=== PATIENT | female | born 1935 | race Caucasian/White ===

== ENCOUNTER 2019-03-12 10:04 | Inpatient (IN) | payer MEDICARE, SELFPAY ==
--- NOTE | 2019-03-08 11:42 | ECG_ITS ---
Measurements Intervals [place] Rate: 51 P: 65 AR: 192 QRS: 66 QRSD: 97 T: 50 QT: 470 QTc: 437 SINUS BRADYCARDIA Compared to ECG 12/21/2018 12:17:17 First degree AV block no longer present Electronically Signed On 03-08-2019 17:11:43 COREMAKING SUPERVISOR by Tawnya Thomas M.D. [email or web address]
[2019-03-08 12:16] VITALS: BMI 19.6
[2019-03-08 12:40] LABS: Hemoglobin 11.2 g/dL (11.5-15.3); Mean Corpuscular Hemoglobin 27.7 pg (28.0-34.0); Mean Corpuscular Volume 86.6 fL (81-99); Mean Platelet Volume 8.9 fL (7.4-10.4); Platelet Count 276 10^3/cmm (130-400); Red Blood Count 4.04 10^6/uL (4.1-5.3); Red Cell Distribution Width 14.9 % (12.1-15.1); White Blood Count 10.7 10^3/uL (4.0-10.0)
[2019-03-08 13:00] LABS: Alanine Aminotransferase 23 U/L (0-33); Albumin Level 4.9 g/dL (3.5-5.2); Alkaline Phosphatase 123 IU/L (35-105); Aspartate Amino Transferase 23 U/L (0-32); Blood Urea Nitrogen 19 mg/dL (8-23); Calcium 9.9 mg/Dl (8.8-10.2); Carbon Dioxide 26 mmol/L (22-29); Chloride 89 mmol/L (98-107); Creatinine Clr Calc Pharmacy 48.7329; Globulin 1.6 g/dL (1.3-4.6); Glucose 123 mg/dL (74-106); Sodium 127 mmol/L (136-145); Total Bilirubin 0.8 mg/dL (0.15-1.2); Total Protein 6.5 g/dL (6.6-8.7)
--- NOTE | 2019-03-08 13:10 | ANES.PREANES ---
Pre-Anesthetic Assessment Pre-Anesthetic Assessment: Height/Weight: Height 1.66 m Weight 54.431 kg Proposed Procedure: Operation Date: 03/12/19 07:00 Proposed Procedures p Hemiarthroplasty Hip/Versus Right Total Hip Arthroplasty(Right) - Franck Ramirez MD Social: Social History: Tobacco (quit september 2018) and No alcohol Exam: Pre-Anes Outpt Exam: alert, oriented x 3, clear to auscultation bilaterally and regular rate & rhythm Airway: Submandibular: WNL Cervical ROM: WNL MP: 2 Dentition: Partials (upper) and Other (poor) Pulmonary: Pulmonary: COPD CV/HEM: CV/HEM: HTN : : None reported Hepatic: Hepatic: None reported GI: GI: GERD (occ) Metabolic: Metabolic: Hyperlipidemia and Thyroid Musc/skel: Musc/skel: OA/DJD and Weakness Neuropsych: Neuropsych: Anxiety and Depression Anesthetic Plan: ASA status: III Anesthesia: Anesthesia Evaluation and General Risk of > 500 ml blood loss (7ml/kg in children): Yes, adequate IV access and fluids planned PFSH Anesthesia PFSH: Medical History (Updated 03/08/19 @ 13:11 by Chris Triana MD) Anxiety (Acute) Arthritis (Acute) Atrial fibrillation (Acute) Depression (Acute) High blood pressure (Acute) History of fracture (Acute) Hypothyroidism (Acute) MRSA (methicillin resistant Staphylococcus aureus) (Acute) Pneumonia (Acute) Sleep apnea (Acute) Surgical History (Updated 03/08/19 @ 13:11 by Chris Triana MD) History of section (Acute) Social History (Updated 03/08/19 @ 13:12 by Chris Triana MD) Smoking and tobacco status: former smoker Alcohol intake: never Data Anesthesia Labs: Other Labs: Laboratory Results - last 48 hr 03/08/19 03/08/19 12:06 12:06 WBC 10.7 H RBC 4.04 L Hgb 11.2 L Hct 35.0 L MCV 86.6 MCH 27.7 L MCHC 32.0 RDW 14.9 Plt Count 276 MPV 8.9 PT 15.60 H INR 1.20 Cardiac Studies: No Data to Display
[2019-03-08 14:45] LABS: Absolute Segmented Neutrophil 8.8 10/cmm (1.6-7.1); Lymphocytes 14 %; Monocytes Absolute 0.3 10^3/cmm (0.1-0.6); Platelet Estimate Normal (Normal); Segmented Neutrophils 83 %; Total Cells Counted 100 (0-100)
--- NOTE | 2019-03-09 | XR_ITS ---
WS: [id number] CHEST 2 VIEWS HISTORY: RIGHT HIP ARTHROPLASTY COMPARISON: 09/14/2018 Lungs: Mild hyperinflation of the lungs. Benign granuloma central LEFT lung. Minimal blunting of the LEFT costophrenic angle similar to prior studies. Cardiac size: Normal. Mediastinum/Aorta: Moderate atherosclerosis aorta. Bones: Bilateral AC joint arthritis. Mild thoracolumbar scoliosis. XR/XR chest 2V* [id number] IMPRESSION: 1. Stable chest with no acute cardiopulmonary disease. 2. Moderate atherosclerosis aorta.
[2019-03-12] VITALS (19 sets, daily range): BP systolic 99–156; BP diastolic 56–77; PULSE 53–81; RESP 16–20; TEMP 36.4–37.3; O2SAT 91–100
--- NOTE | 2019-03-12 06:15 | P.PN_ITS ---
Pre-Anesthetic Assessment Pre-Anesthetic Assessment: Height/Weight: Height 1.66 m Weight 54.431 kg Proposed Procedure: Operation Date: 03/12/19 07:00 Proposed Procedures p Hemiarthroplasty Hip/Versus Right Total Hip Arthroplasty(Right) - Franck Ramirez MD [facility] Anesthesia [facility]: Medical History Anxiety (Acute) Arthritis (Acute) Atrial fibrillation (Acute) Depression (Acute) High blood pressure (Acute) History of fracture (Acute) Hypothyroidism (Acute) MRSA (methicillin resistant Staphylococcus aureus) (Acute) Pneumonia (Acute) Sleep apnea (Acute) Surgical History History of section (Acute) Social History Smoking and tobacco status: former smoker Alcohol intake: never Data Anesthesia Cardiac Studies: No Data to Display
--- NOTE | 2019-03-12 06:43 | ANES.PREANES ---
Pre-Anesthetic Assessment Pre-Anesthetic Assessment: Height/Weight: Height 1.66 m Weight 54.431 kg Proposed Procedure: Operation Date: 03/12/19 07:00 Proposed Procedures p Hemiarthroplasty Hip/Versus Right Total Hip Arthroplasty(Right) - Franck Ramirez MD Last intake: Intake Last Liquid Date 03/11/19 Last Liquid Time 18:00 Last Solid Date 03/11/19 Last Solid Time 22:00 Social: Social History: Alcohol (occassional) and Tobacco (former) Exam: Pre-Anes Outpt Exam: alert, oriented x 3, clear to auscultation bilaterally and regular rate & rhythm Airway: Submandibular: WNL Cervical ROM: WNL MP: 2 Dentition: Chipped Additional comments: missing Pulmonary: Pulmonary: COPD Comments: mild CV/HEM: CV/HEM: Afib Comments: a fib - cleared up a few months ago : : None reported Hepatic: Hepatic: None reported GI: GI: None reported Metabolic: Metabolic: Thyroid Neuropsych: Neuropsych: Depression Anesthetic Plan: ASA status: III Anesthesia: General Risk of > 500 ml blood loss (7ml/kg in children): Yes, adequate IV access and fluids planned PFSH Anesthesia PFSH: Medical History Anxiety (Acute) Arthritis (Acute) Atrial fibrillation (Acute) Depression (Acute) High blood pressure (Acute) History of fracture (Acute) Hypothyroidism (Acute) MRSA (methicillin resistant Staphylococcus aureus) (Acute) Pneumonia (Acute) Sleep apnea (Acute) Surgical History History of section (Acute) Social History Smoking and tobacco status: former smoker Alcohol intake: never Data Anesthesia Cardiac Studies: No Data to Display
--- NOTE | 2019-03-12 07:07 | PM.HPUD ---
H&P update H&P Update: DATE OF SURGERY/PROCEDURE: 03/12/19 DATE H&P PERFORMED: 03/12/19 PLANNED PROCEDURE: Operation Date: 03/12/19 07:00 Proposed Procedures p Hemiarthroplasty Hip/Versus Right Total Hip Arthroplasty(Right) - Franck Ramirez MD Full H&P HPI: HPI: The patient is an 83-year-old female who is 5 months after open reduction internal fixation of her right hip with intramedullary device. She tolerated the original procedure on 09/12/2018 well. She has had complaints of continued pain and difficulty with regaining ambulatory status. She continued she used her walker. She describes no additional injuries. He is here today for removal of her intramedullary device and revision to a bipolar arthroplasty versus possible total hip arthroplasty ROS: ROS: She denies any fevers or chills. She has no numbness or tingling in her right lower extremity. She has no chest pain shortness of breath or palpitations. She has no cough or congestions. Perinent History: Medical/Surgical History: Medical History (Updated 03/08/19 @ 13:11 by Crhis Triana MD) Anxiety (Acute) Arthritis (Acute) Atrial fibrillation (Acute) Depression (Acute) High blood pressure (Acute) History of fracture (Acute) Hypothyroidism (Acute) MRSA (methicillin resistant Staphylococcus aureus) (Acute) Pneumonia (Acute) Sleep apnea (Acute) Social History: Social History Smoking and tobacco status: former smoker Alcohol intake: never Pertinent Exam Findings: OTHER PERTINENT EXAM FINDINGS: HEAD: Normocephalic/atraumatic. NECK: Soft supple nontender. HEART: Normal heart sounds, regular rhythm. CHEST: Clear to auscultation. ABDOMEN: Soft nontender nondistended. Right lower extremity: The patient has exquisite pain with motion of her right hip. She has a palpable right dorsalis pedis pulse. She will flex and sent her toes and her ankle without any motor deficits. Pertinent Data: PERTINENT DATA: Radiographs are reviewed of the right proximal femur from clinic dated 02/08/2019. The patient has progressive resorption across her femoral neck cut out of the lag screw from the femoral head. I do not see any acetabular erosions on those radiographs. A&P Assessment and plan (1) Closed intertrochanteric fracture of right hip: Patient has previously been counseled as to removal of hardware and arthroplasty of the right hip. If there are no significant acetabular erosions we will proceed with a cemented bipolar. If there is acetabular involvement will need to progress with a total hip. The patient has been previously counseled. We will proceed as scheduled. Status: Acute Qualifiers: Fracture healing: with nonunion Encounter type: subsequent encounter Fracture alignment: displaced Qualified Code(s): S72.141K - Displaced intertrochanteric fracture of right femur, subsequent encounter for closed fracture with nonunion Code(s): S72.141A - Displaced intertrochanteric fracture of right femur, initial encounter for closed fracture
[2019-03-12] MEDS: sodium chloride 0.9% 1,000 ML 30 ML IV (07:16)
[2019-03-12] MEDS: clindamycin 600 MG/50 ML PREMIX 100 MG IV (07:27)
[2019-03-12] MEDS: tranexamic acid 1,000 mg/10mL SDV 2000 MG IRRIGATION (08:28)
--- NOTE | 2019-03-12 08:34 | SUR.OPER ---
Trochnail and 2 screws removed intact. Placed in biohazard for disposal.
--- NOTE | 2019-03-12 09:59 | PM.OP ---
Operative Report Post-Operative Note: Date of procedure: 03/12/19 Preop Diagnosis: Nonunion right basicervical femoral neck fracture Post-op diagnosis: same Post-op Findings: The patient had nonunion of a basicervical right femoral neck fracture with cut out of the leg screw through the femoral head and superior acetabular erosions. Procedure Done: Right total hip arthroplasty with removal intramedullary hardware Implants: Stryiker total hip arthroplasty: Amish ADM anatomic dual mobility acetabular cup, 28 mm / 50 mm outer diameter ADM X3 insert, Biolox ceramic V 4038 mm femoral head, Omnifit leydi 127 degrees cemented hip stem,Biolox ceramic C taper femoral head 28 mm I outer diameter/-2.5 mm neck length Surgeon: Franck Ramirez Anesthesia: general Estimated blood loss (mL): 1,200 Complications: None Findings: The patient had a nonunion of a right basicervical femoral neck fracture. She had the previously placed intramedullary nail. No purulence or necrosis was identified. Condition: stable Disposition: PACU Operative Report: Brief History: See admission history and physical Procedure: The patient was taken to the operating room and anesthesia provided by the anesthesia service. The patient was placed in the lateral position on a beanbag. A timeout was performed. The patient was draped in the usual fashion. A 15 cm long incision was made beginning just proximal to the greater trochanter incorporating the proximal excision and extending posteriorly to a point just distal to the trochanter to the lateral lag screw scar. On the posterior border of the trochanter. Dissection was carried down with electrocautery through the subcutaneous fat to the fascia elmo which was divided proximally and distally with curved scissors. The anterior two thirds of the gluteus medius and minimus were elevated off the hip with electrocautery. Dissection was accomplished anteriorly beneath the remaining gluteus medius and minimus and the proximal gamma nail identified. Soft tissue was removed and the proximal lag screw locking screw removed. The extractor was placed. Dissection was then carried distally to the greater trochanter identifying the lag screw. It was removed without difficulty. The femoral juli was then removed. The capsule was divided in a H-like fashion. The hip was dislocated and a neck cut made just above the level of the lesser trochanter. The femoral head was removed. The acetabulum was palpated with erosions identified superiorly. A decision was made to proceed with a total hip arthroplasty. Exposure of the acetabulum was facilitated with the acetabular retractors. Remnants of labrum and peripheral osteophytes were removed with electrocautery and a rongeur. A reamer 2 mm under the size the femoral head was utilized to ream medially to the base of the palm and are. Reaming was then increased in 1 mm intervals until a healthy rim a trabecular bone was encountered. A trial ADM cup was placed and its position marked with electrocautery In the acetabulum. A final [place] 50 mm ADM shell was press-fit into place. Attention was then focused on the femur. Sequential reaming was done under power until cortical chatter was encountered. Broaching was then accomplished until a stable broach size was obtained. Due to the abnormalities of the proximal bone we proceeded with a cemented stem. The leg screw hole was filled with bone graft from the femoral head. A trial reduction with the -2.5 head and neck provided excellent stability. The wound was irrigated with saline and antibiotic solution. The final size 7 [place] was cemented into place. A ceramic 28 mm femoral head and -2.5 neck was placed with a 50 mm AVM insert and the hip was reduced. The hip was brought through range of motion and found to be free of impingement and stable. The anterior capsule was reapproximated with 1 Ethibond. The gluteus medius and minimus were repaired through bone with 5 Ethibond and reinforced with 1 Ethibond. The fascial elmo was closed with 1 Ethibond. The subcutaneous tissue closed with 2-0 Vicryl. The skin was closed with skin theo. A sterile dressing was applied. The patient was taken to the recovery room in an abduction pillow in stable condition. Coding Level of Care Code Acute Aluminum Boat Assembly Supervisor for Flores Saldana
--- NOTE | 2019-03-12 10:22 | XRR_ITS ---
PROCEDURE INFORMATION: Exam: XR Right Hip with Pelvis when Performed Exam date and time: 03/12/2019 10:25 AM Age: 83 years old Clinical indication: Device placement; Other: Postop right hip; Prior surgery; Surgery date: Post-operative (0-2 days) TECHNIQUE: Imaging protocol: XR Right hip with pelvis when performed. Views: 1 view. COMPARISON: CR Hip 2-3v RIGHT wwo Pelv* [id number] 09/16/2018 11:00 AM FINDINGS: Bones/joints: Hip arthroplasty without evidence of acute fracture or dislocation. No paralleling lucencies. Soft tissues: Postoperative changes in the soft tissues. Surgical clips. XR/XR hip RT 1V wo/w pel [id number] IMPRESSION: No acute fracture or dislocation status post hip arthroplasty.
--- NOTE | 2019-03-12 10:49 | SUR.PHASEI ---
1026 PT TO PACU SLEEPY WITH GOOD RESP EFFORT, RT HIP DRESSING D/I DISTAL FOOT WITH STRONG PULSE MARKED FIRST ICE TO RT HIPD ABD PILLOW IN PLACE BILAT FOOT PUMPS ON UMANA WITH STATLOCK TO RT THIGH. 1045 PT CONTINUES TO SLEEP VSS X RAY DONE.
--- NOTE | 2019-03-12 10:58 | SUR.PHASEI ---
PT AWAKES EASILY WITH GOOD RESP SATS ON RA 93\5 PT PLACEDON E3LNC SATS UP TO 94%
--- NOTE | 2019-03-12 11:58 | SUR.PHASEI ---
1125 PT TO FLOOR , AWAKE ALERT TALKATIVE WITH FAMILY IN ROOM AND NURSE SAMARA RN DRESSING D/I BP 149/76, HR 54M RESP 16, SATS ON 3LNC 94
[2019-03-12] MEDS: HYDROcodone-acetaminophen 5-325 mg Tablet 1 TAB PO (13:04)
[2019-03-12] MEDS: sodium chloride 0.9% 1,000 ML 100 ML IV (13:13)
[2019-03-12] MEDS: lanolin oint 7 gm 1 APPLIC TOPICAL (13:22)
[2019-03-12] MEDS: clindamycin 900 MG/50 ML PREMIX 100 MG IV (17:05)
[2019-03-12] MEDS: calcium carbonate 500 mg Chew Tablet 1000 MG PO (18:20)
[2019-03-12] MEDS: iron polysaccharide complex 150 mg Capsule PO (18:20)
[2019-03-12] MEDS: sennosides-docusate Tablet 2 TAB PO (18:20)
[2019-03-12] MEDS: buPROPion SR (12 HR) 150 mg Tablet PO (18:20)
[2019-03-12] MEDS: chlorhexidine gluconate 0.12% Btl 473 mL 30 ML MUCOUS MEM ×2 (18:20→21:49)
[2019-03-13] VITALS (8 sets, daily range): BP systolic 117–150; BP diastolic 57–69; PULSE 67–90; RESP 16–20; TEMP 36.5–37.1; O2SAT 91–97
[2019-03-13] MEDS: sodium chloride 0.9% 1,000 ML 100 ML IV ×3 (02:05→19:41)
[2019-03-13 05:10] LABS: Basophils % 0.1 %; Lymphocytes % 7.2 %; Mean Corpuscular HGB Conc 32.1 g/dL (30.0-36.0); Mean Corpuscular Hemoglobin 27.8 pg (28.0-34.0); Mean Corpuscular Volume 86.4 fL (81-99); Mean Platelet Volume 8.6 fL (7.4-10.4); Monocytes # 1.3 10^3/uL (0.2-0.9); Monocytes % 9.8 %; Neutrophils # 10.8 10^3/uL (1.8-7.7); Neutrophils % 82.1 %; Nucleated Red Blood Cells % 0 %; Platelet Count 222 10^3/cmm (130-400); Red Blood Count 3.24 10^6/uL (4.1-5.3); Red Cell Distribution Width 15.6 % (12.1-15.1); White Blood Count 13.2 10^3/uL (4.0-10.0)
[2019-03-13 05:44] LABS: Anion Gap 13.7 (5-19); Blood Urea Nitrogen 15 mg/dL (8-23); Calcium 8.8 mg/Dl (8.8-10.2); Carbon Dioxide 24 mmol/L (22-29); Chloride 95 mmol/L (98-107); Glucose 122 mg/dL (74-106); Potassium 3.7 mmol/L (3.5-5.1); Sodium 129 mmol/L (136-145)
--- NOTE | 2019-03-13 08:03 | PM.PN ---
Subjective Subjective: Interval history: Patient seems a bit confused. Tolerating po liquid. Pain control ok Medications: Reviewed: Yes Vitals/I&O/Wt Last Vital Signs Temp 98.8 F 03/13/19 03:42 Pulse 76 03/13/19 03:42 Resp 19 H 03/13/19 03:42 BP 145/66 03/13/19 03:42 Pulse Ox 95 03/13/19 03:42 03/12/19 03/13/19 03/13/19 22:59 06:59 14:59 Intake Total 410 / 3120 1050 / 4170 Output Total 200 / 1900 380 / 2280 Balance 210 / 1220 670 / 1890 Physical Exam Narrative: EXAM NARRATIVE: Right hip dressing clean and dry. Minimal swelling thigh Urinary Catheter Management^: Perry: Cath Placed During This Visit: removed today A&P Assessment and plan (1) Status post total hip replacement, right: Continue to mobilize with therapy. May need SNF although patient refuses to consider Snf presently Status: Acute Code(s): Z96.641 - Presence of right artificial hip joint (2) Chronic anticoagulation: I discussed patient's history of afib with family. She has not been in atrial fibrillation for some time to there kylee. Will hold Eliquis until wound stabilizes Status: Acute Code(s): Z79.01 - long term care administrator (current) use of anticoagulants Attestations Medical Necessity Statement*: Anticipate SNF placement. Patient will require 3 nights hospitalizaion Coding Level of Care Code Acute Senior Payroll Administrator for Flores Saldana Diagnoses Status post total hip replacement, right Z96.641 Chronic anticoagulation Z79.01
[2019-03-13] MEDS: lisinopril 20 mg Tablet 40 MG PO (10:05)
[2019-03-13] MEDS: digoxin 125 mcg Tablet PO (10:06)
[2019-03-13] MEDS: sennosides-docusate Tablet 2 TAB PO ×2 (10:06→18:20)
[2019-03-13] MEDS: montelukast sodium 10 mg Tablet PO (10:06)
[2019-03-13] MEDS: multivitamin therapeutic Tablet 1 TAB PO (10:10)
[2019-03-13] MEDS: amiodarone 200 mg Tablet PO (10:10)
[2019-03-13] MEDS: levothyroxine 100 mcg Tablet PO (10:10)
[2019-03-13] MEDS: calcium carbonate 500 mg Chew Tablet 1000 MG PO ×2 (10:10→18:19)
[2019-03-13] MEDS: buPROPion SR (12 HR) 150 mg Tablet PO ×2 (10:11→18:19)
[2019-03-13] MEDS: cholecalciferol (vitamin D3) 1,000 unit Tablet 1000 UNIT PO (10:11)
[2019-03-13] MEDS: pantoprazole DR 40 mg Tablet PO (10:11)
[2019-03-13] MEDS: iron polysaccharide complex 150 mg Capsule PO ×2 (10:11→18:19)
[2019-03-13] MEDS: HYDROcodone-acetaminophen 5-325 mg Tablet 1 TAB PO ×3 (10:12→19:40)
[2019-03-13] MEDS: citalopram 20 mg Tablet PO (10:12)
[2019-03-13] MEDS: atenolol 50 mg Tablet PO (10:12)
[2019-03-13] MEDS: atorvastatin 40 mg Tablet 20 MG PO (10:12)
[2019-03-13] MEDS: clindamycin 900 MG/50 ML PREMIX 100 MG IV ×2 (10:13)
[2019-03-13] MEDS: chlorhexidine gluconate 0.12% Btl 473 mL 30 ML MUCOUS MEM ×4 (10:14→21:24)
[2019-03-13] MEDS: TRAMadol 50 mg Tablet PO (21:27)
[2019-03-13 23:35] LABS: Glucose Urine UA Norm (Normal); Protein Urine Neg (Negative); Specific Gravity, Urine 1.025 (1.005-1.030); Urine Appearance Hazy (CLEAR); Urine Color Yellow (Yellow); pH Urine 5 (5-7)
[2019-03-13 23:36] LABS: Bilirubin Urine Neg (NEGATIVE); Blood Urine 2+ (Negative); Ketones Urine Negative (Negative); Leukocyte Esterase Urine 1+ (Negative); Nitrate Urine Negative (Negative); Urobilinogen Urine Norm (Negative)
[2019-03-13 23:47] LABS: Bacteria Urine TRACE; RBC Urine 40-50 /hpf (0-2); Squamous Epithelial Cell Urine 0-4 (0-5); WBC Urine 0-4 /hpf (0-5)
[2019-03-13 23:48] LABS: Add Urine Culture? Yes; Hyaline Casts Urine 0-4
[2019-03-14] VITALS (14 sets, daily range): BP systolic 95–149; BP diastolic 52–74; PULSE 63–83; RESP 16–20; TEMP 37.1–37.7; O2SAT 87–96
[2019-03-14] MEDS: sodium chloride 0.9% 1,000 ML 100 ML IV ×2 (03:40→11:52)
[2019-03-14 05:23] LABS: Basophils # 0.1 10^3/uL (0.0-0.1); Basophils % 0.5 %; Eosinophils # 0.1 10^3/uL (0.0-0.8); Eosinophils % 0.9 %; Hematocrit 23.6 % (37.0-47.0); Hemoglobin 7.6 g/dL (11.5-15.3); Lymphocytes % 9.4 %; Mean Corpuscular HGB Conc 32.2 g/dL (30.0-36.0); Mean Corpuscular Hemoglobin 27.1 pg (28.0-34.0); Mean Corpuscular Volume 84.3 fL (81-99); Mean Platelet Volume 8.9 fL (7.4-10.4); Monocytes # 1.1 10^3/uL (0.2-0.9); Monocytes % 10.2 %; Neutrophils # 8.3 10^3/uL (1.8-7.7); Neutrophils % 78.2 %; Nucleated Red Blood Cells % 0 %; Platelet Count 201 10^3/cmm (130-400); Red Cell Distribution Width 15.3 % (12.1-15.1); White Blood Count 10.7 10^3/uL (4.0-10.0)
[2019-03-14] MEDS: HYDROcodone-acetaminophen 5-325 mg Tablet 1 TAB PO ×4 (05:35→23:25)
[2019-03-14] MEDS: iron polysaccharide complex 150 mg Capsule PO ×2 (10:08→18:07)
[2019-03-14] MEDS: lisinopril 20 mg Tablet 40 MG PO (10:09)
[2019-03-14] MEDS: amiodarone 200 mg Tablet PO (10:09)
[2019-03-14] MEDS: buPROPion SR (12 HR) 150 mg Tablet PO ×2 (10:10→18:07)
[2019-03-14] MEDS: multivitamin therapeutic Tablet 1 TAB PO (10:10)
[2019-03-14] MEDS: atorvastatin 40 mg Tablet 20 MG PO (10:10)
[2019-03-14] MEDS: levothyroxine 100 mcg Tablet PO (10:10)
[2019-03-14] MEDS: pantoprazole DR 40 mg Tablet PO (10:10)
[2019-03-14] MEDS: citalopram 20 mg Tablet PO (10:10)
[2019-03-14] MEDS: montelukast sodium 10 mg Tablet PO (10:10)
[2019-03-14] MEDS: cholecalciferol (vitamin D3) 1,000 unit Tablet 1000 UNIT PO (10:10)
[2019-03-14] MEDS: atenolol 50 mg Tablet PO (10:10)
[2019-03-14] MEDS: calcium carbonate 500 mg Chew Tablet 1000 MG PO ×2 (10:11→18:07)
[2019-03-14] MEDS: sennosides-docusate Tablet 2 TAB PO ×2 (10:11→18:07)
[2019-03-14] MEDS: chlorhexidine gluconate 0.12% Btl 473 mL 30 ML MUCOUS MEM ×2 (10:11→18:05)
[2019-03-14] MEDS: digoxin 125 mcg Tablet PO (10:15)
--- NOTE | 2019-03-14 14:29 | PC.CHAP ---
Pastoral Care Encounter/Spiritual Assessment Type of Contact [] Declined epidemiology internship visit [] Patient/Family/Request visit [] Outpatient visit [x] Follow-up visit [] Physician referral [] Code/Alert [] Routine visit [] Staff referral [] Actively dying [x] Patient sleeping [] Family support [] [] Out of room [] Palliative care [] [] Receiving care in room [] Pre-surgical visit [] Trauma [] Long length of stay [] ICU visit [] Other: Relational/Emotional Strength [] Patient feels connected with others/family/visitors/staff [] Distress [] Loneliness/isolation [] Abandonment Spirituality of Patient [] Person of Meri [] Attends Yarsanism of their Meri [] Believes in Prayer [] Reads Bible or Baptist materials [] There are Spiritual issues to be addressed Biomedical Technician Interventions [] Prayer [] Active listening [] Non-anxious presence [] Spiritual/emotional support [] Crisis/trauma care [] Spiritual counseling [] Bereavement support [] Provided bereavement packet [] Provided Bible/devotional materials [] Provided toy/stuffed animal, coloring book to patient or family member [] Completed spiritual assessment [] Provided Communion [] Anointing/[place] [] Salvation [] Other: Impact on Illness or Injury [] Angry [] Fearful [] Anxious [] Often cries [] Exhaustion [] Unable to work [] Unable to attend restorationist [] Unable to walk/stand [] Unable to read [] Unable to drive [] Unable to eat/drink [] Unable to sleep [] Unable to be with family [] Other: Summary Time spent with patient
--- NOTE | 2019-03-14 17:06 | P.DS_ITS ---
Discharge Providers Date of Admission: 03/12/19 10:04 Date of Discharge: 03/15/19 Attending Provider at Admission: Franck Ramirez Attending Provider at Discharge: Franck Ramirez Primary Care Provider: Eduar Smith APN Diagnoses at Discharge Discharge Diagnosis (1) Status post total hip replacement, right: Status: Acute (2) Chronic anticoagulation: Status: Acute (3) Anemia due to blood loss: Status: Acute Problem details: The patient's hemoglobin decreased to 7.6 on the second postoperative day and she was given 1 additional unit PRBC. (4) Closed intertrochanteric fracture of right hip: Status: Acute Qualifiers: Encounter type: subsequent encounter Fracture alignment: displaced Fracture healing: with nonunion Qualified Code(s): S72.141K - Displaced intertrochanteric fracture of right femur, subsequent encounter for closed fracture with nonunion (5) Atrial fibrillation: Status: Acute (6) Sleep apnea: Status: Acute Reason for Visit Reason for Visit: Reason For Visit: Intertrochanteric Hip Fracture of Right Femur Hospital Course Hospital Course: The patient did well postoperatively. Her pain was controlled with oral medications. She made very slow progress with therapy and was thought to be best managed with a penitentiary transfer. On the second postoperative day her incision was free of drainage and her dressing continued to be clean on the third day. She had minimal thigh swelling. She has no neurovascular deficits in her right lower extremity. She was thought stable for discharge. Physical Exam Narrative: EXAM NARRATIVE: On the third postoperative day she had minimal swelling in her thigh. Her incision was clean. She had no neuro deficits in her right lower extremity. Urinary Catheter Management^: Perry: Cath Placed During This Visit: no Discharge Data Data Completed and Pending: Completed Studies During Hospitalization Category Date Time Status XR chest 2V* 7104 6 Routine Exams 03/09/19 Completed XR hip RT 1V wo/w pel [id number] Routine Exams 03/12/19 10:22 Completed Pending at discharge Category Date Time Status Autologous Red Ce lls Routine Lab 03/14/19 17:05 Ordered Complete Blood Co unt w/Auto AM LABS Lab 03/15/19 04:00 Ordered Urine Culture Rou christen Lab 03/13/19 22:40 Received Labs from last 24 hours 03/14/19 03/13/19 04:47 22:40 WBC 10.7 H RBC 2.80 L Hgb 7.6 L Hct 23.6 L MCV 84.3 MCH 27.1 L MCHC 32.2 RDW 15.3 H Plt Count 201 MPV 8.9 Neut % (Auto) 78.2 Lymph % (Auto) 9.4 Esmeralda % (Auto) 10.2 Eos % (Auto) 0.9 Baso % (Auto) 0.5 Neut # (Auto) 8.3 H Lymph # (Auto) 1.0 Esmeralda # (Auto) 1.1 H Eos # (Auto) 0.1 Baso # (Auto) 0.1 Nucleated RBC % (a uto) 0 Nucleated RBCs # 0.0 Urine Color Yellow Urine Appearance Hazy A Urine pH 5 Ur Specific Gravit y 1.025 Urine Protein Neg Urine Glucose (UA) Norm Urine Ketones Negative Urine Occult Blood 2+ H Urine Nitrate Negative Urine Bilirubin Neg Urine Urobilinogen Norm Ur Leukocyte Lucille ase 1+ H Urine RBC 40-50 H Urine WBC 0-4 H Ur Squamous Epith Cells 0-4 H Urine Bacteria Trace Hyaline Casts 0-4 H Vitals: Last Vital Signs Temp 99.0 F 03/14/19 15:41 Pulse 63 03/14/19 15:41 Resp 18 03/14/19 15:41 BP 113/57 03/14/19 15:41 Pulse Ox 90 03/14/19 15:41 Discharge Plan Discharge Patient Disposition: Xfer SNF Condition: Stable Prescriptions: New hydrocodone-acetaminophen 5-325 mg Tablet 1 tab PO Q4H PRN (Reason: Moderate Pain) Qty: 30 RF: 0 Continued bupropion HCl 150 mg tablet sustained-release 12 hr 150 mg PO BID RF: 0 alprazolam [Xanax] 1 mg tablet 1 mg PO PRN RF: 0 amiodarone 200 mg tablet 200 mg PO DAILY RF: 0 Multi-Vitamins with Iron Tablet,Chewable 1 tab PO DAILY RF: 0 tramadol 50 mg Tablet 50 mg PO BID PRN (Reason: Pain) RF: 0 simvastatin 40 mg tablet 40 mg PO DAILY RF: 0 levothyroxine 100 mcg tablet 100 mcg PO DAILY RF: 0 citalopram 20 mg tablet 20 mg PO DAILY RF: 0 pantoprazole 40 mg tablet,delayed release (DR/EC) 40 mg PO DAILY RF: 0 Nitrostat 0.4 mg Tablet, Sublingual 0.4 mg SUBLINGUAL Q5M PRN (Reason: Pain) RF: 0 montelukast [Singulair] 10 mg Tablet 10 mg PO DAILY RF: 0 digoxin [Digox] 125 mcg (0.125 mg) tablet 125 mcg PO PRN RF: 0 lisinopril 40 mg tablet 40 mg PO DAILY RF: 0 atenolol 50 mg tablet 50 mg PO DAILY RF: 0 vitamin C77-stbfj acid 500-400 mcg Tablet 1 tab PO DAILY RF: 0 Eliquis 5 mg tablet 5 mg PO BID RF: 0 Discharge Orders: Discharge Order (Routine); Ordered 03/15/19 Ordered By: Franck Ramirez Referrals: [facility] [Other] (You have been accepted by [facility] for services. They will be notifying you by phone to arrange a time to come and admit you to their services. If you have not heard from them by tomorrow afternoon please call their office. ) Franck Ramirez MD [Physician] - 03/26/19 1:00 pm Discharge Activity: Use walker/crutches as instructed Patient Instructions: Anemia, Hydrocodone/Acetaminophen (By mouth), Atrial Fibrillation (DC), Sleep Apnea Syndrome (DC), Total Hip Replacement (DC) Activity Restrictions/Additional Instructions: May weight-bear as tolerated with walker. Physical activity per physical therapy Okay to shower once incision free of drainage. The retirement may discontinue her Perry per protocol. Discharge Attestations Time Spent in Discharge Care*: less than 30 min Quality Metrics Clinical Quality Measures During this hospital stay, did patient experience: None Coding Level of Care Code Acute Special Agent Group Insurance for Flores Fwangelia Diagnoses Status post total hip replacement, right Z96.641 Chronic anticoagulation Z79.01 Anemia due to blood loss D50.0 Closed intertrochanteric fracture of right hip S72.141K Encounter type: subsequent encounter Fracture alignment: displaced Fracture healing: with nonunion Atrial fibrillation I48.91 Sleep apnea G47.30
--- NOTE | 2019-03-14 17:11 | P.PN_ITS ---
Subjective Subjective: Interval history: Patient's pain is much better. Perry catheter placed last night. Vitals/I&O/Wt Last Vital Signs Temp 99.0 F 03/14/19 15:41 Pulse 63 03/14/19 15:41 Resp 18 03/14/19 15:41 BP 113/57 03/14/19 15:41 Pulse Ox 90 03/14/19 15:41 03/14/19 03/14/19 03/14/19 06:59 14:59 22:59 Intake Total 798.333 / 2948.333 1060 / 1060 Output Total 500 / 925 Balance 298.333 / 2023.333 1060 / 1060 Weight last 48 hrs Weight 163 lb Weight 159 lb 4.8 oz Physical Exam Narrative: EXAM NARRATIVE: Right hip incision clean and dry. Minimal swelling right thigh Urinary Catheter Management^: Perry: Cath Placed During This Visit: no A&P Assessment and plan (1) Closed intertrochanteric fracture of right hip: Status: Acute Qualifiers: Encounter type: subsequent encounter Fracture alignment: displaced Fracture healing: with nonunion Qualified Code(s): S72.141K - Displaced intertrochanteric fracture of right femur, subsequent encounter for closed fracture with nonunion Code(s): S72.141A - Displaced intertrochanteric fracture of right femur, initial encounter for closed fracture (2) Anemia due to blood loss: Status: Acute Code(s): D50.0 - Iron deficiency anemia secondary to blood loss (chronic) (3) Status post total hip replacement, right: The patient is slow to mobilize with therapy. I discussed intermediate with the placement and they agreed toward placement tomorrow Status: Acute Code(s): Z96.641 - Presence of right artificial hip joint Attestations Medical Necessity Statement*: The patient will be qualified for intermediate tomorrow after 3 nights hospitalization Coding Level of Care Code Acute Medical Cash Poster for Flores Saldana Diagnoses Closed intertrochanteric fracture of right hip S72.141K Encounter type: subsequent encounter Fracture alignment: displaced Fracture healing: with nonunion Anemia due to blood loss D50.0 Status post total hip replacement, right Z96.641
[2019-03-14] MEDS: TRAMadol 50 mg Tablet PO (20:35)
[2019-03-15] MEDS: sodium chloride 0.9% 1,000 ML 100 ML IV (00:25)
[2019-03-15 01:45] VITALS: PULSE 90; PULSE 91; RESP 18; O2SAT 81; O2SAT 95
[2019-03-15 03:05] VITALS: BP 109/62; PULSE 62; RESP 16; TEMP 36.7; O2SAT 92
--- NOTE | 2019-03-15 04:05 | PC.RESP ---
When RT entered the room and checked vitals o2 sat was 81%, the patients nasal cannula was out of the patients nose. RT placed the cannula back in the patients nose correctly and increased to liter flow to 3lpm, the patients saturations increased to 95%
[2019-03-15 05:37] LABS: Basophils # 0.1 10^3/uL (0.0-0.1); Basophils % 0.6 %; Eosinophils # 0.3 10^3/uL (0.0-0.8); Eosinophils % 2.8 %; Hematocrit 24.3 % (37.0-47.0); Hemoglobin 7.8 g/dL (11.5-15.3); Lymphocytes # 1.1 10^3/uL (0.8-4.8); Lymphocytes % 12.8 %; Mean Corpuscular HGB Conc 32.1 g/dL (30.0-36.0); Mean Corpuscular Hemoglobin 28.1 pg (28.0-34.0); Mean Corpuscular Volume 87.4 fL (81-99); Mean Platelet Volume 8.9 fL (7.4-10.4); Monocytes # 0.9 10^3/uL (0.2-0.9); Monocytes % 10.1 %; Neutrophils # 6.4 10^3/uL (1.8-7.7); Neutrophils % 72.9 %; Nucleated Red Blood Cells % 0 %; Platelet Count 193 10^3/cmm (130-400); Red Blood Count 2.78 10^6/uL (4.1-5.3); Red Cell Distribution Width 14.9 % (12.1-15.1); White Blood Count 8.8 10^3/uL (4.0-10.0)
[2019-03-15 07:00] VITALS: BP 145/72; PULSE 91; RESP 16; TEMP 36.7; O2SAT 92
[2019-03-15 07:21] VITALS: BP 153/62; PULSE 61; RESP 18; TEMP 36.8; O2SAT 96
--- NOTE | 2019-03-15 07:53 | ANE.PACU ---
 Inpatient post-anesthesia follow up: Airway intact: Yes Vital signs: Temperature 98.2 F Pulse Rate [Bilate ral Dorsalis 61 Pedis] Pulse Rate [Left B rachial] 73 Pulse Rate 91 Respiratory Rate 18 Blood Pressure [Ri ght Arm] 153/62 Blood Pressure 145/72 Pulse Oximetry 96 Oxygen Delivery Me thod [Rate & Nasal Cannula Delivery Changed T o] Oxygen Delivery Me thod [ Nasal Cannula Current Rate & Del francisco] Oxygen Delivery Me thod Nasal Cannula Oxygen Flow Rate [ Rate & 3 Delivery Changed T o] Oxygen Flow Rate [ Current Rate 1 & Delivery] Oxygen Flow Rate 3 Fraction of Inspir ed Oxygen Hydration adequate: Yes Nausea and vomiting: No Mental status: Baseline
[2019-03-15] MEDS: montelukast sodium 10 mg Tablet PO (08:17)
[2019-03-15] MEDS: cholecalciferol (vitamin D3) 1,000 unit Tablet 1000 UNIT PO (08:17)
[2019-03-15] MEDS: iron polysaccharide complex 150 mg Capsule PO (08:17)
[2019-03-15] MEDS: calcium carbonate 500 mg Chew Tablet 1000 MG PO (08:17)
[2019-03-15] MEDS: buPROPion SR (12 HR) 150 mg Tablet PO (08:18)
[2019-03-15] MEDS: citalopram 20 mg Tablet PO (08:18)
[2019-03-15] MEDS: amiodarone 200 mg Tablet PO (08:18)
[2019-03-15] MEDS: multivitamin therapeutic Tablet 1 TAB PO (08:18)
[2019-03-15] MEDS: pantoprazole DR 40 mg Tablet PO (08:18)
[2019-03-15] MEDS: sennosides-docusate Tablet 2 TAB PO (08:18)
[2019-03-15] MEDS: atenolol 50 mg Tablet PO (08:18)
[2019-03-15] MEDS: levothyroxine 100 mcg Tablet PO (08:18)
[2019-03-15] MEDS: lisinopril 20 mg Tablet 40 MG PO (08:18)
[2019-03-15] MEDS: atorvastatin 40 mg Tablet 20 MG PO (08:19)
[2019-03-15 08:20] VITALS: PULSE 74
[2019-03-15] MEDS: chlorhexidine gluconate 0.12% Btl 473 mL 30 ML MUCOUS MEM (08:20)
[2019-03-15] MEDS: digoxin 125 mcg Tablet PO (08:20)
[2019-03-15] MEDS: HYDROcodone-acetaminophen 5-325 mg Tablet 1 TAB PO (08:25)
[2019-03-15] MEDS: apixaban 5 mg Tablet PO (09:42)
[2019-03-15] MEDS: cetylpyridinium Lozenge 1 EACH MUCOUS MEM (09:51)
--- NOTE | 2019-03-15 10:55 | PC.SOCIAL ---
IMM Page 2 of IMM explained to and signed by patient's family at bedside. Initialed, dated, and timed and placed in chart. Copy provided to patient.
[2019-03-15 11:01] VITALS: BP 111/52; PULSE 53; RESP 18; TEMP 36.8; O2SAT 96
== END 2019-03-15 13:16 | disposition skilled nursing facility (03) | DRG 468 ==
LOC: MEDSURG 10:17
PROVIDERS: Admitting Provider Orthopaedic Surgery; Family Provider Nurse Practitioner Family; PCP Nurse Practitioner Family; Visit Provider Orthopaedic Surgery
PROC: 0SR90J9 Replacement of Right Hip Joint with Synthetic Substitute, Cemented, Open Approach (ICD-10-PCS; CPT 27125; principal; 2019-03-12 07:00)
DX: S72.141K Displaced intertrochanteric fracture of right femur, subsequent encounter for closed fracture with nonunion (principal); Z79.01 Long term (current) use of anticoagulants; G47.30 Sleep apnea, unspecified; I48.91 Unspecified atrial fibrillation; E03.9 Hypothyroidism, unspecified; Z86.14 Personal history of Methicillin resistant Staphylococcus aureus infection; M19.90 Unspecified osteoarthritis, unspecified site; I10 Essential (primary) hypertension; F41.8 Other specified anxiety disorders; Z87.891 Personal history of nicotine dependence; X58.XXXA Exposure to other specified factors, initial encounter
CPT/HCPCS: 36415; 36430; 51702; 51798; 71046; 73501; 73502; 80048; 80053; 81001; 85007; 85025; 85027; 85610; 86850; 86900; 87086; 93005; 97110; 97116; 97162; 97167; 97530; 97535; C1713; C1776; J0131; J1100; J1580; J2001; J2405; J2704; J2710; J3010; J3490; J7030; P9016

== ENCOUNTER 2019-03-28 06:00 | Outpatient (RCR) | payer MEDICARE, SELFPAY | END 2019-04-06 23:59 | disposition home or self-care (01) | LOC: TPT 06:00 | PROVIDERS: Family Provider Nurse Practitioner Family; PCP Nurse Practitioner Family; Visit Provider Orthopaedic Surgery | DX: Z47.1 Aftercare following joint replacement surgery (principal); Z96.641 Presence of right artificial hip joint | CPT/HCPCS: 97110; 97161 ==

== ENCOUNTER 2019-04-07 06:00 | Outpatient (RCR) | payer MEDICARE, SELFPAY | END 2019-05-05 23:59 | disposition home or self-care (01) | LOC: TPT 06:00 | PROVIDERS: Family Provider Nurse Practitioner Family; PCP Nurse Practitioner Family; Visit Provider Orthopaedic Surgery | DX: Z47.1 Aftercare following joint replacement surgery (principal); Z96.641 Presence of right artificial hip joint; M25.551 Pain in right hip | CPT/HCPCS: 97110; 97116 ==

== ENCOUNTER 2019-04-13 16:39 | Inpatient (IN) | payer MEDICARE, SELFPAY ==
[2019-04-13] VITALS (7 sets, daily range): BP systolic 81–173; BP diastolic 47–71; PULSE 52–61; RESP 13–18; TEMP 36.4–36.7; O2SAT 93–99; BMI 20.7
--- NOTE | 2019-04-13 17:26 | ED_ITS ---
Entered by Robbi Carmona, acting as scribe for Anil Charles DO Apr 13, 2019 16:39 Documented by User: Anil Charles DO 04/14/19 06:14 HPI - Abdominal Pain General: Chief Complaint: Abdominal Pain Stated Complaint: throwing up Time Seen by Provider: 04/13/19 17:27 History of Present Illness: HPI narrative: 83 yo female presents with abd pain and vomiting. Pt states that her pain started about 2 days ago. Pt states that she has been taking zofran but that doesn't seem to help. relates severe abd pain. Denies hematochezia or hematemesis. She denies fever. SHe cannot localize pain in the abd. MD elicited complaint: abdominal pain Associated Symptoms: Reports bloating, GI cramping, nausea and vomiting; Denies chills, coffee ground emesis, dysuria, fever(s), hematochezia, hematuria, hematemesis, melena and syncope Review of Systems Const: Denies: fever, chills, body aches, fatigue, malaise or night sweats Eyes: Denies: change in vision or blurry vision ENMT: Denies: throat pain, oral sores/lesions, dental pain, nasal discharge or nasal congestion Card: Denies: chest pain, palpitations, irregular heart rhythm, edema, syncope, shortness of breath on exertion, shortness of breath when lying down or leg pain with exertion Resp: Denies: shortness of breath, productive cough, non-productive cough or wheezing GI: Reports: abdominal pain, nausea, vomiting, bloating and cramping; Denies: vomiting blood, coffee grounds in vomit, blood in stool or black tarry stool : Denies: flank pain, painful urination, urinary frequency, urinary urgency, urinary incontinence or blood in urine Musc: Denies: neck pain, back pain, extremity pain, extremity swelling, joint pain or joint swelling Skin/Breast: Denies: rash, itching or redness Neuro: Denies: headache, numbness in extremities, weakness in extremities, changes in sensation, lack of coordination, difficulty walking, frequent falls, dizziness, vertigo or confusion Psych: Denies: anxiety, depression, loss of interest, visual hallucinations, auditory hallucinations, suicidal ideation or homicidal ideation Endo: Denies: excessive urination, excessive thirst, tired all the time or cold intolerance Johny/Lymph: Denies: easy bruising, easy bleeding, petechiae, enlarged lymph nodes or tender lymph nodes PFSH ED PFSH: Statuses (acute, chronic, etc) shown below reflect problem list status as previously entered and may not be historically accurate Medical History (Updated 04/13/19 @ 21:54 by Jerson Collazo MD) Anxiety (Acute) Arthritis (Acute) Atrial fibrillation (Acute) COPD (chronic obstructive pulmonary disease) (Acute) Depression (Acute) High blood pressure (Acute) History of fracture (Acute) Hypothyroidism (Acute) MRSA (methicillin resistant Staphylococcus aureus) (Acute) Peripheral vascular disease (Acute) Pneumonia (Acute) Sleep apnea (Acute) Surgical History (Updated 04/13/19 @ 17:30 by Robbi Carmona) History of section (Acute) Status post total hip replacement, right (Acute) Family History (Updated 04/13/19 @ 21:44 by Jerson Collazo MD) Other Diabetes Hypertension Social History Smoking and tobacco status: former smoker Alcohol intake: never Physical Exam Const: COMMON NORMALS: average body habitus, oriented x3 and alert GENERAL APPEARANCE: cooperative, comfortable, well kempt and well developed NUTRITIONAL APPEARANCE: not obese ORIENTATION/CONSCIOUSNESS: Yes awake, Yes oriented to person and Yes oriented to place HENMT: COMMON NORMALS: normocephalic, head/scalp atraumatic, EAC's normal, TM's normal bilaterally, external nose normal, moist oral mucous membranes and oropharynx normal HEAD & SCALP: normocephalic and atraumatic NOSE: external nose normal EXTERNAL AUDITORY CANAL: EAC's normal TYMPANIC MEMBRANE: TM's normal bilaterally MOUTH: oral and palatal mucosa normal, lip normal and tongue normal THROAT: posterior oropharynx normal and tonsils normal Eye: COMMON NORMALS: PERRL, EOMs intact bilaterally, conjunctivae normal and no scleral icterus CONJUNCTIVA: Yes conjunctivae normal PUPIL: Yes PERRL Neck/C-Spine: COMMON NORMALS: full ROM, no lymphadenopathy, supple, no meningeal signs and thyroid normal THYROID: thyroid normal and asymmetrical Lymph: LYMPHATIC: no lymphadenopathy noted Resp: COMMON NORMALS: normal respiratory effort, no retractions, no use of accessory muscles and clear to auscultation bilaterally AUSCULTATION: clear to auscultation bilaterally Cardio: COMMON NORMALS: regular rate and regular rhythm RATE: regular rate RHYTHM: regular rhythm HEART SOUNDS: no murmurs GI: COMMON NORMALS: no hepatosplenomegaly AUSCULTATION: Yes hypoactive bowel sounds PALPATION: Yes tender (diffusely, no rebound) and Yes no hepatosplenomegaly : COMMON NORMALS: Yes no CVA tenderness BLADDER/KIDNEY EXAM: Yes no CVA tenderness Back/Pelvis: COMMON NORMALS: no CVA tenderness LUMBAR SPINE/LOWER BACK: Yes normal to inspection Extremity: COMMON NORMALS: no clubbing, cyanosis or edema, no calf tenderness and no pedal edema Neuro: COMMON NORMALS: oriented x3 SENSORIUM/ORIENTATION: Yes alert, Yes oriented to person and Yes oriented to place MENINGEAL SIGNS: Yes no meningeal signs Psych: APPEARANCE: Yes well kempt Skin: COMMON NORMALS: no rashes or lesions noted and skin turgor normal GENERAL SKIN EXAM: no rashes or lesions noted and turgor normal Course ED course: Care turned over to Dr. Her at change of shift. Vital Signs: Vital signs: Vital Signs Temperature 98.0 F 04/14/19 00:00 Pulse Rate 54 L 04/14/19 00:00 Respiratory Rate 17 04/14/19 00:00 Blood Pressure 147/66 04/14/19 00:00 Pulse Oximetry 94 04/14/19 00:00 MDM - Abdominal Pain Lab Data: Labs: Lab Results 04/13/19 04/13/19 04/13/19 Range/Units 17:37 18:05 18:05 WBC 14.2 H (4.0-10.0) 10^3/ uL RBC 4.88 (4.1-5.3) 10^6/u L Hgb 13.2 (11.5-15.3) g/dL Hct 40.8 (37.0-47.0) % MCV 83.6 (81-99) fL MCH 27.0 L (28.0-34.0) pg MCHC 32.4 (30.0-36.0) g/dL RDW 15.2 H (12.1-15.1) % Plt Count 333 (130-400) 10^3/c mm MPV 9.0 (7.4-10.4) fL Neut % (Auto) 83.4 % Lymph % (Auto) 9.4 % Concho % (Auto) 5.8 % Eos % (Auto) 0.1 % Baso % (Auto) 0.4 % Neut # (Auto) 11.9 H (1.8-7.7) 10^3/u L Lymph # (Auto) 1.3 (0.8-4.8) 10^3/u L Concho # (Auto) 0.8 (0.2-0.9) 10^3/u L Eos # (Auto) 0.0 (0.0-0.8) 10^3/u L Baso # (Auto) 0.1 (0.0-0.1) 10^3/u L Nucleated RBC % (a uto) 0 % Nucleated RBCs # 0.0 /100WBC Sodium 127 L (136-145) mmol/L Potassium 4.1 (3.5-5.1) mmol/L Chloride 89 L (98-107) mmol/L Carbon Dioxide 21 L (22-29) mmol/L Anion Gap 21.1 H (5-19) BUN 17 (8-23) mg/dL Creatinine 0.7 (0.5-0.9) mg/dL Glucose 137 H (65-115) mg/dL Calcium 10.5 (8.5-10.5) mg/dL Total Bilirubin 1.0 (0.15-1.2) mg/dL AST 18 (0-32) U/L ALT 15 (0-33) U/L Alkaline Phosphata se 165 H (35-105) IU/L C-Reactive Protein 4.5 (0.0-4.9) mg/L Total Protein 7.5 (6.6-8.7) g/dL Albumin 4.3 (3.5-5.2) g/dL Globulin 3.2 (1.3-4.6) g/dL Lipase 32 (13-60) U/L Procalcitonin 0.05 (0-0.5) ng/mL Influenza Type A A g (Negative) POC Influenza B Ag (Negative) 04/13/19 Range/Units 18:10 WBC (4.0-10.0) 10^3/ uL RBC (4.1-5.3) 10^6/u L Hgb (11.5-15.3) g/dL Hct (37.0-47.0) % MCV (81-99) fL MCH (28.0-34.0) pg MCHC (30.0-36.0) g/dL RDW (12.1-15.1) % Plt Count (130-400) 10^3/c mm MPV (7.4-10.4) fL Neut % (Auto) % Lymph % (Auto) % Concho % (Auto) % Eos % (Auto) % Baso % (Auto) % Neut # (Auto) (1.8-7.7) 10^3/u L Lymph # (Auto) (0.8-4.8) 10^3/u L Concho # (Auto) (0.2-0.9) 10^3/u L Eos # (Auto) (0.0-0.8) 10^3/u L Baso # (Auto) (0.0-0.1) 10^3/u L Nucleated RBC % (a uto) % Nucleated RBCs # /100WBC Sodium (136-145) mmol/L Potassium (3.5-5.1) mmol/L Chloride (98-107) mmol/L Carbon Dioxide (22-29) mmol/L Anion Gap (5-19) BUN (8-23) mg/dL Creatinine (0.5-0.9) mg/dL Glucose (65-115) mg/dL Calcium (8.5-10.5) mg/dL Total Bilirubin (0.15-1.2) mg/dL AST (0-32) U/L ALT (0-33) U/L Alkaline Phosphata se (35-105) IU/L C-Reactive Protein (0.0-4.9) mg/L Total Protein (6.6-8.7) g/dL Albumin (3.5-5.2) g/dL Globulin (1.3-4.6) g/dL Lipase (13-60) U/L Procalcitonin (0-0.5) ng/mL Influenza Type A A g Negative (Negative) POC Influenza B Ag Negative (Negative) Discharge Plan Discharge Patient Disposition: Admitted As Inpatient Admit Provider: Jerson Collazo Clinical Impression: Enteritis, Small bowel obstruction, partial Condition: Stable Referrals: Eduar Smith [employer] [Primary Care Provider] - Discharge Date/Time: 04/13/19 21:35 Sign Out Sign Out Data: Sign Out Comment: 83-year-old female severe abdominal pain with guarding. CT and labs pending Last updated by Anil Charles DO at 04/13/19 17:55 Coding Level of Care Code ED Outreach Clinician for Chg Fwd Exam Problem Focused Documented by User: Willis Her DO 04/14/19 02:49 HPI - Abdominal Pain General: Chief Complaint: Abdominal Pain Stated Complaint: throwing up Time Seen by Provider: 04/13/19 17:27 PFSH ED PFSH: Statuses (acute, chronic, etc) shown below reflect problem list status as previously entered and may not be historically accurate Medical History (Updated 04/13/19 @ 21:54 by Jerson Collazo MD) Anxiety (Acute) Arthritis (Acute) Atrial fibrillation (Acute) COPD (chronic obstructive pulmonary disease) (Acute) Depression (Acute) High blood pressure (Acute) History of fracture (Acute) Hypothyroidism (Acute) MRSA (methicillin resistant Staphylococcus aureus) (Acute) Peripheral vascular disease (Acute) Pneumonia (Acute) Sleep apnea (Acute) Surgical History (Updated 04/13/19 @ 17:30 by Robbi Carmona) History of section (Acute) Status post total hip replacement, right (Acute) Family History (Updated 04/13/19 @ 21:44 by Jerson Collazo MD) Other Diabetes Hypertension Social History Smoking and tobacco status: former smoker Alcohol intake: never Course ED course: 83-year-old female seen earlier by Dr. Charles and checked out to me. This lady's complaining of belly pain and vomiting. She has a white count of 14. Her sodium level is 127. Her bicarbonate level is 21. On CT she has a focal small bowel enteritis, and possible early obstruction she will be admitted Consultations: Consultation #1: karlo Time: 19:59 Vital Signs: Vital signs: Vital Signs Temperature 98.0 F 04/14/19 00:00 Pulse Rate 54 L 04/14/19 00:00 Respiratory Rate 17 04/14/19 00:00 Blood Pressure 147/66 04/14/19 00:00 Pulse Oximetry 94 04/14/19 00:00 MDM - Abdominal Pain Lab Data: Labs: Lab Results 04/13/19 04/13/19 04/13/19 Range/Units 17:37 18:05 18:05 WBC 14.2 H (4.0-10.0) 10^3/ uL RBC 4.88 (4.1-5.3) 10^6/u L Hgb 13.2 (11.5-15.3) g/dL Hct 40.8 (37.0-47.0) % MCV 83.6 (81-99) fL MCH 27.0 L (28.0-34.0) pg MCHC 32.4 (30.0-36.0) g/dL RDW 15.2 H (12.1-15.1) % Plt Count 333 (130-400) 10^3/c mm MPV 9.0 (7.4-10.4) fL Neut % (Auto) 83.4 % Lymph % (Auto) 9.4 % Concho % (Auto) 5.8 % Eos % (Auto) 0.1 % Baso % (Auto) 0.4 % Neut # (Auto) 11.9 H (1.8-7.7) 10^3/u L Lymph # (Auto) 1.3 (0.8-4.8) 10^3/u L Concho # (Auto) 0.8 (0.2-0.9) 10^3/u L Eos # (Auto) 0.0 (0.0-0.8) 10^3/u L Baso # (Auto) 0.1 (0.0-0.1) 10^3/u L Nucleated RBC % (a uto) 0 % Nucleated RBCs # 0.0 /100WBC Sodium 127 L (136-145) mmol/L Potassium 4.1 (3.5-5.1) mmol/L Chloride 89 L (98-107) mmol/L Carbon Dioxide 21 L (22-29) mmol/L Anion Gap 21.1 H (5-19) BUN 17 (8-23) mg/dL Creatinine 0.7 (0.5-0.9) mg/dL Glucose 137 H (65-115) mg/dL Calcium 10.5 (8.5-10.5) mg/dL Total Bilirubin 1.0 (0.15-1.2) mg/dL AST 18 (0-32) U/L ALT 15 (0-33) U/L Alkaline Phosphata se 165 H (35-105) IU/L C-Reactive Protein 4.5 (0.0-4.9) mg/L Total Protein 7.5 (6.6-8.7) g/dL Albumin 4.3 (3.5-5.2) g/dL Globulin 3.2 (1.3-4.6) g/dL Lipase 32 (13-60) U/L Procalcitonin 0.05 (0-0.5) ng/mL Influenza Type A A g (Negative) POC Influenza B Ag (Negative) 04/13/19 Range/Units 18:10 WBC (4.0-10.0) 10^3/ uL RBC (4.1-5.3) 10^6/u L Hgb (11.5-15.3) g/dL Hct (37.0-47.0) % MCV (81-99) fL MCH (28.0-34.0) pg MCHC (30.0-36.0) g/dL RDW (12.1-15.1) % Plt Count (130-400) 10^3/c mm MPV (7.4-10.4) fL Neut % (Auto) % Lymph % (Auto) % Concho % (Auto) % Eos % (Auto) % Baso % (Auto) % Neut # (Auto) (1.8-7.7) 10^3/u L Lymph # (Auto) (0.8-4.8) 10^3/u L Concho # (Auto) (0.2-0.9) 10^3/u L Eos # (Auto) (0.0-0.8) 10^3/u L Baso # (Auto) (0.0-0.1) 10^3/u L Nucleated RBC % (a uto) % Nucleated RBCs # /100WBC Sodium (136-145) mmol/L Potassium (3.5-5.1) mmol/L Chloride (98-107) mmol/L Carbon Dioxide (22-29) mmol/L Anion Gap (5-19) BUN (8-23) mg/dL Creatinine (0.5-0.9) mg/dL Glucose (65-115) mg/dL Calcium (8.5-10.5) mg/dL Total Bilirubin (0.15-1.2) mg/dL AST (0-32) U/L ALT (0-33) U/L Alkaline Phosphata se (35-105) IU/L C-Reactive Protein (0.0-4.9) mg/L Total Protein (6.6-8.7) g/dL Albumin (3.5-5.2) g/dL Globulin (1.3-4.6) g/dL Lipase (13-60) U/L Procalcitonin (0-0.5) ng/mL Influenza Type A A g Negative (Negative) POC Influenza B Ag Negative (Negative) Discharge Plan Discharge Patient Disposition: Admitted As Inpatient Admit Provider: Jerson Collazo Clinical Impression: Enteritis, Small bowel obstruction, partial Condition: Stable Referrals: Eduar Smith [employer] [Primary Care Provider] - Discharge Date/Time: 04/13/19 21:35 Sign Out Sign Out Data: Sign Out Comment: 83-year-old female severe abdominal pain with guarding. CT and labs pending Last updated by Anil Charles DO at 04/13/19 17:55 Coding Level of Care Code ED Outreach Clinician for Chg Fwd Exam Problem Focused The documentation recorded by the Mathew zhu Kialy, accurately reflects the service I personally performed and the decisions made by , Anil Charles DO Apr 13, 2019 16:39
--- NOTE | 2019-04-13 17:31 | CTR_ITS ---
PROCEDURE INFORMATION: Exam: CT Abdomen And Pelvis With Contrast Exam date and time: 04/13/2019 5:32 PM Age: 83 years old Clinical indication: Abdominal pain; Generalized; Prior surgery; Surgery date: 1-6 months; Surgery type: Hip; Additional info: Abd pain TECHNIQUE: Imaging protocol: Computed tomography of the abdomen and pelvis with intravenous contrast. Total DLP: 714.64 mGy-cm Radiation optimization: All CT scans at this facility use at least one of these dose optimization techniques: automated exposure control; mA and/or kV adjustment per patient size (includes targeted exams where dose is matched to clinical indication); or iterative reconstruction. Contrast material: OMNI 300; Contrast volume: 95 ml; Contrast route: RT AC; COMPARISON: CR XR hip RT 2-3V wo/w pel* [id number] 03/12/2019 10:36 AM FINDINGS: Liver: There is no focal abnormality within the liver. Gallbladder and bile ducts: There is mild distention of the gallbladder which is otherwise unremarkable. Pancreas: The pancreas is normal. Spleen: The spleen demonstrates punctate calcifications, consistent with remote granulomatous organism exposure. Adrenals: The adrenal glands are normal. Kidneys and ureters: The kidneys are normal. There is no evidence of hydronephrosis. Stomach and bowel: There is a small benign lipoma in the 3rd portion of the duodenum. Moderate diverticulosis is present in the distal colon. There is no diverticulitis. There are dilated fluid-filled loops of small bowel in the mid abdomen, some of which show mural thickening. These findings likely represent some focal enteritis and partial bowel obstruction. Correlation with clinical findings is suggested. Appendix: A normal appendix is identified. Intraperitoneal space: There is a small amount of ascites in the pelvis and in the subhepatic space as well as adjacent to the spleen. Vasculature: The aorta demonstrates moderate atherosclerotic calcification. There is minimal infrarenal aortic aneurysm with maximum transverse diameter of 2.6 cm. Lymph nodes: Unremarkable. No enlarged lymph nodes. Bladder: Unremarkable as visualized. Reproductive: Unremarkable as visualized. Bones/joints: The lumbar spine demonstrates moderate degenerative changes at multiple levels. There is a right hip replacement Soft tissues: Unremarkable. Other findings: No abscess is identified. CT/CT abdomen pelvis w con* [id number] IMPRESSION: 1. Findings consistent with focal enteritis in the mid small bowel 2. Possible partial bowel obstruction. 3. Small ascites Radiation Dose CTDIVOL = (mGy): DLP = 714.64 (mGy-cm)
[2019-04-13] MEDS: sodium chloride 0.9% 1,000 ML 999 ML IV (17:47)
[2019-04-13] MEDS: morphine 4 mg/mL SDV 1 mL IVP ×2 (17:48→20:46)
[2019-04-13] MEDS: ondansetron 2 mg/ML SDV 2 mL 4 MG IVP (17:48)
[2019-04-13 17:56] LABS: Basophils # 0.1 10^3/uL (0.0-0.1); Basophils % 0.4 %; Eosinophils % 0.1 %; Hematocrit 40.8 % (37.0-47.0); Hemoglobin 13.2 g/dL (11.5-15.3); Lymphocytes # 1.3 10^3/uL (0.8-4.8); Lymphocytes % 9.4 %; Mean Corpuscular HGB Conc 32.4 g/dL (30.0-36.0); Mean Corpuscular Volume 83.6 fL (81-99); Monocytes # 0.8 10^3/uL (0.2-0.9); Monocytes % 5.8 %; Neutrophils # 11.9 10^3/uL (1.8-7.7); Neutrophils % 83.4 %; Nucleated Red Blood Cells % 0 %; Platelet Count 333 10^3/cmm (130-400); Red Blood Count 4.88 10^6/uL (4.1-5.3); Red Cell Distribution Width 15.2 % (12.1-15.1); White Blood Count 14.2 10^3/uL (4.0-10.0)
[2019-04-13 18:39] LABS: Alanine Aminotransferase 15 U/L (0-33); Albumin Level 4.3 g/dL (3.5-5.2); Alkaline Phosphatase 165 IU/L (35-105); Anion Gap 21.1 (5-19); Aspartate Amino Transferase 18 U/L (0-32); Blood Urea Nitrogen 17 mg/dL (8-23); Calcium 10.5 mg/dL (8.5-10.5); Carbon Dioxide 21 mmol/L (22-29); Chloride 89 mmol/L (98-107); Globulin 3.2 g/dL (1.3-4.6); Glucose 137 mg/dL (65-115); Lipase 32 U/L (13-60); Potassium 4.1 mmol/L (3.5-5.1); Sodium 127 mmol/L (136-145); Total Protein 7.5 g/dL (6.6-8.7)
[2019-04-13 18:40] LABS: Influenza A by IFA Negative (Negative); Influenza B by IFA Negative (Negative)
[2019-04-13] MEDS: iohexol 300 mg/mL 100 mL Btl 95 ML IV (18:59)
[2019-04-13] MEDS: hyDRALAzine 20 mg/mL INJ 1 mL 10 MG IVP (19:20)
[2019-04-13] MEDS: sodium chloride 0.9% 1,000 ML 125 ML IV (20:16)
--- NOTE | 2019-04-13 21:37 | P.HP_ITS ---
Providers/Chief Complaint Admitting Physician: Jerson Collazo MD Primary Care Provider: Eduar Smith APN Chief Complaint: throwing up History of Present Illness Linsey Pitts is a 83 year old female with a past medical history of atrial fibrillation on is, CAD status post PCI, peripheral vascular disease status post stenting, COPD, ischemic cardiomyopathy ejection fraction on September 2018 with 35%, hypothyroidism, hypertension, carotid artery disease, depression anxiety, history of microcytic anemia, GERD, hyperlipidemia, quit smoking 6 months ago, recent history of closed intertrochanteric fracture of the right hip status post total hip replacement who presents to the emergency room due to nausea, vomiting, abdominal pain since Tuesday. Patient states that on Tuesday, she had an up eye appointment in in [facility], she ate out at [employer], had tilapia and shrimp, there is nothing out of the ordinary, she went to bed, she woke up Tuesday morning with nausea, and abdominal pain. Patient states that abdominal pain is in the right and left flank, and aching pain, intermittent, progressing to constant, associated with nausea and vomiting. Patient initially thought she had food poisoning, however symptoms continued for the next few days. Patient's last bowel movement was 2 days ago. Patient's last meal was 2 days ago. She has been having a difficult time keeping down liquids due to nausea. Abdominal pain is persisting. No fevers. But has chills. Has a history of diverticulosis never had diverticulitis. Her last colonoscopy was in 2016 which was normal. She did have an EGD many years ago for an upper GI bleed. No bloody or black stools. No sick contacts. No recent fevers, URI symptoms. No shortness of breath. No calf pain or calf swelling. Patient states that she is primarily in the emergency room today because the nausea, she has not been able to keep down solids or liquids for the last 48 hours. And her abdominal pain persists. Review of Systems Const: Reports: chills; Denies: fever, fatigue or malaise Eyes: Denies: change in vision or blurry vision ENMT: Denies: nasal congestion Resp: Denies: shortness of breath, productive cough, non-productive cough or wheezing GI: Reports: abdominal pain, nausea and vomiting; Denies: vomiting blood, diarrhea, constipation, bloating, blood in stool or black tarry stool : Denies: flank pain, painful urination or urinary frequency Musc: Denies: neck pain or back pain Skin/Breast: Denies: rash Neuro: Denies: headache, dizziness or vertigo Psych: Denies: anxiety or depression Endo: Denies: excessive urination or excessive thirst Medications/Allergies Allergies Allergy/AdvReac Type Severity Reaction Status Date / Time amoxicillin Allergy ADR-Halluci Verified 03/26/19 13:01 nating cilostazol Allergy ADR-Halluci Verified 03/26/19 13:01 nating codeine Allergy ADR-Halluci Verified 03/26/19 13:01 nating influenza virus vaccine qs Allergy Unknown Verified 03/26/19 13:01 [id number] (36 mos, up) [From Fluarix Quad] oxycodone Allergy ADR-Halluci Verified 03/26/19 13:01 nating Penicillins Allergy ADR-Halluci Verified 03/26/19 13:01 nating Sulfa (Sulfonamide Allergy Unknown Verified 03/26/19 13:01 Antibiotics) Additional Medication Information Additional Medication Information: Amiodarone 200 mg once daily Atenolol 50 mg once daily Citalopram 20 mg once daily Eliquis 5 mg twice daily Levothyroxine 100 mcg once daily Lisinopril 40 mg once daily Singular 10 mg once daily Pantoprazole 40 mg once daily Acidophilus 1 tablet daily Simvastatin 40 mg once daily Vitamin B12 Digoxin 250 mcg only if heart rates less than 60 Xanax 1 mg p.o. q. nightly as needed PFSH Acute PFSH: Statuses (acute, chronic, etc) shown below reflect problem list status as previously entered and may not be historically accurate Medical History (Updated 04/13/19 @ 21:54 by Jerson Collazo MD) Anxiety (Acute) Arthritis (Acute) Atrial fibrillation (Acute) COPD (chronic obstructive pulmonary disease) (Acute) Depression (Acute) High blood pressure (Acute) History of fracture (Acute) Hypothyroidism (Acute) MRSA (methicillin resistant Staphylococcus aureus) (Acute) Peripheral vascular disease (Acute) Pneumonia (Acute) Sleep apnea (Acute) Surgical History (Updated 04/13/19 @ 17:30 by Robbi Carmona) History of section (Acute) Status post total hip replacement, right (Acute) Family History (Updated 04/13/19 @ 21:44 by Jerson Collazo MD) Other Diabetes Hypertension Social History Smoking and tobacco status: former smoker Alcohol intake: never Vitals/I&O/Wt Last Vital Signs Temp 98.1 F 04/13/19 20:54 Pulse 56 L 04/13/19 20:54 Resp 16 04/13/19 20:54 BP 84/48 04/13/19 20:54 Pulse Ox 96 04/13/19 20:54 04/13/19 04/13/19 04/13/19 06:59 14:59 22:59 Intake Total 1000 / 1000 Balance 1000 / 1000 Weight last 48 hrs Weight 56.699 kg Physical Exam Const: COMMON NORMALS: no apparent distress and oriented x3 GENERAL APPEARANCE: cooperative and comfortable HENMT: COMMON NORMALS: normocephalic HEAD & SCALP: normocephalic Eye: COMMON NORMALS: PERRL, EOMs intact bilaterally and no papilledema GENERAL EYE: normal appearance of both eyes PUPIL: Yes PERRL DIRECT OPHTHALMOSCOPY: Yes no papilledema Neck/C-Spine: COMMON NORMALS: full ROM, no lymphadenopathy, no JVD and thyroid normal THYROID: thyroid normal Lymph: LYMPHATIC: no lymphadenopathy noted Resp: COMMON NORMALS: normal respiratory effort, no retractions, no use of accessory muscles and clear to auscultation bilaterally AUSCULTATION: clear to auscultation bilaterally Cardio: COMMON NORMALS: no JVD, regular rate, regular rhythm, S1 normal heart sound, S2 normal heart sound, no gallops, no clicks and no murmurs RATE: regular rate RHYTHM: regular rhythm HEART SOUNDS: S1 normal and S2 normal GI: COMMON NORMALS: normal to inspection, nondistended, normoactive bowel sounds and soft to palpation PALPATION: Yes soft, Yes tender Details: LLQ and RLQ and Yes no hepatosplenomegaly : COMMON NORMALS: Yes no CVA tenderness Back/Pelvis: COMMON NORMALS: no CVA tenderness Extremity: COMMON NORMALS: normal to inspection, full ROM, normal capillary refill, no clubbing, cyanosis or edema and no pedal edema Neuro: COMMON NORMALS: oriented x3, CN's II-XII intact bilaterally, moves all extremities and no focal motor deficits Psych: COMMON NORMALS: mental status grossly normal, thought process normal and cooperative THOUGHT PROCESS: normal thought process Data : 04/13/19 17:37 04/13/19 18:05 CT Abd/Pel: Radiologist's impression: Liver: There is no focal abnormality within the liver. Gallbladder and bile ducts: There is mild distention of the gallbladder which is otherwise unremarkable. Pancreas: The pancreas is normal. Spleen: The spleen demonstrates punctate calcifications, consistent with remote granulomatous organism exposure. Adrenals: The adrenal glands are normal. Kidneys and ureters: The kidneys are normal. There is no evidence of hydronephrosis. Stomach and bowel: There is a small benign lipoma in the 3rd portion of the duodenum. Moderate diverticulosis is present in the distal colon. There is no diverticulitis. There are dilated fluid-filled loops of small bowel in the mid abdomen, some of which show mural thickening. These findings likely represent some focal enteritis and partial bowel obstruction. Correlation with clinical findings is suggested. Appendix: A normal appendix is identified. Intraperitoneal space: There is a small amount of ascites in the pelvis and in the subhepatic space as well as adjacent to the spleen. Vasculature: The aorta demonstrates moderate atherosclerotic calcification. There is minimal infrarenal aortic aneurysm with maximum transverse diameter of 2.6 cm. Lymph nodes: Unremarkable. No enlarged lymph nodes. Bladder: Unremarkable as visualized. Reproductive: Unremarkable as visualized. Bones/joints: The lumbar spine demonstrates moderate degenerative changes at multiple levels. There is a right hip replacement Soft tissues: Unremarkable. Other findings: No abscess is identified. A&P Assessment and plan (1) Enteritis: -Patient letter has right lower quadrant and left lower quadrant pain -CT abdomen shows focal enteritis within mid small bowel, possible small bowel obstruction, patient does have diminished bowel sounds, last bowel movement was 2 days ago -Clinically patient has significant left lower quadrant pain, does have diverticulosis on exam, white blood cell count 14.3, inflammatory markers pending, although there is no CT scan findings of diverticulitis, patient does have significant pain in the left lower quadrant -Interestingly patient's CT abdomen does show a small lipoma in the third portion of the duodenum -Patient has hyponatremia likely hypovolemic hyponatremia -Less likely patient has a component of partial small bowel obstruction, enteritis, and diverticulitis Plan: -We will try clear liquid diet -Gentle hydration, normal saline 75 cc an hour -We will start patient on ciprofloxacin and Flagyl IV, as I am worried about diverticulitis Status: Acute Code(s): K52.9 - Noninfective gastroenteritis and colitis, unspecified (2) Small bowel obstruction, partial: Status: Acute Code(s): K56.600 - Partial intestinal obstruction, unspecified as to cause (3) Peripheral vascular disease: Status post stenting Status: Acute Code(s): I73.9 - Peripheral vascular disease, unspecified (4) COPD (chronic obstructive pulmonary disease): Does not use oxygen at home, not in exacerbation Status: Acute Code(s): J44.9 - Chronic obstructive pulmonary disease, unspecified (5) CAD (coronary artery disease): Status post PCI Status: Acute Code(s): I25.10 - Atherosclerotic heart disease of [place] coronary artery without angina pectoris (6) Ischemic cardiomyopathy: Last ejection fraction in September 2018 was 35% Status: Acute Code(s): I25.5 - Ischemic cardiomyopathy (7) Chronic anticoagulation: Continue Eliquis 5 mg twice daily Status: Acute Code(s): 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 (8) Status post total hip replacement, right: Status: Acute Code(s): Z96.641 - Presence of right artificial hip joint (9) Closed intertrochanteric fracture of right hip: Status: Acute Qualifiers: Encounter type: subsequent encounter Fracture alignment: displaced Fracture healing: with nonunion Qualified Code(s): S72.141K - Displaced intertrochanteric fracture of right femur, subsequent encounter for closed fracture with nonunion Code(s): S72.141A - Displaced intertrochanteric fracture of right femur, initial encounter for closed fracture (10) Atrial fibrillation: Continue Eliquis, atenolol, amiodarone Status: Acute Code(s): I48.91 - Unspecified atrial fibrillation (11) Sleep apnea: Status: Acute Code(s): G47.30 - Sleep apnea, unspecified Attestations Medical Necessity Statement*: Patient requires hospitalization, outpatient with observation, for enteritis, diverticulitis, partial small bowel obstruction Coding Level of Care Code 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
[2019-04-13] MEDS: ciprofloxacin 400 MG/200 ML PREMIX 200 MG IV (23:06)
[2019-04-13 23:44] LABS: Procalcitonin 0.05 ng/mL (0-0.5)
[2019-04-14] VITALS (10 sets, daily range): BP systolic 100–147; BP diastolic 40–68; PULSE 48–61; RESP 16–20; TEMP 36.6–37.3; O2SAT 92–96
[2019-04-14] MEDS: metroNIDAZOLE IV 500 MG/100 ML PREMIX 100 MG IV ×4 (00:25→22:25)
[2019-04-14 01:03] LABS: C Reactive Protein 4.5 mg/L (0.0-4.9)
[2019-04-14] MEDS: morphine 4 mg/mL SDV 1 mL IVP (04:00)
[2019-04-14 05:33] LABS: Basophils % 0.3 %; Eosinophils # 0.1 10^3/uL (0.0-0.8); Eosinophils % 0.5 %; Hematocrit 33.3 % (37.0-47.0); Hemoglobin 10.7 g/dL (11.5-15.3); Lymphocytes # 1.1 10^3/uL (0.8-4.8); Lymphocytes % 11.4 %; Mean Corpuscular HGB Conc 32.1 g/dL (30.0-36.0); Mean Corpuscular Hemoglobin 26.2 pg (28.0-34.0); Mean Corpuscular Volume 81.6 fL (81-99); Mean Platelet Volume 8.3 fL (7.4-10.4); Monocytes # 0.9 10^3/uL (0.2-0.9); Monocytes % 8.7 %; Neutrophils # 7.9 10^3/uL (1.8-7.7); Neutrophils % 78.5 %; Nucleated Red Blood Cells % 0 %; Platelet Count 234 10^3/cmm (130-400); Red Blood Count 4.08 10^6/uL (4.1-5.3); Red Cell Distribution Width 15.4 % (12.1-15.1)
[2019-04-14 05:53] LABS: Alanine Aminotransferase 11 U/L (0-33); Albumin Level 3.6 g/dL (3.5-5.2); Alkaline Phosphatase 126 IU/L (35-105); Anion Gap 13.6 (5-19); Aspartate Amino Transferase 13 U/L (0-32); Blood Urea Nitrogen 16 mg/dL (8-23); Calcium 9.4 mg/dL (8.5-10.5); Carbon Dioxide 25 mmol/L (22-29); Chloride 93 mmol/L (98-107); Globulin 2.5 g/dL (1.3-4.6); Glucose 120 mg/dL (65-115); Magnesium 1.8 mg/dL (1.7-2.3); Phosphorus 3.5 mg/dL (2.5-4.5); Potassium 3.6 mmol/L (3.5-5.1); Sodium 128 mmol/L (136-145); Total Bilirubin 0.8 mg/dL (0.15-1.2); Total Protein 6.1 g/dL (6.6-8.7)
[2019-04-14 08:14] LABS: Add Urine Microscopic? YES; Bilirubin Urine Neg (NEGATIVE); Blood Urine Neg (Negative); Glucose Urine UA Norm (Normal); Ketones Urine Negative (Negative); Leukocyte Esterase Urine Negative (Negative); Nitrate Urine Negative (Negative); Protein Urine Trace (Negative); Specific Gravity, Urine 1.015 (1.005-1.030); Urine Appearance Clear (CLEAR); Urine Color Yellow (Yellow); Urobilinogen Urine Norm (Negative); pH Urine 5 (5-7)
[2019-04-14 08:16] LABS: Hyaline Casts Urine 0-4; Mucus Urine 1+
[2019-04-14 08:17] LABS: Add Urine Culture? No; Bacteria Urine 1+; RBC Urine 0-4 /hpf (0-2); Squamous Epithelial Cell Urine 0-4 (0-5)
[2019-04-14] MEDS: apixaban 5 mg Tablet PO ×2 (08:44→21:02)
[2019-04-14] MEDS: pantoprazole DR 40 mg Tablet PO (08:44)
[2019-04-14] MEDS: citalopram 20 mg Tablet PO (08:44)
[2019-04-14] MEDS: lisinopril 20 mg Tablet 40 MG PO (08:44)
[2019-04-14] MEDS: atenolol 50 mg Tablet PO (08:44)
[2019-04-14] MEDS: atorvastatin 40 mg Tablet 20 MG PO (08:44)
[2019-04-14] MEDS: buPROPion SR (12 HR) 150 mg Tablet PO ×2 (08:44→21:02)
[2019-04-14] MEDS: sodium chloride 0.9% 1,000 ML 75 ML IV (08:44)
[2019-04-14] MEDS: levothyroxine 100 mcg Tablet PO (08:44)
[2019-04-14] MEDS: montelukast sodium 10 mg Tablet PO (08:44)
[2019-04-14] MEDS: ciprofloxacin 400 MG/200 ML PREMIX 200 MG IV ×2 (10:10→22:25)
--- NOTE | 2019-04-14 14:58 | PC.CHAP ---
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 [] Patient/Family/Request visit [] Outpatient visit [] Follow-up visit [] Physician referral [] Code/Alert [] Routine visit [] Staff referral [] Actively dying [] Patient sleeping [] Family support [] [] Out of room [] Palliative care [] [] Receiving care in room [] Pre-surgical visit [] Trauma [] Long length of stay [] ICU visit [] Other: Relational/Emotional Strength [] Patient feels connected with others/family/visitors/staff [] Distress [] Loneliness/isolation [] Abandonment Spirituality of Patient [] Person of Meri [] Attends Restorationist of their Meri [] Believes in Prayer [] Reads Bible or Mandaeism materials [] There are Spiritual issues to be addressed Electro Tech Interventions [] Prayer [] Active listening [] Non-anxious presence [] Spiritual/emotional support [] Crisis/trauma care [] Spiritual counseling [] Bereavement support [] Provided bereavement packet [] Provided Bible/devotional materials [] Provided toy/stuffed animal, coloring book to patient or family member [] Provided Communion [] Anointing/[place] [] Salvation [] Completed spiritual assessment [] Other: Impact on Illness or Injury [] Angry [] Fearful [] Anxious [] Often cries [] Exhaustion [] Unable to work [] Unable to attend methodist [] Unable to walk/stand [] Unable to read [] Unable to drive [] Unable to eat/drink [] Unable to sleep [] Unable to be with family [] Patient intubated [] Other: Summary discharged Time spent with patient
--- NOTE | 2019-04-14 17:51 | PC.NURSE ---
SHIFT SUMMARY PATIENT HAS DONE WELL TODAY. SHE HAS ACTIVE BOWEL SOUNDS AND IS PASSING GAS. NO ABDOMINAL PAIN OR NAUSEA TODAY. PATIENT HAS TOLERATED CLEAR LIQUID DIET WELL. SHE HAS AMBULATED THE HALLS. NO COMPLAINTS AT THIS TIME.
--- NOTE | 2019-04-14 18:41 | PM.PN ---
Subjective Subjective: Interval history: She has had no further vomiting. Abdominal pain is better. Tolerating small amounts of clear liquid diet. Vitals/I&O/Wt Last Vital Signs Temp 97.9 F 04/14/19 15:08 Pulse 48 L 04/14/19 15:08 Resp 18 04/14/19 15:08 BP 100/53 04/14/19 15:08 Pulse Ox 93 04/14/19 15:08 04/14/19 04/14/19 04/14/19 06:59 14:59 22:59 Intake Total 400 / 1400 465 / 465 Output Total 300 / 300 800 / 1100 Balance 400 / 1400 165 / 165 -800 / -635 Weight last 48 hrs Weight 56.699 kg Physical Exam Const: COMMON NORMALS: no apparent distress and oriented x3 OTHER: Awake and alert, comfortable at rest. Pleasant, conversant. Family at bedside. HENMT: COMMON NORMALS: oropharynx normal Neck/C-Spine: COMMON NORMALS: no JVD Resp: COMMON NORMALS: normal respiratory effort and clear to auscultation bilaterally AUSCULTATION: clear to auscultation bilaterally Cardio: COMMON NORMALS: no JVD, regular rhythm, S1 normal heart sound, S2 normal heart sound and no murmurs RHYTHM: regular rhythm HEART SOUNDS: S1 normal and S2 normal GI: COMMON NORMALS: normal to inspection, nondistended, normoactive bowel sounds and soft to palpation PALPATION: Yes soft OTHER: Very mildly tender Extremity: COMMON NORMALS: no joint enlargement and no pedal edema Neuro: COMMON NORMALS: oriented x3 and moves all extremities Skin: COMMON NORMALS: no rashes or lesions noted GENERAL SKIN EXAM: no rashes or lesions noted Data : 04/14/19 05:26 04/14/19 05:26 A&P Assessment and plan (1) Enteritis: No diarrhea. Discussed with patient and her family etiology at this time is not clear. She appears to have improved with antibiotic treatment, rehydration, without further vomiting. Tolerating small amounts of liquid diet. Abdominal pain is better. Discussed with her and family regarding small benign lipoma in third portion of duodenum. Discussed regarding possible component of partial SBO, although she denies prior abdominal surgeries apart from . Given gradual improvement for now continue liquid diet, discussed with her if continues to improve tomorrow may switch to GI soft trial, and if does well, potentially return home. Continue antibiotics at this time. Status: Acute Code(s): K52.9 - Noninfective gastroenteritis and colitis, unspecified (2) Small bowel obstruction, partial: This appears to be improving. She is tolerated small amounts of clear liquid diet. Status: Acute Code(s): K56.600 - Partial intestinal obstruction, unspecified as to cause (3) Peripheral vascular disease: Status post stenting Status: Acute Code(s): I73.9 - Peripheral vascular disease, unspecified (4) COPD (chronic obstructive pulmonary disease): Does not use oxygen at home, not in exacerbation Status: Acute Code(s): J44.9 - Chronic obstructive pulmonary disease, unspecified (5) CAD (coronary artery disease): Status post PCI Status: Acute Code(s): I25.10 - Atherosclerotic heart disease of [place] coronary artery without angina pectoris (6) Ischemic cardiomyopathy: Last ejection fraction in September 2018 was 35% Status: Acute Code(s): I25.5 - Ischemic cardiomyopathy (7) Chronic anticoagulation: Continue Eliquis 5 mg twice daily Status: Acute Code(s): 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.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 (8) Status post total hip replacement, right: Status: Acute Code(s): Z96.641 - Presence of right artificial hip joint (9) Closed intertrochanteric fracture of right hip: Status: Acute Qualifiers: Encounter type: subsequent encounter Fracture alignment: displaced Fracture healing: with nonunion Qualified Code(s): S72.141K - Displaced intertrochanteric fracture of right femur, subsequent encounter for closed fracture with nonunion Code(s): S72.141A - Displaced intertrochanteric fracture of right femur, initial encounter for closed fracture (10) Atrial fibrillation: Continue Eliquis, atenolol, amiodarone Status: Acute Code(s): I48.91 - Unspecified atrial fibrillation (11) Sleep apnea: Status: Acute Code(s): G47.30 - Sleep apnea, unspecified Attestations Medical Necessity Statement*: Continue admission for assessment management of enteritis, partial bowel obstruction. 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
[2019-04-15 04:00] VITALS: BP 120/50; PULSE 59; RESP 20; TEMP 37.2; O2SAT 93
[2019-04-15 06:01] LABS: Basophils # 0.1 10^3/uL (0.0-0.1); Eosinophils # 0.2 10^3/uL (0.0-0.8); Eosinophils % 2.7 %; Hematocrit 27.1 % (37.0-47.0); Hemoglobin 8.5 g/dL (11.5-15.3); Lymphocytes % 17.3 %; Mean Corpuscular HGB Conc 31.4 g/dL (30.0-36.0); Mean Corpuscular Hemoglobin 26.2 pg (28.0-34.0); Mean Corpuscular Volume 83.6 fL (81-99); Monocytes # 0.5 10^3/uL (0.2-0.9); Monocytes % 8.9 %; Neutrophils % 69.2 %; Nucleated Red Blood Cells % 0 %; Platelet Count 188 10^3/cmm (130-400); Red Blood Count 3.24 10^6/uL (4.1-5.3); Red Cell Distribution Width 15.5 % (12.1-15.1); White Blood Count 5.8 10^3/uL (4.0-10.0)
[2019-04-15] MEDS: sodium chloride 0.9% 1,000 ML 75 ML IV (06:13)
[2019-04-15] MEDS: metroNIDAZOLE IV 500 MG/100 ML PREMIX 100 MG IV (06:14)
[2019-04-15 06:17] LABS: Anion Gap 13.3 (5-19); Blood Urea Nitrogen 18 mg/dL (8-23); Calcium 8.3 mg/dL (8.5-10.5); Carbon Dioxide 22 mmol/L (22-29); Chloride 96 mmol/L (98-107); Glucose 88 mg/dL (65-115); Osmolality Calculated 262 mOsm/kg (285-295); Potassium 3.3 mmol/L (3.5-5.1); Sodium 128 mmol/L (136-145)
[2019-04-15 06:18] LABS: Magnesium 1.6 mg/dL (1.7-2.3); Phosphorus 2.5 mg/dL (2.5-4.5)
[2019-04-15 07:47] VITALS: BP 128/55; PULSE 56; RESP 16; TEMP 36.7; O2SAT 91
[2019-04-15] MEDS: buPROPion SR (12 HR) 150 mg Tablet PO (08:42)
[2019-04-15] MEDS: lisinopril 20 mg Tablet 40 MG PO (08:42)
[2019-04-15] MEDS: magnesium sulfate premix 2 GM/50 ML PIGGYBACK IV (08:42)
[2019-04-15] MEDS: levothyroxine 100 mcg Tablet PO (08:42)
[2019-04-15] MEDS: montelukast sodium 10 mg Tablet PO (08:42)
[2019-04-15] MEDS: citalopram 20 mg Tablet PO (08:42)
[2019-04-15] MEDS: pantoprazole DR 40 mg Tablet PO (08:42)
[2019-04-15] MEDS: polyethylene glycol 3350 Pkt 17 gm PO (08:42)
[2019-04-15] MEDS: atorvastatin 40 mg Tablet 20 MG PO (08:43)
[2019-04-15] MEDS: apixaban 5 mg Tablet PO (08:43)
[2019-04-15 09:17] VITALS: PULSE 63; RESP 16; O2SAT 93
[2019-04-15] MEDS: ciprofloxacin 400 MG/200 ML PREMIX 200 MG IV (09:48)
[2019-04-15 11:29] VITALS: BP 135/65; PULSE 57; RESP 18; TEMP 36.9; O2SAT 93
[2019-04-15 12:17] LABS: Digoxin 0.3 ng/mL (0.6-1.2)
[2019-04-15 13:01] VITALS: BP 135/65; PULSE 57; RESP 18; TEMP 36.9; O2SAT 93
--- NOTE | 2019-04-15 19:19 | PM.DCS ---
Discharge Providers Date of Admission: 04/13/19 20:03 Date of Discharge: April 15, 2019 Attending Provider at Admission: Jerson Collazo MD Attending Provider at Discharge: Buck Javier Primary Care Provider: Eduar Smith APN Diagnoses at Discharge Discharge Diagnosis (1) Enteritis: Status: Acute (2) Small bowel obstruction, partial: Status: Acute (3) Peripheral vascular disease: Status: Acute (4) COPD (chronic obstructive pulmonary disease): Status: Acute (5) CAD (coronary artery disease): Status: Acute (6) Ischemic cardiomyopathy: Status: Acute (7) Chronic anticoagulation: Status: Acute (8) Status post total hip replacement, right: Status: Acute (9) Closed intertrochanteric fracture of right hip: Status: Acute Qualifiers: Encounter type: subsequent encounter Fracture alignment: displaced Fracture healing: with nonunion Qualified Code(s): S72.141K - Displaced intertrochanteric fracture of right femur, subsequent encounter for closed fracture with nonunion (10) Atrial fibrillation: Status: Acute (11) Sleep apnea: Status: Acute Reason for Visit Reason for Visit: Reason For Visit: throwing up Hospital Course Hospital Course: 83-year-old lady with history of A. fib, on chronic Eliquis, CAD, status post PCI, PAD, COPD, ischemic cardiomyopathy, hypothyroidism, hypertension, carotid artery disease, depression, anxiety, anemia, GERD, HLD, recently quit smoking, was admitted after presenting with nausea, vomiting, abdominal pain since Tuesday after eating at a [employer] on Tuesday. She was kept on bowel rest, with IV hydration clear liquid diet. CT abdomen pelvis showed a focal enteritis in mid small bowel, with possible partial SBO. Incidentally noted small lipoma in third portion of duodenum. Per discussion with her and her family she does have intermittent issues moving her bowels, and not uncommonly going 4-5 days without a bowel movement. On presentation also had pain in left lower quadrant, and with concern for occult diverticulitis was treated with Cipro and Flagyl. Her pain resolved. She had no further nausea or vomiting. She tolerated clear liquid diet, and subsequently GI soft diet. She has not had a bowel movement yet, however, feels that one is coming soon. She has been passing flatus. Feels well and is happy to return home. Physical Exam Const: COMMON NORMALS: no apparent distress and oriented x3 OTHER: Awake and alert, comfortable at rest. Pleasant, conversant. Family at bedside. HENMT: COMMON NORMALS: oropharynx normal Neck/C-Spine: COMMON NORMALS: no JVD Resp: COMMON NORMALS: normal respiratory effort and clear to auscultation bilaterally AUSCULTATION: clear to auscultation bilaterally Cardio: COMMON NORMALS: no JVD, regular rhythm, S1 normal heart sound, S2 normal heart sound and no murmurs RHYTHM: regular rhythm HEART SOUNDS: S1 normal and S2 normal GI: COMMON NORMALS: normal to inspection, nondistended, normoactive bowel sounds and soft to palpation PALPATION: Yes soft OTHER: Very mildly tender Extremity: COMMON NORMALS: no joint enlargement and no pedal edema Neuro: COMMON NORMALS: oriented x3 and moves all extremities Skin: COMMON NORMALS: no rashes or lesions noted GENERAL SKIN EXAM: no rashes or lesions noted Discharge Data Data Completed and Pending: Completed Studies During Hospitalization Category Date Time Status CT abdomen pelvis w con* [id number] Stat Cat Scan 04/13/19 17:31 Completed Labs from last 24 hours 04/15/19 04/15/19 04/15/19 05:26 05:05 05:05 WBC RBC Hgb Hct MCV MCH MCHC RDW Plt Count MPV Neut % (Auto) Lymph % (Auto) [place] % (Auto) Eos % (Auto) Baso % (Auto) Neut # (Auto) Lymph # (Auto) [place] # (Auto) Eos # (Auto) Baso # (Auto) Nucleated RBC % (a uto) Nucleated RBCs # Sodium 128 L Potassium 3.3 L Chloride 96 L Carbon Dioxide 22 Anion Gap 13.3 BUN 18 Creatinine 0.7 Glucose 88 Calculated Osmolal ity 262 L Calcium 8.3 L Phosphorus 2.5 Magnesium 1.6 L Digoxin 0.3 L 04/15/19 05:05 WBC 5.8 RBC 3.24 L Hgb 8.5 L Hct 27.1 L MCV 83.6 MCH 26.2 L MCHC 31.4 RDW 15.5 H Plt Count 188 MPV 9.0 Neut % (Auto) 69.2 Lymph % (Auto) 17.3 [place] % (Auto) 8.9 Eos % (Auto) 2.7 Baso % (Auto) 1.0 Neut # (Auto) 4.0 Lymph # (Auto) 1.0 [place] # (Auto) 0.5 Eos # (Auto) 0.2 Baso # (Auto) 0.1 Nucleated RBC % (a uto) 0 Nucleated RBCs # 0.0 Sodium Potassium Chloride Carbon Dioxide Anion Gap BUN Creatinine Glucose Calculated Osmolal ity Calcium Phosphorus Magnesium Digoxin Vitals: Last Vital Signs Temp 98.5 F 04/15/19 13:01 Pulse 57 L 04/15/19 13:01 Resp 18 04/15/19 13:01 BP 135/65 04/15/19 13:01 Pulse Ox 93 04/15/19 13:01 Discharge Plan Discharge Patient Disposition: Home Health Service Condition: Stable Prescriptions: New ciprofloxacin HCl 500 mg tablet 500 mg PO BID Qty: 8 RF: 0 Flagyl 500 mg tablet 500 mg PO Q8H 4 Days Qty: 12 RF: 0 Miralax 17 gram Powder In Packet 17 g PO BID Qty: 60 RF: 0 Dulcolax (bisacodyl) 10 mg suppository 10 mg MS DAILY PRN (Reason: constipation) Qty: 5 RF: 0 Continued bupropion HCl 150 mg tablet sustained-release 12 hr 150 mg PO BID RF: 0 alprazolam [Xanax] 1 mg tablet 1 mg PO PRN RF: 0 amiodarone 200 mg tablet 200 mg PO DAILY RF: 0 Multi-Vitamins with Iron Tablet,Chewable 1 tab PO DAILY RF: 0 simvastatin 40 mg tablet 40 mg PO DAILY RF: 0 levothyroxine 100 mcg tablet 100 mcg PO DAILY RF: 0 citalopram 20 mg tablet 20 mg PO DAILY RF: 0 pantoprazole 40 mg tablet,delayed release (DR/EC) 40 mg PO DAILY RF: 0 nitroglycerin [Nitrostat] 0.4 mg Tablet, Sublingual 0.4 mg SUBLINGUAL Q5M PRN (Reason: Pain) RF: 0 montelukast [Singulair] 10 mg Tablet 10 mg PO DAILY RF: 0 digoxin [Digox] 125 mcg (0.125 mg) tablet 125 mcg PO DAILY PRN (Reason: heart rate) RF: 0 lisinopril 40 mg tablet 40 mg PO DAILY RF: 0 atenolol 50 mg tablet 50 mg PO DAILY RF: 0 vitamin I19-vsreb acid 500-400 mcg Tablet 1 tab PO DAILY RF: 0 Eliquis 5 mg tablet 5 mg PO BID RF: 0 Discharge Orders: Discharge Order (Routine); Ordered 04/15/19 Ordered By: Buck Javier Referrals: Eduar Smith TUMBLING BARREL PAINTER [Primary Care Provider] - 4-7 days (please call Tuesday to set up a follow up appointment.) Discharge Diet: Advance as tolerated Discharge Activity: Increase activity as tolerated and As per PT/OT instructions Patient Instructions: Abdominal Pain - Adult, Constipation - Adult, Metronidazole (By mouth), Laxative, Stool Softeners (By mouth) Activity Restrictions/Additional Instructions: Advance diet slowly as tolerating. Consider adding fiber to meals. Avoid constipation. Discharge Date/Time: 04/15/19 13:20 Discharge Attestations Time Spent in Discharge Care*: greater than 30 min Quality Metrics Clinical Quality Measures During this hospital stay, did patient experience: None Coding Level of Care Code Acute Account Development Manager for g Fwd Diagnoses Enteritis K52.9 Small bowel obstruction, partial K56.600 Peripheral vascular disease I73.9 COPD (chronic obstructive pulmonary disease) J44.9 CAD (coronary artery disease) I25.10 Ischemic cardiomyopathy I25.5 Chronic anticoagulation Z79.01 Status post total hip replacement, right Z96.641 Closed intertrochanteric fracture of right hip S72.141K Encounter type: subsequent encounter Fracture alignment: displaced Fracture healing: with nonunion Atrial fibrillation I48.91 Sleep apnea G47.30
== END 2019-04-15 13:20 | disposition home or self-care (01) | DRG 392 ==
LOC: ER 20:02 → MEDSURG 20:24
PROVIDERS: Family Medicine; Admitting Provider Family Medicine; Emergency Provider Emergency Medicine; Family Provider Nurse Practitioner Family; PCP Nurse Practitioner Family; Visit Provider Internal Medicine
DX: K52.9 Noninfective gastroenteritis and colitis, unspecified (principal); K56.600 Partial intestinal obstruction, unspecified as to cause; S72.141K Displaced intertrochanteric fracture of right femur, subsequent encounter for closed fracture with nonunion; I48.91 Unspecified atrial fibrillation; I25.10 Atherosclerotic heart disease of native coronary artery without angina pectoris; I25.5 Ischemic cardiomyopathy; Z79.01 Long term (current) use of anticoagulants; G47.30 Sleep apnea, unspecified; Z87.891 Personal history of nicotine dependence; F32.9 Major depressive disorder, single episode, unspecified; F41.9 Anxiety disorder, unspecified; K21.9 Gastro-esophageal reflux disease without esophagitis; E78.5 Hyperlipidemia, unspecified; E03.9 Hypothyroidism, unspecified; Z88.5 Allergy status to narcotic agent; Z88.7 Allergy status to serum and vaccine; Z88.8 Allergy status to other drugs, medicaments and biological substances; Z88.2 Allergy status to sulfonamides; Z88.0 Allergy status to penicillin; Z96.641 Presence of right artificial hip joint; D17.5 Benign lipomatous neoplasm of intra-abdominal organs; I73.9 Peripheral vascular disease, unspecified; J44.9 Chronic obstructive pulmonary disease, unspecified; Z79.899 Other long term (current) drug therapy; Z79.890 Hormone replacement therapy; X58.XXXD Exposure to other specified factors, subsequent encounter
CPT/HCPCS: 12345; 36415; 74177; 80048; 80053; 80162; 81001; 83690; 83735; 84100; 84145; 85025; 86140; 87804; 94664; 96360; 96375; 99283; A9270; J0360; J0744; J2270; J2405; J3475; J7030; Q9967; S0030

== ENCOUNTER → 2019-04-19 13:09 | Outpatient (BNVA) | payer MEDICARE, SELFPAY | PROVIDERS: Family Provider Nurse Practitioner Family; PCP Nurse Practitioner Family; Visit Provider Orthopaedic Surgery | DX: Z96.641 Presence of right artificial hip joint (principal) | CPT/HCPCS: 73502 ==

== ENCOUNTER 2019-05-06 06:00 | Outpatient (RCR) | payer MEDICARE, SELFPAY | END 2019-06-05 23:59 | disposition home or self-care (01) | LOC: TPT 06:00 | PROVIDERS: Family Provider Nurse Practitioner Family; PCP Nurse Practitioner Family; Visit Provider Orthopaedic Surgery | DX: Z47.1 Aftercare following joint replacement surgery (principal); Z96.641 Presence of right artificial hip joint | CPT/HCPCS: 97110; 97116; 97164; 97530 ==

== ENCOUNTER → 2020-02-06 11:57 | Outpatient (BNVA) | payer MEDICARE, SELFPAY | PROVIDERS: Family Provider Nurse Practitioner Family; PCP Nurse Practitioner Family; Visit Provider Orthopaedic Surgery | DX: Z47.1 Aftercare following joint replacement surgery (principal); Z96.641 Presence of right artificial hip joint | CPT/HCPCS: 72100; 73502 ==

== ENCOUNTER 2020-03-31 14:42 | Outpatient (CLI) | payer MEDICARE, SELFPAY ==
--- NOTE | 2020-03-31 15:00 | USCV_ITS ---
Linsey Pitts Age: 84 Gender: F : 1935 Exam Date: 03/31/2020 15:03 Ordering Phys: Tony Nur M.D ([email or web address]) Technologist: Ivanna Madrid [place]am Location[place] [facility] [place]ication: PVD Risk Factors: Previous Vascular Surgery: Right Brachial BP: / Left Brachial BP: / Right Left Velocity (cm/s) Spectral Plaque Velocity (cm/s) Spectral Plaque Syst/Diast Broadening Syst/Diast Broadening 80.60/ 15.60 Prox CCA 102.90/ 15.70 76.50/ 12.90 Mid CCA 119.90/ 17.60 62.90/ 13.20 Distal CCA 70.10 / 13.70 118.30/18.40 Prox ICA 82.40 / 15.60 79.90/ 15.80 Mid ICA 88.40 / 18.70 83.80/ 22.70 Distal ICA 85.30 / 17.70 153.90 ECA 151.20 1.47 ICA/CCA 0.74 Antegrade Vertebral Antegrade 33.40/ 6.20 cm/s 32.20/ 7.90 cm/s Tri Subclavian Tri 166.0 109.1 0 0 FINDINGS Moderate dense plaques of the right bifurcation and proximal internal carotid artery Minimal plaques of the left bifurcation and internal carotid artery. Antegrade flow in the vertebral arteries bilaterally. Monophasic Doppler waveform in the right vertebral artery Normal Doppler flow signals in the subclavian arteries bilaterally CONCLUSIONS Moderate dense plaques of the right bifurcation and proximal internal carotid artery with features of less than 50% gnosis. Minimal plaques at the left bifurcation Intimal thickening in the common carotid arteries bilaterally. Abnormal Doppler flow signals in the right vertebral artery, suggestive of distal stenosis Normal Doppler flow signals in the subclavian arteries suggesting no significant stenosis Dr Serena Salazar MD [facility] (Electronically Signed) Final Date: 31 March 2020 19:21 S
--- NOTE | 2020-03-31 15:45 | USCV_ITS ---
Linsey Pitts Age: 84 Gender: F : 1935 Exam Date: 03/31/2020 15:21 Ordering Phys: Tony Nur M.D ([email or web address]) Technologist: Ivanna Madrid [place] [facility] [place]: PVD Risk Factors: Previous Vascular Surgery: RIGHT LEFT BP: 140.0 / BP: 135.0/ 0 0 Waveform Velocity (cm/s) Velocity (cm/s) Waveform Triphasic 118.5 Iliac Prox 144.3 Triphasic Triphasic 172.4 Iliac Mid 140.9 Triphasic Triphasic 171.4 Iliac Distal 153.0 Triphasic Triphasic 143.7 AIRCRAFT MAINTENANCE MANAGER 144.5 Triphasic Biphasic 101.4 SFA Prox 116.9 Biphasic Biphasic 91.4 SFA Mid 104.7 Triphasic Biphasic 80.3 SFA Dist 77.8 Biphasic Biphasic 66.7 POP 62.1 Biphasic Biphasic 61.5 EMBOSSED OR IMPRESSED LETTERING PAINTER 19.8 Monophasic Monophasic 29.1 DPA 67.7 Biphasic 1.0 RABIA 0.9 FINDINGS RT EMBOSSED OR IMPRESSED LETTERING PAINTER- 140 RT DPA- 138 LT EMBOSSED OR IMPRESSED LETTERING PAINTER- 120 LT DPA- 130 LT POP V ANEURYSM SEEN 1.9x1.3x1.3cm Mild to moderate diffuse plaques in the iliac and femoral arteries bilaterally CONCLUSIONS Normal resting RABIA on the right side, suggesting no significant obstructive arterial disease. Borderline low resting RABIA on the left side, suggestive of mild peripheral artery disease Mild to moderate diffuse plaques in the femoral and iliac arteries bilaterally. Dr Serena Salazar MD [facility] (Electronically Signed) Final Date: 31 March 2020 18:42 S
== END 2020-03-31 14:43 | disposition home or self-care (01) ==
LOC: RAD 14:48
PROVIDERS: Family Provider Nurse Practitioner Family; PCP Nurse Practitioner Family; Visit Provider Internal Medicine
DX: M79.605 Pain in left leg (principal); M79.604 Pain in right leg; I73.9 Peripheral vascular disease, unspecified; I65.23 Occlusion and stenosis of bilateral carotid arteries
CPT/HCPCS: 93880; 93925

== ENCOUNTER → 2020-09-25 16:53 | Outpatient (BNVA) | payer MEDICARE, SELFPAY | PROVIDERS: Family Provider Nurse Practitioner Family; PCP Family Medicine; Visit Provider Family Medicine | DX: G47.00 Insomnia, unspecified (principal); E03.9 Hypothyroidism, unspecified; I10 Essential (primary) hypertension; I48.91 Unspecified atrial fibrillation; K44.9 Diaphragmatic hernia without obstruction or gangrene; K21.9 Gastro-esophageal reflux disease without esophagitis; K58.1 Irritable bowel syndrome with constipation | CPT/HCPCS: 80053; 80061; 84443; 85025 ==

== ENCOUNTER → 2020-10-23 11:49 | Outpatient (BNVA) | payer MEDICARE, SELFPAY | PROVIDERS: Family Provider Nurse Practitioner Family; PCP Family Medicine; Visit Provider Family Medicine | DX: E03.9 Hypothyroidism, unspecified (principal) | CPT/HCPCS: 80053; 82306; 82607; 84439; 84481; 85025 ==

== ENCOUNTER → 2020-11-24 14:53 | Outpatient (BNVA) | payer MEDICARE, SELFPAY | PROVIDERS: Family Provider Nurse Practitioner Family; PCP Family Medicine; Visit Provider Nurse Practitioner Family | DX: E03.9 Hypothyroidism, unspecified (principal); F41.9 Anxiety disorder, unspecified; F32.9 Major depressive disorder, single episode, unspecified; G47.00 Insomnia, unspecified | CPT/HCPCS: 80053; 84439; 84443; 84481 ==

== ENCOUNTER 2021-03-18 13:22 | Outpatient (CLI) | payer MEDICARE, SELFPAY ==
--- NOTE | 2021-03-18 13:30 | USCV_ITS ---
Linsey Pitts Age: 85 Gender: F : 1935 Exam Date: 03/18/2021 13:50 Ordering Phys: Tony Nur M.D ([email or web address]) Technologist: WATSON Exam Location: [facility] – [place] Indication: SOB BP: 138 / 72 HR: 63 Rhythm: Sinus Technical Quality: Adequate MEASUREMENTS (Male / Female) Normal Values 2D ECHO LV Diastolic Diameter PLAX 3.7 cm 4.2 - 5.9 / 3.9 - 5.3 cm LV Systolic Diameter PLAX 2.5 cm IVS Diastolic Thickness 0.5 cm 0.6 - 1.0 / 0.6 - 0.9 cm IVS Systolic Thickness 0.8 cm LVPW Diastolic Thickness 0.8 cm 0.6 - 1.0 / 0.6 - 0.9 cm LVPW Systolic Thickness 1.1 cm LVOT Diameter 2.0 cm LV Ejection Fraction 2D Teich 63.7 % LV Ejection Fraction MOD 2C 62.5 % LV Ejection Fraction 2C AL 62.6 % LA Diameter 3.2 cm LA Width 3.0 cm LA Height 4.5 cm RA Width 3.2 cm RA Height 3.2 cm Aorta at Sinotubular Diameter 1.6 cm M-MODE Aortic Annulus Diameter 2.4 cm LA Ao Ratio MM 1.3 MV E Point Septal Separation 0.6 cm DOPPLER AV Peak Velocity 204.0 cm/s LVOT Peak Velocity 98.0 cm/s AV Area Cont Eq vti 1.7 cm squared AV Area Cont Eq pk 1.5 cm squared MV Area PHT 3.1 cm squared Mitral E to A Ratio 1.1 MV E' Velocity 58.5 cm/s Mitral E to MV E' Ratio 9.7 Mitral E to LV E' Lateral Ratio 10.0 Mitral E to LV E' Septal Ratio 9.5 TR Peak Velocity 150.0 cm/s TR Peak Gradient 9.0 mmHg TR Mean Velocity 113.3 cm/s TR Mean Gradient 5.4 mmHg TR Velocity Time Integral 34.9 cm RV Acceleration Time 0.1 s RV Ejection Time 0.3 s RV AcT/ET 0.5 FINDINGS Left Ventricle Normal left ventricular size. LV systolic function is normal with EF of 55-60%.No regional wall motion abnormalities. Normal diastolic filling pattern. Right Ventricle The right ventricle is normal in size and function. Right Atrium The right atrium is normal in size. Left Atrium The left atrium is enlarged Mitral Valve Structurally normal mitral valve without significant stenosis or prolapse. There is trace mitral regurgitation. Aortic Valve Aortic valve is thickened. No significant stenosis. There is no aortic regurgitation. Tricuspid Valve Structurally normal tricuspid valve without significant stenosis or regurgitation. Insufficient TR jet to calculate RVSP Pulmonic Valve Not well visualized Pericardium Normal pericardium without effusion. Aorta Normal ascending aorta dimension. CONCLUSIONS LV systolic function is normal with EF of 55-60% Normal diastolic function Trace mitral regurgitation Left atrium is enlarged Compared to prior echocardiogram from 09/25/2018, LV systolic function has improved significantly and is normal now. Tony Nur MD (Electronically Signed) Final Date: 19 March 2021 09:42 S
== END 2021-03-18 13:23 | disposition home or self-care (01) ==
LOC: RAD 13:26
PROVIDERS: PCP Nurse Practitioner Family; Visit Provider Internal Medicine
DX: R06.02 Shortness of breath (principal); I34.0 Nonrheumatic mitral (valve) insufficiency
CPT/HCPCS: 93306

== ENCOUNTER 2021-04-08 12:41 | Emergency (ER) | payer MEDICARE, SELFPAY ==
[2021-04-08 12:57] VITALS: BP 124/77; PULSE 67; RESP 16; TEMP 36.6; O2SAT 96; BMI 25.0
--- NOTE | 2021-04-08 13:09 | CT_ITS ---
WS: [id number] CT CERVICAL TRAUMA TECHNIQUE: Noncontrast CT of the cervical spine with coronal and sagittal reformatted images. CLINICAL INFORMATION: fall COMPARISON: None. DLP: 566.[address] scans at [facility] use at least one of these dose optimization techniques: automated e xposure control; mA and/or kV adjustment per patient size (includes targeted exams where dose is matc hed to clinical indication); or iterative reconstruction. FINDINGS: Straightening of the normal cervical lordosis. Slight anterolisthesis C3 on C4. Disc space narrowing worse at C4-C5 C5-C6 and C6-C7 with small disc osteophyte complexes. Slight anterolisthesis C7 on T1. Mild to moderate central canal stenosis C5-C6. Normal craniocervical junction. Normal C1-C2 articula tion. Dens is normal in appearance. Normal occipital condyles. Normal C1 ring. No evidence of acute f racture or dislocation. Normal prevertebral soft tissues. Fibrosis in the lung apices. Mastoids air cells are well aerated. CT/CT cervical spin wo con* [id number] IMPRESSION: No evidence of acute fracture or dislocation.
--- NOTE | 2021-04-08 13:09 | CT_ITS ---
WS: [id number] CT HEAD TECHNIQUE: Noncontrast CT of the head obtained from the skullbase to the vertex. CLINICAL INFORMATION: trauma COMPARISON: None. DLP: 786.[address] scans at [facility] use at least one of these dose optimization techniques: automated e xposure control; mA and/or kV adjustment per patient size (includes targeted exams where dose is matc hed to clinical indication); or iterative reconstruction. FINDINGS: No evidence of intracranial hemorrhage or mass effect. Ventricular system and basal cisterns are rodrigues nt. Mild small vessel changes with moderate parenchymal volume loss. No extra-axial fluid collections . No evidence of mass or mass effect. Normal lunsford-white differentiation. Paranasal sinuses and mastoid air cells are well aerated. .Normal visualized soft tissues. CT/CT head wo con* [id number] IMPRESSION: 1. No evidence of intracranial hemorrhage or mass effect. 2. Mild small vessel changes. Moderate parenchymal volume loss. 3. No acute intracranial findings.
--- NOTE | 2021-04-08 13:26 | XR_ITS ---
WS: [id number] [id number] REASON FOR EXAM: trauma FINDINGS: Surgical neck fracture of the humerus without significant fracture fragment displacement. Fracture do es not appear to be significantly comminuted. XR/[place] [id number] IMPRESSION: Surgical neck fracture left humerus.
--- NOTE | 2021-04-08 13:26 | XR_ITS ---
WS: [id number] XR shoulder LT min 2V* [id number] REASON FOR EXAM: trauma FINDINGS: Left surgical neck humerus fracture as described on previous report of the left humerus. No abnormality of the acromioclavicular joint is noted. Clavicle intact. XR/XR shoulder LT min 2V* [id number] IMPRESSION: Left humerus fracture.
--- NOTE | 2021-04-08 14:01 | PC.NURSE ---
Pt was bending over trying to put shoes on in a chair. pt fell out of the chair into the floor. hit head. denies LOC. Pt has bruising to the right eye. c/o right arm pain. pt takes a baby ASA daily. GCS is 15 at this time.
--- NOTE | 2021-04-08 14:05 | ED_ITS ---
HPI - Fall General: Chief Complaint: Fall Stated Complaint: POSSIBLE BROKEN ARM Time Seen by Provider: 04/08/21 13:59 Source: patient and family (daughter) Mode of arrival: wheelchair Limitations: no limitations History of Present Illness: Patient is a nice 85-year-old female presents to ED today along with her daughter for evaluation following a fall. According to patient and daughter she was bending over while she was seated in a chair tying her shoes when she fell forward. She states she mainly fell onto her left shoulder but states she did bumped my head . No LOC. Patient does complain of a small hematoma to her left superior orbital region. She states she has a minor headache. Patient denies chest pain, shortness of breath, difficulty breathing. Denies lightheadedness/dizziness prior to the fall. Her main complaint at this time is left shoulder pain. MD complaint: fall Onset (ago): hour(s) Fall from: chair Fall witnessed: yes, by family Place fall occurred: home Loss of consciousness: None Prolonged down time: no Symptoms prior to fall: none Location of injury: head and face Location of injury - extremities: Left: shoulder Associated symptoms-after fall: Reports no associated symptoms and headache(s); Denies abdominal pain, chest pain, confusion, difficulty walking, lightheadedness or neck pain Review of Systems Eyes: Denies: change in vision, blurry vision, photophobia, floaters or seeing flashes Card: Denies: chest pain, palpitations, irregular heart rhythm, lightheadedness, syncope or pre-syncope Resp: Denies: dyspnea GI: Denies: abdominal pain Musc: Reports: joint pain (L shoulder) and limited range of motion; Denies: neck pain, back pain, extremity pain, extremity swelling or joint swelling Neuro: Reports: headache(s); Denies: numbness in extremities, weakness in extremities, sensory changes, lack of coordination, difficulty walking, frequent falls, dizziness, confusion, behavioral changes, Slurred speech present, difficulty communicating thoughts or seizure-like activity [facility] ED PFSH: Medical History Anxiety Arthritis Atrial fibrillation COPD (chronic obstructive pulmonary disease) Depression Dizziness High blood pressure History of fracture Hypothyroidism MRSA (methicillin resistant Staphylococcus aureus) Peripheral vascular disease Pneumonia Sleep apnea Surgical History History of section Status post total hip replacement, right Family History Other Diabetes Hypertension Social History Smoking and tobacco status: former smoker Quit status (tobacco): has quit using tobacco Year quit tobacco: 2019 Second hand smoke exposure: No Alcohol intake: current Caregiver/support person: Yes Lives independently: Yes Household members: significant other Current occupational status: retired History of recent travel: No Current gender identity: Female Special noris needs: No Agree to transfusion: Yes Physical Exam Const: COMMON NORMALS: no acute distress, average body habitus, patient oriented x3, no limitations, healthy appearing, alert and well nourished GENERAL APPEARANCE: cooperative ORIENTATION/CONSCIOUSNESS: Yes awake, Yes oriented to person, Yes oriented to place and Yes oriented to time HENMT: COMMON NORMALS: normocephalic, atraumatic and Normal external nose present HEAD & SCALP: normal to inspection, normocephalic and atraumatic FACE & SINUS: normal facial exam (apart from noted finding) FACE & SINUS IMAGES: 1. mild hematoma/ecchymosis; no bony tenderness to orbital ridge NOSE: Normal external nose present MOUTH IMAGES: 1. mild lip contusion; no laceration; no intraoral injuries noted Eye: COMMON NORMALS: Equal, round and reactive pupils present and EOMs intact bilaterally GENERAL EYE: appearance normal, both eyes and all related structures PUPIL: Yes Equal, round and reactive pupils present Neck/C-Spine: COMMON NORMALS: full ROM CERVICAL SPINE: Yes cervical ROM normal, No pain with cervical ROM, No Cervical spine tenderness, No step off deformity and No Paracervical muscle tenderness Chest: COMMONS NORMALS: normal inspection of the chest and normal palpation of entire chest wall Resp: COMMON NORMALS: normal respiratory effort and clear to auscultation bilaterally AUSCULTATION: clear to auscultation bilaterally Cardio: COMMON NORMALS: regular rate and regular rhythm RATE: regular rate RHYTHM: regular rhythm GI: COMMON NORMALS: Normal to inspection, nondistended, normoactive bowel sounds present, Soft to palpation and non-tender PALPATION: Yes Soft to palpation Back/Pelvis: COMMON NORMALS: thoracic and lumbar spine normal to inspection, no thoracic nor lumbar tenderness and thoraco-lumbar ROM normal Extremity: LEFT UPPER EXTREMITY: Yes shoulder joint (TTP humerus L shoulder) Left shoulder joint: Yes ROM (limited secondary to pain) and Yes neurovascular exam (normal) OTHER: no other pain noted to L UE apart from proximal humerus; NV intact Neuro: BERTIN COMA SCALE: document GCS findings Bertin coma scale eye opening: Spontaneous Bertin coma scale verbal response: Orientated [place] coma scale motor response: Obey commands Bertin coma scale total score: 15 COMMON NORMALS: patient oriented x3, moves all extremities, no focal motor deficits, no sensory deficits noted and gait normal SENSORIUM/ORIENTATION: Yes alert, Yes oriented to person, Yes oriented to place and Yes oriented to time Skin: TRAUMA: no lacerations Course Vital Signs: Vital signs: Vital Signs Temperature 98 F 04/08/21 12:57 Pulse Rate 67 04/08/21 12:57 Respiratory Rate 18 04/08/21 14:13 Blood Pressure 124/77 04/08/21 12:57 Pulse Oximetry 98 04/08/21 14:13 MDM - Fall Medical Decision Making Patient CT head/cervical spine are negative. She has a humeral surgical neck fracture. She will be placed in a sling and given a prescription for pain medications. Information was placed with case management to get her set up with orthopedics. Return to ED precautions verbally given to patient and daughter who are agreeable to plan. Lab Data Radiology Impressions Cervical Spine CT 04/08/21 13:09 IMPRESSION: No evidence of acute fracture or dislocation. Head CT 04/08/21 13:09 IMPRESSION: 1. No evidence of intracranial hemorrhage or mass effect. 2. Mild small vessel changes. Moderate parenchymal volume loss. 3. No acute intracranial findings. Humerus X-Ray 04/08/21 13:26 IMPRESSION: Surgical neck fracture left humerus. Shoulder X-Ray 04/08/21 13:26 IMPRESSION: Left humerus fracture. Discharge Plan Discharge Patient Disposition: Home Clinical Impression: Closed fracture of neck of left humerus Qualifiers: Encounter type: initial encounter Qualified Code(s): S42.212A - Unspecified displaced fracture of surgical neck of left humerus, initial encounter for closed fracture Condition: Stable Prescriptions: New hydrocodone-acetaminophen 5-325 mg tablet 1 tab PO Q6H PRN (Reason: pain) Qty: 20 0RF No Action ergocalciferol (vitamin D2) 1,250 mcg (50,000 unit) capsule 1,250 mcg PO .ONCE A WEEK 0RF naproxen [EC-Naprosyn] 500 mg tablet,delayed release (DR/EC) 500 mg PO Q12H 14 Days Qty: 28 0RF Lactobacillus acidophilus [Acidophilus] Capsule 10 mg PO DAILY 0RF PreserVision AREDS [id number] capsule 1 cap PO BID 0RF alprazolam 1 mg tablet,disintegrating 1 mg PO DAILY 0RF nitroglycerin [Nitrostat] 0.4 mg tablet, sublingual 0.4 mg SUBLINGUAL Q5M PRN (Reason: Pain) Qty: 50 2RF aspirin 325 mg tablet 325 mg PO DAILY Qty: 90 3RF Linzess 72 mcg capsule See Rx Instructions .ROUTE .COMPLEX Qty: 30 2RF Dose Instruction: TAKE ONE CAPSULE BY MOUTH EVERY DAY Rx Instructions: TAKE ONE CAPSULE BY MOUTH EVERY DAY Belsomra 10 mg tablet 10 mg PO .qhs Qty: 30 2RF simvastatin 40 mg tablet 40 mg PO DAILY Qty: 90 3RF lisinopril 40 mg tablet 40 mg PO DAILY Qty: 90 3RF levothyroxine 125 mcg tablet See Rx Instructions .ROUTE .COMPLEX Qty: 30 2RF Dose Instruction: TAKE ONE TABLET BY MOUTH EVERY DAY Rx Instructions: TAKE ONE TABLET BY MOUTH EVERY DAY amiodarone 200 mg tablet 200 mg PO DAILY Qty: 90 3RF pantoprazole 40 mg tablet,delayed release (DR/EC) See Rx Instructions .ROUTE .COMPLEX Qty: 90 3RF Dose Instruction: TAKE ONE TABLET BY MOUTH EVERY DAY Rx Instructions: TAKE ONE TABLET BY MOUTH EVERY DAY citalopram 40 mg tablet See Rx Instructions .ROUTE .COMPLEX Qty: 30 1RF Dose Instruction: TAKE ONE TABLET BY MOUTH EVERY DAY Rx Instructions: TAKE ONE TABLET BY MOUTH EVERY DAY loratadine 10 mg tablet See Rx Instructions .ROUTE .COMPLEX Qty: 30 2RF Dose Instruction: TAKE ONE TABLET BY MOUTH EVERY DAY Rx Instructions: TAKE ONE TABLET BY MOUTH EVERY DAY Multi-Vitamins with Iron Tablet,Chewable 1 tab PO DAILY 0RF montelukast [Singulair] 10 mg Tablet 10 mg PO DAILY 0RF vitamin [id number] acid 500-400 mcg Tablet 1 tab PO DAILY 0RF Miralax 17 gram Powder In Packet 17 g PO BID Qty: 60 0RF Dulcolax (bisacodyl) 10 mg suppository 10 mg DE DAILY PRN (Reason: constipation) Qty: 5 0RF Discharge Orders: Discharge ED (Routine); Ordered 04/08/21 Ordered By: Farzaneh Geronimo Referrals: Eduar,Sarah, SNUFF CONTAINER INSPECTOR [Primary Care Provider] - Patient Instructions: Opioid Safety Activity Restrictions/Additional Instructions: [facility] is committed to fighting the nationwide opiate epidemic. We are providing ALL patients with information regarding opiate safety. If you received opiate pain medication during your stay or if you received a prescription for opiate pain medication-please review this handout. If not, you may disregard. Thank you. As we discussed patient needs to stay in her sling at all times apart from showering and bathing. Case management should contact you soon to set you up with your follow-up orthopedic appointment. 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
[2021-04-08 14:13] VITALS: RESP 18; O2SAT 98
[2021-04-08] MEDS: morphine 4 mg/mL SDV 1 mL IM (14:13)
--- NOTE | 2021-04-08 14:14 | PC.NURSE ---
Pt states she was bending over putting shoes on. pt fell out of chair onto the floor hitting the left side of the body to the ground. pt has bruising to left eye and c/o left arm pain. pt states she takes a baby ASA daily. denies LOC. GCS is 15 at this time.
[2021-04-08 15:17] VITALS: PULSE 73; RESP 14; O2SAT 97
--- NOTE | 2021-04-09 13:35 | DCPLANNER ---
Addendum entered by Lynnette Fernández 04/17/21 06:54: Patient had a follow up appointment scheduled for 04.14.[address] Ramirez at ortho - patient did attend appointment. Original Note: manager health had message to schedule a follow up appointment for patient with ortho. manager health emailed patients information to Micky at the ortho clinic. Patients information will be printed and reviewed. Clinic will call patient with appointment information.
== END 2021-04-08 15:18 | disposition home or self-care (01) ==
PROVIDERS: Emergency Provider Physician Assistant; PCP Nurse Practitioner Family
DX: S42.212A Unspecified displaced fracture of surgical neck of left humerus, initial encounter for closed fracture (principal); Z79.82 Long term (current) use of aspirin; J44.9 Chronic obstructive pulmonary disease, unspecified; Z87.891 Personal history of nicotine dependence; W07.XXXA Fall from chair, initial encounter
CPT/HCPCS: 70450; 72125; 73030; 73060; 96372; 99283; J2270

== ENCOUNTER → 2021-04-28 15:41 | Outpatient (BNVA) | payer MEDICARE, SELFPAY | PROVIDERS: PCP Nurse Practitioner Family; Visit Provider Orthopaedic Surgery | DX: S42.212D Unspecified displaced fracture of surgical neck of left humerus, subsequent encounter for fracture with routine healing; X58.XXXD Exposure to other specified factors, subsequent encounter | CPT/HCPCS: 73030 ==

== ENCOUNTER 2021-05-05 06:00 | Outpatient (RCR) | payer MEDICARE, SELFPAY | END 2021-06-04 23:59 | disposition home or self-care (01) | LOC: TPT 06:00 | PROVIDERS: PCP Nurse Practitioner Family; Referring Provider Orthopaedic Surgery; Visit Provider Orthopaedic Surgery | DX: S42.202D Unspecified fracture of upper end of left humerus, subsequent encounter for fracture with routine healing (principal); X58.XXXD Exposure to other specified factors, subsequent encounter | CPT/HCPCS: 97110; 97140; 97163 ==

== ENCOUNTER → 2021-05-18 16:30 | Outpatient (BNVA) | payer MEDICARE, SELFPAY | PROVIDERS: PCP Nurse Practitioner Family; Visit Provider Nurse Practitioner Family | DX: M25.552 Pain in left hip (principal) | CPT/HCPCS: 73502 ==

== ENCOUNTER 2021-05-26 13:32 | Outpatient (CLI) | payer MEDICARE, SELFPAY ==
--- NOTE | 2021-05-26 13:41 | CT_ITS ---
WS: [id number] CT ABDOMEN AND PELVIS WITH CONTRAST HISTORY: R10.9 - Unspecified abdominal pain TECHNIQUE: Imaging performed of the abdomen and pelvis with IV contrast. Single phase imaging of the abdomen. Coronal and sagittal reformats are submitted. All CT scans at [facility] use at [address] [facility] one of these dose optimization techniques: automated exposure control; mA and/or kV adjustment per patient size (includes targeted exams where dose is matched to clinical indication); or iterative re construction. IV CONTRAST: Visipaque 320; 95 mL IV. Oral contrast: Yes. DLP: 2015.78 mGy.cm COMPARISON: 04/13/2019 Lower thorax: Lung bases are clear. Mildly enlarged heart. No significant hiatal hernia. Liver/biliary system: Normal size with no intrahepatic dilatation. Gallbladder: Normal. No gallstones or wall thickening. No pericholecystic fluid. Pancreas: Mild atrophy of the pancreas. No mass identified. Spleen: Normal size spleen with granulomata. Adrenal glands: Normal. Right kidney: Normal. Left kidney: Normal. Aorta: Mild atherosclerosis with no aneurysm. Moderate stenosis involving the proximal SMA. No thromb us or high-grade occlusion. Celiac axis is patent. There is additional plaque at the origin of celiac axis. Lymphadenopathy: None. Free fluid: None. GI tract: No GI tract obstruction. There is extensive constipation and fecal retention. Numerous dive rticula in the sigmoid colon. There is wall thickening throughout the sigmoid colon. No definite evid ence for acute diverticulitis. There is increased soft tissue in the RIGHT pelvis. Cannot confirm thi s is GI tract on this examination. The appendix is normal. Abdominal wall: Unremarkable abdominal wall. No hernia. Pelvis: Small amount of free fluid in the pelvis. Soft tissue mass in the RIGHT pelvis. This mass sav sures 5.2 x 3.2 cm. Etiology is uncertain. Bones: Advanced degenerative changes throughout the disc spaces and spine. Prior RIGHT hip arthroplas ty. Patient has a known acute LEFT parasymphyseal fracture. Additional minimally displaced fractures bilaterally through the inferior pubic rami. The inferior pubic rami fracture on the LEFT appears acu te. Suspect remote RIGHT inferior pubic rami fracture. CT/CT abdomen pelvis w con* [id number] IMPRESSION: 1. Increased soft tissue in the RIGHT adnexa. Inseparable from a tortuous sigm oid colon. Cannot confirm this is part of the colon. Recommend follow-up transv aginal pelvic ultrasound to exclude adnexal mass such as ovarian neoplasm. 2. Constipation and tortuous colon. 3. Normal appendix. 4. Small amount of free fluid in the pelvis. 5. Acute comminuted LEFT parasymphyseal fracture and a nondisplaced LEFT infer ior pubic rami fracture. 6. Remote RIGHT hip arthroplasty. 7. Remote healed RIGHT inferior pubic rami fracture. 8. Focal calcification involving the origin of the celiac axis and SMA resulti ng in at least a mild to moderate stenosis.
--- NOTE | 2021-05-26 14:00 | CT_ITS ---
WS: [id number] CT LEFT HIP, NONCONTRAST. HISTORY: M25.552 - Pain in left hip Technique: All CT scans at [facility] [place] use at least one of these dose optimization techniques: automated exposure control; mA and/or kV adjustment per patient size (includes targeted exams where dose is matched to clinical indication); or iterative reconstruction. DLP: 2015.78 mGy.cm COMPARISON: None available. Mild diffuse osteopenia. No hip fracture. LEFT hip is normally situated within the acetabulum. Comminuted LEFT parasymphyseal fracture. Multiple fragments involving the symphysis. There is an arturo tional nondisplaced buckle fracture in the inferior pubic rami on the LEFT. SI joint is normal. Minim al adjacent soft tissue edema. Moderate calcification noted within the iliac arteries. Numerous diverticula in the sigmoid colon. No evidence for acute diverticulitis. CT/CT hip LT wo con* [id number] IMPRESSION: 1. Acute LEFT parasymphyseal fracture. Multiple comminutions extending into th e superior and inferior pubic rami. 2. Additional mild buckle fracture involving the inferior pubic rami. 3. No hip fracture.
[2021-05-26] MEDS: iohexol 300 mg/mL 50 mL Btl PO (14:21)
[2021-05-26 14:48] LABS: Blood Urea Nitrogen 13 mg/dL (8-23)
[2021-05-26] MEDS: iodixanol 320 mg/mL 100mL Btl IV (15:32)
== END 2021-05-26 13:33 | disposition home or self-care (01) ==
LOC: RAD 13:35
PROVIDERS: PCP Nurse Practitioner Family; Visit Provider Nurse Practitioner Family
DX: S32.502A Unspecified fracture of left pubis, initial encounter for closed fracture (principal); X58.XXXA Exposure to other specified factors, initial encounter; K59.00 Constipation, unspecified; Z96.641 Presence of right artificial hip joint
CPT/HCPCS: 73700; 74177; 82565; 84520

== ENCOUNTER → 2021-05-27 14:59 | Outpatient (BNVA) | payer MEDICARE, SELFPAY | PROVIDERS: PCP Nurse Practitioner Family; Visit Provider Orthopaedic Surgery | DX: S42.212A Unspecified displaced fracture of surgical neck of left humerus, initial encounter for closed fracture (principal); X58.XXXA Exposure to other specified factors, initial encounter | CPT/HCPCS: 73030 ==

== ENCOUNTER 2021-06-05 06:00 | Outpatient (RCR) | payer MEDICARE, SELFPAY | END 2021-07-04 23:59 | disposition home or self-care (01) | LOC: TPT 06:00 | PROVIDERS: PCP Nurse Practitioner Family; Referring Provider Orthopaedic Surgery; Visit Provider Orthopaedic Surgery | DX: S42.202D Unspecified fracture of upper end of left humerus, subsequent encounter for fracture with routine healing (principal); X58.XXXD Exposure to other specified factors, subsequent encounter | CPT/HCPCS: 97110; 97140; 97164 ==

== ENCOUNTER → 2021-06-09 14:16 | Outpatient (BNVA) | payer MEDICARE, SELFPAY | PROVIDERS: PCP Nurse Practitioner Family; Visit Provider Nurse Practitioner Family | DX: S42.292A Other displaced fracture of upper end of left humerus, initial encounter for closed fracture (principal); W19.XXXA Unspecified fall, initial encounter | CPT/HCPCS: 73030 ==

== ENCOUNTER → 2021-06-23 13:33 | Outpatient (BNVA) | payer MEDICARE, SELFPAY | PROVIDERS: PCP Nurse Practitioner Family; Visit Provider Internal Medicine | DX: I73.9 Peripheral vascular disease, unspecified (principal); I25.10 Atherosclerotic heart disease of native coronary artery without angina pectoris; I25.5 Ischemic cardiomyopathy; I48.91 Unspecified atrial fibrillation; G47.30 Sleep apnea, unspecified; R01.1 Cardiac murmur, unspecified; Z79.82 Long term (current) use of aspirin; Z87.891 Personal history of nicotine dependence | CPT/HCPCS: 99214 ==

== ENCOUNTER 2021-06-30 10:25 | Inpatient (IN) | payer MEDICARE, SELFPAY ==
[2021-06-30] VITALS (11 sets, daily range): BP systolic 80–178; BP diastolic 47–88; PULSE 61–80; RESP 15–20; TEMP 35.7–36.9; O2SAT 91–98; BMI 25.0
--- NOTE | 2021-06-30 10:36 | W.ED.FALL ---
HPI - Fall General: Chief Complaint: Fall Stated Complaint: FALLS, SKIN TEAR, BACK/NEC PAIN Time Seen by Provider: 06/30/21 10:26 Source: patient Mode of arrival: EMS History of Present Illness: 85-year-old female presents via EMS after falls at home. She complaining of neck and back pain. Is difficult to get specific history from her. She states she got up last night fell she was unable to get up and had a friend help her up eventually was able to get up and get into bed she was able to bear weight at that point she slept through the night and then fell again this morning. She has an abrasion on her left forearm along the ulnar ridge. She did hit the back of her head when she fell but denies any loss of consciousness. She not had any vomiting or diarrhea she denies any chest pain or shortness of breath but she states she has a chronic ache in her chest she denies any dysuria urgency or frequency vomiting or diarrhea no recent fever sweats or chills. Patient did recently have a left proximal humerus fracture from a fall but that seems to have resolved for the most part and she has been functional. MD complaint: fall Onset (ago): hour(s) Fall from: standing Fall witnessed: no Place fall occurred: home Loss of consciousness: None Prolonged down time: no Context: tripped/slipped Location of injury: head Location of injury - extremities: Left: forearm Severity: moderate Quality: dull Associated symptoms-after fall: Reports confusion, difficulty walking and weakness; Denies abdominal pain, chest pain, headache(s), hematuria, lightheadedness, neck pain, numbness, short of breath or vertigo Review of Systems Const: Denies: fever(s), chills, body aches, change in appetite, fatigue or malaise ENMT: Denies: throat pain, ear or mastoid pain, nasal discharge or nasal congestion Card: Denies: chest pain or lightheadedness Resp: Denies: dyspnea, productive cough or non-productive cough GI: Denies: abdominal pain : Denies: hematuria Musc: Denies: neck pain Skin/Breast: Denies: rash or pruritus Neuro: Reports: difficulty walking and confusion; Denies: headache(s) or vertigo PFS ED PFSH: Medical History Anxiety Arthritis Atrial fibrillation COPD (chronic obstructive pulmonary disease) Depression Dizziness High blood pressure History of fracture Hypothyroidism MRSA (methicillin resistant Staphylococcus aureus) Peripheral vascular disease Pneumonia Sleep apnea Surgical History History of section Status post total hip replacement, right Family History Other Diabetes Hypertension Social History Smoking and tobacco status: former smoker Quit status (tobacco): has quit using tobacco Year quit tobacco: 2019 Second hand smoke exposure: No Alcohol intake: current Caregiver/support person: Yes Lives independently: Yes Household members: significant other Current occupational status: retired History of recent travel: No Current gender identity: Female Special noris needs: No Agree to transfusion: Yes Physical Exam Const: GENERAL APPEARANCE: cooperative ORIENTATION/CONSCIOUSNESS: Yes awake, Yes oriented to person, Yes oriented to place and Yes oriented to time HENMT: COMMON NORMALS: normocephalic, atraumatic and hearing grossly normal bilaterally HEAD & SCALP: normocephalic and atraumatic Eye: COMMON NORMALS: Equal, round and reactive pupils present, EOMs intact bilaterally, conjunctivae normal and no scleral icterus CONJUNCTIVA: Yes conjunctivae normal PUPIL: Yes Equal, round and reactive pupils present Neck/C-Spine: COMMON NORMALS: full ROM, no lymphadenopathy, supple and no JVD Resp: COMMON NORMALS: normal respiratory effort, No retractions, No use of accessory muscles and clear to auscultation bilaterally AUSCULTATION: clear to auscultation bilaterally Cardio: COMMON NORMALS: no JVD, regular rate, regular rhythm and No murmurs present (Cardio) RATE: regular rate RHYTHM: regular rhythm GI: COMMON NORMALS: Normal to inspection, nondistended, normoactive bowel sounds present, Soft to palpation and No hepatosplenomegaly present AUSCULTATION: Yes normoactive bowel sounds PALPATION: Yes Soft to palpation, No Tenderness to palpation present (GI), No Guarding due to palpation present (GI) and Yes No hepatosplenomegaly present : COMMON NORMALS: Yes no CVA tenderness BLADDER/KIDNEY EXAM: Yes no CVA tenderness Back/Pelvis: COMMON NORMALS: no CVA tenderness Extremity: COMMON NORMALS: normal to inspection, capillary refill normal, no clubbing, cyanosis or edema, no calf tenderness and no pedal edema OTHER: Abrasion left ulnar ridge superficial no full-thickness laceration no deformity elbow or forearm Neuro: SENSORIUM/ORIENTATION: Yes oriented to person, Yes oriented to place and Yes oriented to time Skin: COMMON NORMALS: no rashes or lesions noted GENERAL SKIN EXAM: no rashes or lesions noted Course Vital Signs: Vital signs: Vital Signs Temperature 96.2 F L 06/30/21 10:33 Pulse Rate 67 06/30/21 15:01 Respiratory Rate 15 06/30/21 15:01 Blood Pressure 174/81 06/30/21 15:01 Pulse Oximetry 94 06/30/21 15:01 MDM - Fall Medical Decision Making Lumbar compression fracture with a relatively new but subacute sacral fracture with some evidence of healing. Unfortunately patient is not able to get up or move her pain is controlled relatively well controlled but only when she remains in bed she is not able to get up out of a supine position. Discussed with hospitalist will put her on observation. Medical Records I reviewed the patient's medical records. Lab Data I reviewed the patient's lab results. : 06/30/21 10:58 06/30/21 10:58 Radiology Impressions Cervical Spine CT 06/30/21 10:44 IMPRESSION: 1. No acute cervical spine fracture. 2. Multilevel areas of central and foraminal stenosis as described above. Similar to the study of 04/08/2021. Forearm X-Ray 06/30/21 10:44 Impression: Negative for fracture. Head CT 06/30/21 10:44 IMPRESSION: 1. No acute intracranial hemorrhage or edema. 2. Mild to moderate atrophy with small vessel ischemic disease and lacunar infarct as described above. Lumbar Spine X-Ray 06/30/21 10:44 Impression: 1. Dextroscoliosis with osteoporosis and osteoarthritis. 2. Degenerative disc disease at L4-L5 and L5-S1. 3. Slight loss of superior vertebral body height of L2 which could be acute. Thoracic Spine X-Ray 06/30/21 10:44 Impression: 1. Osteoporosis. 2. Slight wedging of vertebral bodies T8-T12 with minimal osteoarthritis. Chest X-Ray 06/30/21 10:45 Impression: Atherosclerosis. Lumbar Spine CT 06/30/21 11:59 IMPRESSION: 1. New, 10% compression fracture L2 with 2 mm retropulsion of posterior superior endplate. 2. Retropulsion of posterior superior endplate of L2 causing mild encroachment and narrowing of the LEFT subarticular recess. 3. LEFT sacral nondisplaced fracture. May be subacute as there is increased sclerosis. This fracture was not evident on the prior CT of 05/26/2021. May have been occult at that time and now undergone partial healing. Laboratory Results WBC 9.6 10^3/uL (4.0-10.0) 06/30/21 10:58 RBC 4.71 10^6/uL (4.1-5.3) 06/30/21 10:58 Hgb 12.2 g/dL (11.5-15.3) 06/30/21 10:58 Hct 38.9 % (37.0-47.0) 06/30/21 10:58 MCV 82.6 fl (81-99) 06/30/21 10:58 MCH 25.9 pg (28.0-34.0) L 06/30/21 10:58 MCHC 31.4 g/dL (30.0-36.0) 06/30/21 10:58 RDW 16.0 % (12.1-15.1) H 06/30/21 10:58 Plt Count 239 10^3/cmm (130-400) 06/30/21 10:58 MPV 8.9 fL (7.4-10.4) 06/30/21 10:58 Neut % (Auto) 80.4 % 06/30/21 10:58 Lymph % (Auto) 8.1 % 06/30/21 10:58 [place] % (Auto) 8.9 % 06/30/21 10:58 Eos % (Auto) 1.0 % 06/30/21 10:58 Baso % (Auto) 0.5 % 06/30/21 10:58 Neut # (Auto) 7.70 10^3/uL (1.8-7.7) 06/30/21 10:58 Lymph # (Auto) 0.8 10^3/uL (0.8-4.8) 06/30/21 10:58 [place] # (Auto) 0.9 10^3/uL (0.2-0.9) 06/30/21 10:58 Eos # (Auto) 0.1 10^3/uL (0.0-0.8) 06/30/21 10:58 Baso # (Auto) 0.1 10^3/uL (0.0-0.1) 06/30/21 10:58 Nucleated RBC % (auto) 0 % 06/30/21 10:58 Nucleated RBCs # 0.0 /100WBC 06/30/21 10:58 Sodium 132 mmol/L (136-145) L 06/30/21 10:58 Potassium 4.1 mmol/L (3.5-5.1) 06/30/21 10:58 Chloride 93 mmol/L (98-107) L 06/30/21 10:58 Carbon Dioxide 30 mmol/L (22-29) H 06/30/21 10:58 Anion Gap 13.1 (5-19) 06/30/21 10:58 BUN 14 mg/dL (8-23) 06/30/21 10:58 Creatinine 0.7 mg/dL (0.5-0.9) 06/30/21 10:58 GFR Calculation Not Reportable 06/30/21 10:58 Glucose 99 mg/dL (65-115) 06/30/21 10:58 Calculated Osmolality 275 mOsm/kg (285-295) L 06/30/21 10:58 Calcium 8.6 mg/dL (8.5-10.5) 06/30/21 10:58 Total Bilirubin 0.5 mg/dL (0.15-1.2) 06/30/21 10:58 AST 24 U/L (0-32) 06/30/21 10:58 ALT 36 U/L (0-33) H 06/30/21 10:58 Alkaline Phosphatase 170 IU/L (35-105) H 06/30/21 10:58 Creatine Kinase 28 U/L (26-192) 06/30/21 10:58 Total Protein 6.5 g/dL (6.6-8.7) L 06/30/21 10:58 Albumin 4.5 g/dL (3.5-5.2) 06/30/21 10:58 Globulin 2.0 g/dL (1.3-4.6) 06/30/21 10:58 Discharge Plan Discharge Patient Disposition: Placed in Observation Admit Provider: Maddy Bosch Clinical Impression: Compression fx, lumbar spine, Closed sacral fracture, Falls frequently Coding Level of Care Code ED Customer Training Specialist for Chg Fwd Exam Comprehensive
--- NOTE | 2021-06-30 10:44 | XR_ITS ---
WS: [email or web address] Thoracic spine, 3 views, 06/30/2021 Clinical Data: fall pain Comparison: None. Findings: No acute compression fractures are seen. Diffuse osteoporosis is present The disc heights are normal. There is slight loss of vertebral body height from T8 through T12. There is osteoarthritis of the ant erior vertebral bodies T8-T12. Paravertebral regions are normal. There is an small opacity overlying the fundus of the stomach which could represent ingested material. XR/XR thoracic spine 3V* [id number] Impression: 1. Osteoporosis. 2. Slight wedging of vertebral bodies T8-T12 with minimal osteoarthritis.
--- NOTE | 2021-06-30 10:44 | XR_ITS ---
WS: [email or web address] Lumbar spine, 3 views, 06/30/2021 Clinical Data: pain after fall Comparison: Lumbar spine, 02/06/2020. Findings: No subluxation is seen. There is a dextroscoliosis. There is slight loss of superior vertebral body h eight of L2 which could represent a minimal compression fracture. There is degenerative disc disease at L4-L5 and L5-S1.There is osteoarthritis of all the lumbar vertebral bodies L1-L5. The transverse p rocesses and SI joints are normal. There are vascular stents from the aortic bifurcation into the com mon iliac arteries. XR/XR lumbar spine 2-3V* [id number] Impression: 1. Dextroscoliosis with osteoporosis and osteoarthritis. 2. Degenerative disc disease at L4-L5 and L5-S1. 3. Slight loss of superior vertebral body height of L2 which could be acute.
--- NOTE | 2021-06-30 10:44 | XR_ITS ---
WS: [email or web address] Left forearm, AP and lateral views, 06/30/2021 Clinical Data: pain fall Comparison: None. Findings: No fracture or dislocations are seen. The soft tissues are normal. The visualized left wrist and elbo w show no obvious abnormalities. XR/XR forearm LT 2V [id number] Impression: Negative for fracture.
--- NOTE | 2021-06-30 10:44 | CT_ITS ---
WS: [email or web address] CT HEAD NONCONTRAST HISTORY: closed head injury TECHNIQUE: Contiguous axial imaging performed through the brain in 2.5 mm imaging. Bone and soft tiss ue windows. Sagittal and coronal reformats reviewed. All CT scans at [facility] use at least one of these dose optimization techniques: automated exposure control; mA and/or kV adjustment per pa tient size (includes targeted exams where dose is matched to clinical indication); or iterative recon struction. DLP: 800.57 mGy.cm COMPARISON: 04/08/2021 No acute intracranial hemorrhage, midline shift or mass effect. Mild to moderate bilateral atrophy and small vessel ischemic disease. Small lacunar infarct RIGHT ins ular ribbon. Additional small lacunar infarct of the LEFT caudate head. Ventricles: Mild ventriculomegaly on the basis of atrophy. No intraventricular blood. No inferior displacement of the cerebellar tonsils. Paranasal sinuses: As visualized are clear. Mastoid air cells: Well pneumatized. Calvarium and scalp: Skull is intact with no soft tissue edema or swelling. CT/CT head wo con* [id number] IMPRESSION: 1. No acute intracranial hemorrhage or edema. 2. Mild to moderate atrophy with small vessel ischemic disease and lacunar inf arct as described above.
--- NOTE | 2021-06-30 10:44 | CT_ITS ---
WS: [email or web address] CT CERVICAL SPINE HISTORY: pain, fall and bilateral arm pain. TECHNIQUE: Contiguous 2.5 mm axial imaging performed through the entire cervical spine. Sagittal and coronal reformats also performed. All CT scans at [facility] use at least one of these dose o ptimization techniques: automated exposure control; mA and/or kV adjustment per patient size (include s targeted exams where dose is matched to clinical indication); or iterative reconstruction. DLP: 481.9 mGy.cm COMPARISON: 04/08/2021 Very slight anterolisthesis of C3 and C7 as before. Moderate disc space narrowing at C4-5, C5-6 and C 6-7. No fractures are identified. Hypertrophic osteophytes from C4 to C7. Normal alignment of the sub chondral condyles. Lateral masses of C1 and C2 are aligned. Odontoid is intact. Very mild LEFT curvat ure cervical spine. Bilateral facet joint arthritis throughout the cervical spine. There is moderate bilateral foraminal stenosis at C4-5, C5-6 and severe at C6-7. No acute-appearing disc protrusions. Mild central stenosis at C5-6 and C6-7. Lung apices are clear. On the electronic integrated systems mechanic localizer again noted is the healing fracture involving the LEFT humeral head. Heavy calcification in the RIGHT cervical carotid artery and mild on the LEFT. CT/CT cervical spin wo con* [id number] IMPRESSION: 1. No acute cervical spine fracture. 2. Multilevel areas of central and foraminal stenosis as described above. Justina ragsdale to the study of 04/08/2021.
--- NOTE | 2021-06-30 10:45 | ECG_ITS ---
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 Measurements Intervals [place] Rate: 62 P: 75 MO: 196 QRS: 71 QRSD: 104 T: 55 QT: 447 QTc: 454 Interpretive Statements SINUS RHYTHM Compared to ECG 03/08/2019 12:45:56 Sinus bradycardia no longer present Electronically Signed On 06-30-2021 23:18:27 CDT by Tawnya Thomas M.D. [email or web address] Limiteddayton va medical center.[email or web address]/[id number]
--- NOTE | 2021-06-30 10:45 | XR_ITS ---
WS: [email or web address] Portable AP upright chest, 06/30/2021 Clinical Data: dyspnea Comparison: PA and lateral chest, 03/08/2019 Findings: No nodules, masses or effusions are seen. The heart is normal. The pulmonary vascularity is not increased. No pneumonia or pneumothorax is seen. The aortic arch and descending thoracic aorta s how calcification and tortuosity. XR/XR chest 1V portable [id number] Impression: Atherosclerosis.
[2021-06-30 11:04] LABS: Basophils # 0.1 10^3/uL (0.0-0.1); Basophils % 0.5 %; Eosinophils # 0.1 10^3/uL (0.0-0.8); Hematocrit 38.9 % (37.0-47.0); Hemoglobin 12.2 g/dL (11.5-15.3); Lymphocytes # 0.8 10^3/uL (0.8-4.8); Lymphocytes % 8.1 %; Mean Corpuscular HGB Conc 31.4 g/dL (30.0-36.0); Mean Corpuscular Hemoglobin 25.9 pg (28.0-34.0); Mean Corpuscular Volume 82.6 fl (81-99); Mean Platelet Volume 8.9 fL (7.4-10.4); Monocytes # 0.9 10^3/uL (0.2-0.9); Monocytes % 8.9 %; Neutrophils % 80.4 %; Nucleated Red Blood Cells % 0 %; Platelet Count 239 10^3/cmm (130-400); Red Blood Count 4.71 10^6/uL (4.1-5.3); White Blood Count 9.6 10^3/uL (4.0-10.0)
[2021-06-30 11:37] LABS: Alanine Aminotransferase 36 U/L (0-33); Albumin Level 4.5 g/dL (3.5-5.2); Alkaline Phosphatase 170 IU/L (35-105); Anion Gap 13.1 (5-19); Aspartate Amino Transferase 24 U/L (0-32); Blood Urea Nitrogen 14 mg/dL (8-23); Calcium 8.6 mg/dL (8.5-10.5); Carbon Dioxide 30 mmol/L (22-29); Chloride 93 mmol/L (98-107); Creatine Phosphokinase 28 U/L (26-192); Glucose 99 mg/dL (65-115); Osmolality Calculated 275 mOsm/kg (285-295); Potassium 4.1 mmol/L (3.5-5.1); Sodium 132 mmol/L (136-145); Total Bilirubin 0.5 mg/dL (0.15-1.2); Total Protein 6.5 g/dL (6.6-8.7)
--- NOTE | 2021-06-30 11:59 | CT_ITS ---
WS: [email or web address] CT LUMBAR SPINE, noncontrast. HISTORY: fall, l2 compression fx TECHNIQUE: Contiguous 2.5 mm axial imaging are performed. Sagittal and coronal reformats are submitte d and reviewed. All CT scans at [facility] use at least one of these dose optimization techni ques: automated exposure control; mA and/or kV adjustment per patient size (includes targeted exams w here dose is matched to clinical indication); or iterative reconstruction. IV contrast: None DLP: 2203.51 mGy.cm COMPARISON: 05/26/2021 There is a new minimal compression deformity involving L2. There is a fracture line extending through the superior vertebral body with asymmetric loss of height, greatest on the LEFT. Approximately 2 mm retropulsion of the posterior superior endplate. The retropulsion contacts the LEFT lateral thecal s ac causing mild narrowing of the subarticular recess. Disc spaces are narrowed and desiccated throughout the lumbar spine. 2 mm retrolisthesis of L3. No tr ansverse process fractures. L1-2: Mild disc bulging and posterior retropulsion of the superior endplate of L2 causing mild encroa chment upon the ventral thecal sac and narrowing of the LEFT subarticular recess. L2-3: Facet joint arthritis. No stenosis. L3-4: Diffuse annular disc bulging with ligamentum flavum hypertrophy and facet arthritis. Moderate c entral and bilateral subarticular recess narrowing. L4-5: Diffuse annular disc bulging and osteophytic ridging. Ligamentum flavum hypertrophy and facet a rthritis. L5-S1: Mild central disc bulging. There is increased sclerosis noted within the S1 vertebral body just to the LEFT of midline. This was not present on the prior study from 05/26/2021 therefore this may be an occult healing fracture or ne w fracture since that examination. This is a nondisplaced sacral fracture. Extensive atherosclerotic plaque within the aorta. CT/CT lumbar spine wo con* [id number] IMPRESSION: 1. New, 10% compression fracture L2 with 2 mm retropulsion of posterior superi or endplate. 2. Retropulsion of posterior superior endplate of L2 causing mild encroachment and narrowing of the LEFT subarticular recess. 3. LEFT sacral nondisplaced fracture. May be subacute as there is increased sc lerosis. This fracture was not evident on the prior CT of 05/26/2021. May have b een occult at that time and now undergone partial healing.
[2021-06-30] MEDS: bacitracin ointment Pkt 1 EACH TOPICAL (12:03)
[2021-06-30] MEDS: tetanus-diphtheria tox (adult) 0.5 mL SDV IM (12:03)
[2021-06-30] MEDS: HYDROcodone-acetaminophen 5-325 mg Tablet 1 TAB PO ×2 (12:17→21:42)
[2021-06-30] MEDS: sodium chloride 0.9% 1,000 ML 999 ML IV ×2 (12:17→14:15)
--- NOTE | 2021-06-30 14:12 | PC.PHAR ---
PTS DAUGHTER VERIFIED PTS MEDICATIONS AND BROUGHT IN A LIST OF SOME MEDICATIONS FROM THE PTS PILL PACK
--- NOTE | 2021-06-30 14:18 | P.HP_ITS ---
Providers/Chief Complaint Admitting Physician: Maddy Bosch MD Primary Care Provider: Sarah Witt APN Chief Complaint: FALLS, SKIN TEAR, BACK/NEC PAIN History of Present Illness Linsey Reyna is a 85 year old female who presented to the emergency room with chief complaint of severe back pain and not acting like herself after a fall. She has been having frequent falls lately and has sustained multiple fractures from these falls. Going back to the end of April she had a humerus fracture. In May she fell and had a pubic rami fracture. She had been following with Dr. Ramirez and has had PT and pain control for these. She has continued to have episodes of falls. She is known not to use her walker and often does not heed warnings to be slow with position changes. Her friend with whom she lives has been hovering quite a bit lately because of how frequent the falls are and the recent injuries sustained. This has frustrated Mrs. Reyna and she has been even less attentive to the things that she should do to try to decrease her risk of falls because of this. Most of the time when she falls she does report some dizziness. Falls tend to occur after she has gotten up from a seated position to a standing position rapidly and started to walk across the room. The dizziness will occur after a few steps and then she falls down. Her friend describes her walking very fast with a shuffling type gait and leaning. She has walked this way since her recovery from a hip fracture and subsequent surgery in 2019 and 2019. Sometime within the last week or 2, patient has been having increased pain in her tailbone that has made getting around even more challenging as well as getting up and down. Last evening patient got up and fell onto the ground, hitting a table or something on the way down. She required assistance getting up and reported pain in low back area that went down into her pelvis and through to her abdomen. It was worse with any amount of m ovement but she was able to sleep some. She has been taking scheduled tramadol and Flexeril lately to help with the increased pain from prior fractures, but the last couple of days has been less like herself, often sleepy and sometimes not making sense with the things that she says although her speech has been clear. Her friend backed off on the scheduled tramadol yesterday because of this. This morning upon awakening and trying to attend to activities of daily living, the pain in the back was even more severe and Mrs. Reyna was not quite herself. Her friend describes her having her head bent down with grimacing facial expressions and not able to really be conversive. EMS was called and brought patient in. Vitals at the scene showed blood pressure 128/58, pulse 68 with initial oxygen saturation in the low 90s. EMS placed oxygen 2 L by nasal cannula. She received fentanyl in route for pain control. On arrival to the emergency, room blood pressures were low with systolic in the 80s. She received 2 L of IV fluid with improved blood pressures. Work-up in the emergency room revealed L2 acute compression fracture as well as sacral fracture. Large skin tear to the left forearm was cleaned and dressed. Tetanus shot was administered. Given repeated falls with significant injuries, vital sign abnormalities, advanced age and pain, patient is being admitted for further evaluation and treatment. Currently rates her pain at a 4 out of 10. At its worst 10 out of 10. Review of Systems Const: Reports: fatigue; Denies: fever(s) or chills Eyes: Denies: blurry vision ENMT: Reports: nasal congestion and other (Has hearing aids); Denies: tinnitus Card: Reports: chest pain (when angry, not exertional, not persistent) and lightheadedness; Denies: palpitations, irregular heart rhythm, edema, syncope, orthopnea, leg pain with exertion or acrocyanosis Resp: Reports: dyspnea (sometimes, not acutely worse); Denies: pain on inspiration GI: Reports: constipation; Denies: nausea, vomiting, hematochezia or melena : Denies: difficulty voiding or hematuria Musc: Reports: back pain, extremity pain and limited range of motion (due to pain); Denies: muscle cramps or loss of height Skin/Breast: Reports: sores (skin tears from falls) and dry skin Neuro: Reports: numbness in extremities (not acutely worse), weakness in extremities (not acutely worse), difficulty walking, frequent falls and dizziness; Denies: headache(s), Slurred speech present, seizure-like activity or involuntary movements Psych: Reports: anxiety (not acutely worse), depression (not acutely worse), mood swings ( I am a stubborn [place] , hard headed , been angry ) and other (not acting like self when in sever pain this monring) Johny/Lymph: Reports: easy bruising and other (some bruises without recall of how obtained); Denies: easy bleeding Medications/Allergies Home Medications Medication Instructions Recorded Confirmed Last Taken Type montelukast 10 mg tablet 10 mg PO QAM 03/08/19 06/30/21 04/13/19 15:00 History (Singulair) ergocalciferol (vitamin D2) 1,250 1,250 mcg PO Q7D cap 02/06/20 06/30/21 Unknow n History mcg (50,000 unit) capsule vitamins A,C,F-qzva-urctcc 14,320 1 cap PO BID 12/23/20 06/30/21 Unknown History unit-226 mg-200 unit capsule (PreserVision AREDS) Wheel Chair #1 ea 05/27/21 06/30/21 Unknown Rx ibuprofen 800 mg tablet 800 mg PO TID PRN #90 tab 06/09/21 06/30/21 Unknown Rx L.acidophil,salivari-Bifido 1 cap PO QAM 06/30/21 06/30/21 Unknown History bifidum-Strep thermoph 175 mg capsule (Acidophilus Probiotic Blend) Vitamin C Gummies 1 tab PO DAILY 06/30/21 06/30/21 Unknown History albuterol sulfate 90 mcg/actuation 2 puff INHALATION QID PRN 06/30/21 06/30/21 Unknown History aerosol inhaler alprazolam 1 mg tablet 1 mg PO BID 06/30/21 06/30/21 Unknown History amiodarone 200 mg tablet 200 mg PO QAM 06/30/21 06/30/21 Unknown History aspirin 325 mg tablet 325 mg PO QAM 06/30/21 06/30/21 Unknown History bupropion HCl 150 mg tablet,12 hr 150 mg PO QAM 06/30/21 06/30/21 Unknown History sustained-release citalopram 40 mg tablet 40 mg PO BEDTIME 06/30/21 06/30/21 Unknown History cyanocobalamin (vitamin B-12) 1,000 mcg PO QAM 06/30/21 06/30/21 Unknown History 1,000 mcg tablet,extended release cyclobenzaprine 5 mg tablet 5 - 10 mg PO TID PRN 06/30/21 06/30/21 Unknown History levothyroxine 125 mcg tablet 125 mcg PO QAM 06/30/21 06/30/21 Unknown History lisinopril 40 mg tablet 40 mg PO QAM 06/30/21 06/30/21 Unknown History loratadine 10 mg tablet 10 mg PO QAM 06/30/21 06/30/21 Unknown History meclizine 25 mg tablet 25 - 37.5 mg PO TID PRN 06/30/21 06/30/21 Unknown History multivitamin with minerals-folic 1 tab PO DAILY 06/30/21 06/30/21 Unknown History acid 200 mcg chewable tablet (Adult Multivitamin Gummies) nitroglycerin 0.4 mg sublingual 0.4 mg SUBLINGUAL Q5M PRN 06/30/21 06/30/21 Unknown History tablet (Nitrostat) pantoprazole 40 mg tablet,delayed 40 mg PO QAM 06/30/21 06/30/21 Unknown History release polyethylene glycol 3350 17 gram 17 g PO DAILY PRN 06/30/21 06/30/21 Unknown History oral powder packet (Miralax) simvastatin 40 mg tablet 40 mg PO BEDTIME 06/30/21 06/30/21 Unknown History tramadol 50 mg tablet 50 mg PO TID PRN 06/30/21 06/30/21 Unknown History Allergies Allergy/AdvReac Type Severity Reaction Status Date / Time amoxicillin Allergy ADR-Halluci Verified 06/23/21 13:44 nating cilostazol Allergy ADR-Halluci Verified 06/23/21 13:44 nating codeine Allergy ADR-Halluci Verified 06/23/21 13:44 nating influenza virus vaccine qs Allergy Unknown Verified 06/23/21 13:44 2317-3512 (36 mos, up) [From Fluarix Quad] oxycodone Allergy ADR-Halluci Verified 06/23/21 13:44 nating Penicillins Allergy ADR-Halluci Verified 06/23/21 13:44 nating Sulfa (Sulfonamide Allergy Unknown Verified 06/23/21 13:44 Antibiotics) PFSH Acute PFSH: Medical History (Updated 06/30/21 @ 21:00 by Maddy Bosch MD) Anxiety Arthritis Atrial fibrillation in sinus rhythm on amiodarone, not on anticoagulation beyond daily 325mg a spirin due to risk of bleeding with recurrent falls 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, 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 CAD (coronary artery disease) Carotid stenosis COPD (chronic obstructive pulmonary disease) Degenerative disc disease, lumbar Depression Dizziness Former smoker GERD (gastroesophageal reflux disease) Hard of hearing History of fracture multiple related to falls Hyperlipidemia Hypertension Hypothyroidism Ischemic cardiomyopathy Echo 03/2021 normal EF, systolic and diastolic function MRSA (methicillin resistant Staphylococcus aureus) Osteoporosis Peripheral vascular disease Pneumonia Sleep apnea Small bowel obstruction, partial Vitamin D deficiency Surgical History (Updated 06/30/21 @ 16:23 by Maddy Bosch MD) History of angioplasty of peripheral vessel (~2018) for in stent restenosis History of ankle surgery left History of section x4 History of open reduction and internal fixation (ORIF) procedure (~09/2018) right hip S/P peripheral artery angioplasty with stent placement right common iliac artery Status post total hip replacement, right (~03/2019) Family History (Updated 06/30/21 @ 20:56 by Maddy Bosch MD) Son Psychiatric illness Bipolar Social History (Updated 06/30/21 @ 20:58 by Maddy Bosch MD) Smoking and tobacco status: former smoker Quit status (tobacco): has quit using tobacco Year quit tobacco: 2018 Alcohol intake: current Alcohol intake frequency: holidays/special occasions only Substance/Drug Use: never Caregiver/support person: Yes Lives independently: Yes Household members: significant other Number of children: 4 Current occupational status: retired Previous occupational history: Previously worked at [employer] History of recent travel: No Current gender identity: Female Special noris needs: No Agree to transfusion: Yes Financial difficulty paying for basics: Not Applicable Vitals/I&O/Wt Last Vital Signs Temp 96.2 F L 06/30/21 10:33 Pulse 66 06/30/21 14:05 Resp 15 06/30/21 14:05 BP 134/72 06/30/21 14:05 Weight last 48 hrs Weight 68.039 kg Physical Exam Narrative: Constitutional: Awake and alert, oriented x4, cooperative HEENT: Normocephalic, atraumatic, pupils are equal bilaterally, nasopharynx is clear, oropharynx with fair to poor lower dentition, upper dentures noted, moist mucous membranes Neck: Supple, at times looks to have torticollis with head leading to the right but not notable on direct examination Respiratory: Clear to auscultation bilaterally without any rales rhonchi or wheezes noted, mild splinting with deep inspiration Cardiovascular: Regular rate and rhythm, 2/6 murmur, no gallops or rubs, 2+ radial pulses, 1+ dorsalis pedis pulses with brisk capillary refill Abdomen: Soft, nontender, positive bowel sounds : Catheter noted Extremities: No pitting edema, no calf tenderness, some decreased range appreciated although left upper extremity grossly functional, back pain with movement noted Skin: Healing skin tear to right forearm, dressing intact over left forearm was not removed as recently replaced by nursing staff but extends from elbow to wrist, skin thickening noted to the lower extremities along with alopecia, some callus to the feet but no wounds noted to the feet or lower extremities otherw ise Neuro: Speech is clear, face symmetric, sensation is equal to light touch to both feet but overall decreased compared to hands, handgrip is equal bilaterally, gait not presently assessed Psych: Normal affect Urinary Catheter Management: Perry: Cath Placed During This Visit: yes Urinary Catheter Date of Insertion: 06/30/21 Data : 06/30/21 10:58 06/30/21 10:58 Other Labs: Radiology Impressions Cervical Spine CT 06/30/21 10:44 IMPRESSION: 1. No acute cervical spine fracture. 2. Multilevel areas of central and foraminal stenosis as described above. Similar to the study of 04/08/2021. Forearm X-Ray 06/30/21 10:44 Impression: Negative for fracture. Head CT 06/30/21 10:44 IMPRESSION: 1. No acute intracranial hemorrhage or edema. 2. Mild to moderate atrophy with small vessel ischemic disease and lacunar in farct as described above. Lumbar Spine X-Ray 06/30/21 10:44 Impression: 1. Dextroscoliosis with osteoporosis and osteoarthritis. 2. Degenerative disc disease at L4-L5 and L5-S1. 3. Slight loss of superior vertebral body height of L2 which could be acute. Thoracic Spine X-Ray 06/30/21 10:44 Impression: 1. Osteoporosis. 2. Slight wedging of vertebral bodies T8-T12 with minimal osteoarthritis. Chest X-Ray 06/30/21 10:45 Impression: Atherosclerosis. Lumbar Spine CT 06/30/21 11:59 IMPRESSION: 1. New, 10% compression fracture L2 with 2 mm retropulsion of posterior superior endplate. 2. Retropulsion of posterior superior endplate of L2 causing mild encroachment and narrowing of the LEFT subarticular recess. 3. LEFT sacral nondisplaced fracture. May be subacute as there is increased scl erosis. This fracture was not evident on the prior CT of 05/26/2021. May have been occult at that time and now undergone partial healing. Laboratory Results WBC 9.6 10^3/uL (4.0-10.0) 06/30/21 10:58 RBC 4.71 10^6/uL (4.1-5.3) 06/30/21 10:58 Hgb 12.2 g/dL (11.5-15.3) 06/30/21 10:58 Hct 38.9 % (37.0-47.0) 06/30/21 10:58 MCV 82.6 fl (81-99) 06/30/21 10:58 MCH 25.9 pg (28.0-34.0) L 06/30/21 10:58 MCHC 31.4 g/dL (30.0-36.0) 06/30/21 10:58 RDW 16.0 % (12.1-15.1) H 06/30/21 10:58 Plt Count 239 10^3/cmm (130-400) 06/30/21 10:58 MPV 8.9 fL (7.4-10.4) 06/30/21 10:58 Neut % (Auto) 80.4 % 06/30/21 10:58 Lymph % (Auto) 8.1 % 06/30/21 10:58 Elk % (Auto) 8.9 % 06/30/21 10:58 Eos % (Auto) 1.0 % 06/30/21 10:58 Baso % (Auto) 0.5 % 06/30/21 10:58 Neut # (Auto) 7.70 10^3/uL (1.8-7.7) 06/30/21 10:58 Lymph # (Auto) 0.8 10^3/uL (0.8-4.8) 06/30/21 10:58 Elk # (Auto) 0.9 10^3/uL (0.2-0.9) 06/30/21 10:58 Eos # (Auto) 0.1 10^3/uL (0.0-0.8) 06/30/21 10:58 Baso # (Auto) 0.1 10^3/uL (0.0-0.1) 06/30/21 10:58 Nucleated RBC % (auto) 0 % 06/30/21 10:58 Nucleated RBCs # 0.0 /100WBC 06/30/21 10:58 Sodium 132 mmol/L (136-145) L 06/30/21 10:58 Potassium 4.1 mmol/L (3.5-5.1) 06/30/21 10:58 Chloride 93 mmol/L (98-107) L 06/30/21 10:58 Carbon Dioxide 30 mmol/L (22-29) H 06/30/21 10:58 Anion Gap 13.1 (5-19) 06/30/21 10:58 BUN 14 mg/dL (8-23) 06/30/21 10:58 Creatinine 0.7 mg/dL (0.5-0.9) 06/30/21 10:58 GFR Calculation Not Reportable 06/30/21 10:58 Glucose 99 mg/dL (65-115) 06/30/21 10:58 Calculated Osmolality 275 mOsm/kg (285-295) L 06/30/21 10:58 Calcium 8.6 mg/dL (8.5-10.5) 06/30/21 10:58 Total Bilirubin 0.5 mg/dL (0.15-1.2) 06/30/21 10:58 AST 24 U/L (0-32) 06/30/21 10:58 ALT 36 U/L (0-33) H 06/30/21 10:58 Alkaline Phosphatase 170 IU/L (35-105) H 06/30/21 10:58 Creatine Kinase 28 U/L (26-192) 06/30/21 10:58 Total Protein 6.5 g/dL (6.6-8.7) L 06/30/21 10:58 Albumin 4.5 g/dL (3.5-5.2) 06/30/21 10:58 Globulin 2.0 g/dL (1.3-4.6) 06/30/21 10:58 A&P Assessment and plan (1) Fall as cause of accidental injury at home as place of occurrence: Most recent occurred yesterday, severe back pain since then as well as increased pain in the tailbone area. She has now had four fractures since the end of April related to falls. In addition she has had other injuries including la rge skin tears and bruising. Most falls seem orthostatic, occurring not too long after she rises from a seated to standing position and has taken a few steps to cross the room Often though not always falls are preceded by a sensation of dizziness but no other described symptoms. She has had chronic gait issues since hip fracture in 2019 but they have worsened over time, also contributing. She does not routinely use her walker and often does not heed advice to observe slow position changes or other fall prevention measures. She admits to being stubborn like a Yankee and quite hard headed . Arrhythmia could potentially present like this but there has been no reported palpitations, chest pain, loss of consciousness. No evidence of seizure activity or focal neurological symptoms although she was not with it today per friend, possibly from severity of pain plus or minus medications. She does have some decreased sensation in her feet related to known peripheral vascular disease but no recent change in peripheral sensation described. Multisensory deficits are likely contributing to some degree regardless. PT and OT evaluation in hospital Home health PT and OT to include home evaluation for optimal safety and fall prevention along with appropriate therapy Walker recommended at all times, reinforced with patient Had long discussion with patient and her friend with whom she lives regarding need for patient to work harder at trying to minimize falls and associated injury. The goal of this effort from my point of view is not about limiting her independence further but instead preserving the independence that she has as long as possible. When presented with this perspective patient was agreeable to considering recommendations such as slowing down with position changes, using the walker, working with providers to try to limit unnecessary medications as able, and home evaluations plus therapy. Iterated that thus far patient has had what would be considered minor injuries related to the falls lately (not including when she broke her hip in 2019 more recently and at this point we still have an opportunity to prevent more severe injury. Status: Acute Qualifiers: Encounter type: initial encounter Qualified Code(s): W19.XXXA - Unspecified fall, initial encounter; Y92.009 - Unspecified place in unspecified non-institutional (private) residence as the place of occurrence of the external cause (2) Hypotension: Noted on arrival to the emergency room. Appears to be secondary to medication as blood pressures in the field more range. Had been given fentanyl for pain control by EMS. Received IV fluids in the emergency room with normalization of blood pressures and in fact elevated blood pressures. Chronically with a history of hypertension on lisinopril 40 mg daily. Continue lisinopril but at half usual home dose presently Hold further IV's, status post 2 L in the emergency room Monitor blood pressures for need to evaluate further Hold NTG unless clinically indicated Status: Acute Qualifiers: Hypotension type: other hypotension type Qualified Code(s): I95.89 - Other hypotension (3) Dizziness: By description sounds orthostatic though difficult to appreciate. She has a longstanding history of some degree of dizziness on review of old records. She has a prescription for meclizine but by the time she is able to get around to consider taking meclizine the dizziness is usually resolved. Dizziness has been worse lately and this morning, Mrs Reyna was not quite herself because of it. Patient does describe chest pains at times but primarily when she is angry, not with the degree of exertion that she does carry out. She has known peripheral vascular disease and has had multiple peripheral stents, but not recent claudication issues. Records indicate coronary artery disease and ischemic cardiomyopathy but most recent echocardiogram in March of this year showed significant improvement with normalization of ejection fraction and normal systolic and diastolic function described. As noted above arrhythmias could cause this but none noted when she has been evaluated recently. No reported tinnitus suggestive of Meniers. Medication effect is another consideration and what I am leaning towards along with orthostasis either related to medications or other causes. Telemetry monitoring Check orthostatics in the morning Decrease alprazolam dosing by half as needed for anxiety (this is prescribed twice daily as needed but has been placed in medication packaging as twice daily scheduled) Decrease citalopram dosing to 20 mg at bedtime and bupropion SR to 100 mg in the morning, hesitant to further change this regimen and she has been on it for some time the patient is not averse to considering adjustments over time if indicated Hold meclizine for the time being Hold loratidine, continue singulair Hold flexeril and tramadol as both were taken regularly, rather than as needed, prior to increased incidence of falls/increase in dizziness reports; currently do not plan on resuming at discharge Status: Chronic (4) Compression fx, lumbar spine: Acute L2 compression fracture, 10% with retropulsion of the posterior superior endplate causing mild encroachment and narrowing of the left subarticular recess Orthopedics consultation with Dr. Kelley Tentative plan is for TLSO brace and outpatient follow-up to evaluate for later kyphoplasty if no improvement If pain not able to be controlled or if she develops new neurological symptoms may be a candidate for more emergent kyphoplasty Lidoderm patch to lumbar sacral region Will continue hydrocodone as needed ordered from the ER to see if she tolerates and achieves better pain control As needed morphine at a low dose for severe pain that does not improve with repositioning or other means, keeping an eye on blood pressures and how she responds to this Narcan on profile for as needed utilization, has been taking tramadol more regularly since femur fracture but no other recent narcotics Scheduled laxatives/stool softeners Given chronic daily aspirin use for A. fib and peripheral vascular disease, along with history of gastrointestinal AVM, would try to limit long-term use of other NSAIDs given potential risk of bleeding Status: Acute Qualifiers: Encounter type: initial encounter Lumbar vertebra fracture level: L2 Qualified Code(s): S32.020A - Wedge compression fracture of second lumbar vertebra, initial encounter for closed fracture (5) Closed sacral fracture: Newly identified on imaging studies this admission, appears subacute though acute cannot be ruled out per radiological interpretation noted above Pain control, PT and OT, as above Status: Acute Qualifiers: Encounter type: initial encounter Fracture alignment: nondisplaced Zone of sacrum fracture: zone III of sacrum Qualified Code(s): S32.130A - Non displaced Zone III fracture of sacrum, initial encounter for closed fracture (6) Skin tear of left upper extremity: Present on admission, related to fall Triple antibiotics ointment, nonadhesive cover and loose dressing as needed Status: Acute (7) Osteoporosis: Given multiple fractures, meets definition without further evaluation and has known vitamin D deficiency per records Check vitamin D levels Takes weekly vitamin D Add calcium Not a great oral bisphosphonate candidate given history of esophageal AVMs in [facility], though with current normal hemoglobin and no known gross bleeding lately beyond skin tears May want to consider Forteo or Prolia initiation in outpatient setting Quit smoking several years ago Will order home eval/therapy with focus on fall prevention Status: Acute Qualifiers: Osteoporosis type: age-related Presence of current pathological fracture: with current pathological fracture Encounter type: initial encounter Qualified Code(s): M80.00XA - Age-related osteoporosis with current pathological fracture, unspecified site, initial encounter for fracture (8) Fracture of ramus of left pubis: In May 2021, related to a fall, continues to heal clinically Has been following with Dr. Ramirez for this fracture Pain control, PT and OT Status: Acute Qualifiers: Encounter type: subsequent encounter Fracture healing: with routine healing Fracture type: closed Qualified Code(s): S32.592D - Other specified fracture of left pubis, subsequent encounter for fracture with routine healing (9) Proximal humerus fracture: In April 2021, related to a fall, remains on physical therapy for recovery from this but otherwise healing well, not acute but is currently relevant to overall presentation given difficulty utilizing a walker or other stabilizing devices related to this Has been following with Dr. Ramirez for this fracture PT and OT Status: Acute Qualifiers: Encounter type: subsequent encounter Fracture healing: with routine healing Fracture morphology: torus Fracture type: closed Laterality: left Qualified Code(s): S42.272D - Torus fracture of upper end of left humerus, subsequent encounter for fracture with routine healing (10) Atrial fibrillation: Currently in sinus rhythm on amiodarone. Looks to have been in sinus rhythm for quite some time. Takes a whole aspirin daily but is not on full anticoagulation secondary to risk of bleeding from recurrent falls along with a history of gastrointestinal AVM. Telemetry monitoring Continue amiodarone Continue whole aspirin daily Status: Chronic Qualifiers: Atrial fibrillation type: paroxysmal Qualified Code(s): I48.0 - Paroxysmal atrial fibrillation (11) Peripheral vascular disease: Longstanding with history of multiple peripheral angiograms as well as stent placement in the past. No patient reported complaints directly related to this however claudication pain can impact gait. Chronically on whole aspirin. Continue full aspirin Will need to monitor how much this and any associated pain and paresthesias is contributing to gait instability and falls Status: Chronic (12) Hypothyroidism: Chronically on levothyroxine, labs last checked in 11/2020 and TSH was high with normal free T4, low free T3 Check TSH, free T3 and free T4 Status: Chronic Qualifiers: Hypothyroidism type: unspecified Qualified Code(s): E03.9 - Hypothyroidism, unspecified (13) Advanced age: Though with a strong desire to remain as independent as she can and in the home setting. Not presently interested in alternative arrangements beyond those in the home. Home safety and fall prevention evaluation to be ordered Home health PT and OT will be ordered Home health fpc to assist with monitoring medications and effects from any dosage changes, monitoring blood pressure/orthostatics and evaluating for effectiveness of pain control will be ordered Patient does meet homebound criteria and that she does not drive herself and requires assistance to get out of the house. With multiple fractures lately and associated pain, ability to get in and out of the house easily and make routine appointments has declined. 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 She has had attempts at outpatient management with various therapies as well as medication adjustments that have not resulted in sufficient pain relief, I suspect due to repeated and identified until today fractures. While her falls are likely orthostatic and/or medication related plus recent addition of severe pain contributing, she does have risk factors for vascular etiologies as described. To address current identified injuries, evaluate further for possible reversible causes of dizziness, minimize risk of further more serious injury and optimize longer-term potential to stay in the h ome setting would benefit from hospitalization with plan as described above. 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 [facility] Diagnoses Fall as cause of accidental injury at home as place of occurrence W19.XXXA; Y92.009 Encounter type: initial encounter Compression fx, lumbar spine S32.020A Encounter type: initial encounter Lumbar vertebra fracture level: L2 Closed sacral fracture S32.130A Encounter type: initial encounter Fracture alignment: nondisplaced Zone of sacrum fracture: zone III of sacrum Fracture of ramus of left pubis S32.592D Encounter type: subsequent encounter Fracture healing: with routine healing Fracture type: closed Proximal humerus fracture S42.272D Encounter type: subsequent encounter Fracture healing: with routine healing Fracture morphology: torus Fracture type: closed Laterality: left Advanced age R54 Atrial fibrillation I48.0 Atrial fibrillation type: paroxysmal Hypotension I95.89 Hypotension type: other hypotension type Dizziness R42 Peripheral vascular disease I73.9 Hypothyroidism E03.9 Hypothyroidism type: unspecified Osteoporosis M80.00XA Osteoporosis type: age-related Presence of current pathological fracture: with current pathological fracture Encounter type: initial encounter Skin tear of left upper extremity S41.112A
[2021-06-30 17:33] LABS: Urine Color Yellow (Yellow)
[2021-06-30 17:34] LABS: Bilirubin Urine Neg (Negative); Blood Urine 2+ (Negative); Glucose Urine UA Norm (Normal); Ketones Urine Negative (Negative); Leukocyte Esterase Urine 1+ (Negative); Nitrate Urine Negative (Negative); Protein Urine Neg (Negative); Urine Appearance SL Hazy (CLEAR); Urobilinogen Urine Norm (Negative); pH Urine 7 (5-7)
[2021-06-30 17:35] LABS: Add Urine Microscopic? YES
[2021-06-30] MEDS: docusate sodium 100 mg Capsule PO (17:38)
[2021-06-30 17:40] LABS: RBC Urine 0-4 /hpf (0-2)
[2021-06-30 17:41] LABS: Mucus Urine N /hpf; Other Casts Urine N /lpf; Other Crystals Urine N /hpf; Other Sediment, Urine N; Squamous Epithelial Cell Urine 0-4 /hpf (0-5); Uric Acid Crystals Urine N /hpf
[2021-06-30 17:42] LABS: Add Urine Culture? Yes
[2021-06-30] MEDS: efferdent effervescent 1 EACH DENTAL (18:23)
[2021-06-30] MEDS: fixodent 39 gm Tube 1 APPLIC DENTAL (18:23)
[2021-06-30 21:38] LABS: Free T4 Free Thyroxine 1.75 ng/dL (0.82-1.77); T3 Free 1.4 PG/ML (2.0-4.4)
[2021-06-30] MEDS: heparin 5,000 unit/mL INJ 1 mL 5000 UNIT SUBCUT (21:41)
[2021-06-30] MEDS: citalopram 20 mg Tablet PO (21:42)
[2021-06-30] MEDS: atorvastatin 40 mg Tablet PO (21:42)
[2021-06-30] MEDS: sennosides 8.6 mg Tablet 17.2 MG PO (21:42)
[2021-06-30] MEDS: lidocaine 5% Patch 1 PATCH TOPICAL (21:45)
[2021-07-01] VITALS (8 sets, daily range): BP systolic 108–183; BP diastolic 67–97; PULSE 69–78; RESP 16–18; TEMP 36.7–36.9; O2SAT 81–100
[2021-07-01 05:05] LABS: Thyroid Stimulating Hormone 5.05 uIU/mL (0.27-4.20)
[2021-07-01] MEDS: montelukast sodium 10 mg Tablet PO (06:27)
[2021-07-01] MEDS: aspirin 325 mg Tablet PO (06:27)
[2021-07-01] MEDS: pantoprazole DR 40 mg Tablet PO (06:32)
[2021-07-01] MEDS: levothyroxine 125 mcg Tablet PO (06:32)
[2021-07-01] MEDS: amiodarone 200 mg Tablet PO (06:32)
--- NOTE | 2021-07-01 06:47 | PM.CONSULT ---
Providers/Reason For Consult Consulting Physician/Specialty*: Hospitalist Reason for Consult*: Orthopedic spine Attending Physician: Maddy Bosch MD Primary Care Provider: Sarah Witt APN History of Present Illness History of Present Illness Linsey Reyna is a 85 year old female who presents to [facility] following multiple fall history. She is complained of back pain orthopedics was consulted after CT scan suggesting sacral fractures and L2 fracture. She was evaluated in room 251 bed 2 with no family present she is somewhat confused about the timeline of events. Dr. Ramirez has been treating her right hip with replacement surgery. She reports multiple falls over the last 6 months. She lives with her daughter. She describes events of passing out and falling. She has had increasing low back pain over the last 6months. She denies any loss of consciousness to the recent fall that is approximately 1 or 2 days ago. She denies any leg pain. Denies any groin pain. Denies any fever chills or drainage from her hip incision. An extensive review of the patient's past medical history, surgical history, allergies, medications, family history, social history, and review of systems was completed Review of Systems Const: Reports: fatigue; Denies: fever(s) or chills Eyes: Denies: blurry vision ENMT: Reports: nasal congestion and other (Has hearing aids); Denies: tinnitus Card: Reports: chest pain (when angry, not exertional, not persistent) and lightheadedness; Denies: palpitations, irregular heart rhythm, edema, syncope, orthopnea, leg pain with exertion or acrocyanosis Resp: Reports: dyspnea (sometimes, not acutely worse); Denies: pain on inspiration GI: Reports: constipation; Denies: nausea, vomiting, hematochezia or melena : Denies: difficulty voiding or hematuria Musc: Reports: back pain, extremity pain and limited range of motion (due to pain); Denies: muscle cramps or loss of height Skin/Breast: Reports: sores (skin tears from falls) and dry skin Neuro: Reports: numbness in extremities (not acutely worse), weakness in extremities (not acutely worse), difficulty walking, frequent falls and dizziness; Denies: headache(s), Slurred speech present, seizure-like activity or involuntary movements Psych: Reports: anxiety (not acutely worse), depression (not acutely worse), mood swings ( I am a stubborn Yankee , hard headed , been angry ) and other (not acting like self when in sever pain this monring) Johny/Lymph: Reports: easy bruising and other (some bruises without recall of how obtained); Denies: easy bleeding Medications/Allergies Home Medications Medication Instructions Recorded Confirmed Last Taken Type montelukast 10 mg tablet 10 mg PO QAM 03/08/19 06/30/21 04/13/19 15:00 History (Singulair) ergocalciferol (vitamin D2) 1,250 1,250 mcg PO Q7D cap 02/06/20 06/30/21 Unknown History mcg (50,000 unit) capsule vitamins A,C,H-efzj-meirek 14,320 1 cap PO BID 12/23/20 06/30/21 Unknown History unit-226 mg-200 unit capsule (PreserVision AREDS) Wheel Chair #1 ea 05/27/21 06/30/21 Unknown Rx ibuprofen 800 mg tablet 800 mg PO TID PRN #90 tab 06/09/21 06/30/21 Unknown Rx L.acidophil,salivari-Bifido 1 cap PO QAM 06/30/21 06/30/21 Unknown History bifidum-Strep thermoph 175 mg capsule (Acidophilus Probiotic Blend) Vitamin C Gummies 1 tab PO DAILY 06/30/21 06/30/21 Unknown History albuterol sulfate 90 mcg/actuation 2 puff INHALATION QID PRN 06/30/21 06/30/21 Unknown History aerosol inhaler alprazolam 1 mg tablet 1 mg PO BID 06/30/21 06/30/21 Unknown History amiodarone 200 mg tablet 200 mg PO QAM 06/30/21 06/30/21 Unknown History aspirin 325 mg tablet 325 mg PO QAM 06/30/21 06/30/21 Unknown History bupropion HCl 150 mg tablet,12 hr 150 mg PO QAM 06/30/21 06/30/21 Unknown History sustained-release citalopram 40 mg tablet 40 mg PO BEDTIME 06/30/21 06/30/21 Unknown History cyanocobalamin (vitamin B-12) 1,000 mcg PO QAM 06/30/21 06/30/21 Unknown History 1,000 mcg tablet,extended release cyclobenzaprine 5 mg tablet 5 - 10 mg PO TID PRN 06/30/21 06/30/21 Unknown History levothyroxine 125 mcg tablet 125 mcg PO QAM 06/30/21 06/30/21 Unknown History lisinopril 40 mg tablet 40 mg PO QAM 06/30/21 06/30/21 Unknown History loratadine 10 mg tablet 10 mg PO QAM 06/30/21 06/30/21 Unknown History meclizine 25 mg tablet 25 - 37.5 mg PO TID PRN 06/30/21 06/30/21 Unknown History multivitamin with minerals-folic 1 tab PO DAILY 06/30/21 06/30/21 Unknown History acid 200 mcg chewable tablet (Adult Multivitamin Gummies) nitroglycerin 0.4 mg sublingual 0.4 mg SUBLINGUAL Q5M PRN 06/30/21 06/30/21 Unknown History tablet (Nitrostat) pantoprazole 40 mg tablet,delayed 40 mg PO QAM 06/30/21 06/30/21 Unknown History release polyethylene glycol 3350 17 gram 17 g PO DAILY PRN 06/30/21 06/30/21 Unknown History oral powder packet (Miralax) simvastatin 40 mg tablet 40 mg PO BEDTIME 06/30/21 06/30/21 Unknown History tramadol 50 mg tablet 50 mg PO TID PRN 06/30/21 06/30/21 Unknown History Allergies Allergy/AdvReac Type Severity Reaction Status Date / Time amoxicillin Allergy ADR-Halluci Verified 06/23/21 13:44 nating cilostazol Allergy ADR-Halluci Verified 06/23/21 13:44 nating codeine Allergy ADR-Halluci Verified 06/23/21 13:44 nating influenza virus vaccine qs Allergy Unknown Verified 06/23/21 13:44 [id number] (36 mos, up) [From Fluarix Quad] oxycodone Allergy ADR-Halluci Verified 06/23/21 13:44 nating Penicillins Allergy ADR-Halluci Verified 06/23/21 13:44 nating Sulfa (Sulfonamide Allergy Unknown Verified 06/23/21 13:44 Antibiotics) Current Medications Generic Name Dose Route Start Last Admin Trade Name Freq PRN Reason Stop Dose Admin Hydrocodone Bitart/Acetaminophen 1 tab 06/30/21 16:15 06/30/21 21:42 Hydrocodone-Acetaminophen 5-325 Mg Tablet PO 1 tab Q4H PRN Administration MODERATE TO SEVERE PAIN Amiodarone HCl 200 mg 07/01/21 06:00 07/01/21 06:32 Amiodarone 200 Mg Tablet PO 200 mg QAM BLAIR Administration Aspirin 325 mg 07/01/21 06:00 07/01/21 06:27 Aspirin 325 Mg Tablet PO 325 mg QAM BLAIR Administration Atorvastatin Calcium 40 mg 06/30/21 21:00 06/30/21 21:42 Atorvastatin 40 Mg Tablet PO 40 mg BEDTIME BLAIR Administration Citalopram Hydrobromide 20 mg 06/30/21 21:00 06/30/21 21:42 Citalopram 20 Mg Tablet PO 20 mg BEDTIME BLAIR Administration Denture Adhesive 1 applic 06/30/21 17:13 06/30/21 18:23 Fixodent 39 Gm Tube DENTAL 1 applic PRN PRN Administration denture adhesive Docusate Sodium 100 mg 06/30/21 18:00 06/30/21 17:38 Docusate Sodium 100 Mg Capsule PO 100 mg BID BLAIR Administration Heparin Sodium (Porcine) 5,000 unit 06/30/21 20:45 06/30/21 21:41 Heparin 5,000 Unit/Ml Inj 1 Ml SUBCUT 5,000 unit Q12H BLAIR Administration Levothyroxine Sodium 125 mcg 07/01/21 06:00 07/01/21 06:32 Levothyroxine 125 Mcg Tablet PO 125 mcg QAM BLAIR Administration Lidocaine 1 patch 06/30/21 21:00 06/30/21 21:45 Lidocaine 5% Patch TOPICAL 1 patch [id number] BLAIR Administration Montelukast Sodium 10 mg 07/01/21 06:00 07/01/21 06:27 Montelukast Sodium 10 Mg Tablet PO 10 mg QAM BLAIR Administration Pantoprazole Sodium 40 mg 07/01/21 06:00 07/01/21 06:[address] 40 Mg Tablet PO 40 mg QAM BLAIR Administration Senna 17.2 mg 06/30/21 21:00 06/30/21 21:42 Sennosides 8.6 Mg Tablet PO 17.2 mg BEDTIME BLAIR Administration PFSH Acute PFSH: Medical History (Updated 07/01/21 @ 06:56 by Og Hussein PA-C) Anxiety Arthritis Atrial fibrillation in sinus rhythm on amiodarone, not on anticoagulation beyond daily 325mg aspirin due to risk of bleeding with recurrent falls 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, 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 CAD (coronary artery disease) Carotid stenosis COPD (chronic obstructive pulmonary disease) Degenerative disc disease, lumbar Depression Dizziness Former smoker GERD (gastroesophageal reflux disease) Hard of hearing History of fracture multiple related to falls Hyperlipidemia Hypertension Hypothyroidism Ischemic cardiomyopathy Echo 03/2021 normal EF, systolic and diastolic function MRSA (methicillin resistant Staphylococcus aureus) Osteoporosis Peripheral vascular disease Pneumonia Sleep apnea Small bowel obstruction, partial Vitamin D deficiency Surgical History (Updated 06/30/21 @ 16:23 by Maddy Bosch MD) History of angioplasty of peripheral vessel (~2018) for in stent restenosis History of ankle surgery left History of section x4 History of open reduction and internal fixation (ORIF) procedure (~09/2018) right hip S/P peripheral artery angioplasty with stent placement right common iliac artery Status post total hip replacement, right (~03/2019) Family History (Updated 06/30/21 @ 20:56 by Maddy Bosch MD) Son Psychiatric illness Bipolar Social History (Updated 06/30/21 @ 20:58 by Maddy Bosch MD) Smoking and tobacco status: former smoker Quit status (tobacco): has quit using tobacco Year quit tobacco: 2019 Alcohol intake: current Alcohol intake frequency: holidays/special occasions only Substance/Drug Use: never Caregiver/support person: Yes Lives independently: Yes Household members: significant other Number of children: 4 Current occupational status: retired Previous occupational history: Previously worked at [employer] History of recent travel: No Current gender identity: Female Special noris needs: No Agree to transfusion: Yes Financial difficulty paying for basics: Not Applicable Vitals/I&O/Wt Last Vital Signs Temp 98.0 F 07/01/21 04:46 Pulse 70 07/01/21 04:46 Resp 16 07/01/21 04:46 BP 108/67 07/01/21 04:46 Pulse Ox 91 07/01/21 04:46 06/30/21 06/30/21 07/01/21 14:59 22:59 06:59 Intake Total 1000 / 1000 1480 / 2480 120 / 2600 Output Total 1100 / 1100 350 / 1450 Balance 1000 / 1000 380 / 1380 -230 / 1150 Weight last 48 hrs Weight 150 lb Weight 150 lb Physical Exam Narrative: Patient is alert. Somewhat confused. In no obvious distress. Moderate palpatory or percussion pain throughout the paraspinous musculature of the thoracolumbar spine. Normal sensation to light touch through all dermatomal layers. Normal sensation light touch down both lower extremities with 4/5 motor strength throughout all motor groups. Moderate palpable pain over the SI joints bilaterally. Negative Robert and Fabere sign. Negative straight leg raise bilaterally. Skin is clear warm with normal station light touch calves are supple with no medial thigh tenderness negative Homans' sign. No palpable lymphadenopathy bilaterally. Reflexes are 1+ and symmetric about the knees and Achilles. Negative logroll bilaterally. No hyperreflexia or clonus. Downgoing Babinski's bilaterally. Dorsalis pedis and posterior tibial pulses are 2+. No palpable edema bilaterally. HENMT: COMMON NORMALS: normocephalic HEAD & SCALP: normocephalic Resp: COMMON NORMALS: normal respiratory effort Cardio: COMMON NORMALS: regular rate and regular rhythm RATE: regular rate RHYTHM: regular rhythm GI: COMMON NORMALS: Soft to palpation and non-tender PALPATION: Yes Soft to palpation : COMMON NORMALS: Yes no CVA tenderness BLADDER/KIDNEY EXAM: Yes no CVA tenderness Back/Pelvis: COMMON NORMALS: no CVA tenderness Psych: COMMON NORMALS: cooperative Urinary Catheter Management: Perry: Cath Placed During This Visit: yes Reason for Continuing Indwelling Catheter: Other Urinary Catheter Date of Insertion: 06/30/21 Data : 06/30/21 10:58 06/30/21 10:[address]: My impression: CT/CT lumbar spine wo con* [id number] IMPRESSION: ? 1.? New, 10% compression fracture L2 with 2 mm retropulsion of posterior superior endplate. 2.? Retropulsion of posterior superior endplate of L2 causing mild encroachment and narrowing of the LEFT subarticular recess. 3.? LEFT sacral nondisplaced fracture. May be subacute as there is increased sclerosis. This fracture was not evident on the prior CT of 05/26/2021. May have been occult at that time and now undergone partial healing. ? A&P Assessment and plan (1) Traumatic compression fracture of second lumbar vertebra: With her multiple fall history results back as far as 6 months ago would recommend an MRI scan with STIR image of her lumbar spine. We will await those findings to discuss further treatment options. Can proceed with fitting with a TLSO brace. Allow physical therapy to mobilize weightbearing as tolerated. We will continue to follow after the MRI scan. 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
--- NOTE | 2021-07-01 07:00 | PC.NURSE ---
Report received from Yakelin Hernandez at this time.
[2021-07-01] MEDS: neomycin-poly-bacitracin oint 28 gm 1 APPLIC TOPICAL (09:30)
[2021-07-01] MEDS: ascorbic acid 500 mg Tablet PO (09:33)
[2021-07-01] MEDS: buPROPion SR (12 HR) 100 mg Tablet PO (09:33)
[2021-07-01] MEDS: calcium carb-vit d 600mg/400unit 1 Tablet 1 EACH PO (09:33)
[2021-07-01] MEDS: docusate sodium 100 mg Capsule PO (09:33)
[2021-07-01] MEDS: lisinopril 20 mg Tablet PO (09:33)
[2021-07-01] MEDS: lactobacillus 1 Tablet 2 TAB PO (09:33)
[2021-07-01] MEDS: cyanocobalamin 1,000 mcg Tablet 1000 MCG PO (09:33)
[2021-07-01] MEDS: heparin 5,000 unit/mL INJ 1 mL 5000 UNIT SUBCUT (09:34)
--- NOTE | 2021-07-01 10:21 | PC.CHAP ---
Pastoral Care Encounter/Spiritual Assessment Type of Contact [] Declined product marketing consultant visit [] Patient/Family/Request visit [] Outpatient visit [] Follow-up visit [] Physician referral [] Code/Alert [x] Routine visit [] Staff referral [] Actively dying [] Patient sleeping [] Family support [] [] Out of room [] Palliative care [] [] Receiving care in room [] Pre-surgical visit [] Trauma [] Long length of stay [] ICU visit [] Other: Relational/Emotional Strength [x Spirituality of Patient [x] Person of Meri [x] Attends Presybeterian of their Meri [x] Believes in Prayer [] Reads Bible or Pentecostal materials [] There are Spiritual issues to be addressed Manager [employer] [x] Prayer [x] Active listening [x] Non-anxious presence x[x] Spiritual/emotional support [] Crisis/trauma care [] Spiritual counseling [] Bereavement support [] Provided bereavement packet [] Provided Bible/devotional materials [] Provided toy/stuffed animal, coloring book to patient or family member [] Provided Communion [] Anointing/Morgan [] Salvation [x] Completed spiritual assessment [] Other: Impact on Illness or Injury [] Angry [] Fearful [] Anxious [] Often cries [] Exhaustion [] Unable to work [] Unable to attend shinto [] Unable to walk/stand [] Unable to read [] Unable to drive [] Unable to eat/drink [] Unable to sleep [] Unable to be with family [] Patient intubated [] Other: Summary Time spent with patient 10 min
--- NOTE | 2021-07-01 15:26 | PM.DCS ---
Discharge Providers Date of Admission: 06/30/21 14:25 Date of Discharge: July 01, 2021 Attending Provider at Admission: Maddy Bosch MD Attending Provider at Discharge: Buck Javier Primary Care Provider: Sarah Witt APN Diagnoses at Discharge Discharge Diagnosis (1) Traumatic compression fracture of second lumbar vertebra: Status: Acute (2) Closed sacral fracture: Status: Acute Qualifiers: Encounter type: initial encounter Fracture alignment: nondisplaced Zone of sacrum fracture: zone III of sacrum Qualified Code(s): S32.130A - Nondisplaced Zone III fracture of sacrum, initial encounter for closed fracture Reason for Visit Reason for Visit: FALLS, SKIN TEAR, BACK/NEC PAIN Hospital Course Hospital Course Pleasant 85-year-old lady with history of multiple falls in the past, associated with fractures, despite reinforcement has not been using her walker, fell night before presenting ot [facility], with persistent low back pain. Noted to have L2 compression fracture, retropulsion of posterior superior endplate of L2 causing mild encroachment and narrowing of the left subarticular recess. Also noted left sacral nondisplaced fracture, possibly subacute with noted increased sclerosis. Fracture not seen on CT 05/26/2021, although may have been a cold at the time and undergone partial healing. She is on a number of medications that could contribute to mental status changes, falls. She was also found that she was taking alprazolam scheduled 1 mg twice daily instead of as needed. As she has been on the medication for a while for now this medication is decreased to 0.5 mg and continued scheduled so that it may be tapered down and weaned off to avoid withdrawal. Her tramadol was held, as well as Flexeril. Bupropion dose was decreased to 100 mg daily, citalopram dose was decreased to 20 mg. She otherwise did not have findings suggestive of acute infection, some WBC on UA, 5-10, with 0-4 squamous epithelial cells, negative nitrate, has been sent for culture, but so far without growth. Thyroid studies noted with mild abnormality but better than prior, TSH 5.05, free T3 mildly decreased at 1.4, but normal free T4 at 1.75. For now continues on levothyroxine 125 mcg, please reassess thyroid studies at next visit and consider short term follow-up. She was set up with TLSO brace. She was assessed by orthopedics. Initially MRI was requested, however, she is done quite well today, sitting up in the chair, ambulated with physical therapy. As such orthopedics had canceled MRI, she is asked to follow-up in office. She is asked to follow-up with primary provider as well. correction facility rehabilitation had been discussed with her as well, however, she has been adamant that she would not go under any circumstances. With dizziness on exertion, orthostatics were checked but were not positive. With history of COPD, oxygen requirement noted on assessment, no pneumonia noted on chest x-ray, not in COPD exacerbation, however, while at rest noted to be saturating well and not needing oxygen, with exertion is found to have need for O2 which is requested with exertional hypoxia possibly contributing to her symptoms of dizziness, falls. At discharge her medications are adjusted as above. She is also set up with lidocaine patches. She is asked to use her walker at all times. For now continue TLSO brace. Please reassess her medications and condition and continue to de-escalate and pare down any medications that may not be absolutely necessary. Please reassess also skin tears on left forearm. She is asked to continue dressing changes. Physical Exam Narrative: Awake, alert, pleasant, conversant. Sitting up in chair. TLSO brace in place. Const: COMMON NORMALS: alert GENERAL APPEARANCE: cooperative ORIENTATION/CONSCIOUSNESS: Yes awake HENMT: COMMON NORMALS: normocephalic, EAC's normal, Normal external nose present and moist oral mucous membranes HEAD & SCALP: normocephalic NOSE: Normal external nose present EXTERNAL AUDITORY CANAL: EAC's normal Neck/C-Spine: COMMON NORMALS: no meningeal signs Chest: CHEST: Yes Symmetrical chest wall rise Resp: COMMON NORMALS: clear to auscultation bilaterally AUSCULTATION: clear to auscultation bilaterally Cardio: COMMON NORMALS: regular rate, regular rhythm and No murmurs present (Cardio) RATE: regular rate RHYTHM: regular rhythm GI: COMMON NORMALS: Normal to inspection, nondistended, normoactive bowel sounds present, Soft to palpation and non-tender PALPATION: Yes Soft to palpation Extremity: COMMON NORMALS: no pedal edema Neuro: COMMON NORMALS: moves all extremities SENSORIUM/ORIENTATION: Yes alert MENINGEAL SIGNS: Yes no meningeal signs Psych: COMMON NORMALS: mental status grossly normal Skin: COMMON NORMALS: no wounds RASHES: no rashes Urinary Catheter Management: Perry: Cath Placed During This Visit: yes Reason for Continuing Indwelling Catheter: Other Urinary Catheter Date of Insertion: 06/30/21 Discharge Data Studies Completed and Pending Completed Studies During Hospitalization Category Date Time Status CT cervical spin wo con* [id number] Stat Cat Scan 06/30/21 10:[address] head wo con* [id number] Stat Cat Scan 06/30/21 10:[address] lumbar spine wo con* [id number] Stat Cat Scan 06/30/21 11:59 Completed XR chest 1V portable [id number] Stat Exams 06/30/21 10:45 Completed XR forearm LT 2V [id number] Stat Exams 06/30/21 10:44 Completed XR lumbar spine 2-3V* [id number] Stat Exams 06/30/21 10:44 Completed XR thoracic spine 3V* [id number] Stat Exams 06/30/21 10:44 Completed Pending at discharge Category Date Time Status Urine Culture Stat Lab 06/30/21 16:56 Received Vitamin D 1,25 Dihydroxy Routine Lab 06/30/21 20:24 Received Radiology Impressions Cervical Spine CT 06/30/21 10:44 IMPRESSION: 1. No acute cervical spine fracture. 2. Multilevel areas of central and foraminal stenosis as described above. Similar to the study of 04/08/2021. Forearm X-Ray 06/30/21 10:44 Impression: Negative for fracture. Head CT 06/30/21 10:44 IMPRESSION: 1. No acute intracranial hemorrhage or edema. 2. Mild to moderate atrophy with small vessel ischemic disease and lacunar infarct as described above. Lumbar Spine X-Ray 06/30/21 10:44 Impression: 1. Dextroscoliosis with osteoporosis and osteoarthritis. 2. Degenerative disc disease at L4-L5 and L5-S1. 3. Slight loss of superior vertebral body height of L2 which could be acute. Thoracic Spine X-Ray 06/30/21 10:44 Impression: 1. Osteoporosis. 2. Slight wedging of vertebral bodies T8-T12 with minimal osteoarthritis. Chest X-Ray 06/30/21 10:45 Impression: Atherosclerosis. Lumbar Spine CT 06/30/21 11:59 IMPRESSION: 1. New, 10% compression fracture L2 with 2 mm retropulsion of posterior superior endplate. 2. Retropulsion of posterior superior endplate of L2 causing mild encroachment and narrowing of the LEFT subarticular recess. 3. LEFT sacral nondisplaced fracture. May be subacute as there is increased sclerosis. This fracture was not evident on the prior CT of 05/26/2021. May have been occult at that time and now undergone partial healing. Laboratory Results WBC 9.6 10^3/uL (4.0-10.0) 06/30/21 10:58 RBC 4.71 10^6/uL (4.1-5.3) 06/30/21 10:58 Hgb 12.2 g/dL (11.5-15.3) 06/30/21 10:58 Hct 38.9 % (37.0-47.0) 06/30/21 10:58 MCV 82.6 fl (81-99) 06/30/21 10:58 MCH 25.9 pg (28.0-34.0) L 06/30/21 10:58 MCHC 31.4 g/dL (30.0-36.0) 06/30/21 10:58 RDW 16.0 % (12.1-15.1) H 06/30/21 10:58 Plt Count 239 10^3/cmm (130-400) 06/30/21 10:58 MPV 8.9 fL (7.4-10.4) 06/30/21 10:58 Neut % (Auto) 80.4 % 06/30/21 10:58 Lymph % (Auto) 8.1 % 06/30/21 10:58 [place] % (Auto) 8.9 % 06/30/21 10:58 Eos % (Auto) 1.0 % 06/30/21 10:58 Baso % (Auto) 0.5 % 06/30/21 10:58 Neut # (Auto) 7.70 10^3/uL (1.8-7.7) 06/30/21 10:58 Lymph # (Auto) 0.8 10^3/uL (0.8-4.8) 06/30/21 10:58 Fleming # (Auto) 0.9 10^3/uL (0.2-0.9) 06/30/21 10:58 Eos # (Auto) 0.1 10^3/uL (0.0-0.8) 06/30/21 10:58 Baso # (Auto) 0.1 10^3/uL (0.0-0.1) 06/30/21 10:58 Nucleated RBC % (auto) 0 % 06/30/21 10:58 Nucleated RBCs # 0.0 /100WBC 06/30/21 10:58 Sodium 132 mmol/L (136-145) L 06/30/21 10:58 Potassium 4.1 mmol/L (3.5-5.1) 06/30/21 10:58 Chloride 93 mmol/L (98-107) L 06/30/21 10:58 Carbon Dioxide 30 mmol/L (22-29) H 06/30/21 10:58 Anion Gap 13.1 (5-19) 06/30/21 10:58 BUN 14 mg/dL (8-23) 06/30/21 10:58 Creatinine 0.7 mg/dL (0.5-0.9) 06/30/21 10:58 GFR Calculation Not Reportable 06/30/21 10:58 Glucose 99 mg/dL (65-115) 06/30/21 10:58 Calculated Osmolality 275 mOsm/kg (285-295) L 06/30/21 10:58 Calcium 8.6 mg/dL (8.5-10.5) 06/30/21 10:58 Total Bilirubin 0.5 mg/dL (0.15-1.2) 06/30/21 10:58 AST 24 U/L (0-32) 06/30/21 10:58 ALT 36 U/L (0-33) H 06/30/21 10:58 Alkaline Phosphatase 170 IU/L (35-105) H 06/30/21 10:58 Creatine Kinase 28 U/L (26-192) 06/30/21 10:58 Creatine Kinase Cancelled 06/30/21 10:58 Total Protein 6.5 g/dL (6.6-8.7) L 06/30/21 10:58 Albumin 4.5 g/dL (3.5-5.2) 06/30/21 10:58 Globulin 2.0 g/dL (1.3-4.6) 06/30/21 10:58 TSH 5.05 uIU/mL (0.27-4.20) H 07/01/21 04:18 Free T4 1.75 ng/dL (0.82-1.77) 06/30/21 10:58 Free T3 1.4 PG/ML (2.0-4.4) L 06/30/21 10:58 Urine Color Yellow (Yellow) 06/30/21 16:56 Urine Appearance Sl hazy (CLEAR) 06/30/21 16:56 Urine pH 7 (5-7) 06/30/21 16:56 Ur Specific [place] 1.010 (1.005-1.030) 06/30/21 16:56 Urine Protein Neg (Negative) 06/30/21 16:56 Urine Glucose (UA) Norm (Normal) 06/30/21 16:56 Urine Ketones Negative (Negative) 06/30/21 16:56 Urine Blood 2+ (Negative) H 06/30/21 16:56 Urine Nitrate Negative (Negative) 06/30/21 16:56 Urine Bilirubin Neg (Negative) 06/30/21 16:56 Urine Urobilinogen Norm mg/dL (Negative) 06/30/21 16:56 Ur Leukocyte Esterase 1+ (Negative) H 06/30/21 16:56 Urine RBC 0-4 /hpf (0-2) H 06/30/21 16:56 Urine WBC 5-10 /hpf (0-5) H 06/30/21 16:56 Ur Squamous Epith Cells 0-4 /hpf (0-5) H 06/30/21 16:56 Calcium Oxalate Crystal None /hpf 06/30/21 16:56 Uric Acid Crystals N /hpf 06/30/21 16:56 Triple Phos Crystals None /hpf 06/30/21 16:56 Other Crystals N /hpf 06/30/21 16:56 Amorphous Sediment Not Reportable 06/30/21 16:56 Urine Bacteria None /hpf (NONE) 06/30/21 16:56 Hyaline Casts None /lpf 06/30/21 16:56 Fine Granular Casts None /lpf 06/30/21 16:56 Coarse Granular Casts None /lpf 06/30/21 16:56 RBC Casts None /lpf 06/30/21 16:56 Other Casts N /lpf 06/30/21 16:56 Urine Mucus N /hpf 06/30/21 16:56 Urine Trichomonas None /hpf 06/30/21 16:56 Urine Yeast None /hpf 06/30/21 16:56 Urine Sperm None /hpf 06/30/21 16:56 Ur Oval Fat Bodies None /hpf 06/30/21 16:56 Vitals Last Vital Signs Temp 98.4 F 07/01/21 11:10 Pulse 72 07/01/21 11:10 Resp 17 07/01/21 11:10 BP 125/76 07/01/21 11:10 Pulse Ox 93 07/01/21 11:10 Discharge Plan Discharge Patient Disposition: Home Health Service Condition: Stable Prescriptions: New hydrocodone-acetaminophen 5-325 mg Tablet 1 tab PO DAILY PRN (Reason: Moderate To Severe Pain) Qty: 6 0RF bupropion HCl 100 mg Tablet Sustained-Release 12 Hr 100 mg PO QAM Qty: 60 0RF lidocaine 5 % Adhesive Patch,Medicated 1 patch topical [id number] PRN (Reason: Back Pain) Qty: 10 0RF Continued ergocalciferol (vitamin D2) 1,250 mcg (50,000 unit) capsule 1,250 mcg PO Q7D 0RF Rx Instructions: ON TUESDAY PreserVision AREDS [id number] capsule 1 cap PO BID 0RF (DME) Wheel Chair See Rx Instructions .Route .MEDSUPPLY Qty: 1 0RF Rx Instructions: As directed ibuprofen 800 mg tablet 800 mg PO TID PRN (Reason: pain) Qty: 90 0RF montelukast [Singulair] 10 mg Tablet 10 mg PO QAM 0RF cyanocobalamin (vitamin B-12) 1,000 mcg tablet extended release 1,000 mcg PO QAM 0RF Nitrostat 0.4 mg Tablet, Sublingual 0.4 mg SUBLINGUAL Q5M PRN (Reason: Chest Pain) 0RF Rx Instructions: do not exceed 3 doses per episode albuterol sulfate 90 mcg/actuation HFA aerosol inhaler 2 puff INHALATION QID PRN (Reason: Shortness Of Breath) 0RF Acidophilus Probiotic Blend 175 mg Capsule 1 cap PO QAM 0RF Adult Multivitamin Gummies 200 mcg Tablet,Chewable 1 tab PO DAILY 0RF Vitamin C Gummies 1 tab PO DAILY 0RF Miralax 17 gram powder in packet 17 g PO DAILY PRN (Reason: Constipation) 0RF aspirin 325 mg tablet 325 mg PO QAM 0RF amiodarone 200 mg tablet 200 mg PO QAM 0RF simvastatin 40 mg tablet 40 mg PO BEDTIME 0RF meclizine 25 mg tablet 25 - 37.5 mg PO TID PRN (Reason: dizziness) 0RF pantoprazole 40 mg tablet,delayed release (DR/EC) 40 mg PO QAM 0RF levothyroxine 125 mcg tablet 125 mcg PO QAM 0RF loratadine 10 mg tablet 10 mg PO QAM 0RF Changed citalopram 40 mg tablet 20 mg PO BEDTIME Qty: 0 0RF lisinopril 40 mg tablet 20 mg PO QAM Qty: 0 0RF alprazolam 1 mg tablet 0.5 mg PO BID Qty: 0 0RF Discontinued bupropion HCl 150 mg tablet sustained-release 12 hr 150 mg PO QAM 0RF tramadol 50 mg tablet 50 mg PO TID PRN (Reason: pain) 0RF cyclobenzaprine [Flexeril] 5 mg Tablet 5 - 10 mg PO TID PRN (Reason: Muscle Spasm) 0RF Discharge Orders: Discharge Order (Routine); Ordered 07/01/21 Ordered By: Buck Javier Other Ambulatory Orders: DME: Oxygen (Order) Location: None Selected Ordered By: Buck Javier [facility] [place] Frank Kelley DO [Physician] - 07/09/21 10:45 am Kailyn Joseph FNP [Nurse Practitioner] - 07/07/21 3:20 pm Discharge Activity: Use walker/crutches as instructed and As per PT/OT instructions Patient Instructions: Bupropion (By mouth), Hydrocodone/Acetaminophen (By mouth), Lidocaine Patch (On the skin), Vertebral Compression Fracture (GEN), How to Choose and Use a Walker (GEN), Fall Prevention (GEN), Thoracolumbosacral Orthosis (GEN), Opioid Safety Activity Restrictions/Additional Instructions: Use your walker at all times. Avoid falls at all costs. If you get dizzy or lightheaded, sit down or lie down immediately even if on the floor to prevent a fall. Currently maintain TLSO brace while out of bed. Increase activity as tolerated, but avoid sitting or standing for more than 2 hours at a time. Give your back arrest. Follow-up with your primary doctor, orthopedics in case of persistent, and unresolving back pain. Discuss vertebral fracture. Discuss with your primary doctor also regarding left sacral fracture. Discuss with your primary doctor assessment for osteoporosis, consideration of treatment. Please continue to work with your primary doctor on decreasing her medication doses of medications which may contribute to falls, mental status changes. Please note that alprazolam dose has been decreased to 0.5 mg. Please continue to decrease dose and work with your primary doctor to wean off the medication and discontinue. Do not stop the medication cold turkey since you have been taking it continuously. Please discontinue Flexeril as it can contribute to mental status changes, simply exposes her risk of falling. You are given a brief prescription for hydrocodone as needed for severe pain. Otherwise please discontinue tramadol. Discuss also with your primary doctor your bupropion dose is decreased to 100 mg daily. Citalopram dose is decreased to 20 mg. Continue to work with your primary doctor to wean off and discontinue any medications that may not be absolutely necessary to reduce chance of them contributing to mental status changes, falls. Please have your primary doctor reassess your thyroid function studies at next appointment and possibly in several weeks again due to mild increase of TSH, mildly decreased T3. Free T4 is normal. Continue levothyroxine for now unchanged. Please note that urine culture is pending. You may be contacted in case there is an abnormal finding. Have your primary doctor also reassess the skin tears on left forearm. Continue topical triple antibiotic daily for the next 3 days, with Telfa, gauze dressing, after that continue Telfa and gauze dressing alone. Discharge Attestations Time Spent in Discharge Care*: greater than 30 min Quality Metrics Clinical Quality Measures [ No reported AMI, CVA or VTE this stay] Coding Level of Care Code Acute g [facility] note Exam Comprehensive Diagnoses Traumatic compression fracture of second lumbar vertebra S32.020A Closed sacral fracture S32.130A Encounter type: initial encounter Fracture alignment: nondisplaced Zone of sacrum fracture: zone III of sacrum
--- NOTE | 2021-07-01 18:00 | PC.NURSE ---
HOME at bedside to deliver oxygen for patient to use at home. Patient's friend at bedside states, I can not lift those tanks they are too heavy for me and what is she going o use at home she can't push those tanks around. HOME account executive sales representative at bedside showed patient and friend pictures of oxygen concentrators and friend again states, We live in a mobile home we don't have room for one of those, my gosh it is like a small air conditioner sitting in your house somewhere. Patient states, I will probably just trip over the oxygen cord anyway. Encouraged patient and friend to take the oxygen home and use it. Explained to them that the reason the patient could be falling is because her oxygen drops to like 80 percent when she gets up to walk. Patient's friend states, That isn't to bad we just don't have room for anything like that in our home. Patient agreed and they refused the oxygen. Dr. Manning notified.
--- NOTE | 2021-07-01 18:45 | PC.NURSE ---
IV removed intact. Patient tolerated well. Patient has voided since the removal of her catheter this morning. Patient also had a bowel movement today. Patient is A&Ox3. Respirations even and non-labored on room air while sitting and discussing her discharge. Patient is hard of hearing. Discharge reviewed with patient and friend including the changes made to patient's medications. Patient's friend states, We get our medications in bubble packs so that we do not get them mixed up. What should I do just give her the medications we have until we get the new bubble packs. Reviewed the medications again and explained that tonights medications would be okay to give but go to the pharmacy in the morning and get the new bubble packs and turn in the old bubble packs so not to get confused. Tried to encourage patient and friend to take oxygen again at this time. Patient and friend declined again. Patient assisted into her wheel chair with her TLSO brace in place. Patient pushed to private car.
--- NOTE | 2021-07-02 08:31 | PC.SOCIAL ---
Per Pharmacy Lidocaine patches come in box of [address] Javier per verbal order okay to provide box of 30. PHarmacy updated.
[2021-07-04 15:27] LABS: Vit D 1,25 (Oh)2, Total 58 pg/mL (18-72); Vit D2 1,25 (Oh)2 43 pg/mL; Vit D3 1,25 (Oh)2 15 pg/mL
== END 2021-07-01 18:45 | disposition home or self-care (01) | DRG 552 ==
LOC: ER 14:17 → MEDSURG 15:54
PROVIDERS: Admitting Provider Hospitalist; Emergency Provider Family Medicine; PCP Nurse Practitioner Family; Visit Provider Internal Medicine
DX: S32.020A Wedge compression fracture of second lumbar vertebra, initial encounter for closed fracture (principal); S32.130A Nondisplaced Zone III fracture of sacrum, initial encounter for closed fracture; Z87.891 Personal history of nicotine dependence; R29.6 Repeated falls; W01.190A Fall on same level from slipping, tripping and stumbling with subsequent striking against furniture, initial encounter; Z79.82 Long term (current) use of aspirin; I73.9 Peripheral vascular disease, unspecified; I95.2 Hypotension due to drugs; T40.415A Adverse effect of fentanyl or fentanyl analogs, initial encounter; E03.9 Hypothyroidism, unspecified; S41.112A Laceration without foreign body of left upper arm, initial encounter; F41.9 Anxiety disorder, unspecified; J44.9 Chronic obstructive pulmonary disease, unspecified; Z23 Encounter for immunization; I48.0 Paroxysmal atrial fibrillation
CPT/HCPCS: 36415; 51702; 70450; 71045; 72072; 72100; 72125; 72131; 73090; 80053; 81001; 82550; 82652; 84439; 84443; 84481; 85025; 87077; 87086; 87186; 90471; 90714; 93005; 96372; 97110; 97116; 97140; 97161; 97165; 99285; J1644; J7030

== ENCOUNTER → 2021-07-07 17:11 | Outpatient (BNVA) | payer MEDICARE, SELFPAY | PROVIDERS: PCP Nurse Practitioner Family; Visit Provider Nurse Practitioner Family | DX: E03.9 Hypothyroidism, unspecified (principal) | CPT/HCPCS: 80053; 84439; 84443; 84481; 85025 ==

== ENCOUNTER 2021-07-16 06:00 | Outpatient (RCR) | payer MEDICARE, SELFPAY | END 2021-08-04 23:59 | disposition home or self-care (01) | LOC: TPT 06:00 | PROVIDERS: PCP Nurse Practitioner Family; Referring Provider Nurse Practitioner Family; Visit Provider Nurse Practitioner Family | DX: R29.6 Repeated falls (principal); R26.81 Unsteadiness on feet | CPT/HCPCS: 97110; 97162 ==

== ENCOUNTER → 2021-07-23 13:07 | Outpatient (BNVA) | payer MEDICARE, SELFPAY | PROVIDERS: PCP Nurse Practitioner Family; Visit Provider Orthopaedic Surgery | DX: S32.029A Unspecified fracture of second lumbar vertebra, initial encounter for closed fracture (principal); W19.XXXA Unspecified fall, initial encounter | CPT/HCPCS: 99203 ==

== ENCOUNTER 2021-08-05 06:00 | Outpatient (RCR) | payer MEDICARE, SELFPAY | END 2021-09-03 23:59 | disposition home or self-care (01) | LOC: TPT 06:00 | PROVIDERS: PCP Nurse Practitioner Family; Referring Provider Nurse Practitioner Family; Visit Provider Nurse Practitioner Family | DX: R29.6 Repeated falls (principal); R26.81 Unsteadiness on feet | CPT/HCPCS: 97110; 97140 ==

== ENCOUNTER → 2021-09-17 13:17 | Outpatient (BNVA) | payer MEDICARE, SELFPAY | PROVIDERS: PCP Family Medicine; Visit Provider Orthopaedic Surgery | DX: M48.56XA Collapsed vertebra, not elsewhere classified, lumbar region, initial encounter for fracture (principal) | CPT/HCPCS: 72100; 99213 ==

== ENCOUNTER 2021-09-23 15:46 | Outpatient (CLI) | payer MEDICARE, SELFPAY ==
--- NOTE | 2021-09-23 16:00 | MR_ITS ---
WS: [id number] MRI LUMBAR SPINE NONCONTRAST HISTORY: Patient fell, pain. COMPARISON: CT lumbar spine 06/30/2021 TECHNIQUE: Sagittal and axial multisequence imaging is submitted. Advanced degenerative changes throughout the cervical and thoracic spine. Increase in thoracic kyphos is. Anterior compression deformities at T5, T6 and T7. The most significant is 50% at T6. Retrolisthesis of L2 and L3 by 4.5 x 2.9 mm respectively. Severe degenerative disc disease throughout the lumbar spine. Acute fractures are noted at L1 and L2. There is marrow edema involving the L1 vertebral body without retropulsion. The edema predominantly within the mid and lower vertebral body with extension into th e RIGHT pedicle. 10% loss of height involving L2 with no retropulsion. No significant marrow edema in to the pedicles. Conus terminates normally at L1-2 disc level. L1-L2: Diffuse moderate annular disc bulging with central disc protrusion. Encroachment and deformity of the ventral thecal sac. Mild ligamentum flavum and facet arthritis. There is disc and osteophyte extending into the foramina bilaterally. Mild central, bilateral subarticular recess and foraminal st enosis. Slightly greater encroachment upon the LEFT L2 traversing nerve root. L2-L3: Diffuse annular disc bulging with osteophytic ridging and facet and ligamentum flavum hypertro phy. Mild encroachment into the thecal sac. Mild central, bilateral subarticular recess and foraminal stenosis. L3-L4: Mild annular disc bulging. Severe facet and ligamentum flavum hypertrophy. There is at least m oderate central stenosis with significant encroachment into the subarticular recesses contacting the traversing L4 nerve roots. Moderate central and bilateral foraminal stenosis. L4-L5: Mild annular disc bulge. Disc osteophyte in the RIGHT foramen causing significant encroachment upon the L4 and L5 nerve roots. Moderate central stenosis with moderate subarticular recess and fora edi stenosis. L5-S1: Mild disc bulging without significant stenosis. MR/MR lumbar spine wo con* [id number] IMPRESSION: 1. Marrow edema within the L1 and L2 vertebral bodies indicating acute to suba cute fractures. L2 loss of height by 10%. No significant loss of height of L1. No retropulsion. 2. Multilevel degenerative disc disease and spondylitic changes with multileve l stenoses. 3. Moderate central, bilateral subarticular recess and foraminal stenosis at L 3-4 and L4-5. 4. Mild central, bilateral subarticular recess and foraminal stenosis at L1-2 and L2-3. 5. Additional mild osteoporotic compression fractures at T5, T6 and T7.
== END 2021-09-23 15:47 | disposition home or self-care (01) ==
LOC: RAD 15:46
PROVIDERS: PCP Family Medicine; Visit Provider Orthopaedic Surgery
DX: S32.020A Wedge compression fracture of second lumbar vertebra, initial encounter for closed fracture (principal); M51.36 Other intervertebral disc degeneration, lumbar region; M48.061 Spinal stenosis, lumbar region without neurogenic claudication; X58.XXXA Exposure to other specified factors, initial encounter
CPT/HCPCS: 72148

== ENCOUNTER → 2021-09-24 11:15 | Outpatient (BNVA) | payer MEDICARE, SELFPAY | PROVIDERS: PCP Family Medicine; Visit Provider Orthopaedic Surgery | DX: M48.56XD Collapsed vertebra, not elsewhere classified, lumbar region, subsequent encounter for fracture with routine healing (principal); M48.061 Spinal stenosis, lumbar region without neurogenic claudication | CPT/HCPCS: 99213 ==

== ENCOUNTER → 2021-10-09 12:29 | Outpatient (BNVA) | payer MEDICARE, SELFPAY | PROVIDERS: PCP Family Medicine | DX: E03.9 Hypothyroidism, unspecified (principal); G47.00 Insomnia, unspecified; R63.4 Abnormal weight loss; I10 Essential (primary) hypertension; K59.09 Other constipation; R71.8 Other abnormality of red blood cells | CPT/HCPCS: 80053; 80061; 83540; 84443; 85025 ==

== ENCOUNTER → 2021-10-26 12:50 | Outpatient (BNVA) | payer MEDICARE, SELFPAY | PROVIDERS: PCP Family Medicine; Visit Provider Internal Medicine Cardiovascular Disease | DX: I48.0 Paroxysmal atrial fibrillation (principal); I25.10 Atherosclerotic heart disease of native coronary artery without angina pectoris; I10 Essential (primary) hypertension; F41.9 Anxiety disorder, unspecified; F32.9 Major depressive disorder, single episode, unspecified; K58.1 Irritable bowel syndrome with constipation; M48.061 Spinal stenosis, lumbar region without neurogenic claudication; J44.9 Chronic obstructive pulmonary disease, unspecified; Z87.891 Personal history of nicotine dependence | CPT/HCPCS: 99214 ==

== ENCOUNTER 2021-10-28 12:15 | Outpatient (CLI) | payer MEDICARE, SELFPAY ==
--- NOTE | 2021-10-28 14:00 | CT_ITS ---
WS: [id number] CT ABDOMEN AND PELVIS WITH CONTRAST HISTORY: R19.00 - Intra-abdominal and pelvic swelling, mass . TECHNIQUE: Imaging performed of the abdomen and pelvis with IV contrast. Single phase imaging of the abdomen. Coronal and sagittal reformats are submitted. All CT scans at [facility] use at [facility] one of these dose optimization techniques: automated exposure control; mA and/or kV adjustment per patient size (includes targeted exams where dose is matched to clinical indication); or iterative re construction. IV CONTRAST: Omnipaque 350; 95 mL IV. Oral contrast: Yes. DLP: 876.85 mGy.cm COMPARISON: 05/26/2021 Lower thorax: Advanced emphysematous changes at the lung bases. Mild dependent changes posteriorly. N ormal size heart. No hiatal hernia. Liver/biliary system: Normal size liver. There are a few mildly prominent central bile ducts similar to prior studies. Common bile duct is normal. No hepatic mass. Portal vein is normal. Gallbladder: Normal. No gallstones or wall thickening. No pericholecystic fluid. Pancreas: Mild atrophy. Spleen: Normal spleen with granulomata. Adrenal glands: Normal. Right kidney: Normal. Left kidney: Normal. Aorta: Extensive atherosclerotic plaque within the aorta. Heavy calcification toward the bifurcation with at least moderate stenosis. 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 Lymphadenopathy: None. Free fluid: None. GI tract: Normally distended stomach with food products and air. Medicinal tablet in the antrum. No s mall bowel obstruction. There is marked fecal retention and constipation. The appendix is normal. Pre viously described soft tissue mass in the RIGHT adnexa fills with oral contrast. This was a loop of c onfluent small bowel loops and colon in the RIGHT adnexa. There is no adnexal soft tissue mass. Abdominal wall: Unremarkable abdominal wall. No hernia. Pelvis: Well-distended urinary bladder. Atrophic uterus. No adenopathy or pelvic mass identified. Bones: Prior RIGHT total hip arthroplasty. L2 compression fracture by 10% since 05/26/2021. Additional mild wedging of L1 is new also. CT/CT abdomen pelvis w con* [id number] IMPRESSION: 1. Previously described RIGHT adnexal soft tissue is part of the colon and sma ll bowel that were confluent on the prior study. On today's examination this ar ea fills with oral contrast. No adnexal mass. 2. Advanced atherosclerotic changes within the aorta. No aneurysm but there is moderate stenosis involving the distal aorta to the bifurcation. There is arturo tional, at least moderate atherosclerotic plaque at the origins of the SMA and celiac axis. 3. Diffuse constipation. 4. New osteoporotic compression fractures are minimal at L1 and L2.
[2021-10-28] MEDS: iohexol 350 mg/mL 100 mL Btl IV (14:17)
[2021-10-28] MEDS: barium sulfate 450 mL Oral Susp PO (14:18)
== END 2021-10-28 12:16 | disposition home or self-care (01) ==
PROVIDERS: PCP Family Medicine; Visit Provider Nurse Practitioner Family
DX: R19.00 Intra-abdominal and pelvic swelling, mass and lump, unspecified site (principal); K59.09 Other constipation; R63.4 Abnormal weight loss; I70.0 Atherosclerosis of aorta; S32.010A Wedge compression fracture of first lumbar vertebra, initial encounter for closed fracture; S32.020A Wedge compression fracture of second lumbar vertebra, initial encounter for closed fracture
CPT/HCPCS: 74177

== ENCOUNTER → 2021-10-29 13:48 | Outpatient (BNVA) | payer MEDICARE, SELFPAY | PROVIDERS: PCP Family Medicine; Referring Provider Nurse Practitioner Family; Visit Provider Physician Assistant | DX: M51.36 Other intervertebral disc degeneration, lumbar region (principal); S32.020D Wedge compression fracture of second lumbar vertebra, subsequent encounter for fracture with routine healing; X58.XXXD Exposure to other specified factors, subsequent encounter | CPT/HCPCS: 99213 ==

== ENCOUNTER 2021-10-30 10:35 | Outpatient (CLI) | payer MEDICARE, SELFPAY ==
--- NOTE | 2021-10-30 11:00 | US_ITS ---
WS: [id number] TRANSABDOMINAL PELVIC ULTRASOUND HISTORY: PELVIC PAIN COMPARISON: CT pelvis 10/28/2021 Uterus: 5.1 cm x 3.8 cm x 3.0 cm. Very small caliber anteverted uterus. Limited visualization. Urinar y bladder is nondistended and patient refused transvaginal imaging. Endometrium: Not visualized. Neither ovary is identified on this transabdominal ultrasound. No adnexal mass identified. No fluid i n the pelvis. US/US pelvic complete* [id number] IMPRESSION: 1. Small atrophied uterus. Extremely limited evaluation of the uterus and adne xa. 2. Patient refused transvaginal imaging. Urinary bladder is nondistended.
== END 2021-10-30 10:36 | disposition home or self-care (01) ==
LOC: RAD 10:35
PROVIDERS: PCP Family Medicine; Visit Provider Nurse Practitioner Family
DX: R10.2 Pelvic and perineal pain (principal); R63.4 Abnormal weight loss; R19.00 Intra-abdominal and pelvic swelling, mass and lump, unspecified site; N85.8 Other specified noninflammatory disorders of uterus
CPT/HCPCS: 76856

== ENCOUNTER 2021-12-28 11:41 | Outpatient (CLI) | payer MEDICARE, SELFPAY ==
--- NOTE | 2021-12-28 13:00 | USCV_ITS ---
Linsey Reyna Age: 86 Gender: F : 1935 Exam Date: 12/28/2021 11:57 Ordering Phys: Latricia Locke NP Technologist: Domingo Clayton Exam Location: [facility] Indication: chest pain BP: 134 / 84 HR: 63 Rhythm: Sinus Technical Quality: Adequate MEASUREMENTS (Male / Female) Normal Values 2D ECHO LVOT Diameter 2.0 cm LV Ejection Fraction MOD 2C 53.9 % LV Ejection Fraction 2C AL 53.5 % LA Diameter 3.9 cm LA Width 0.0 cm Aorta at Sinotubular Diameter 2.9 cm IVC Diameter 1.1 cm M-MODE LV Diastolic Diameter MM 4.4 cm 4.2 - 5.9 / 3.9 - 5.3 cm LV Systolic Diameter MM 2.7 cm LV Ejection Fraction MM Teich 70.7 % IVS Diastolic Thickness MM 0.9 cm 0.6 - 1.0 / 0.6 - 0.9 cm IVS Systolic Thickness MM 1.6 cm LVPW Diastolic Thickness MM 0.9 cm 0.6 - 1.0 / 0.6 - 0.9 cm LVPW Systolic Thickness MM 1.6 cm RV Diastolic Diameter MM 1.7 cm Aortic Annulus Diameter 3.3 cm LA Ao Ratio MM 1.2 MV E Point Septal Separation 1.2 cm DOPPLER AV Peak Velocity 162.3 cm/s LVOT Peak Velocity 87.0 cm/s AV Area Cont Eq vti 1.8 cm squared AV Area Cont Eq pk 1.7 cm squared MV Area PHT 5.0 cm squared Mitral E to A Ratio 1.0 MV E' Velocity 52.5 cm/s Mitral E to MV E' Ratio 11.8 Mitral E to LV E' Lateral Ratio 11.5 Mitral E to LV E' Septal Ratio 12.2 TR Peak Velocity 164.8 cm/s TR Peak Gradient 10.9 mmHg TV Peak E Velocity 79.0 cm/s Right Atrial Pressure 3.0 mmHg Pulmonary Artery Systolic Pressu 13.9 mmHg PV Peak Velocity 90.0 cm/s FINDINGS Left Ventricle Normal left ventricular size and systolic function, EF 62 %. No regional wall motion abnormalities. Mild left ventricular hypertrophy. Right Ventricle The right ventricle is normal in size and function. Right Atrium The right atrium is normal in size. Left Atrium Mildly increased left atrial size. Mitral Valve Thickened mitral valve. Trace mitral valve regurgitation. Aortic Valve Thickened aortic valve. Trace aortic valve regurgitation. Tricuspid Valve Trace tricuspid valve regurgitation. Pulmonic Valve Pulmonic valve not well visualized. Pericardium Normal pericardium without effusion. Aorta Normal ascending aorta dimension. IVC The inferior vena cava appears normal. CONCLUSIONS Normal left ventricular size and systolic function, EF 62 %. No regional wall motion abnormalities. Mild left ventricular hypertrophy. Mildly increased left atrial size. Thickened mitral valve. Trace mitral valve regurgitation. Thickened aortic valve. Trace aortic valve regurgitation. Trace of mitral and tricuspid valve regurgitation. There is no pericardial effusion. There are no intracardiac masses. Compared to the study from 03/18/2021, there may be significant change Dr Serena Salazar MD FACC (Electronically Signed) Final Date: 28 December 2021 23:51 S
== END 2021-12-28 11:42 | disposition home or self-care (01) ==
LOC: RAD 11:42
PROVIDERS: PCP Nurse Practitioner Family; Visit Provider Nurse Practitioner Family
DX: R42 Dizziness and giddiness (principal)
CPT/HCPCS: 93306

== ENCOUNTER → 2022-01-08 10:08 | Outpatient (BNVA) | payer MEDICARE, SELFPAY | PROVIDERS: PCP Nurse Practitioner Family; Visit Provider Internal Medicine Cardiovascular Disease | DX: G62.9 Polyneuropathy, unspecified (principal); R42 Dizziness and giddiness; I25.10 Atherosclerotic heart disease of native coronary artery without angina pectoris; K59.00 Constipation, unspecified; I48.0 Paroxysmal atrial fibrillation; Z87.891 Personal history of nicotine dependence; J44.9 Chronic obstructive pulmonary disease, unspecified; R26.81 Unsteadiness on feet; E78.5 Hyperlipidemia, unspecified; I25.5 Ischemic cardiomyopathy; I73.9 Peripheral vascular disease, unspecified; I10 Essential (primary) hypertension | CPT/HCPCS: 99214 ==

== ENCOUNTER 2022-04-26 14:58 | Emergency (ER) | payer MEDICARE, SELFPAY ==
[2022-04-26 14:59] VITALS: BP 167/98; PULSE 66; RESP 13; TEMP 36; O2SAT 98; BMI 22.3
--- NOTE | 2022-04-26 15:06 | ECG_ITS ---
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 Measurements Intervals Anna Rate: 65 P: 0 NH: 0 QRS: 64 QRSD: 102 T: -8 QT: 423 QTc: 442 Interpretive Statements Possible sinus rhythm NONSPECIFIC ST & T-WAVE ABNORMALITY Compared to ECG 06/30/2021 11:44:39 Supraventricular rhythm now present T-wave abnormality now present Sinus rhythm no longer present Electronically Signed On 04-26-2022 19:10:18 CAMP BOSS by Serena Salazar M.D. [id number]
--- NOTE | 2022-04-26 15:06 | XR_ITS ---
WS: [id number] Exam: XR chest 1V portable [id number] Date/Time of Exam: 04/26/2022 3:06 PM Reason For Exam: dyspnea/cough Comparison 06/30/2021. The lungs are hyperinflated and clear. Heart size is normal. The mediastinum is normal in contour. Bi lateral apical pleural thickening. Nonacute fracture of the head and neck of the left humerus. Monito ring leads superimpose the chest. XR/XR chest 1V portable [id number] IMPRESSION: 1. Pulmonary hyperinflation. No acute process noted.
--- NOTE | 2022-04-26 15:19 | ED_ITS ---
HPI - Abdominal Pain General: Chief Complaint: Abdominal Pain Stated Complaint: NEAR SYNCOPE/ LIGHT HEADED Time Seen by Provider: 04/26/22 15:02 Source: patient Mode of arrival: EMS History of Present Illness: 86-year-old female comes in complaining of abdominal pain for last 2 days had a large loose bowel movement that was dark according to the daughter. She did not have any prior blood she is not on any anticoagulants. She denies any chest pain at this time when I asked her specifically about her abdomen she states it does not not hurt she denies any dysuria urgency or frequency. MD elicited complaint: abdominal pain Onset (ago): day(s) (2) Location: Diffuse Quality: cramping Radiation: none Exacerbating factors: nothing Relieving factors: nothing Associated Symptoms: Reports bloating, change in stool character and GI cramping; Denies anorexia, belching, change in bowel habits, chills, coffee ground emesis, constipation, diarrhea, dyspepsia, dysuria, excessive flatus, fever(s), heartbu rn, hematochezia, hematuria, hematemesis, fecal incontinence, loose stools, melena, nausea, poor appetite, syncope and vomiting Review of Systems Const: Denies: fever(s), chills, fatigue or malaise ENMT: Denies: throat pain, ear or mastoid pain, nasal discharge or nasal congestion Card: Denies: chest pain, palpitations, irregular heart rhythm or syncope Resp: Denies: dyspnea, productive cough or non-productive cough GI: Reports: bloating, GI cramping and change in stool character; Denies: abdominal pain, nausea, vomiting, hematemesis, coffee ground emesis, heartburn, diarrhea, constipation, belching, excessive flatus, fecal incontinence, change in bowel habits, hematochezia or melena : Denies: dysuria or hematuria Skin/Breast: Denies: rash or pruritus PFSH ED PFSH: Medical History Advanced age Anxiety Arthritis Atrial fibrillation in sinus rhythm on amiodarone, not on anticoagulation beyond daily 325mg aspirin due to risk of bleeding with recurrent falls 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, 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 CAD (coronary artery disease) Carotid stenosis Closed sacral fracture (~06/30/21) COPD (chronic obstructive pulmonary disease) Degenerative disc disease, lumbar Depression Dizziness Falls frequently Former smoker Fracture of ramus of left pubis (05/26/21) GERD (gastroesophageal reflux disease) Hard of hearing History of fracture multiple related to falls Hyperlipidemia Hypertension Hypotension Hypothyroidism Ischemic cardiomyopathy Echo 03/2021 normal EF, systolic and diastolic function MRSA (methicillin resistant Staphylococcus aureus) Osteoporosis Peripheral vascular disease Pneumonia Proximal humerus fracture (04/08/21) Sleep apnea Small bowel obstruction, partial Vitamin D deficiency Surgical History History of angioplasty of peripheral vessel (~2018) for in stent restenosis History of ankle surgery left History of section x4 History of open reduction and internal fixation (ORIF) procedure (~09/2018) right hip S/P peripheral artery angioplasty with stent placement right common iliac artery Status post total hip replacement, right (~03/2019) Family History Son Psychiatric illness Bipolar Social History Smoking and tobacco status: former smoker Quit status (tobacco): has quit using tobacco Year quit tobacco: 2018 Alcohol intake: current Alcohol intake frequency: holidays/special occasions only Caregiver/support person: Yes Lives independently: Yes Household members: significant other Number of children: 4 Current occupational status: retired Previous occupational history: Previously worked at [employer] Current gender identity: Female Special noris needs: No Agree to transfusion: Yes Financial difficulty paying for basics: Not Applicable Physical Exam Const: GENERAL APPEARANCE: cooperative and comfortable ORIENTATION/CONSCIOUSNESS: Yes awake, Yes oriented to person, Yes oriented to place and Yes oriented to time HENMT: COMMON NORMALS: normocephalic, atraumatic and hearing grossly normal bilaterally HEAD & SCALP: normocephalic and atraumatic Resp: COMMON NORMALS: normal respiratory effort, No retractions, No use of accessory muscles and clear to auscultation bilaterally AUSCULTATION: clear to auscultation bilaterally Cardio: COMMON NORMALS: regular rate, regular rhythm and No murmurs present (Cardio) RATE: regular rate RHYTHM: regular rhythm GI: COMMON NORMALS: Soft to palpation and No hepatosplenomegaly present AUSCULTATION: Yes normoactive bowel sounds PALPATION: Yes Soft to palpation, No Tenderness to palpation present (GI), No Guarding due to palpation present (GI) and Yes No hepatosplenomegaly present Extremity: COMMON NORMALS: normal to inspection, capillary refill normal, no clubbing, cyanosis or edema, no calf tenderness and no pedal edema Neuro: SENSORIUM/ORIENTATION: Yes oriented to person, Yes oriented to place and Yes oriented to time Skin: COMMON NORMALS: no rashes or lesions noted GENERAL SKIN EXAM: no rashes or lesions noted Course Vital Signs: Vital signs: Vital Signs Temperature 96.8 F L 04/26/22 14:59 Pulse Rate 85 04/26/22 18:14 Respiratory Rate 13 04/26/22 14:59 Blood Pressure 128/62 04/26/22 18:14 Pulse Oximetry 98 04/26/22 18:14 Oxygen Delivery Me thod 04/26/22 14:59 MDM - Abdominal Pain Medical Decision Making Labs and imaging reviewed. EKG shows no acute changes, No ST segment changes. Patient does have a cystitis feeling better after some fluids we will discharge patient home on oral antibiotics follow-up with primary care return if is further problems. She also, she has some hyponatremia today. She has had hyponatremia past little lower than it has been in the past follow-up with her primary care doctor. Medical Records I reviewed the patient's medical records. Lab Data I reviewed the patient's lab results. 04/26/22 14:30 04/26/22 14:30 Labs/Radiology: Radiology Impressions Chest X-Ray 04/26/22 15:06 IMPRESSION: 1. Pulmonary hyperinflation. No acute process noted. Laboratory Results WBC 8.2 10^3/uL (4.0-10.0) 04/26/22 14:30 RBC 4.64 10^6/uL (4.1-5.3) 04/26/22 14:30 Hgb 13.4 g/dL (11.5-15.3) 04/26/22 14:30 Hct 40.0 % (37.0-47.0) 04/26/22 14:30 MCV 86.2 fl (81-99) 04/26/22 14:30 MCH 28.9 pg (28.0-34.0) 04/26/22 14:30 MCHC 33.5 g/dL (30.0-36.0) 04/26/22 14:30 RDW 14.7 % (12.1-15.1) 04/26/22 14:30 Plt Count 173 10^3/cmm (130-400) 04/26/22 14:30 MPV 9.5 fL (7.4-10.4) 04/26/22 14:30 Neut % (Auto) 78.2 % 04/26/22 14:30 Lymph % (Auto) 12.1 % 04/26/22 14:30 [place] % (Auto) 7.8 % 04/26/22 14:30 Eos % (Auto) 0.5 % 04/26/22 14:30 Baso % (Auto) 0.7 % 04/26/22 14:30 Neut # (Auto) 6.38 10^3/uL (1.8-7.7) 04/26/22 14:30 Lymph # (Auto) 1.0 10^3/uL (0.8-4.8) 04/26/22 14:30 [place] # (Auto) 0.6 10^3/uL (0.2-0.9) 04/26/22 14:30 Eos # (Auto) 0.0 10^3/uL (0.0-0.8) 04/26/22 14:30 Baso # (Auto) 0.1 10^3/uL (0.0-0.1) 04/26/22 14:30 Nucleated RBC % (auto) 0 % 04/26/22 14:30 Nucleated RBCs # 0.0 /100WBC 04/26/22 14:30 Sodium 124 mmol/L (136-145) L 04/26/22 14:30 Potassium 4.1 mmol/L (3.5-5.1) 04/26/22 14:30 Chloride 88 mmol/L (98-107) L 04/26/22 14:30 Carbon Dioxide 26 mmol/L (22-29) 04/26/22 14:30 Anion Gap 14.1 (5-19) 04/26/22 14:30 BUN 12 mg/dL (8-23) 04/26/22 14:30 Creatinine 0.7 mg/dL (0.5-0.9) 04/26/22 14:30 GFR Calculation Not Reportable 04/26/22 14:30 Glucose 101 mg/dL (65-115) 04/26/22 14:30 Calculated Osmolality 258 mOsm/kg (285-295) L 04/26/22 14:30 Calcium 9.1 mg/dL (8.5-10.5) 04/26/22 14:30 Total Bilirubin 0.5 mg/dL (0.15-1.2) 04/26/22 14:30 AST 18 U/L (0-32) 04/26/22 14:30 ALT 16 U/L (0-33) 04/26/22 14:30 Alkaline Phosphatase 77 U/L (35-105) 04/26/22 14:30 Total Protein 6.9 g/dL (6.6-8.7) 04/26/22 14:30 Albumin 4.2 g/dL (3.5-5.2) 04/26/22 14:30 Globulin 2.7 g/dL (1.3-4.6) 04/26/22 14:30 Urine Color Yellow (Yellow) 04/26/22 17:01 Urine Appearance Hazy (CLEAR) A 04/26/22 17:01 Urine pH 6 (5-7) 04/26/22 17:01 Ur Specific [place] 1.015 (1.005-1.030) 04/26/22 17:01 Urine Protein Neg (Negative) 04/26/22 17:01 Urine Glucose (UA) Norm (Normal) 04/26/22 17:01 Urine Ketones Negative (Negative) 04/26/22 17:01 Urine Blood 2+ (Negative) H 04/26/22 17:01 Urine Nitrate Negative (Negative) 04/26/22 17:01 Urine Bilirubin Neg (Negative) 04/26/22 17:01 Prot Sulfosalicylic Acd Cancelled 04/26/22 15:55 Urine Urobilinogen 1 mg/dL (Negative) H 04/26/22 17:01 Ur Leukocyte Esterase 2+ (Negative) H 04/26/22 17:01 Urine RBC 5-10 /hpf (0-2) H 04/26/22 17:01 Urine WBC >100 /hpf (0-5) H 04/26/22 17:01 Ur Squamous Epith Cells Rare /hpf (0-5) 04/26/22 17:01 Ur Transition Epith Cell 0-4 /hpf 04/26/22 17:01 Amorphous Sediment Not Reportable 04/26/22 17:01 Urine Bacteria 4+ /hpf (NONE) H 04/26/22 17:01 Discharge Plan Discharge Patient Disposition: Home Clinical Impression: Cystitis Condition: Stable Prescriptions: New Macrobid 100 mg capsule 100 mg PO BID 7 Days Qty: 14 0RF Rx Instructions: must administer with a meal/food No Action ergocalciferol (vitamin D2) 1,250 mcg (50,000 unit) capsule 1,250 mcg PO Q7D Rx Instructions: ON TUESDAY PreserVision AREDS [id number] capsule 1 cap PO BID (DME) Wheel Chair See Rx Instructions .Route .MEDSUPPLY Qty: 1 0RF Rx Instructions: As directed ibuprofen 800 mg tablet 800 mg PO TID PRN (Reason: pain) Qty: 90 0RF levothyroxine 137 mcg tablet 137 mcg PO DAILY 90 Days Qty: 90 1RF pantoprazole 40 mg tablet,delayed release (DR/EC) 40 mg PO QAM 90 Days Qty: 90 1RF potassium chloride 10 mEq tablet extended release 10 meq PO DAILY 90 Days Qty: 90 1RF loratadine 10 mg tablet 10 mg PO QAM 90 Days Qty: 90 1RF montelukast [Singulair] 10 mg tablet 10 mg PO QAM 90 Days Qty: 90 1RF simvastatin 40 mg tablet 40 mg PO BEDTIME 90 Days Qty: 90 1RF ferrous gluconate 324 mg (38 mg iron) tablet 324 mg PO DAILY amiodarone 200 mg tablet 200 mg PO QAM Qty: 90 2RF docusate sodium [DSS] 250 mg capsule 500 mg PO BID 90 Days Qty: 360 0RF promethazine-DM 6.25-15 mg/5 mL syrup 5 - 10 ml PO Q6H PRN (Reason: cough) Qty: 200 0RF cyanocobalamin (vitamin B-12) 1,000 mcg tablet extended release 1,000 mcg PO QAM ascorbic acid (vitamin C) [Vitamin C] 500 mg Tablet,Chewable 500 mg PO BID Qty: 0 nitroglycerin [Nitrostat] 0.4 mg Tablet, Sublingual 0.4 mg SUBLINGUAL Q5M PRN (Reason: Chest Pain) Rx Instructions: do not exceed 3 doses per episode albuterol sulfate 90 mcg/actuation HFA aerosol inhaler 2 puff INHALATION QID PRN (Reason: Shortness Of Breath) L.acidjoe,saliva-B.bif-S.therm [Acidophilus Probiotic Blend] 175 mg Capsule 1 cap PO QAM Adult Multivitamin Gummies 200 mcg Tablet,Chewable 1 tab PO DAILY aspirin 325 mg tablet 325 mg PO QAM meclizine 25 mg tablet 25 - 37.5 mg PO TID PRN (Reason: dizziness) citalopram 40 mg tablet 20 mg PO BEDTIME Qty: 0 0RF lisinopril 40 mg tablet 20 mg PO QAM Qty: 0 0RF alprazolam 1 mg tablet 1 mg PO BEDTIME mirtazapine 15 mg tablet 15 mg PO BEDTIME diclofenac sodium 1 % gel 2 g topical QID PRN (Reason: Pain) Rx Instructions: apply to back and gluteal region 4 times a day tramadol 50 mg Tablet 50 mg PO Q4H PRN (Reason: Pain) venlafaxine 37.5 mg Tablet 37.5 mg PO DAILY gabapentin 100 mg Capsule See Rx Instructions .ROUTE .COMPLEX Rx Instructions: 100 mg orally in the morning / 200 mg orally in the evening Discharge Orders: Discharge ED (Routine); Ordered 04/26/22 Ordered By: Anil Charles Referrals: Latricia Locke NP [Nurse Practitioner] - Discharge Diet: Usual diet Discharge Activity: Increase activity as tolerated Patient Instructions: Opioid Safety, Pain Management Activity Restrictions/Additional Instructions: You are seen today for abdominal pain. You are found to have a cystitis started on Macrobid 1 tablet twice daily for 7 days increase fluid intake follow-up with primary care doctor improving. Coding Level of Care Code ED Trial Justice for Flores Saldana
[2022-04-26 16:32] VITALS: BP 153/96; BP 168/86; BP 172/84; PULSE 104; PULSE 67; PULSE 73
[2022-04-26 16:41] LABS: Basophils # 0.1 10^3/uL (0.0-0.1); Basophils % 0.7 %; Eosinophils % 0.5 %; Hemoglobin 13.4 g/dL (11.5-15.3); Lymphocytes % 12.1 %; Mean Corpuscular HGB Conc 33.5 g/dL (30.0-36.0); Mean Corpuscular Hemoglobin 28.9 pg (28.0-34.0); Mean Corpuscular Volume 86.2 fl (81-99); Mean Platelet Volume 9.5 fL (7.4-10.4); Monocytes # 0.6 10^3/uL (0.2-0.9); Monocytes % 7.8 %; Neutrophils # 6.38 10^3/uL (1.8-7.7); Neutrophils % 78.2 %; Nucleated Red Blood Cells % 0 %; Platelet Count 173 10^3/cmm (130-400); Red Blood Count 4.64 10^6/uL (4.1-5.3); Red Cell Distribution Width 14.7 % (12.1-15.1); White Blood Count 8.2 10^3/uL (4.0-10.0)
[2022-04-26 17:10] LABS: Alanine Aminotransferase 16 U/L (0-33); Albumin Level 4.2 g/dL (3.5-5.2); Alkaline Phosphatase 77 U/L (35-105); Aspartate Amino Transferase 18 U/L (0-32); Blood Urea Nitrogen 12 mg/dL (8-23); Calcium 9.1 mg/dL (8.5-10.5); Carbon Dioxide 26 mmol/L (22-29); Chloride 88 mmol/L (98-107); Globulin 2.7 g/dL (1.3-4.6); Glucose 101 mg/dL (65-115); Osmolality Calculated 258 mOsm/kg (285-295); Sodium 124 mmol/L (136-145); Total Bilirubin 0.5 mg/dL (0.15-1.2); Total Protein 6.9 g/dL (6.6-8.7)
[2022-04-26 17:11] LABS: Anion Gap 14.1 (5-19); Potassium 4.1 mmol/L (3.5-5.1)
[2022-04-26 17:18] LABS: Specific Gravity, Urine 1.015 (1.005-1.030); Urine Appearance Hazy (CLEAR); Urine Color Yellow (Yellow); pH Urine 6 (5-7)
[2022-04-26 17:19] LABS: Add Urine Microscopic? YES; Bilirubin Urine Neg (Negative); Blood Urine 2+ (Negative); Glucose Urine UA Norm (Normal); Ketones Urine Negative (Negative); Leukocyte Esterase Urine 2+ (Negative); Nitrate Urine Negative (Negative); Protein Urine Neg (Negative); Urobilinogen Urine 1 mg/dL (Negative); WBC Urine >100 /hpf (0-5)
[2022-04-26 17:20] LABS: Add Urine Culture? Yes; Bacteria Urine 4+ /hpf; Squamous Epithelial Cell Urine RARE /hpf (0-5); Transitional Epi Cells Urine 0-4 /hpf
[2022-04-26 18:14] VITALS: BP 128/62; PULSE 85; O2SAT 98
== END 2022-04-26 18:16 | disposition home or self-care (01) ==
PROVIDERS: Emergency Provider Family Medicine; PCP Nurse Practitioner Family
DX: N30.90 Cystitis, unspecified without hematuria (principal); Z79.82 Long term (current) use of aspirin; Z87.891 Personal history of nicotine dependence; I25.10 Atherosclerotic heart disease of native coronary artery without angina pectoris; J44.9 Chronic obstructive pulmonary disease, unspecified; E78.5 Hyperlipidemia, unspecified; I10 Essential (primary) hypertension
CPT/HCPCS: 36415; 71045; 80053; 81001; 85025; 87077; 87086; 87186; 93005; 99285

== ENCOUNTER 2022-05-16 18:29 | Emergency (ER) | payer MEDICARE, SELFPAY ==
[2022-05-16 18:40] VITALS: BP 114/71; PULSE 100; RESP 18; TEMP 36.4; O2SAT 93
--- NOTE | 2022-05-16 19:23 | CTR_ITS ---
PROCEDURE INFORMATION: Exam: CT Abdomen And Pelvis With Contrast Exam date and time: 05/16/2022 8:15 PM Age: 86 years old Clinical indication: Abdominal pain; Generalized; Prior surgery; Surgery date: 6+ months; Surgery type: Right common iliac stent, RT hip replacement TECHNIQUE: Imaging protocol: Computed tomography of the abdomen and pelvis with contrast. Radiation optimization: All CT scans at this facility use at least one of these dose optimization techniques: automated exposure control; mA and/or kV adjustment per patient size (includes targeted exams where dose is matched to clinical indication); or iterative reconstruction. Contrast material: OMNI 350; Contrast volume: 70 ml; Contrast route: INTRAVENOUS (IV); REPORTING DATA: Count of CT and Cardiac NM exams in prior 12 months: This patient has received 6 known CTs and 0 known cardiac nuclear medicine studies in the 12 months prior to the current study. COMPARISON: CT abdomen pelvis w con* [id number] 10/28/2021 1:54 PM RADIATION DOSE METRICS: Total DLP (mGy-cm): 384.29 FINDINGS: Lungs: Left discoid atelectasis and/or scarring. Liver: Normal. No mass. Gallbladder and bile ducts: Normal. No calcified stones. No ductal dilation. Pancreas: Normal. No ductal dilation. Spleen: Calcified splenic granulomas. Adrenal glands: Normal. No mass. Kidneys and ureters: Normal. No hydronephrosis. Stomach and bowel: Moderate bowel thickening of the rectum consistent with moderate proctitis. Appendix: Normal appendix. Intraperitoneal space: Unremarkable. No free air. No significant fluid collection. Vasculature: Bilateral common iliac endovascular stents. Calcification of the abdominal aorta and/or iliac arteries consistent with atherosclerotic vessel disease. Lymph nodes: Unremarkable. No enlarged lymph nodes. Urinary bladder: Unremarkable as visualized. Reproductive: Unremarkable as visualized. Bones/joints: Stable right total hip replacement with metallic artifact partially obscuring the pelvic anatomy. Severe bilateral L5-S1 facet degenerative change. Soft tissues: Unremarkable. CT/CT abdomen pelvis w con* [id number] IMPRESSION: Moderate bowel thickening of the rectum consistent with moderate proctitis.
[2022-05-16] MEDS: iohexol 350 mg/mL 500 mL Btl (per mL) IV (19:29)
[2022-05-16] MEDS: sodium chloride 0.9% 1,000 ML 999 ML IV (19:36)
--- NOTE | 2022-05-16 19:50 | ED_ITS ---
HPI - Abdominal Pain General: Chief Complaint: Abdominal Pain Stated Complaint: no BM, dehydration Time Seen by Provider: 05/16/22 18:57 History of Present Illness: This 86-year-old female with a history of coronary artery disease, A-fib, COPD and hypothyroidism was brought in by daughter for evaluation. Daughter says that patient has not had a bowel movement in 10 days. In addition, she has been hardly eating or drinking anything. When asked why, patient stated because I do not feel like . Daughter feels that she may be dehydrated. She has a history of recurrent UTIs and has been on 3 rounds of antibiotics. Daughter says that she has had fecal impaction in the past. P atient complains of weakness which is progressively getting worse. ranjit has no fever, nausea or vomiting. Patient complains of abdominal pain mainly in the left lower quadrant. She appears clinically stable. 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, 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 CAD (coronary artery disease) Carotid stenosis Closed sacral fracture (~06/30/21) COPD (chronic obstructive pulmonary disease) Degenerative disc disease, lumbar Depression Dizziness Falls frequently Former smoker Fracture of ramus of left pubis (05/26/21) GERD (gastroesophageal reflux disease) Hard of hearing History of fracture multiple related to falls Hyperlipidemia Hypertension Hypotension Hypothyroidism Ischemic cardiomyopathy Echo 03/2021 normal EF, systolic and diastolic function MRSA (methicillin resistant Staphylococcus aureus) Osteoporosis Peripheral vascular disease Pneumonia Proximal humerus fracture (04/08/21) Sleep apnea Small bowel obstruction, partial Vitamin D deficiency Surgical History History of angioplasty of peripheral vessel (~2019) for in stent restenosis History of ankle surgery left History of section x4 History of open reduction and internal fixation (ORIF) procedure (~09/2018) right hip S/P peripheral artery angioplasty with stent placement right common iliac artery Status post total hip replacement, right (~03/2019) Family History Son Psychiatric illness Bipolar Social History Smoking and tobacco status: former smoker Quit status (tobacco): has quit using tobacco Year quit tobacco: 2018 Alcohol intake: current Alcohol intake frequency: holidays/special occasions only Caregiver/support person: Yes Lives independently: Yes Household members: significant other Number of children: 4 Current occupational status: retired Previous occupational history: Previously worked at [employer] Current gender identity: Female Special noris needs: No Agree to transfusion: Yes Financial difficulty paying for basics: Not Applicable Physical Exam Const: COMMON NORMALS: no acute distress and no limitations Chest: COMMONS NORMALS: normal inspection of the chest Resp: COMMON NORMALS: normal respiratory effort, No retractions, No use of accessory muscles and clear to auscultation bilaterally AUSCULTATION: clear to auscultation bilaterally Cardio: COMMON NORMALS: regular rate, regular rhythm and No murmurs present (Cardio) RATE: regular rate RHYTHM: regular rhythm GI: COMMON NORMALS: Normal to inspection, nondistended, normoactive bowel sounds present OTHER: Abdomen is soft, mild tenderness in the left lower quadrant, no distention or rigidity. Bowel sounds are present. Rectal exam revealed normal rectal tone. Presence of hard stool in the lower rectum, consistent with fecal impaction. Stool is dark in color. Guaiac test is negative. Extremity: GENERAL: Yes normal exam except as noted Psych: COMMON NORMALS: mental status grossly normal and cooperative Course Reevaluation(s): Reevaluation #1: Patient had manual disimpaction of stool from the lower rectum. First with Fleet enema will be given. Vital Signs: Vital signs: Vital Signs Temperature 97.6 F 05/16/22 18:40 Pulse Rate 104 H 05/16/22 22:55 Respiratory Rate 16 05/16/22 22:55 Blood Pressure 108/76 05/16/22 22:55 Pulse Oximetry 92 05/16/22 22:55 Oxygen Delivery Me thod 05/16/22 22:35 MDM - Abdominal Pain Medical Decision Making Medical decision making: Patient presents with constipation of 10 days duration. Rectal exam confirms fecal impaction and patient was successfully disimpacted. Fleet enema was given afterwards. CT abdomen was obtained to rule out any possible bowel obstruction. It is negative for bowel obstruction but does revealed bowel thickening of the rectum. I believe this is related to her constipation and fecal impaction more than proctitis. White count is normal with no left shift and patient is afebrile. She was advised to take daily MiraLAX in addition to the Dulcolax she already has. She was also advised to increase fluid and fiber in her diet. She will follow-up with her primary care physician. Reasons to return were discussed. Patient and daughter verbalized understanding and agree with the plan. Lab Data 05/16/22 19:00 05/16/22 19:00 Labs/Radiology: Radiology Impressions Abdomen/Pelvis CT 05/16/22 19:23 IMPRESSION: Moderate bowel thickening of the rectum consistent with moderate proctitis. Laboratory Results WBC 8.4 10^3/uL (4.0-10.0) 05/16/22 19:00 RBC 4.64 10^6/uL (4.1-5.3) 05/16/22 19:00 Hgb 13.4 g/dL (11.5-15.3) 05/16/22 19:00 Hct 40.3 % (37.0-47.0) 05/16/22 19:00 MCV 86.9 fl (81-99) 05/16/22 19:00 MCH 28.9 pg (28.0-34.0) 05/16/22 19:00 MCHC 33.3 g/dL (30.0-36.0) 05/16/22 19:00 RDW 14.6 % (12.1-15.1) 05/16/22 19:00 Plt Count 214 10^3/cmm (130-400) 05/16/22 19:00 MPV 9.9 fL (7.4-10.4) 05/16/22 19:00 Neut % (Auto) 69.8 % 05/16/22 19:00 Lymph % (Auto) 15.3 % 05/16/22 19:00 Holt % (Auto) 8.9 % 05/16/22 19:00 Eos % (Auto) 4.3 % 05/16/22 19:00 Baso % (Auto) 0.7 % 05/16/22 19:00 Neut # (Auto) 5.84 10^3/uL (1.8-7.7) 05/16/22 19:00 Lymph # (Auto) 1.3 10^3/uL (0.8-4.8) 05/16/22 19:00 Holt # (Auto) 0.7 10^3/uL (0.2-0.9) 05/16/22 19:00 Eos # (Auto) 0.4 10^3/uL (0.0-0.8) 05/16/22 19:00 Baso # (Auto) 0.1 10^3/uL (0.0-0.1) 05/16/22 19:00 Nucleated RBC % (auto) 0 % 05/16/22 19: Nucleated RBCs # 0.0 /100WBC 05/16/22 19:00 Sodium 126 mmol/L (136-145) L 05/16/22 19:00 Potassium 4.0 mmol/L (3.5-5.1) 05/16/22 19:00 Chloride 89 mmol/L (98-107) L 05/16/22 19:00 Carbon Dioxide 22 mmol/L (22-29) 05/16/22 19:00 Anion Gap 19.0 (5-19) 05/16/22 19:00 BUN 10 mg/dL (8-23) 05/16/22 19:00 Creatinine 0.6 mg/dL (0.5-0.9) 05/16/22 19:00 GFR Calculation Not Reportable 05/16/22 19:00 Glucose 96 mg/dL (65-115) 05/16/22 19:00 Calculated Osmolality 261 mOsm/kg (285-295) L 05/16/22 19:00 Calcium 9.1 mg/dL (8.5-10.5) 05/16/22 19:00 Total Bilirubin 0.4 mg/dL (0.15-1.2) 05/16/22 19:00 AST 18 U/L (0-32) 05/16/22 19:00 ALT 29 U/L (0-33) 05/16/22 19:00 Alkaline Phosphatase 86 U/L (35-105) 05/16/22 19:00 Total Protein 6.4 g/dL (6.6-8.7) L 05/16/22 19:00 Albumin 4.1 g/dL (3.5-5.2) 05/16/22 19:00 Globulin 2.3 g/dL (1.3-4.6) 05/16/22 19:00 Discharge Plan Discharge Patient Disposition: Home Clinical Impression: Fecal impaction in rectum, At risk for dehydration due to poor fluid intake Condition: Stable Prescriptions: No Action ergocalciferol (vitamin D2) 1,250 mcg (50,000 unit) capsule 1,250 mcg PO Q7D Rx Instructions: ON TUESDAY [employer] AREDS 14320-226-200 ambq-tq-fxer capsule 1 cap PO BID (DME) Wheel Chair See Rx Instructions .Route .MEDSUPPLY Qty: 1 0RF Rx Instructions: As directed ibuprofen 800 mg tablet 800 mg PO TID PRN (Reason: pain) Qty: 90 0RF levothyroxine 137 mcg tablet 137 mcg PO DAILY 90 Days Qty: 90 1RF pantoprazole 40 mg tablet,delayed release (DR/EC) 40 mg PO QAM 90 Days Qty: 90 1RF potassium chloride 10 mEq tablet extended release 10 meq PO DAILY 90 Days Qty: 90 1RF loratadine 10 mg tablet 10 mg PO QAM 90 Days Qty: 90 1RF montelukast [Singulair] 10 mg tablet 10 mg PO QAM 90 Days Qty: 90 1RF simvastatin 40 mg tablet 40 mg PO BEDTIME 90 Days Qty: 90 1RF ferrous gluconate 324 mg (38 mg iron) tablet 324 mg PO DAILY amiodarone 200 mg tablet 200 mg PO QAM Qty: 90 2RF docusate sodium [DSS] 250 mg capsule 500 mg PO BID 90 Days Qty: 360 0RF promethazine-DM 6.25-15 mg/5 mL syrup 5 - 10 ml PO Q6H PRN (Reason: cough) Qty: 200 0RF cyanocobalamin (vitamin B-12) 1,000 mcg tablet extended release 1,000 mcg PO QAM ascorbic acid (vitamin C) [Vitamin C] 500 mg Tablet,Chewable 500 mg PO BID Qty: 0 nitroglycerin [Nitrostat] 0.4 mg Tablet, Sublingual 0.4 mg SUBLINGUAL Q5M PRN (Reason: Chest Pain) Rx Instructions: do not exceed 3 doses per episode albuterol sulfate 90 mcg/actuation HFA aerosol inhaler 2 puff INHALATION QID PRN (Reason: Shortness Of Breath) L.acidoph,saliva-B.bif-S.therm [Acidophilus Probiotic Blend] 175 mg Capsule 1 cap PO QAM Adult Multivitamin Gummies 200 mcg Tablet,Chewable 1 tab PO DAILY aspirin 325 mg tablet 325 mg PO QAM meclizine 25 mg tablet 25 - 37.5 mg PO TID PRN (Reason: dizziness) citalopram 40 mg tablet 20 mg PO BEDTIME Qty: 0 0RF lisinopril 40 mg tablet 20 mg PO QAM Qty: 0 0RF alprazolam 1 mg tablet 1 mg PO BEDTIME mirtazapine 15 mg tablet 15 mg PO BEDTIME diclofenac sodium 1 % gel 2 g topical QID PRN (Reason: Pain) Rx Instructions: apply to back and gluteal region 4 times a day tramadol 50 mg Tablet 50 mg PO Q4H PRN (Reason: Pain) venlafaxine 37.5 mg Tablet 37.5 mg PO DAILY gabapentin 100 mg Capsule See Rx Instructions .ROUTE .COMPLEX Rx Instructions: 100 mg orally in the morning / 200 mg orally in the evening Discharge Orders: Discharge ED (Routine); Ordered 05/16/22 Ordered By: Cristopher Staples Referrals: Witt,ROHAN SmithN [Primary Care Provider] - Discharge Diet: Usual diet Discharge Activity: Increase activity as tolerated Patient Instructions: Opioid Safety, Pain Management Activity Restrictions/Additional Instructions: Take swyh-vdq-[id number] MiraLAX daily to establish regular bowel movements. Maintain adequate fluid intake. Increase fiber in your diet including fruits and vegetables. Follow-up with your primary care physician in 3 to 5 days for reevaluation. Return with new or worsening symptoms. Coding Level of Care Code ED She[employer] Operator Helper for Flores Saldana
[2022-05-16 19:52] LABS: Basophils # 0.1 10^3/uL (0.0-0.1); Basophils % 0.7 %; Eosinophils # 0.4 10^3/uL (0.0-0.8); Eosinophils % 4.3 %; Hematocrit 40.3 % (37.0-47.0); Hemoglobin 13.4 g/dL (11.5-15.3); Lymphocytes # 1.3 10^3/uL (0.8-4.8); Lymphocytes % 15.3 %; Mean Corpuscular HGB Conc 33.3 g/dL (30.0-36.0); Mean Corpuscular Hemoglobin 28.9 pg (28.0-34.0); Mean Corpuscular Volume 86.9 fl (81-99); Mean Platelet Volume 9.9 fL (7.4-10.4); Monocytes # 0.7 10^3/uL (0.2-0.9); Monocytes % 8.9 %; Neutrophils # 5.84 10^3/uL (1.8-7.7); Neutrophils % 69.8 %; Nucleated Red Blood Cells % 0 %; Platelet Count 214 10^3/cmm (130-400); Red Blood Count 4.64 10^6/uL (4.1-5.3); Red Cell Distribution Width 14.6 % (12.1-15.1); White Blood Count 8.4 10^3/uL (4.0-10.0)
[2022-05-16 20:08] LABS: Alanine Aminotransferase 29 U/L (0-33); Albumin Level 4.1 g/dL (3.5-5.2); Alkaline Phosphatase 86 U/L (35-105); Aspartate Amino Transferase 18 U/L (0-32); Blood Urea Nitrogen 10 mg/dL (8-23); Calcium 9.1 mg/dL (8.5-10.5); Carbon Dioxide 22 mmol/L (22-29); Chloride 89 mmol/L (98-107); Creatinine Clr Calc Pharmacy 43.5834; Globulin 2.3 g/dL (1.3-4.6); Glucose 96 mg/dL (65-115); Osmolality Calculated 261 mOsm/kg (285-295); Sodium 126 mmol/L (136-145); Total Bilirubin 0.4 mg/dL (0.15-1.2); Total Protein 6.4 g/dL (6.6-8.7)
[2022-05-16] MEDS: Fleet Enema 133 mL Enema PR (20:09)
[2022-05-16 20:20] VITALS: BP 117/97; PULSE 98; RESP 16; O2SAT 92
[2022-05-16 21:03] VITALS: PULSE 97; RESP 18; O2SAT 92
[2022-05-16 21:38] VITALS: BP 120/66; PULSE 100; RESP 18; O2SAT 93
[2022-05-16 22:35] VITALS: BP 108/76; PULSE 92; RESP 18; O2SAT 93
[2022-05-16 22:55] VITALS: BP 108/76; PULSE 104; RESP 16; O2SAT 92
== END 2022-05-16 22:55 | disposition home or self-care (01) ==
PROVIDERS: Emergency Provider Family Medicine; PCP Nurse Practitioner Family
DX: K56.41 Fecal impaction (principal); Z79.82 Long term (current) use of aspirin; Z87.891 Personal history of nicotine dependence; I25.10 Atherosclerotic heart disease of native coronary artery without angina pectoris; J44.9 Chronic obstructive pulmonary disease, unspecified; E78.5 Hyperlipidemia, unspecified; I10 Essential (primary) hypertension
CPT/HCPCS: 45915; 74177; 80053; 85025; 96360; 99285; J7030; Q9967

== ENCOUNTER 2022-06-11 13:13 | Inpatient (IN) | payer MEDICARE, SELFPAY ==
[2022-06-11] VITALS (83 sets, daily range): BP systolic 78–127; BP diastolic 51–95; PULSE 71–163; RESP 9–26; TEMP 36.4–36.6; O2SAT 81–96
--- NOTE | 2022-06-11 13:23 | W.ED.CHESTPA ---
HPI - Chest Pain General: Chief Complaint: Chest Pain Stated Complaint: chest pain/coughed up blood Time Seen by Provider: 06/11/22 13:18 History of Present Illness: Ms. Reyna is an 86-year-old lady with history of ischemic cardiomyopathy, hypertension, hyperlipidemia, atrial fibrillation, COPD, peripheral vascular disease presenting to the emergency department for chest pain with cough and hemoptysis. She reports some intermittent discomfort in the chest which has been migratory over the past week however has been more constant and more uncomfortable over the past 3 days. She notes cough and shortness of breath with dark red hemoptysis a few times per day. She has had poor p.o. intake and decreased energy. Intensity symptoms is moderate but at times has become severe. Course has worsened. No other specific changes in health, exacerbating, or alleviating factors identified. Onset (ago): day(s) Timing of current episode: increasing Pain location: left chest Pain radiation: other Severity: moderate Quality: aching and heaviness Relieving factors: nothing Exacerbating factors: inspiration and movement Associated symptoms: Reports dyspnea, nausea and other Review of Systems General: Reports: 10 or more systems reviewed and unremarkable except in HPI and below Resp: Reports: dyspnea GI: Reports: nausea PFSH ED PFSH: Medical History Advanced age Anxiety Arthritis Atrial fibrillation in sinus rhythm on amiodarone, not on anticoagulation beyond daily 325mg aspirin due to risk of bleeding with recurrent falls 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, 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 CAD (coronary artery disease) Carotid stenosis Closed sacral fracture (~06/30/21) COPD (chronic obstructive pulmonary disease) Degenerative disc disease, lumbar Depression Dizziness Falls frequently Former smoker Fracture of ramus of left pubis (05/26/21) GERD (gastroesophageal reflux disease) Hard of hearing History of fracture multiple related to falls Hyperlipidemia Hypertension Hypotension Hypothyroidism Ischemic cardiomyopathy Echo 03/2021 normal EF, systolic and diastolic function MRSA (methicillin resistant Staphylococcus aureus) Osteoporosis Peripheral vascular disease Pneumonia Proximal humerus fracture (04/08/21) Sleep apnea Small bowel obstruction, partial Vitamin D deficiency Surgical History History of angioplasty of peripheral vessel (~2019) for in stent restenosis History of ankle surgery left History of section x4 History of open reduction and internal fixation (ORIF) procedure (~09/2018) right hip S/P peripheral artery angioplasty with stent placement right common iliac artery Status post total hip replacement, right (~03/2019) Family History Son Psychiatric illness Bipolar Social History (Updated 06/11/22 @ 17:31 by Gay Mary RN) Smoking and tobacco status: former smoker Quit status (tobacco): has quit using tobacco Year quit tobacco: 2018 Alcohol intake: former Caregiver/support person: Yes Lives independently: Yes Household members: significant other Number of children: 4 Current occupational status: retired Previous occupational history: Previously worked at [employer] Current gender identity: Female Special noris needs: No Agree to transfusion: Yes Financial difficulty paying for basics: Not Applicable Physical Exam Const: COMMON NORMALS: alert GENERAL APPEARANCE: cooperative and well developed HENMT: COMMON NORMALS: normocephalic and atraumatic HEAD & SCALP: normocephalic and atraumatic Eye: COMMON NORMALS: conjunctivae normal CONJUNCTIVA: Yes conjunctivae normal SCLERA: sclerae normal Neck/C-Spine: COMMON NORMALS: supple GENERAL: Yes trachea midline Resp: EFFORT & INSPECTION: Yes able to speak in complete sentences AUSCULTATION: rhonchi Cardio: RATE: tachycardic RHYTHM: abnormal rhythm GI: COMMON NORMALS: Soft to palpation PALPATION: Yes Soft to palpation and No Tenderness to palpation present (GI) PERCUSSION: normal to percussion Extremity: GENERAL: Yes normal exam except as noted and No edema Neuro: COMMON NORMALS: moves all extremities SENSORIUM/ORIENTATION: Yes alert and No Orientation impaired Psych: COMMON NORMALS: mental status grossly normal and Normal thought process present THOUGHT PROCESS: Normal thought process present Course Vital Signs: Vital signs: Vital Signs Temperature 97.8 F 06/15/22 08:00 Pulse Rate 107 H 06/15/22 13:16 Respiratory Rate 18 06/15/22 13:16 Blood Pressure 101/78 06/15/22 13:16 Pulse Oximetry 96 06/15/22 13:16 Oxygen Delivery Me thod Room Air 06/15/22 08:00 Oxygen Flow Rate 2 06/13/22 08:40 MDM - Chest Pain Medical Decision Making 86-year-old lady presenting with generalized illness including chest pain and hemoptysis. Exam as above. EKG demonstrates atrial fibrillation with rapid ventricular response, normal axis and narrow QRS, no STEMI. Labs with unremarkable hematologic panel. Coags normal. No significant electrolyte disturbance. Negative range 2-hour delta troponin. BNP is mildly elevated. Negative urinalysis. Viral panel pending.. Bilateral opacities inferiorly noted on chest x-ray, no pneumothorax. CT demonstrates no PE, there are bilateral pleural effusions and chronic spinal fractures. Incidental findings discussed with patient. Patient treated with aspirin, IV fluids, Lasix, metoprolol, antibiotics. Most likely etiology of patient symptoms is multifactorial including heart failure exacerbation and atrial fibrillation with rapid ventricular response. There is also evidence of pneumonia. The results of ED evaluation were discussed with the patient including plan for admission due to requirement for level of care not available if discharged to prevent significant worsening/deterioration. Patient agreeable with plan. Discussed with hospitalist service who was agreeable to admit patient. Medical Records I reviewed the patient's medical records. Lab Data I reviewed the patient's lab results. 06/14/22 03:15 06/14/22 03:15 Radiology Impressions Chest X-Ray 06/11/22 13:30 IMPRESSION: Interval change in both hemithoraces as noted above. Most likely congestive heart failure, less likely pneumonitis. Chest/Abdomen/Pelvis CT 06/11/22 14:22 IMPRESSION: 1. Negative for pulmonary embolus 2. Emphysematous changes. 3. Small to moderate bilateral pleural effusions. 4. Bilateral dependent atelectasis versus infiltrate. 5. Several midthoracic spine vertebral body compression fractures without retropulsion of bony fragments, new compared to prior exam, age indeterminate. 6. Sternal manubrium chronic healed fracture. 7. Cardiomegaly. 8. Coronary artery atherosclerotic calcifications. IMPRESSION: 1. Negative for acute inflammatory process in the abdomen or pelvis. 2. Constipation. 3. Right hip arthroplasty changes. 4. Minimal diverticulosis without diverticulitis. 5. Fusiform infrarenal abdominal aortic aneurysm measuring 2.5 cm, similar to prior exam. 6. L2 vertebral body chronic compression fracture with minimal retropulsion of bony fragments without significant spinal canal narrowing, similar to prior exam. Laboratory Results WBC 6.8 10^3/uL (4.0-10.0) 06/12/22 03:25 RBC 4.03 10^6/uL (4.1-5.3) L 06/12/22 03:25 Hgb 11.7 g/dL (11.5-15.3) 06/12/22 03:25 Hct 35.7 % (37.0-47.0) L 06/12/22 03:25 MCV 88.6 fl (81-99) 06/12/22 03:25 MCH 29.0 pg (28.0-34.0) 06/12/22 03:25 MCHC 32.8 g/dL (30.0-36.0) 06/12/22 03:25 RDW 14.7 % (12.1-15.1) 06/12/22 03:25 Plt Count 262 10^3/cmm (130-400) 06/12/22 03:25 MPV 9.0 fL (7.4-10.4) 06/12/22 03:25 Neut % (Auto) 67.1 % 06/12/22 03:25 Lymph % (Auto) 17.4 % 06/12/22 03:25 [place]ress % (Auto) 8.2 % 06/12/22 03:25 Eos % (Auto) 2.2 % 06/12/22 03:25 Baso % (Auto) 0.7 % 06/12/22 03:25 Neut # (Auto) 4.59 10^3/uL (1.8-7.7) 06/12/22 03:25 Lymph # (Auto) 1.2 10^3/uL (0.8-4.8) 06/12/22 03:25 Childress # (Auto) 0.6 10^3/uL (0.2-0.9) 06/12/22 03:25 Eos # (Auto) 0.2 10^3/uL (0.0-0.8) 06/12/22 03:25 Baso # (Auto) 0.1 10^3/uL (0.0-0.1) 06/12/22 03:25 Nucleated RBC % (auto) 0 % 06/12/22 03:25 Nucleated RBCs # 0.0 /100WBC 06/12/22 03:25 PT 12.90 SECONDS (12.1-14.9) 06/11/22 16:15 INR 0.94 (0.8-1.2) 06/11/22 16:15 APTT 29.5 SECONDS (23.9-36.7) 06/11/22 13:41 Sodium 136 mmol/L (136-145) 06/12/22 03:25 Potassium 3.4 mmol/L (3.5-5.1) L 06/12/22 03:25 Chloride 99 mmol/L (98-107) 06/12/22 03:25 Carbon Dioxide 27 mmol/L (22-29) 06/12/22 03:25 Anion Gap 13.4 (5-19) 06/12/22 03:25 BUN 13 mg/dL (8-23) 06/12/22 03:25 Creatinine 0.6 mg/dL (0.5-0.9) 06/12/22 03:25 GFR Calculation Not Reportable 06/12/22 03:25 Glucose 66 mg/dL (65-115) 06/12/22 03:25 Calculated Osmolality 280 mOsm/kg (285-295) L 06/12/22 03:25 Lactic Acid 1.4 mmol/L (0.5-2.2) 06/11/22 13:41 Lactate 1.4 mmol/L (0.5-2.2) 06/12/22 09:37 Calcium 8.4 mg/dL (8.5-10.5) L 06/12/22 03:25 Phosphorus 3.1 mg/dL (2.5-4.5) 06/12/22 03:25 Magnesium 1.8 mg/dL (1.7-2.3) 06/12/22 03:25 Total Bilirubin 0.3 mg/dL (0.15-1.2) 06/11/22 13:41 AST 19 U/L (0-32) 06/11/22 13:41 ALT 27 U/L (0-33) 06/11/22 13:41 Alkaline Phosphatase 70 U/L (35-105) 06/11/22 13:41 Troponin T Baseline 16 ng/L (0-10) H 06/11/22 13:41 Troponin T 120 Minute 13.71 ng/L (0-10) H 06/11/22 15:42 Delta Troponin T -2.29 ABS# (0-10) L 06/11/22 15:42 Troponin T Hi Sens 6Hr 15.74 ng/L (0-10) H 06/11/22 20:01 Troponin T Hi Sens 6Hr Delta -0.26 ng/L (0-12) L 06/11/22 20:01 NT-Pro-B Natriuret Pep 1535 pg/mL (0-450) H 06/11/22 13:41 Total Protein 6.3 g/dL (6.6-8.7) L 06/11/22 13:41 Albumin 3.7 g/dL (3.5-5.2) 06/11/22 13:41 Globulin 2.6 g/dL (1.3-4.6) 06/11/22 13:41 Triglycerides 122 mg/dL (0-150) 06/11/22 13:41 Cholesterol 137 mg/dL (0-200) 06/11/22 13:41 LDL Cholesterol, Calc 72 mg/dL (50-129) 06/11/22 13:41 HDL Cholesterol 41 mg/dL (60-100) L 06/11/22 13:41 LDL/HDL Ratio 1.76 RATIO (0.00-3.22) 06/11/22 13:41 Cholesterol/HDL Ratio 3.34 mg/dL (0.0-4.40) 06/11/22 13:41 Lipase 23 U/L (13-60) 06/11/22 13:41 TSH 1.09 uIU/mL (0.27-4.20) 06/11/22 13:41 Urine Color Yellow (Yellow) 06/11/22 18:00 Urine Appearance Clear (CLEAR) 06/11/22 18:00 Urine pH 7 (5-7) 06/11/22 18:00 Ur Specific Melvin 1.005 (1.005-1.030) 06/11/22 18:00 Urine Protein Neg (Negative) 06/11/22 18:00 Urine Glucose (UA) Norm (Normal) 06/11/22 18:00 Urine Ketones Negative (Negative) 06/11/22 18:00 Urine Blood Neg (Negative) 06/11/22 18:00 Urine Nitrate Negative (Negative) 06/11/22 18:00 Urine Bilirubin Neg (Negative) 06/11/22 18:00 Urine Urobilinogen Norm mg/dL (Negative) 06/11/22 18:00 Ur Leukocyte Esterase Negative (Negative) 06/11/22 18:00 Nasal Influ A H1 2009 PCR Not detected (NOT DETECT) 06/11/22 13:25 Adenovirus (PCR) Not detected (NOT DETECT) 06/11/22 13:25 C. pneumoniae DNA (PCR) Not detected (NOT DETECT) 06/11/22 13:25 Coronavirus 229E (PCR) Not detected (NOT DETECT) 06/11/22 13:25 Human Metapneumovir PCR Not detected (NOT DETECT) 06/11/22 13:25 Influenza A (H1) PCR Not detected (NOT DETECT) 06/11/22 13:25 Influenza A (H3) PCR Not detected (NOT DETECT) 06/11/22 13:25 Influenza Type A (PCR) Not detected (NOT DETECT) 06/11/22 13:25 Influenza Type B (PCR) Not detected (NOT DETECT) 06/11/22 13:25 M. pneumoniae (PCR) Not detected (NOT DETECT) 06/11/22 13:25 Parainfluenza 1 (PCR) Not detected (NOT DETECT) 06/11/22 13:25 Parainfluenza 2 (PCR) Not detected (NOT DETECT) 06/11/22 13:25 Parainfluenza 3 (PCR) Not detected (NOT DETECT) 06/11/22 13:25 Parainfluenza 4 (PCR) Not detected (NOT DETECT) 06/11/22 13:25 RSV Type A (PCR) Not detected (NOT DETECT) 06/11/22 13:25 RSV Type B (PCR) Not detected (NOT DETECT) 06/11/22 13:25 Entero/Rhino (PCR) Not detected (NOT DETECT) 06/11/22 13:25 SARS-CoV-2 (PCR) Not detected (NOT DETECT) 06/11/22 13:25 Discharge Plan Discharge Patient Disposition: Placed in Observation Admit Provider: Jerson Collazo Clinical Impression: Increasing shortness of breath, Chest pain, Cough with hemoptysis, Pneumonia, Acute exacerbation of CHF (congestive heart failure), Atrial fibrillation with rapid ventricular response Discharge Diet: Cardiac Discharge Activity: Resume usual activity Coding Level of Care Code ED Regular Senior Care Provider for Chg Les
--- NOTE | 2022-06-11 13:27 | ECG_ITS ---
[facility] Test Date: 2022-06-11 Pat Name: Linsey Reyna Department: Room: Gender: Female [employer] Car[employer] Operator: : [id number] Requested By: Chris Paris Order Number: [id number] Abdifatah MD: Serena Salazar M.D. Measurements Intervals [place] Rate: 137 P: 0 MT: 0 QRS: 56 QRSD: 92 T: 64 QT: 316 QTc: 479 Interpretive Statements ATRIAL FIBRILLATION WITH RAPID VENTRICULAR RESPONSE NONSPECIFIC ST & T-WAVE ABNORMALITY ABNORMAL RHYTHM ECG Compared to ECG 04/26/2022 15:21:35 No significant changes Electronically Signed On 06-11-2022 21:27:56 CDT by Serena Salazar M.D. [id number]
--- NOTE | 2022-06-11 13:30 | XR_ITS ---
WS: [id number] XR chest 1V portable [id number] REASON FOR EXAM: cp FINDINGS: Compared to the examination of 04/26/2022, there are now bilateral pleural effusions and reticular int erstitial lung opacities in the lower lung barboza. The abnormalities are more prominent on the left. The heart is not significantly enlarged. No other significant interval change or new finding compared to the previous study. XR/XR chest 1V portable [id number] IMPRESSION: Interval change in both hemithoraces as noted above. Most likely congestive hea rt failure, less likely pneumonitis.
[2022-06-11] MEDS: aspirin 81 mg Chew Tablet 324 MG PO (13:45)
[2022-06-11] MEDS: sodium chloride 0.9% 500 ML 999 ML IV (13:47)
[2022-06-11 13:57] LABS: Basophils # 0.1 10^3/uL (0.0-0.1); Basophils % 0.6 %; Eosinophils # 0.1 10^3/uL (0.0-0.8); Hematocrit 39.9 % (37.0-47.0); Hemoglobin 12.9 g/dL (11.5-15.3); Lymphocytes # 1.3 10^3/uL (0.8-4.8); Lymphocytes % 16.1 %; Mean Corpuscular HGB Conc 32.3 g/dL (30.0-36.0); Mean Corpuscular Hemoglobin 28.5 pg (28.0-34.0); Mean Corpuscular Volume 88.3 fl (81-99); Mean Platelet Volume 8.8 fL (7.4-10.4); Monocytes # 0.5 10^3/uL (0.2-0.9); Monocytes % 6.7 %; Neutrophils # 5.83 10^3/uL (1.8-7.7); Neutrophils % 73.8 %; Nucleated Red Blood Cells % 0 %; Platelet Count 281 10^3/cmm (130-400); Red Blood Count 4.52 10^6/uL (4.1-5.3); Red Cell Distribution Width 14.8 % (12.1-15.1); White Blood Count 7.9 10^3/uL (4.0-10.0)
[2022-06-11 14:18] LABS: INR 0.99 (0.8-1.2); Partial Thromboplastin Time 29.5 SECONDS (23.9-36.7)
[2022-06-11 14:19] LABS: Lactic Sepsis W/Reflex 1.4 mmol/L (0.5-2.2)
[2022-06-11 14:20] LABS: Alanine Aminotransferase 27 U/L (0-33); Albumin Level 3.7 g/dL (3.5-5.2); Alkaline Phosphatase 70 U/L (35-105); Anion Gap 18.8 (5-19); Aspartate Amino Transferase 19 U/L (0-32); Blood Urea Nitrogen 15 mg/dL (8-23); Carbon Dioxide 25 mmol/L (22-29); Chloride 99 mmol/L (98-107); Globulin 2.6 g/dL (1.3-4.6); Glucose 76 mg/dL (65-115); Lipase 23 U/L (13-60); Osmolality Calculated 288 mOsm/kg (285-295); Potassium 3.8 mmol/L (3.5-5.1); Sodium 139 mmol/L (136-145); Total Bilirubin 0.3 mg/dL (0.15-1.2); Total Protein 6.3 g/dL (6.6-8.7)
[2022-06-11 14:21] LABS: Troponin(5th) Baseline 16 ng/L (0-10)
--- NOTE | 2022-06-11 14:22 | CTR_ITS ---
PROCEDURE INFORMATION: Exam: CTA Chest With Contrast Exam date and time: 06/11/2022 2:38 PM Age: 86 years old Clinical indication: Abdominal pain; Chest pressure; Prior surgery; Surgery type: Angioplasty; Stent; ; Right hip replacement; Additional info: Chest pain, hemoptysis, abd pain L side TECHNIQUE: Imaging protocol: Computed tomographic angiography of the chest with contrast. 3D rendering (Not supervised by radiologist): MIP and/or 3D reconstructed images were created by the technologist. Radiation optimization: All CT scans at this facility use at least one of these dose optimization techniques: automated exposure control; mA and/or kV adjustment per patient size (includes targeted exams where dose is matched to clinical indication); or iterative reconstruction. Contrast material: OMNI 350; Contrast volume: 100 ml; Contrast route: INTRAVENOUS (IV); REPORTING DATA: Count of CT and Cardiac NM exams in prior 12 months: This patient has received 5 known CTs and 0 known cardiac nuclear medicine studies in the 12 months prior to the current study. COMPARISON: CT angio chest PE protcl [id number] 02/06/2018 3:34 PM RADIATION DOSE METRICS: Total DLP (mGy-cm): 663.4 FINDINGS: Pulmonary arteries: Normal. No pulmonary emboli. Aorta: Unremarkable. No aortic aneurysm. No aortic dissection. Lungs: Emphysematous changes. Bilateral dependent atelectasis versus infiltrate. Pleural spaces: Small to moderate bilateral pleural effusions. Heart: Cardiomegaly. Coronary artery atherosclerotic calcifications. Lymph nodes: Unremarkable. No enlarged lymph nodes. Bones/joints: Several midthoracic spine vertebral body compression fractures without retropulsion of bony fragments, new compared to prior exam, age indeterminate. Sternal manubrium chronic healed fracture. Soft tissues: Unremarkable. PROCEDURE INFORMATION: Exam: CT Abdomen And Pelvis With Contrast Exam date and time: 06/11/2022 2:38 PM Age: 86 years old Clinical indication: Abdominal pain; Chest pressure; Prior surgery; Surgery type: Angioplasty; Stent; ; Right hip replacement; Additional info: Chest pain, hemoptysis, abd pain L side TECHNIQUE: Imaging protocol: Computed tomography of the abdomen and pelvis with contrast. Radiation optimization: All CT scans at this facility use at least one of these dose optimization techniques: automated exposure control; mA and/or kV adjustment per patient size (includes targeted exams where dose is matched to clinical indication); or iterative reconstruction. Contrast material: OMNI 350; Contrast volume: 100 ml; Contrast route: INTRAVENOUS (IV); REPORTING DATA: Count of CT and Cardiac NM exams in prior 12 months: This patient has received 5 known CTs and 0 known cardiac nuclear medicine studies in the 12 months prior to the current study. COMPARISON: CT abdomen pelvis w con* [id number] 05/16/2022 8:15 PM RADIATION DOSE METRICS: Total DLP (mGy-cm): 663.4 FINDINGS: Liver: Normal. No mass. Gallbladder and bile ducts: Normal. No calcified stones. No ductal dilation. Pancreas: Normal. No ductal dilation. Spleen: Normal. No splenomegaly. Adrenal glands: Normal. No mass. Kidneys and ureters: Normal. No hydronephrosis. Stomach and bowel: Constipation. Minimal diverticulosis without diverticulitis. Appendix: No evidence of appendicitis. Intraperitoneal space: Unremarkable. No free air. No significant fluid collection. Vasculature: Fusiform infrarenal abdominal aortic aneurysm measuring 2.5 cm, similar to prior exam. Lymph nodes: Unremarkable. No enlarged lymph nodes. Urinary bladder: Unremarkable as visualized. Reproductive: Unremarkable as visualized. Bones/joints: Right hip arthroplasty changes. L2 vertebral body chronic compression fracture with minimal retropulsion of bony fragments without significant spinal canal narrowing, similar to prior exam. Soft tissues: Unremarkable. CT/CT angio chest w abd pel w con IMPRESSION: 1. Negative for pulmonary embolus 2. Emphysematous changes. 3. Small to moderate bilateral pleural effusions. 4. Bilateral dependent atelectasis versus infiltrate. 5. Several midthoracic spine vertebral body compression fractures without retropulsion of bony fragments, new compared to prior exam, age indeterminate. 6. Sternal manubrium chronic healed fracture. 7. Cardiomegaly. 8. Coronary artery atherosclerotic calcifications. IMPRESSION: 1. Negative for acute inflammatory process in the abdomen or pelvis. 2. Constipation. 3. Right hip arthroplasty changes. 4. Minimal diverticulosis without diverticulitis. 5. Fusiform infrarenal abdominal aortic aneurysm measuring 2.5 cm, similar to prior exam. 6. L2 vertebral body chronic compression fracture with minimal retropulsion of bony fragments without significant spinal canal narrowing, similar to prior exam.
[2022-06-11] MEDS: iohexol 350 mg/mL 500 mL Btl (per mL) IV (14:45)
[2022-06-11 15:11] LABS: NT Pro B Type Natriuretic Pept 1535 pg/mL (0-450)
[2022-06-11 16:10] LABS: Adenovirus Not Detected (NOT DETECT); Chlamydia Pneumoniae Not Detected (NOT DETECT); Coronavirus 229E,HKU1,NL63,OC4 Not Detected (NOT DETECT); Human Metapneumovirus Not Detected (NOT DETECT); Human Rhinovirus/Enterovirus Not Detected (NOT DETECT); Influenza A Not Detected (NOT DETECT); Influenza A H1 Not Detected (NOT DETECT); Influenza A H1-2009 Not Detected (NOT DETECT); Influenza A H3 Not Detected (NOT DETECT); Influenza B Not Detected (NOT DETECT); Mycoplasma Pneumoniae Not Detected (NOT DETECT); Parainfluenza Virus Type 1 Not Detected (NOT DETECT); Parainfluenza Virus Type 2 Not Detected (NOT DETECT); Parainfluenza Virus Type 3 Not Detected (NOT DETECT); Parainfluenza Virus Type 4 Not Detected (NOT DETECT); Respiratory Syncytial Virus A Not Detected (NOT DETECT); Respiratory Syncytial Virus B Not Detected (NOT DETECT); SARS-COV-2 Not Detected (NOT DETECT)
[2022-06-11] MEDS: levofloxacin-dextrose 5 % 750 MG/150 ML PREMIX 100 MG IV (16:14)
[2022-06-11] MEDS: FUROsemide 10 mg/mL SDV 2mL 20 MG IVP (16:15)
[2022-06-11 16:17] LABS: Troponin 5 2HR 13.71 ng/L (0-10)
[2022-06-11 16:18] LABS: Troponin 5 2HR Delta -2.29 ABS# (0-10)
--- NOTE | 2022-06-11 16:22 | ECG_ITS ---
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 Measurements Intervals [place] Rate: 119 P: 0 AR: 0 QRS: 63 QRSD: 100 T: 33 QT: 335 QTc: 473 Interpretive Statements ATRIAL FIBRILLATION WITH RAPID VENTRICULAR RESPONSE NONSPECIFIC T-WAVE ABNORMALITY ABNORMAL RHYTHM ECG Compared to ECG 06/11/2022 13:27:13 No significant changes Electronically Signed On 06-11-2022 21:41:15 CDT by Serena Salazar M.D. [id number]
--- NOTE | 2022-06-11 16:49 | PM.HP ---
Providers/Chief Complaint Admitting Physician: Jerson Collazo MD Primary Care Provider: Sarah Witt APN Chief Complaint: chest pain/coughed up blood History of Present Illness Linsey Reyna is a 86 year old female history of atrial fibrillation, not on anticoagulation, history of CHF, history of peripheral vascular disease ischemic cardiomyopathy, hyperlipidemia hypertension, COPD, history of smoking, who presents to [facility] due to weakness, fatigue, poor appetite, shortness of breath, chest pain, and cough with hemoptysis and pleurisy. Patient tells me that she for the last few weeks, she has been feeling increasingly short of breath, having substernal chest pain, with cough with blood in it, with pleurisy with taking deep breaths in, denies any fevers, no chills, no sick contacts, she does have history of recurrent UTIs currently she is in A-fib with RVR, denies any chest pain Review of Systems Const: Denies: fever(s) Eyes: Denies: change in vision Card: Denies: chest pain Resp: Reports: dyspnea and non-productive cough Musc: Denies: neck pain Neuro: Denies: headache(s) Medications/Allergies Home Medications Medication Instructions Recorded Confirmed Last Taken Type ergocalciferol (vitamin D2) 1,250 1,250 mcg PO Q7D 02/06/20 06/11/22 06/08/22 History mcg (50,000 unit) capsule vitamins A,C,C-bnzi-ebesku 14,320 1 cap PO BID 12/23/20 06/11/22 06/11/22 History unit-226 mg-200 unit capsule (PreserVision AREDS) Wheel Chair #1 ea 05/27/21 06/11/22 Unknown Rx ibuprofen 800 mg tablet 800 mg PO TID PRN pain #90 tabs 06/09/21 06/11/22 06/11/22 Rx L.acidophil,salivari-Bifido 1 cap PO QAM 06/30/21 06/11/22 06/11/22 History bifidum-Strep thermoph 175 mg capsule (Acidophilus Probiotic Blend) albuterol sulfate 90 mcg/actuation 2 puff inhalation QID PRN 06/30/21 06/11/22 Unknown History aerosol inhaler Shortness Of Breath ascorbic acid (vitamin C) 500 mg 500 mg PO BID ##0 06/30/21 06/11/22 06/11/22 History chewable tablet (Vitamin C) aspirin 325 mg tablet 325 mg PO QAM 06/30/21 06/11/22 06/11/22 History cyanocobalamin (vitamin B-12) 1,000 mcg PO QAM 06/30/21 06/11/22 06/11/22 History 1,000 mcg tablet,extended release meclizine 25 mg tablet 25 - 37.5 mg PO TID PRN dizziness 06/30/21 06/11/22 Unknown History multivitamin with minerals-folic 1 tab PO DAILY 06/30/21 06/11/22 06/11/22 History acid 200 mcg chewable tablet (Adult Multivitamin Gummies) nitroglycerin 0.4 mg sublingual 0.4 mg sublingual Q5M PRN Chest 06/30/21 06/11/22 Unknown History tablet (Nitrostat) Pain lisinopril 40 mg tablet 20 mg PO QAM #0 tabs 07/01/21 06/11/22 06/11/22 Rx levothyroxine 137 mcg tablet 137 mcg PO DAILY 90 days #90 tabs 11/17/21 06/11/22 06/11/22 Rx loratadine 10 mg tablet 10 mg PO QAM 90 days #90 tabs 11/17/21 06/11/22 06/11/22 Rx montelukast 10 mg tablet 10 mg PO QAM 90 days #90 tabs 11/17/21 06/11/22 06/11/22 Rx (Singulair) pantoprazole 40 mg tablet,delayed 40 mg PO QAM 90 days #90 tabs 11/17/21 06/11/22 06/11/22 Rx release potassium chloride 10 mEq 10 meq PO DAILY 90 days #90 tabs 11/17/21 06/11/22 06/11/22 Rx tablet,extended release simvastatin 40 mg tablet 40 mg PO BEDTIME 90 days #90 tabs 11/17/21 06/11/22 06/10/22 Rx ferrous gluconate 324 mg (38 mg 324 mg PO DAILY 01/08/22 06/11/22 06/11/22 History iron) tablet amiodarone 200 mg tablet 200 mg PO QAM #90 tabs 02/11/22 06/11/22 06/11/22 Rx docusate sodium 250 mg capsule 500 mg PO BID 90 days #360 caps 02/19/22 06/11/22 06/11/22 Rx (DSS) promethazine-DM 6.25 mg-15 mg/5 mL 5 - 10 ml PO Q6H PRN cough #200 mL 03/05/22 06/11/22 Unknown Rx oral syrup alprazolam 1 mg tablet 1 mg PO BEDTIME 04/26/22 06/11/22 06/10/22 History diclofenac sodium 1 % topical gel 2 g topical QID PRN Pain 04/26/22 06/11/22 Unknown History gabapentin 100 mg capsule See Rx Instructions .Route .COMPLEX 04/26/22 06/11/22 06/11/22 History mirtazapine 15 mg tablet 15 mg PO BEDTIME 04/26/22 06/11/22 06/10/22 History tramadol 50 mg tablet 50 mg PO Q4H PRN Pain 04/26/22 06/11/22 Unknown History venlafaxine 75 mg capsule,extended 75 mg PO DAILY 06/11/22 06/11/22 06/10/22 History release 24 hr Allergies Allergy/AdvReac Type Severity Reaction Status Date / Time amoxicillin Allergy ADR-Halluci Verified 05/16/22 18:48 nating cilostazol Allergy ADR-Halluci Verified 05/16/22 18:48 nating codeine Allergy ADR-Halluci Verified 05/16/22 18:48 nating influenza virus vaccine qs Allergy Unknown Verified 05/16/22 18:48 [id number] (36 mos, up) [From Fluarix Quad] oxycodone Allergy ADR-Halluci Verified 05/16/22 18:48 nating Penicillins Allergy ADR-Halluci Verified 05/16/22 18:48 nating Sulfa (Sulfonamide Allergy Unknown Verified 05/16/22 18:48 Antibiotics) PFSH Acute PFSH: Medical History Advanced age Anxiety Arthritis Atrial fibrillation in sinus rhythm on amiodarone, not on anticoagulation beyond daily 325mg aspirin due to risk of bleeding with recurrent falls 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, 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 CAD (coronary artery disease) Carotid stenosis Closed sacral fracture (~06/30/21) COPD (chronic obstructive pulmonary disease) Degenerative disc disease, lumbar Depression Dizziness Falls frequently Former smoker Fracture of ramus of left pubis (05/26/21) GERD (gastroesophageal reflux disease) Hard of hearing History of fracture multiple related to falls Hyperlipidemia Hypertension Hypotension Hypothyroidism Ischemic cardiomyopathy Echo 03/2021 normal EF, systolic and diastolic function MRSA (methicillin resistant Staphylococcus aureus) Osteoporosis Peripheral vascular disease Pneumonia Proximal humerus fracture (04/08/21) Sleep apnea Small bowel obstruction, partial Vitamin D deficiency Surgical History History of angioplasty of peripheral vessel (~2018) for in stent restenosis History of ankle surgery left History of section x4 History of open reduction and internal fixation (ORIF) procedure (~09/2018) right hip S/P peripheral artery angioplasty with stent placement right common iliac artery Status post total hip replacement, right (~03/2019) Family History Son Psychiatric illness Bipolar Social History Smoking and tobacco status: former smoker Quit status (tobacco): has quit using tobacco Year quit tobacco: 2018 Alcohol intake: current Alcohol intake frequency: holidays/special occasions only Caregiver/support person: Yes Lives independently: Yes Household members: significant other Number of children: 4 Current occupational status: retired Previous occupational history: Previously worked at [employer] Current gender identity: Female Special noris needs: No Agree to transfusion: Yes Financial difficulty paying for basics: Not Applicable Vitals/I&O/Wt Last Vital Signs Temp 97.5 F L 06/11/22 13:15 Pulse 127 H 06/11/22 14:30 Resp 20 H 06/11/22 13:15 BP 127/89 06/11/22 13:40 Pulse Ox 94 06/11/22 14:30 O2 Del Method 06/11/22 14:30 06/11/22 06/11/22 06/11/22 06:59 14:59 22:59 Intake Total 500 / 500 Balance 500 / 500 Weight last 48 hrs Weight 52.163 kg Physical Exam Const: COMMON NORMALS: no acute distress and patient oriented x3 HENMT: COMMON NORMALS: normocephalic HEAD & SCALP: normocephalic Eye: COMMON NORMALS: Equal, round and reactive pupils present and EOMs intact bilaterally Neck/C-Spine: COMMON NORMALS: full ROM and no lymphadenopathy Lymph: LYMPHATIC: no lymphadenopathy noted Resp: COMMON NORMALS: normal respiratory effort, No retractions, No use of accessory muscles and clear to auscultation bilaterally AUSCULTATION: clear to auscultation bilaterally Cardio: COMMON NORMALS: regular rate, regular rhythm, S1 normal heart sound present and S2 normal heart sound present RATE: regular rate RHYTHM: regular rhythm HEART SOUNDS: S1 normal heart sound present and S2 normal heart sound present GI: COMMON NORMALS: Normal to inspection, nondistended, normoactive bowel sounds present, Soft to palpation and non-tender Extremity: COMMON NORMALS: no pedal edema Neuro: COMMON NORMALS: patient oriented x3, CN's II-XII intact bilaterally, moves all extremities and no focal motor deficits Psych: COMMON NORMALS: mental status grossly normal Data 06/11/22 13:41 06/11/22 13:41 A&P Assessment and plan (1) Atrial fibrillation with RVR: (2) Persistent cough: (3) Chest pain: (4) Cough with hemoptysis: (5) Ischemic cardiomyopathy: (6) Hyperlipidemia: (7) CAD (coronary artery disease): (8) COPD (chronic obstructive pulmonary disease): (9) Irritable bowel syndrome with constipation: (10) Anxiety and depression: (11) Hypertension: Qualifiers: Hypertension type: essential hypertension Qualified Code(s): I10 - Essential (primary) hypertension Plan Cough, with hemoptysis -On examination looks like scant hemoptysis -Likely second upper respiratory tract infection -Tessalon Perles -Tylenol with codeine -Hold all blood thinners A-fib with RVR -Cardizem drip Weakness -We will obtain a UA Upper respiratory tract infection, will order doxycycline, consider steroids Deconditioning, PT OT Full code SCDs for DVT prophylaxis Attestations Medical Necessity Statement*: Patient requires hospitalization for cough, hemoptysis, A-fib with RVR, weakness, outpatient observation Coding Level of Care Code Acute Code for Chg Fwd Diagnoses Atrial fibrillation with RVR I48.91 Persistent cough R05.3 Chest pain R07.9 Cough with hemoptysis R04.2 Ischemic cardiomyopathy I25.5 Hyperlipidemia E78.5 CAD (coronary artery disease) I25.10 COPD (chronic obstructive pulmonary disease) J44.9 Irritable bowel syndrome with constipation K58.1 Anxiety and depression F41.9; F32.9 Hypertension I10 Hypertension type: essential hypertension
[2022-06-11 17:12] LABS: INR 0.94 (0.8-1.2)
[2022-06-11] MEDS: metoprolol tartrate 1 mg/1 mL SDV 5 mL 2.5 MG IVP (18:12)
[2022-06-11 18:22] LABS: Add Urine Microscopic? NO; Charge for UA Resulting for Rev
[2022-06-11] MEDS: ascorbic acid 500 mg Tablet PO (18:33)
[2022-06-11] MEDS: dilTIAZem 100 MG in sodium chloride 0.9% (add-van) 100 ML IV (18:35)
[2022-06-11 18:43] LABS: Chol HDL Ratio 3.34 mg/dL (0.0-4.40); Cholesterol 137 mg/dL (0-200); HDL Cholesterol 41 mg/dL (60-100); LDL Cholesterol Calculated 72 mg/dL (50-129); LDL HDL Ratio 1.76 RATIO (0.00-3.22); Thyroid Stimulating Hormone 1.09 uIU/mL (0.27-4.20); Triglycerides 122 mg/dL (0-150)
[2022-06-11 18:59] LABS: Bilirubin Urine Neg (Negative); Blood Urine Neg (Negative); Glucose Urine UA Norm (Normal); Ketones Urine Negative (Negative); Leukocyte Esterase Urine Negative (Negative); Nitrate Urine Negative (Negative); Protein Urine Neg (Negative); Specific Gravity, Urine 1.005 (1.005-1.030); Urine Appearance Clear (CLEAR); Urine Color Yellow (Yellow); Urobilinogen Urine Norm (Negative); pH Urine 7 (5-7)
--- NOTE | 2022-06-11 19:48 | ECG_ITS ---
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 Measurements Intervals [place] Rate: 129 P: 0 ME: 0 QRS: 38 QRSD: 95 T: 27 QT: 342 QTc: 502 Interpretive Statements ATRIAL FIBRILLATION WITH RAPID VENTRICULAR RESPONSE NONSPECIFIC T-WAVE ABNORMALITY ABNORMAL RHYTHM ECG Compared to ECG 06/11/2022 16:22:14 No significant changes Electronically Signed On 06-11-2022 21:41:53 CDT by Serena Salazar M.D. [id number]
[2022-06-11 20:37] LABS: Troponin 5 6HR 15.74 ng/L (0-10); Troponin 5 6HR Delta -0.26 ng/L (0-12)
[2022-06-11] MEDS: atorvastatin 40 mg Tablet 20 MG PO (21:05)
[2022-06-11] MEDS: ALPRAZolam 0.5 mg Tablet 1 MG PO (21:05)
[2022-06-11] MEDS: mirtazapine 15 mg Tablet PO (21:05)
[2022-06-12] VITALS (283 sets, daily range): BP systolic 77–132; BP diastolic 48–107; PULSE 74–152; RESP 8–38; TEMP 36.6; O2SAT 77–97
[2022-06-12 03:59] LABS: Basophils # 0.1 10^3/uL (0.0-0.1); Basophils % 0.7 %; Eosinophils # 0.2 10^3/uL (0.0-0.8); Eosinophils % 2.2 %; Hematocrit 35.7 % (37.0-47.0); Hemoglobin 11.7 g/dL (11.5-15.3); Lymphocytes # 1.2 10^3/uL (0.8-4.8); Lymphocytes % 17.4 %; Mean Corpuscular HGB Conc 32.8 g/dL (30.0-36.0); Mean Corpuscular Volume 88.6 fl (81-99); Monocytes # 0.6 10^3/uL (0.2-0.9); Monocytes % 8.2 %; Neutrophils # 4.59 10^3/uL (1.8-7.7); Neutrophils % 67.1 %; Nucleated Red Blood Cells % 0 %; Platelet Count 262 10^3/cmm (130-400); Red Blood Count 4.03 10^6/uL (4.1-5.3); Red Cell Distribution Width 14.7 % (12.1-15.1); White Blood Count 6.8 10^3/uL (4.0-10.0)
[2022-06-12 04:18] LABS: Anion Gap 13.4 (5-19); Blood Urea Nitrogen 13 mg/dL (8-23); Calcium 8.4 mg/dL (8.5-10.5); Carbon Dioxide 27 mmol/L (22-29); Chloride 99 mmol/L (98-107); Glucose 66 mg/dL (65-115); Magnesium 1.8 mg/dL (1.7-2.3); Osmolality Calculated 280 mOsm/kg (285-295); Phosphorus 3.1 mg/dL (2.5-4.5); Potassium 3.4 mmol/L (3.5-5.1); Sodium 136 mmol/L (136-145)
[2022-06-12] MEDS: dilTIAZem 100 MG in sodium chloride 0.9% (add-van) 100 ML 7.5 MG IV (06:24)
[2022-06-12] MEDS: cyanocobalamin 1,000 mcg Tablet 1000 MCG PO (06:25)
[2022-06-12] MEDS: pantoprazole DR 40 mg Tablet PO (06:25)
[2022-06-12] MEDS: montelukast sodium 10 mg Tablet PO (06:25)
[2022-06-12] MEDS: loratadine 10 mg Tablet PO (06:25)
[2022-06-12] MEDS: amiodarone 200 mg Tablet PO (06:25)
[2022-06-12] MEDS: gabapentin 100 mg Capsule PO ×2 (08:00→18:01)
[2022-06-12] MEDS: levothyroxine 137 mcg Tablet PO (08:00)
[2022-06-12] MEDS: ferrous gluconate 324 mg Tablet PO (08:00)
[2022-06-12] MEDS: venlafaxine ER (24HR) 75 mg Capsule PO (08:01)
[2022-06-12] MEDS: potassium chloride ER 10 mEq Tablet PO (08:01)
[2022-06-12] MEDS: multivitamin therapeutic Tablet 1 TAB PO (08:01)
[2022-06-12] MEDS: ascorbic acid 500 mg Tablet PO ×2 (08:01→18:00)
[2022-06-12] MEDS: doxycycline 100 MG in sodium chloride 0.9% (plus) 100 ML IV ×2 (08:02→21:50)
--- NOTE | 2022-06-12 09:13 | USCV_ITS ---
Linsey Reyna Age: 86 Gender: F : 1935 Exam Date: 06/12/2022 16:07 Ordering Phys: Jerson Collazo MD Technologist: ELSI Exam Location: [facility] Indication: afib BP: / HR: 120 Rhythm: Atrial fibrillation Technical Quality: Adequate MEASUREMENTS (Male / Female) Normal Values 2D ECHO LV Diastolic Diameter PLAX 4.0 cm 4.2 - 5.9 / 3.9 - 5.3 cm LV Systolic Diameter PLAX 3.1 cm IVS Diastolic Thickness 0.8 cm 0.6 - 1.0 / 0.6 - 0.9 cm IVS Systolic Thickness 0.8 cm LVPW Diastolic Thickness 0.7 cm 0.6 - 1.0 / 0.6 - 0.9 cm LVPW Systolic Thickness 0.8 cm LVOT Diameter 2.0 cm LV Ejection Fraction 2D Teich 45.5 % LV Ejection Fraction MOD 2C 52.1 % LV Ejection Fraction 2C AL 51.6 % LA Diameter 3.9 cm IVC Diameter 2.2 cm M-MODE Aortic Annulus Diameter 2.7 cm LA Ao Ratio MM 1.5 MV E Point Septal Separation 0.9 cm DOPPLER AV Peak Velocity 154.0 cm/s LVOT Peak Velocity 111.0 cm/s AV Area Cont Eq vti 2.7 cm squared AV Area Cont Eq pk 2.4 cm squared MV Area PHT 4.3 cm squared MV E' Velocity 74.4 cm/s Mitral E to MV E' Ratio 10.5 Mitral E to LV E' Lateral Ratio 9.8 Mitral E to LV E' Septal Ratio 11.4 TR Peak Velocity 251.0 cm/s TR Peak Gradient 25.2 mmHg TV Peak E Velocity 49.0 cm/s Right Atrial Pressure 6.0 mmHg Pulmonary Artery Systolic Pressu 31.2 mmHg FINDINGS Left Ventricle The patient was found to be in atrial fibrillation with rapid ventricular rate during the study. Segmental wall motion analysis somewhat difficult. The mid and distal apical septum and the anteroseptal segments were found to be somewhat hypokinetic. The overall LV ejection fraction around 50 to 55%. Right Ventricle Normal right ventricular size and systolic function. Right Atrium Mildly increased right atrial size. Left Atrium Moderately increased left atrial size. Mitral Valve Thickened mitral valve. Trace mitral valve regurgitation. Mild mitral annular calcification. Aortic Valve Thickened aortic valve. Tricuspid Valve Trace tricuspid valve regurgitation. Pulmonic Valve Pulmonic valve not well visualized. Pericardium No pericardial effusion. Aorta Normal aortic annulus size. IVC Normal IVC dimension with >50% respiratory change of the inferior vena cava. CONCLUSIONS Wall motion analysis somewhat difficult. The mid and distal apical septum and the anteroseptal segments were found to be somewhat hypokinetic. The overall LV ejection fraction around 50 to 55%. Moderately increased left atrial size. Mildly increased right atrial size. Thickened mitral valve. Trace mitral valve regurgitation. Mild mitral annular calcification. Thickened aortic valve. Trace tricuspid valve regurgitation. Estimated pulmonary artery peak systolic pressure 31 mmHg There is no pericardial effusion. There are no intracardiac masses. Comparison with a previous study from 12/28/2021 could be difficult because of the atrial fibrillation. Dr Serena Salazar MD [facility] (Electronically Signed) Final Date: 12 June 2022 21:10 S
[2022-06-12] MEDS: dilTIAZem 30 mg Tablet PO (09:36)
[2022-06-12 10:08] LABS: Lactate (Lactic Acid level) 1.4 mmol/L (0.5-2.2)
--- NOTE | 2022-06-12 12:28 | P.PN_ITS ---
Subjective Subjective: Patient was seen this morning, she remains in A-fib, denies any chest pain, no palpitations is on Cardizem drip Vitals/I&O/Wt Last Vital Signs Temp 97.9 F 06/12/22 04:05 Pulse 117 H 06/12/22 08:55 Resp 17 06/12/22 08:55 BP 95/72 06/12/22 08:55 Pulse Ox 90 06/12/22 08:55 O2 Del Method 06/12/22 08:45 06/11/22 06/12/22 06/12/22 22:59 06:59 14:59 Intake Total 863.167 / 863.167 268.875 / 1132.042 340 / 340 Output Total 1700 / 1700 500 / 2200 Balance -836.833 / -836.833 -231.125 / -1067.958 340 / 340 Weight last 48 hrs Weight 52.163 kg Physical Exam Const: COMMON NORMALS: no acute distress and patient oriented x3 Resp: COMMON NORMALS: normal respiratory effort, No retractions, No use of accessory muscles and clear to auscultation bilaterally AUSCULTATION: clear to auscultation bilaterally Cardio: COMMON NORMALS: S1 normal heart sound present and S2 normal heart sound present RATE: tachycardic RHYTHM: abnormal rhythm irregularly irregular HEART SOUNDS: S1 normal heart sound present and S2 normal heart sound present GI: COMMON NORMALS: Normal to inspection, nondistended, normoactive bowel sounds present and non-tender Extremity: COMMON NORMALS: no pedal edema Neuro: COMMON NORMALS: patient oriented x3 Psych: COMMON NORMALS: mental status grossly normal Data 06/12/22 03:25 06/12/22 03:25 Micro: Microbiology 06/11/22 13:48 Blood Culture - Preliminary Blood SPECIMEN COLLECTED 06/11/22 13:41 Blood Culture - Preliminary Blood SPECIMEN COLLECTED A&P Assessment and plan (1) Atrial fibrillation with RVR: (2) Persistent cough: (3) Chest pain: (4) Cough with hemoptysis: (5) Ischemic cardiomyopathy: (6) Hyperlipidemia: (7) CAD (coronary artery disease): (8) COPD (chronic obstructive pulmonary disease): (9) Irritable bowel syndrome with constipation: (10) Anxiety and depression: (11) Hypertension: Qualifiers: Hypertension type: essential hypertension Qualified Code(s): I10 - Ess ential (primary) hypertension Plan Cough, with hemoptysis -On examination looks like scant hemoptysis -Likely second upper respiratory tract infection -[place] -Tylenol with codeine -Hold all blood thinners -Continue doxycycline A-fib with RVR -Cardizem drip -Add p.o. Cardizem -Anticoagulation relatively contraindicated given her hemoptysis Weakness -PT OT Upper respiratory tract infection, will order doxycycline, will consider steroids Deconditioning, PT OT Full code SCDs for DVT prophylaxis Attestations Medical Necessity Statement*: Patient requires hospitalization for A-fib with RVR Coding Level of Care Code Acute Code for Chg Fwd Diagnoses Atrial fibrillation with RVR I48.91 Persistent cough R05.3 Chest pain R07.9 Cough with hemoptysis R04.2 Ischemic cardiomyopathy I25.5 Hyperlipidemia E78.5 CAD (coronary artery disease) I25.10 COPD (chronic obstructive pulmonary disease) J44.9 Irritable bowel syndrome with constipation K58.1 Anxiety and depression F41.9; F32.9 Hypertension I10 Hypertension type: essential hypertension
[2022-06-12] MEDS: dilTIAZem 30 mg Tablet 60 MG PO ×2 (12:46→18:00)
[2022-06-12] MEDS: magnesium lactate 84 mg Tablet PO (12:46)
--- NOTE | 2022-06-12 14:26 | PC.OT ---
Patient declined to participate in OT evaluation this date, stated, I am too exhausted . Nursing reports A-Fib earlier and heart rate is 98 currently. To attempt on a later date.
[2022-06-12] MEDS: dilTIAZem 100 MG in sodium chloride 0.9% (add-van) 100 ML 10 MG IV (18:01)
[2022-06-12] MEDS: atorvastatin 40 mg Tablet 20 MG PO (21:54)
[2022-06-12] MEDS: ALPRAZolam 0.5 mg Tablet 1 MG PO (21:54)
[2022-06-12] MEDS: mirtazapine 15 mg Tablet PO (21:54)
[2022-06-13] VITALS (182 sets, daily range): BP systolic 82–118; BP diastolic 51–82; PULSE 73–148; RESP 0–29; TEMP 35.7–36.6; O2SAT 72–98
[2022-06-13] MEDS: dilTIAZem 30 mg Tablet 60 MG PO ×4 (00:39→20:16)
[2022-06-13 05:20] LABS: Basophils # 0.1 10^3/uL (0.0-0.1); Basophils % 0.9 %; Eosinophils # 0.2 10^3/uL (0.0-0.8); Eosinophils % 2.1 %; Hemoglobin 11.3 g/dL (11.5-15.3); Lymphocytes # 1.1 10^3/uL (0.8-4.8); Lymphocytes % 12.7 %; Mean Corpuscular HGB Conc 32.3 g/dL (30.0-36.0); Mean Corpuscular Hemoglobin 28.1 pg (28.0-34.0); Mean Corpuscular Volume 87.1 fl (81-99); Monocytes # 0.7 10^3/uL (0.2-0.9); Monocytes % 7.9 %; Neutrophils # 6.35 10^3/uL (1.8-7.7); Neutrophils % 74.6 %; Nucleated Red Blood Cells % 0 %; Platelet Count 246 10^3/cmm (130-400); Red Blood Count 4.02 10^6/uL (4.1-5.3); Red Cell Distribution Width 14.6 % (12.1-15.1); White Blood Count 8.5 10^3/uL (4.0-10.0)
[2022-06-13] MEDS: cyanocobalamin 1,000 mcg Tablet 1000 MCG PO (05:38)
[2022-06-13] MEDS: loratadine 10 mg Tablet PO (05:38)
[2022-06-13] MEDS: amiodarone 200 mg Tablet PO (05:38)
[2022-06-13] MEDS: pantoprazole DR 40 mg Tablet PO (05:38)
[2022-06-13] MEDS: montelukast sodium 10 mg Tablet PO (05:38)
[2022-06-13 05:42] LABS: Anion Gap 11.1 (5-19); Blood Urea Nitrogen 16 mg/dL (8-23); Calcium 8.3 mg/dL (8.5-10.5); Carbon Dioxide 24 mmol/L (22-29); Chloride 99 mmol/L (98-107); Glucose 70 mg/dL (65-115); Magnesium 1.7 mg/dL (1.7-2.3); Osmolality Calculated 272 mOsm/kg (285-295); Phosphorus 3.4 mg/dL (2.5-4.5); Potassium 3.1 mmol/L (3.5-5.1); Sodium 131 mmol/L (136-145)
[2022-06-13] MEDS: doxycycline 100 MG in sodium chloride 0.9% (plus) 100 ML IV (08:22)
[2022-06-13] MEDS: potassium chloride ER 10 mEq Tablet PO (08:23)
[2022-06-13] MEDS: magnesium lactate 84 mg Tablet PO (08:23)
[2022-06-13] MEDS: multivitamin therapeutic Tablet 1 TAB PO (08:24)
[2022-06-13] MEDS: levothyroxine 137 mcg Tablet PO (08:24)
[2022-06-13] MEDS: gabapentin 100 mg Capsule PO ×2 (08:24→19:08)
[2022-06-13] MEDS: ferrous gluconate 324 mg Tablet PO (08:24)
[2022-06-13] MEDS: ascorbic acid 500 mg Tablet PO ×2 (08:24→19:08)
[2022-06-13] MEDS: venlafaxine ER (24HR) 75 mg Capsule PO (08:24)
[2022-06-13] MEDS: potassium chloride ER 20 mEq Tablet 40 MEQ PO (09:34)
--- NOTE | 2022-06-13 14:34 | PC.OT ---
O T evaluation with held this date per patient request. Patient stated, I am too exhausted. Can not do anything. I want to rest.
[2022-06-13] MEDS: metoprolol tartrate 25 mg Tablet 12.5 MG PO (16:12)
--- NOTE | 2022-06-13 16:30 | PC.NURSE ---
Transfer Note Patient transferred to C[facility] room 106 from ICU via bed. Handoff report given to DONA Baez. Patient oriented to environment and equipment. Covering service notified. Orders reviewed and will continue to monitor. All belongings including hearing aids, top, pants, and personal snacks transferred with patient and placed at bedside. At time of transfer patient has no wounds or skin issues noted at this time. Patient is alert/oriented x4 on room air.
--- NOTE | 2022-06-13 17:49 | PM.PN ---
Subjective Subjective: patient was seen this morning, she is more winded, she denies any chest pain, denies any palpitations, i discussed her stress test in detail, wall motion abnormalities, as she is feeling more short of breath and weak, i recommend stress testing, she is agreeable to proceed Vitals/I&O/Wt Last Vital Signs Temp 96.3 F L 06/13/22 08:40 Pulse 145 H 06/13/22 16:00 Resp 13 06/13/22 16:00 BP 82/71 06/13/22 16:00 Pulse Ox 94 06/13/22 16:00 O2 Del Method 06/13/22 08:40 O2 Flow Rate 2 06/13/22 08:40 06/13/22 06/13/22 06/13/22 06:59 14:59 22:59 Intake Total 176.500 / 1103.625 100 / 100 Output Total 0 / 0 500 / 500 Balance 176.500 / 1103.625 100 / 100 -500 / -400 Physical Exam Const: COMMON NORMALS: no acute distress and patient oriented x3 Resp: COMMON NORMALS: normal respiratory effort, No retractions, No use of accessory muscles and clear to auscultation bilaterally AUSCULTATION: clear to auscultation bilaterally Cardio: COMMON NORMALS: S1 normal heart sound present and S2 normal heart sound present RATE: tachycardic RHYTHM: abnormal rhythm irregularly irregular HEART SOUNDS: S1 normal heart sound present and S2 normal heart sound present GI: COMMON NORMALS: Normal to inspection, nondistended, normoactive bowel sounds present and non-tender Extremity: COMMON NORMALS: no pedal edema Neuro: COMMON NORMALS: patient oriented x3 Psych: COMMON NORMALS: mental status grossly normal Data 06/13/22 04:32 06/13/22 04:32 Micro: Microbiology 06/11/22 13:48 Blood Culture - Preliminary Blood NEGATIVE TO DATE 06/11/22 13:41 Blood Culture - Preliminary Blood NEGATIVE TO DATE A&P Assessment and plan (1) Atrial fibrillation with RVR: (2) Persistent cough: (3) Chest pain: (4) Cough with hemoptysis: (5) Ischemic cardiomyopathy: (6) Hyperlipidemia: (7) CAD (coronary artery disease): (8) COPD (chronic obstructive pulmonary disease): (9) Irritable bowel syndrome with constipation: (10) Anxiety and depression: (11) Hypertension: Qualifiers: Hypertension type: essential hypertension Qualified Code(s): I10 - Essential (primary) hypertension (12) Regional wall motion abnormality of heart: Plan Cough, with hemoptysis -On examination looks like scant hemoptysis -Likely second upper respiratory tract infection -CT angiogram of the chest negative for pulmonary embolism -Tessalon Perles -Tylenol with codeine -Hold all blood thinners -Continue doxycycline A-fib with RVR -Continues to have tachycardia off Cardizem drip -Continue amiodarone -Continue Cardizem 60 every 6 -Add metoprolol 12.5 twice daily -Anticoagulation relatively contraindicated given her hemoptysis Weakness -PT OT Upper respiratory tract infection, will order doxycycline, will consider steroids Deconditioning, PT OT Cardiac echo Wall motion analysis somewhat difficult.? The mid and distal ?apical septum and the anteroseptal segments were found to be ?somewhat hypokinetic.? The overall LV ejection fraction around ?50 to 55%. ?Moderately increased left atrial size. ?Mildly increased right atrial size. ?Thickened mitral valve. Trace mitral valve regurgitation. Mild ?mitral annular calcification. ?Thickened aortic valve. ?Trace tricuspid valve regurgitation. ?Estimated pulmonary artery peak systolic pressure 31 mmHg ?There is no pericardial effusion. ?There are no intracardiac masses. ?Comparison with a previous study from 12/28/2021 could be ?difficult because of the atrial fibrillation. -Given her complaints of shortness of breath and weakness, we will proceed with stress testing tomorrow Full code SCDs for DVT prophylaxis Attestations Medical Necessity Statement*: Patient requires hospitalization for shortness of breath weakness, proceeding with stress testing tomorrow due to abnormal wall motion abnormality seen on echocardiogram, A-fib, requires better heart rate control Diagnoses Atrial fibrillation with RVR I48.91 Persistent cough R05.3 Chest pain R07.9 Cough with hemoptysis R04.2 Ischemic cardiomyopathy I25.5 Hyperlipidemia E78.5 CAD (coronary artery disease) I25.10 COPD (chronic obstructive pulmonary disease) J44.9 Irritable bowel syndrome with constipation K58.1 Anxiety and depression F41.9; F32.9 Hypertension I10 Hypertension type: essential hypertension Regional wall motion abnormality of heart R93.1
[2022-06-13] MEDS: atorvastatin 40 mg Tablet 20 MG PO (20:16)
[2022-06-13] MEDS: mirtazapine 15 mg Tablet PO (20:16)
[2022-06-13] MEDS: ALPRAZolam 0.5 mg Tablet 1 MG PO (20:16)
[2022-06-14] VITALS (9 sets, daily range): BP systolic 94–121; BP diastolic 48–85; PULSE 79–116; RESP 10–25; TEMP 36.5; O2SAT 90–93
[2022-06-14 03:28] LABS: Basophils # 0.1 10^3/uL (0.0-0.1); Basophils % 0.9 %; Eosinophils # 0.3 10^3/uL (0.0-0.8); Eosinophils % 3.3 %; Hematocrit 34.5 % (37.0-47.0); Lymphocytes # 1.6 10^3/uL (0.8-4.8); Lymphocytes % 19.3 %; Mean Corpuscular HGB Conc 31.9 g/dL (30.0-36.0); Mean Corpuscular Volume 87.8 fl (81-99); Mean Platelet Volume 8.7 fL (7.4-10.4); Monocytes # 0.6 10^3/uL (0.2-0.9); Monocytes % 6.7 %; Neutrophils # 5.52 10^3/uL (1.8-7.7); Neutrophils % 67.7 %; Nucleated Red Blood Cells % 0 %; Platelet Count 221 10^3/cmm (130-400); Red Blood Count 3.93 10^6/uL (4.1-5.3); Red Cell Distribution Width 14.7 % (12.1-15.1); White Blood Count 8.2 10^3/uL (4.0-10.0)
[2022-06-14 03:46] LABS: Anion Gap 12.6 (5-19); Blood Urea Nitrogen 19 mg/dL (8-23); Calcium 8.1 mg/dL (8.5-10.5); Carbon Dioxide 24 mmol/L (22-29); Chloride 104 mmol/L (98-107); Glucose 89 mg/dL (65-115); Magnesium 1.9 mg/dL (1.7-2.3); Osmolality Calculated 286 mOsm/kg (285-295); Phosphorus 3.1 mg/dL (2.5-4.5); Potassium 3.6 mmol/L (3.5-5.1); Sodium 137 mmol/L (136-145)
[2022-06-14] MEDS: dilTIAZem 30 mg Tablet 60 MG PO ×3 (04:09→20:23)
[2022-06-14] MEDS: montelukast sodium 10 mg Tablet PO (05:41)
[2022-06-14] MEDS: amiodarone 200 mg Tablet 100 MG PO (05:42)
[2022-06-14] MEDS: pantoprazole DR 40 mg Tablet PO (05:43)
[2022-06-14] MEDS: cyanocobalamin 1,000 mcg Tablet 1000 MCG PO (05:43)
[2022-06-14] MEDS: levothyroxine 137 mcg Tablet PO (05:43)
[2022-06-14] MEDS: loratadine 10 mg Tablet PO (05:43)
[2022-06-14] MEDS: ALPRAZolam 0.5 mg Tablet PO (06:24)
--- NOTE | 2022-06-14 06:55 | ECG_ITS ---
[facility] [place] [facility] Date: 2022-06-15 Pat Name: Linsey Reyna Department: Room: 106 Gender: Female Adult Protective Caseworker: : 1935 Requested By: Jerson Collazo Order Number: [id number] Abdifatah MD: Serena Salazar M.D. Interpretive Statements NAME OF STUDY: LEXISCAN SESTAMIBI STRESS TEST INDICATION: Wall motion abnormality, PROCEDURE: At the baseline, the EKG revealed atrial fibrillation with rapid ventricular rate. Poor R wave progression. Nonspecific T wave changes. The baseline heart was 96 bpm with a blood pressue of 112/62 mm of Hg Lexiscan was infused over a period of 20 seconds. A total of 0.4 milligrams of Lexiscan was infused. The stress phase was continued for a total of 5 minutes. Heart rate at the end of the stress phase was 113 bpm with a blood pressure 104/61 mm of Hg. The EKG at the peak infusion revealed no significant changes. Sestamibi was injected 20 seconds after the Lexiscan infusion. Heart rate at the end of the recovery phase was 114 bpm with a blood pressure of 99/54 mm of Hg. CONCLUSION: 1. No significant EKG changes with the LexiScan infusion 2. No LexiScan induced chest pain or cardiac arrhythmia 3. Normal blood pressure and heart rate response 4. Sestamibi/sestamibi perfusion scan pending; see separate report. Electronically Signed On 06-20-2022 16:57:57 CDT by Serena Salazar M.D. [email or web address]
--- NOTE | 2022-06-14 07:33 | PC.NURSE ---
Report received from DONA San. Patient currently off unit for stress test.
[2022-06-14] MEDS: magnesium lactate 84 mg Tablet PO (08:36)
[2022-06-14] MEDS: ferrous gluconate 324 mg Tablet PO (08:36)
[2022-06-14] MEDS: potassium chloride ER 10 mEq Tablet PO (08:36)
[2022-06-14] MEDS: multivitamin therapeutic Tablet 1 TAB PO (08:36)
[2022-06-14] MEDS: venlafaxine ER (24HR) 75 mg Capsule PO (08:36)
[2022-06-14] MEDS: sennosides 8.6 mg Tablet PO ×2 (08:36→17:30)
[2022-06-14] MEDS: gabapentin 100 mg Capsule PO ×2 (08:36→17:31)
[2022-06-14] MEDS: ascorbic acid 500 mg Tablet PO ×2 (08:36→17:31)
[2022-06-14] MEDS: docusate sodium 100 mg Capsule 500 MG PO ×2 (08:37→17:30)
--- NOTE | 2022-06-14 10:40 | PC.CHAP ---
Pastoral Care Encounter/Spiritual Assessment Type of Contact [] Declined mash tub cooker visit [] Patient/Family/Request visit [] Outpatient visit [] Follow-up visit [] Physician referral [] Code/Alert [] Routine visit [] Staff referral [] Actively dying [x] Patient sleeping [] Family support [] [] Out of room [] Palliative care [] [] Receiving care in room [] Pre-surgical visit [] Trauma [] Long length of stay [] ICU visit [] Other: Relational/Emotional Strength [] Patient feels connected with others/family/visitors/staff [] Distress [] Loneliness/isolation [] Abandonment Spirituality of Patient [] Person of Meri [] Attends Rastafari of their Meri [] Believes in Prayer [] Reads Bible or Sabianist materials [] There are Spiritual issues to be addressed Digital Marketing Strategist Interventions [x] Prayer [] Active listening [] Non-anxious presence [] Spiritual/emotional support [] Crisis/trauma care [] Spiritual counseling [] Bereavement support [] Provided bereavement packet [] Provided Bible/devotional materials [] Provided toy/stuffed animal, coloring book to patient or family member [] Provided Communion [] Anointing/[place] [] Salvation [] Completed spiritual assessment [] Other: Impact on Illness or Injury [] Angry [] Fearful [] Anxious [] Often cries [] Exhaustion [] Unable to work [] Unable to attend voodoo [] Unable to walk/stand [] Unable to read [] Unable to drive [] Unable to eat/drink [] Unable to sleep [] Unable to be with family [] Patient intubated [] Other: Summary Time spent with patient
--- NOTE | 2022-06-14 13:26 | P.PN_ITS ---
Subjective Subjective: Patient was seen this morning, in the stress lab, she has no complaints, she does tell me she has a chronically right shoulder, it makes it difficult for her to raise her arm for the test Vitals/I&O/Wt Last Vital Signs Temp 97.7 F 06/14/22 03:14 Pulse 92 06/14/22 08:58 Resp 25 H 06/14/22 08:58 BP 121/85 06/14/22 08:58 Pulse Ox 92 06/14/22 08:58 O2 Del Method 06/14/22 08:00 O2 Flow Rate 2 06/13/22 08:40 06/13/22 06/14/22 06/14/22 22:59 06:59 14:59 Intake Total 23.5 / 123.5 480 / 603.5 120 / 120 Output Total 850 / 850 150 / 1000 Balance -826.5 / -726.5 330 / -396.5 120 / 120 Physical Exam Const: COMMON NORMALS: no acute distress and patient oriented x3 Resp: COMMON NORMALS: normal respiratory effort, No retractions, No use of accessory muscles and clear to auscultation bilaterally AUSCULTATION: clear to auscultation bilaterally Cardio: COMMON NORMALS: regular rate, regular rhythm, S1 normal heart sound present and S2 normal heart sound present RATE: regular rate RHYTHM: regular rhythm HEART SOUNDS: S1 normal heart sound present and S2 normal heart sound present GI: COMMON NORMALS: Normal to inspection, nondistended, normoactive bowel sounds present and non-tender Extremity: COMMON NORMALS: no pedal edema Neuro: COMMON NORMALS: patient oriented x3 Psych: COMMON NORMALS: mental status grossly normal Data 06/14/22 03:15 06/14/22 03:15 A&P Assessment and plan (1) Atrial fibrillation with RVR: (2) Persistent cough: (3) Chest pain: (4) Cough with hemoptysis: (5) Ischemic cardiomyopathy: (6) Hyperlipidemia: (7) CAD (coronary artery disease): (8) COPD (chronic obstructive pulmonary disease): (9) Irritable bowel syndrome with constipation: (10) Anxiety and depression: (11) Hypertension: Qualifiers: Hypertension type: essential hypertension Qualified Code(s): I10 - Essential (primary) hypertension (12) Regional wall motion abnormality of heart: Plan Cough, with hemoptysis -On examination looks like scant hemoptysis -Likely second upper respiratory tract infection -CT angiogram of the chest negative for pulmonary embolism -[place] -Tylenol with codeine -Hold all blood thinners -Continue doxycycline A-fib with RVR -Continues to have tachycardia off Cardizem drip -Continue amiodarone -Continue Cardizem 60 every 6 -Hold metoprolol -Anticoagulation relatively contraindicated given her hemoptysis Weakness -PT OT Upper respiratory tract infection, will order doxycycline, will consider steroids Deconditioning, PT OT Cardiac echo Wall motion analysis somewhat difficult.? The mid and distal ?apical septum and the anteroseptal segments were found to be ?somewhat hypokinetic.? The overall LV ejection fraction around ?50 to 55%. ?Moderately increased left atrial size. ?Mildly increased right atrial size. ?Thickened mitral valve. Trace mitral valve regurgitation. Mild ?mitral annular calcification. ?Thickened aortic valve. ?Trace tricuspid valve regurgitation. ?Estimated pulmonary artery peak systolic pressure 31 mmHg ?There is no pericardial effusion. ?There are no intracardiac masses. ?Comparison with a previous study from 12/28/2021 could be ?difficult because of the atrial fibrillation. -Given her complaints of shortness of breath and weakness, we will proceed with stress testing today Full code SCDs for DVT prophylaxis Plan for today stress testing Attestations Medical Necessity Statement*: Requires hospitalization due to shortness of breath, wall motion abnormalities and cardiac echo proceeding to stress testing Coding Level of Care Code 28548 Moderate MDM includes number and complexity of problems actively addressed during encounter, amount and/or complexity of data reviewed/ordered and described risk of complication, morbidity or mortality of management as do cumented Diagnoses Atrial fibrillation with RVR I48.91 Persistent cough R05.3 Chest pain R07.9 Cough with hemoptysis R04.2 Ischemic cardiomyopathy I25.5 Hyperlipidemia E78.5 CAD (coronary artery disease) I25.10 COPD (chronic obstructive pulmonary disease) J44.9 Irritable bowel syndrome with constipation K58.1 Anxiety and depression F41.9; F32.9 Hypertension I10 Hypertension type: essential hypertension Regional wall motion abnormality of heart R93.1
[2022-06-14] MEDS: bisacodyl 10 mg Supp PR (13:48)
--- NOTE | 2022-06-14 16:06 | PC.NURSE ---
Physician orders Hold Diltiazem 60mg and give Diltiazem 30mg due to decreased blood pressure throughout the day.
[2022-06-14] MEDS: dilTIAZem 30 mg Tablet PO (16:24)
[2022-06-14] MEDS: doxycycline 100 mg Tablet PO (17:30)
[2022-06-14] MEDS: atorvastatin 40 mg Tablet 20 MG PO (20:22)
[2022-06-14] MEDS: ALPRAZolam 0.5 mg Tablet 1 MG PO (20:22)
[2022-06-14] MEDS: mirtazapine 15 mg Tablet PO (20:23)
[2022-06-15] VITALS (7 sets, daily range): BP systolic 98–120; BP diastolic 54–81; PULSE 90–114; RESP 16–23; TEMP 36.6; O2SAT 90–96
[2022-06-15] MEDS: dilTIAZem 30 mg Tablet 60 MG PO ×2 (03:34→09:20)
[2022-06-15] MEDS: amiodarone 200 mg Tablet 100 MG PO (05:37)
[2022-06-15] MEDS: levothyroxine 137 mcg Tablet PO (05:37)
[2022-06-15] MEDS: loratadine 10 mg Tablet PO (05:37)
[2022-06-15] MEDS: pantoprazole DR 40 mg Tablet PO (05:37)
[2022-06-15] MEDS: montelukast sodium 10 mg Tablet PO (05:37)
[2022-06-15] MEDS: cyanocobalamin 1,000 mcg Tablet 1000 MCG PO (05:37)
[2022-06-15] MEDS: regadenoson 0.4 Mg/5 ml Syringe IVP (07:29)
--- NOTE | 2022-06-15 08:00 | NMCV_ITS ---
NM brittny perf SPECT r/s* [id number] Linsey Reyna Age: 86 Gender: F : 1935 Exam Date: 06/15/2022 06:47 Ordering Phys: Jerson Collazo MD Technologist: ELLI Serrano Exam Location: [facility] Indications: CHEST PAIN STRESS TEST Please see separate stress test report in [facility] for full findings IMAGE PROTOCOL Rest/Stress 1 Lexiscan Day Radiopharmaceutical Dose (mCi) Administration Site Administered by Rest: Tc-99m 10.4 IV ELLI Rico Sestamibi Stress:Tc-99m 32.2 IV ELLI Rico Sestamibi Rest: 15-Jun-2022 60 Discovery 630 Stress: 15-Jun-2022 30 Discovery 630 0.4mg Lexiscan. Supine position only as patient was unable to lay prone. SPECT RESULTS Technical Quality: Excellent Raw Data Analysis: Normal Image Corrections: No attenuation or motion correction applied Summed Stress Score: 8 Summed Rest Score: 10 Summed Difference Score: 0 PERFUSION FINDINGS Moderate area of moderately decreased tracer uptake in the mid and apical inferior, mid inferolateral and apical lateral segments. No significant reversibility was noted in these regions. FUNCTIONAL RESULTS (calculated via Gated SPECT) Stress Image LV EF (%): 54 Stress EDV (mL):54 TID: 0.85 Stress ESV (mL):25 FUNCTIONAL FINDINGS: Segmental wall motion analysis revealed mild diffuse hypokinesia of the septum IMPRESSIONS 1. Myocardial perfusion imaging revealing a moderate area of persistent decreased tracer uptake in the inferior inferolateral and apical regions suggesting myocardial scarring in the distribution of the right coronary artery/circumflex artery. 2. Normal LV ejection fraction of 54%. 3. Segmental wall motion analysis revealing mild diffuse hypokinesia of the septum. 4. Normal LV volume. Low probability for coronary ischemia, based on the above findings Dr Serena Salazar MD [facility] (Electronically Signed) Final Date: 15 June 2022 10:05 S
--- NOTE | 2022-06-15 08:45 | PC.SOCIAL ---
IMM update IMM updated with patient and friend at bedside. Verbalized an understanding. Copy Pg 2 provided. Initialled, dated, timed, and placed in chart.
[2022-06-15] MEDS: venlafaxine ER (24HR) 75 mg Capsule PO (09:20)
[2022-06-15] MEDS: doxycycline 100 mg Tablet PO (09:20)
[2022-06-15] MEDS: ferrous gluconate 324 mg Tablet PO (09:20)
[2022-06-15] MEDS: magnesium lactate 84 mg Tablet PO (09:20)
[2022-06-15] MEDS: docusate sodium 100 mg Capsule 500 MG PO (09:21)
[2022-06-15] MEDS: multivitamin therapeutic Tablet 1 TAB PO (09:21)
[2022-06-15] MEDS: potassium chloride ER 10 mEq Tablet PO (09:21)
[2022-06-15] MEDS: ascorbic acid 500 mg Tablet PO (09:22)
[2022-06-15] MEDS: gabapentin 100 mg Capsule PO (09:22)
--- NOTE | 2022-06-15 10:01 | PC.CHAP ---
Pastoral Care Encounter/Spiritual Assessment Type of Contact [] Declined pipeline technician visit [] Patient/Family/Request visit [] Outpatient visit [] Follow-up visit [] Physician referral [] Code/Alert [x] Routine visit [] Staff referral [] Actively dying [] Patient sleeping [x] Family support [] [] Out of room [] Palliative care [] [] Receiving care in room [] Pre-surgical visit [] Trauma [] Long length of stay [] ICU visit [] Other: Relational/Emotional Strength [x] Patient feels connected with others/family/visitors/staff [] Distress [] Loneliness/isolation [] Abandonment Spirituality of Patient [x] Person of Meri [] Attends Baptist of their Meri [x] Believes in Prayer [] Reads Bible or Cheondoism materials [] There are Spiritual issues to be addressed Netbackup Engineer Interventions [x] Prayer [x] Active listening [] Non-anxious presence [x] Spiritual/emotional support [] Crisis/trauma care [] Spiritual counseling [] Bereavement support [] Provided bereavement packet [] Provided Bible/devotional materials [] Provided toy/stuffed animal, coloring book to patient or family member [] Provided Communion [] Anointing/[place] [] Salvation [x] Completed spiritual assessment [] Other: Impact on Illness or Injury [] Angry [] Fearful [] Anxious [] Often cries [] Exhaustion [] Unable to work [] Unable to attend scientologist [] Unable to walk/stand [] Unable to read [] Unable to drive [] Unable to eat/drink [] Unable to sleep [] Unable to be with family [] Patient intubated [] Other: Summary Time spent with patient 5 min
[2022-06-15] MEDS: ergocalciferol (vitamin D2) 50,000 Unit Capsule 50000 UNIT PO (10:37)
--- NOTE | 2022-06-15 10:42 | PM.DCS ---
Discharge Providers Date of Admission: 06/12/22 17:33 Date of Discharge: June 15, 2022 Attending Provider at Admission: Jerson Collazo MD Attending Provider at Discharge: Jerson Collazo MD Primary Care Provider: Sarah Witt APN Diagnoses at Discharge Discharge Diagnosis (1) Atrial fibrillation with RVR: Status: Acute (2) Persistent cough: Status: Acute (3) Chest pain: Status: Acute (4) Cough with hemoptysis: Status: Acute (5) Ischemic cardiomyopathy: Status: Acute Permanent problem details: Echo 03/2021 normal EF, systolic and diastolic function (6) Hyperlipidemia: Status: Acute (7) CAD (coronary artery disease): Status: Acute (8) COPD (chronic obstructive pulmonary disease): Status: Acute (9) Irritable bowel syndrome with constipation: Status: Acute (10) Anxiety and depression: Status: Chronic (11) Hypertension: Status: Chronic Qualifiers: Hypertension type: essential hypertension Qualified Code(s): I10 - Essential (primary) hypertension (12) Regional wall motion abnormality of heart: Status: Acute Reason for Visit Reason for Visit: chest pain/coughed up blood Hospital Course Hospital Course Linsey Reyna is a 86 year old female history of atrial fibrillation, not on anticoagulation, history of CHF, history of peripheral vascular disease ischemic cardiomyopathy, hyperlipidemia hypertension, COPD, history of smoking, who presents to [facility] due to weakness, fatigue, poor appetite, shortness of breath, chest pain, and cough with hemoptysis and pleurisy.? Patient tells me that she for the last few weeks, she has been feeling increasingly short of breath, having substernal chest pain, with cough with blood in it, with pleurisy with taking deep breaths in, denies any fevers, no chills, no sick contacts, she does have history of recurrent UTIs currently she is in A-fib with RVR, denies any chest pain Patient was admitted to [facility] with A-fib with RVR, requiring Cardizem drip, eventually weaned off, managed with p.o. Cardizem. On discharge I have discharged her with Cardizem 120 mg once daily, with amiodarone 100 mg once daily, follow-up with cardiology as outpatient She also had cough and hemoptysis during hospitalization, likely second upper respiratory tract infection, CT angiogram negative for pulmonary embolism, resolved on discharge completed treatment of antitussive agents and antibiotics Patient's cardiac echo showed Cardiac echo Wall motion analysis somewhat difficult.? The mid and distal ?apical septum and the anteroseptal segments were found to be ?somewhat hypokinetic.? The overall LV ejection fraction around ?50 to 55%. ?Moderately increased left atrial size. ?Mildly increased right atrial size. ?Thickened mitral valve. Trace mitral valve regurgitation. Mild ?mitral annular calcification. ?Thickened aortic valve. ?Trace tricuspid valve regurgitation. ?Estimated pulmonary artery peak systolic pressure 31 mmHg ?There is no pericardial effusion. ?There are no intracardiac masses. ?Comparison with a previous study from 12/28/2021 could be ?difficult because of the atrial fibrillation. -Due to complaints of shortness of breath she underwent stress testing 1.? Myocardial perfusion imaging revealing a moderate area of persistent ?decreased tracer uptake in the inferior inferolateral and apical regions ?suggesting myocardial scarring in the distribution of the right coronary ?artery/circumflex artery. ?2.? Normal LV ejection fraction of 54%. ?3.? Segmental wall motion analysis revealing mild diffuse hypokinesia of the ?septum. ?4.? Normal LV volume. ?Low probability for coronary ischemia, based on the above findings Patient is to continue aspirin, statin If any chest pain go to the emergency room She has an appoint with Dr. Hill, follow-up with Dr. Hill Physical Exam Const: COMMON NORMALS: no acute distress and patient oriented x3 Resp: COMMON NORMALS: normal respiratory effort, No retractions, No use of accessory muscles and clear to auscultation bilaterally AUSCULTATION: clear to auscultation bilaterally Cardio: COMMON NORMALS: regular rate, regular rhythm, S1 normal heart sound present and S2 normal heart sound present RATE: regular rate RHYTHM: regular rhythm HEART SOUNDS: S1 normal heart sound present and S2 normal heart sound present GI: COMMON NORMALS: Normal to inspection, nondistended, normoactive bowel sounds present and non-tender Extremity: COMMON NORMALS: no pedal edema Neuro: COMMON NORMALS: patient oriented x3 Psych: COMMON NORMALS: mental status grossly normal Discharge Data Studies Completed and Pending Completed Studies During Hospitalization Category Date Time Status CTA chest CT abdomen pelvis [CT angio chest w abd pel w Cat Scan 06/11/22 14:22 Completed con] Stat Sestamibi Stress Test Request Routine Exams 06/14/22 06:55 Draft XR chest 1V portable [id number] Stat Exams 06/11/22 13:30 Completed NM brittny perf SPECT r/s* [id number] Routine Nuc Med 06/15/22 08:00 Completed CV. echo complete* [id number] Routine Ultrasound 06/12/22 09:13 Completed Pending at discharge Category Date Time Status Sestamibi Stress Test Request Routine Exams 06/13/22 14:55 Stop Req Blood Culture Stat Lab 06/11/22 13:48 Results Radiology Impressions Chest X-Ray 06/11/22 13:30 IMPRESSION: Interval change in both hemithoraces as noted above. Most likely congestive heart failure, less likely pneumonitis. Chest/Abdomen/Pelvis CT 06/11/22 14:22 IMPRESSION: 1. Negative for pulmonary embolus 2. Emphysematous changes. 3. Small to moderate bilateral pleural effusions. 4. Bilateral dependent atelectasis versus infiltrate. 5. Several midthoracic spine vertebral body compression fractures without retropulsion of bony fragments, new compared to prior exam, age indeterminate. 6. Sternal manubrium chronic healed fracture. 7. Cardiomegaly. 8. Coronary artery atherosclerotic calcifications. IMPRESSION: 1. Negative for acute inflammatory process in the abdomen or pelvis. 2. Constipation. 3. Right hip arthroplasty changes. 4. Minimal diverticulosis without diverticulitis. 5. Fusiform infrarenal abdominal aortic aneurysm measuring 2.5 cm, similar to prior exam. 6. L2 vertebral body chronic compression fracture with minimal retropulsion of bony fragments without significant spinal canal narrowing, similar to prior exam. Laboratory Results WBC 8.2 10^3/uL (4.0-10.0) 06/14/22 03:15 RBC 3.93 10^6/uL (4.1-5.3) L 06/14/22 03:15 Hgb 11.0 g/dL (11.5-15.3) L 06/14/22 03:15 Hct 34.5 % (37.0-47.0) L 06/14/22 03:15 MCV 87.8 fl (81-99) 06/14/22 03:15 MCH 28.0 pg (28.0-34.0) 06/14/22 03:15 MCHC 31.9 g/dL (30.0-36.0) 06/14/22 03:15 RDW 14.7 % (12.1-15.1) 06/14/22 03:15 Plt Count 221 10^3/cmm (130-400) 06/14/22 03:15 MPV 8.7 fL (7.4-10.4) 06/14/22 03:15 Neut % (Auto) 67.7 % 06/14/22 03:15 Lymph % (Auto) 19.3 % 06/14/22 03:15 [place] % (Auto) 6.7 % 06/14/22 03:15 Eos % (Auto) 3.3 % 06/14/22 03:15 Baso % (Auto) 0.9 % 06/14/22 03:15 Neut # (Auto) 5.52 10^3/uL (1.8-7.7) 06/14/22 03:15 Lymph # (Auto) 1.6 10^3/uL (0.8-4.8) 06/14/22 03:15 [place] # (Auto) 0.6 10^3/uL (0.2-0.9) 06/14/22 03:15 Eos # (Auto) 0.3 10^3/uL (0.0-0.8) 06/14/22 03:15 Baso # (Auto) 0.1 10^3/uL (0.0-0.1) 06/14/22 03:15 Nucleated RBC % (auto) 0 % 06/14/22 03:15 Nucleated RBCs # 0.0 /100WBC 06/14/22 03:15 PT 12.90 SECONDS (12.1-14.9) 06/11/22 16:15 INR 0.94 (0.8-1.2) 06/11/22 16:15 APTT 29.5 SECONDS (23.9-36.7) 06/11/22 13:41 Sodium 137 mmol/L (136-145) 06/14/22 03:15 Potassium 3.6 mmol/L (3.5-5.1) 06/14/22 03:15 Chloride 104 mmol/L (98-107) 06/14/22 03:15 Carbon Dioxide 24 mmol/L (22-29) 06/14/22 03:15 Anion Gap 12.6 (5-19) 06/14/22 03:15 BUN 19 mg/dL (8-23) 06/14/22 03:15 Creatinine 0.7 mg/dL (0.5-0.9) 06/14/22 03:15 GFR Calculation Not Reportable 06/14/22 03:15 Glucose 89 mg/dL (65-115) 06/14/22 03:15 Calculated Osmolality 286 mOsm/kg (285-295) 06/14/22 03:15 Lactic Acid 1.4 mmol/L (0.5-2.2) 06/11/22 13:41 Lactate 1.4 mmol/L (0.5-2.2) 06/12/22 09:37 Calcium 8.1 mg/dL (8.5-10.5) L 06/14/22 03:15 Phosphorus 3.1 mg/dL (2.5-4.5) 06/14/22 03:15 Magnesium 1.9 mg/dL (1.7-2.3) 06/14/22 03:15 Total Bilirubin 0.3 mg/dL (0.15-1.2) 06/11/22 13:41 AST 19 U/L (0-32) 06/11/22 13:41 ALT 27 U/L (0-33) 06/11/22 13:41 Alkaline Phosphatase 70 U/L (35-105) 06/11/22 13:41 Troponin T Baseline 16 ng/L (0-10) H 06/11/22 13:41 Troponin T 120 Minute 13.71 ng/L (0-10) H 06/11/22 15:42 Delta Troponin T -2.29 ABS# (0-10) L 06/11/22 15:42 Troponin T Hi Sens 6Hr 15.74 ng/L (0-10) H 06/11/22 20:01 Troponin T Hi Sens 6Hr Delta -0.26 ng/L (0-12) L 06/11/22 20:01 NT-Pro-B Natriuret Pep 1535 pg/mL (0-450) H 06/11/22 13:41 Total Protein 6.3 g/dL (6.6-8.7) L 06/11/22 13:41 Albumin 3.7 g/dL (3.5-5.2) 06/11/22 13:41 Globulin 2.6 g/dL (1.3-4.6) 06/11/22 13:41 Triglycerides 122 mg/dL (0-150) 06/11/22 13:41 Cholesterol 137 mg/dL (0-200) 06/11/22 13:41 LDL Cholesterol, Calc 72 mg/dL (50-129) 06/11/22 13:41 HDL Cholesterol 41 mg/dL (60-100) L 06/11/22 13:41 LDL/HDL Ratio 1.76 RATIO (0.00-3.22) 06/11/22 13:41 Cholesterol/HDL Ratio 3.34 mg/dL (0.0-4.40) 06/11/22 13:41 Lipase 23 U/L (13-60) 06/11/22 13:41 TSH 1.09 uIU/mL (0.27-4.20) 06/11/22 13:41 Urine Color Yellow (Yellow) 06/11/22 18:00 Urine Appearance Clear (CLEAR) 06/11/22 18:00 Urine pH 7 (5-7) 06/11/22 18:00 Ur Specific [place] 1.005 (1.005-1.030) 06/11/22 18:00 Urine Protein Neg (Negative) 06/11/22 18:00 Urine Glucose (UA) Norm (Normal) 06/11/22 18:00 Urine Ketones Negative (Negative) 06/11/22 18:00 Urine Blood Neg (Negative) 06/11/22 18:00 Urine Nitrate Negative (Negative) 06/11/22 18:00 Urine Bilirubin Neg (Negative) 06/11/22 18:00 Urine Urobilinogen Norm mg/dL (Negative) 06/11/22 18:00 Ur Leukocyte Esterase Negative (Negative) 06/11/22 18:00 Nasal Influ A H1 2009 PCR Not detected (NOT DETECT) 06/11/22 13:25 Adenovirus (PCR) Not detected (NOT DETECT) 06/11/22 13:25 C. pneumoniae DNA (PCR) Not detected (NOT DETECT) 06/11/22 13:25 Coronavirus 229E (PCR) Not detected (NOT DETECT) 06/11/22 13:25 Human Metapneumovir PCR Not detected (NOT DETECT) 06/11/22 13:25 Influenza A (H1) PCR Not detected (NOT DETECT) 06/11/22 13:25 Influenza A (H3) PCR Not detected (NOT DETECT) 06/11/22 13:25 Influenza Type A (PCR) Not detected (NOT DETECT) 06/11/22 13:25 Influenza Type B (PCR) Not detected (NOT DETECT) 06/11/22 13:25 M. pneumoniae (PCR) Not detected (NOT DETECT) 06/11/22 13:25 Parainfluenza 1 (PCR) Not detected (NOT DETECT) 06/11/22 13:25 Parainfluenza 2 (PCR) Not detected (NOT DETECT) 06/11/22 13:25 Parainfluenza 3 (PCR) Not detected (NOT DETECT) 06/11/22 13:25 Parainfluenza 4 (PCR) Not detected (NOT DETECT) 06/11/22 13:25 RSV Type A (PCR) Not detected (NOT DETECT) 06/11/22 13:25 RSV Type B (PCR) Not detected (NOT DETECT) 06/11/22 13:25 Entero/Rhino (PCR) Not detected (NOT DETECT) 06/11/22 13:25 SARS-CoV-2 (PCR) Not detected (NOT DETECT) 06/11/22 13:25 Vitals Last Vital Signs Temp 97.8 F 06/15/22 08:00 Pulse 97 06/15/22 08:00 Resp 23 H 06/15/22 08:00 BP 109/66 06/15/22 08:00 Pulse Ox 94 06/15/22 08:00 O2 Del Method 06/15/22 08:00 O2 Flow Rate 2 06/13/22 08:40 Discharge Plan Discharge Patient Disposition: Home Condition: Stable Prescriptions: New magnesium L-lactate [Magtab] 84 mg Tablet Extended Release 84 mg PO DAILY 30 Days Qty: 30 0RF diltiazem HCl [Cardizem CD] 120 mg capsule,extended release 24hr 120 mg PO DAILY 30 Days Qty: 30 0RF Continued ergocalciferol (vitamin D2) 1,250 mcg (50,000 unit) capsule 1,250 mcg PO Q7D Rx Instructions: ON TUESDAY (DME) Wheel Chair See Rx Instructions .Route .MEDSUPPLY Qty: 1 0RF Rx Instructions: As directed ibuprofen 800 mg tablet 800 mg PO TID PRN (Reason: pain) Qty: 90 0RF levothyroxine 137 mcg tablet 137 mcg PO DAILY 90 Days Qty: 90 1RF pantoprazole 40 mg tablet,delayed release (DR/EC) 40 mg PO QAM 90 Days Qty: 90 1RF potassium chloride 10 mEq tablet extended release 10 meq PO DAILY 90 Days Qty: 90 1RF loratadine 10 mg tablet 10 mg PO QAM 90 Days Qty: 90 1RF montelukast [Singulair] 10 mg tablet 10 mg PO QAM 90 Days Qty: 90 1RF ferrous gluconate 324 mg (38 mg iron) tablet 324 mg PO DAILY docusate sodium [DSS] 250 mg capsule 500 mg PO BID 90 Days Qty: 360 0RF promethazine-DM 6.25-15 mg/5 mL syrup 5 - 10 ml PO Q6H PRN (Reason: cough) Qty: 200 0RF cyanocobalamin (vitamin B-12) 1,000 mcg tablet extended release 1,000 mcg PO QAM ascorbic acid (vitamin C) [Vitamin C] 500 mg Tablet,Chewable 500 mg PO BID Qty: 0 nitroglycerin [Nitrostat] 0.4 mg Tablet, Sublingual 0.4 mg SUBLINGUAL Q5M PRN (Reason: Chest Pain) Rx Instructions: do not exceed 3 doses per episode albuterol sulfate 90 mcg/actuation HFA aerosol inhaler 2 puff INHALATION QID PRN (Reason: Shortness Of Breath) L.acidoph,saliva-B.bif-S.therm [Acidophilus Probiotic Blend] 175 mg Capsule 1 cap PO QAM aspirin 325 mg tablet 325 mg PO QAM meclizine 25 mg tablet 25 - 37.5 mg PO TID PRN (Reason: dizziness) alprazolam 1 mg tablet 1 mg PO BEDTIME mirtazapine 15 mg tablet 15 mg PO BEDTIME diclofenac sodium 1 % gel 2 g topical QID PRN (Reason: Pain) Rx Instructions: apply to back and gluteal region 4 times a day tramadol 50 mg Tablet 50 mg PO Q4H PRN (Reason: Pain) gabapentin 100 mg Capsule See Rx Instructions .ROUTE .COMPLEX Rx Instructions: 100 mg orally in the morning / 200 mg orally in the evening venlafaxine 75 mg capsule,extended release 24hr 75 mg PO DAILY Changed simvastatin 40 mg tablet 20 mg PO BEDTIME 90 Days Qty: 90 1RF amiodarone 200 mg tablet 100 mg PO QAM Qty: 90 2RF Discontinued lisinopril 40 mg tablet 20 mg PO QAM Qty: 0 0RF Discharge Orders: Discharge Order (Routine); Ordered 06/15/22 Ordered By: Jerson Collazo Referrals: Witt,Sarah, NAIL KEGGER [Primary Care Provider] - Discharge Diet: Cardiac Discharge Activity: Resume usual activity Patient Instructions: Opioid Safety Activity Restrictions/Additional Instructions: - Please keep up with your appointment with Dr. Hill -If any chest pain or palpitations go to emergency room Discharge Attestations Time Spent in Discharge Care*: greater than 30 min Quality Metrics Clinical Quality Measures [ No reported AMI, CVA or VTE this stay] Coding Level of Care Code 16499 Total time (in minutes) for Discharge: 40 Diagnoses Atrial fibrillation with RVR I48.91 Persistent cough R05.3 Chest pain R07.9 Cough with hemoptysis R04.2 Ischemic cardiomyopathy I25.5 Hyperlipidemia E78.5 CAD (coronary artery disease) I25.10 COPD (chronic obstructive pulmonary disease) J44.9 Irritable bowel syndrome with constipation K58.1 Anxiety and depression F41.9; F32.9 Hypertension I10 Hypertension type: essential hypertension Regional wall motion abnormality of heart R93.1
--- NOTE | 2022-06-15 13:15 | PC.NURSE ---
Discharge Note Patient discharged to home via POV accompanied by friend. Discharge instructions reviewed with patient and/or business center representative. Mobile pharmacy medications and/or prescriptions provided. Belongings/home medications returned.
== END 2022-06-15 12:30 | disposition home or self-care (01) | DRG 309 ==
LOC: ER 16:15 → ICU 16:42 → CSU 06-13 16:19
PROVIDERS: Admitting Provider Family Medicine; Emergency Provider Emergency Medicine; PCP Nurse Practitioner Family; Visit Provider Family Medicine
DX: I48.91 Unspecified atrial fibrillation (principal); R04.2 Hemoptysis; I50.9 Heart failure, unspecified; I10 Essential (primary) hypertension; I73.9 Peripheral vascular disease, unspecified; Z95.820 Peripheral vascular angioplasty status with implants and grafts; I25.5 Ischemic cardiomyopathy; E78.5 Hyperlipidemia, unspecified; J44.9 Chronic obstructive pulmonary disease, unspecified; Z87.891 Personal history of nicotine dependence; Z87.440 Personal history of urinary (tract) infections; Z79.51 Long term (current) use of inhaled steroids; F41.9 Anxiety disorder, unspecified; M19.90 Unspecified osteoarthritis, unspecified site; I25.10 Atherosclerotic heart disease of native coronary artery without angina pectoris; M51.36 Other intervertebral disc degeneration, lumbar region; F32.A Depression, unspecified; K21.9 Gastro-esophageal reflux disease without esophagitis; K58.1 Irritable bowel syndrome with constipation; J06.9 Acute upper respiratory infection, unspecified; Z96.641 Presence of right artificial hip joint; M81.0 Age-related osteoporosis without current pathological fracture; Z86.14 Personal history of Methicillin resistant Staphylococcus aureus infection; E03.9 Hypothyroidism, unspecified
CPT/HCPCS: 36415; 71045; 71275; 74177; 78452; 80048; 80053; 80061; 81003; 83605; 83690; 83735; 83880; 84100; 84443; 84484; 85025; 85610; 85730; 87040; 87486; 87581; 87633; 93005; 93017; 93306; 96374; 96375; 97161; 97166; 97530; 99285; A9500; G0378; J1940; J1956; J2785; J3490; J7040; Q9967

== ENCOUNTER 2022-06-29 11:45 | Outpatient (CLI) | payer MEDICARE, SELFPAY ==
--- NOTE | 2022-06-29 12:00 | US_ITS ---
WS: [id number] ULTRASOUND THYROID TECHNIQUE: Ultrasound of the thyroid. CLINICAL INFORMATION: ACQUIRED HYPOTHYROIDISM COMPARISON: None. FINDINGS: Thyroid: Overall small thyroid volume. No thyroid nodules are present. Right thyroid lobe: 3.1 cm x 1.2 cm x 1.4 cm RIGHT lobe volume 2.8 cc Left thyroid lobe: 1.8 cm x 0.8 cm x 0.7 cm. LEFT lobe volume 0.6 cc Isthmus: 0.5 mm. Cervical lymphadenopathy: None. US/US thyroid [id number] IMPRESSION: Small thyroid volume. No suspicious nodules to target for biopsy.
== END 2022-06-29 11:46 | disposition home or self-care (01) ==
PROVIDERS: PCP Nurse Practitioner Family; Visit Provider Nurse Practitioner Family
DX: I25.10 Atherosclerotic heart disease of native coronary artery without angina pectoris (principal); I48.0 Paroxysmal atrial fibrillation; I73.9 Peripheral vascular disease, unspecified; I25.5 Ischemic cardiomyopathy; E78.5 Hyperlipidemia, unspecified; G62.9 Polyneuropathy, unspecified; Z87.891 Personal history of nicotine dependence; J44.9 Chronic obstructive pulmonary disease, unspecified; K58.1 Irritable bowel syndrome with constipation
CPT/HCPCS: 76536; 99214

== ENCOUNTER 2022-07-05 06:00 | Outpatient (RCR) | payer MEDICARE, SELFPAY | END 2022-08-04 23:59 | disposition home or self-care (01) | LOC: TPT 06:00 | PROVIDERS: PCP Nurse Practitioner Family; Visit Provider Nurse Practitioner Family | DX: R26.89 Other abnormalities of gait and mobility (principal) | CPT/HCPCS: 97110; 97116; 97163 ==

== ENCOUNTER 2022-08-05 06:00 | Outpatient (RCR) | payer MEDICARE, SELFPAY | END 2022-09-03 23:59 | disposition home or self-care (01) | LOC: TPT 06:00 | PROVIDERS: PCP Nurse Practitioner Family; Visit Provider Nurse Practitioner Family | DX: R26.89 Other abnormalities of gait and mobility (principal) | CPT/HCPCS: 97110 ==

== ENCOUNTER 2022-08-21 14:59 | Inpatient (IN) | payer MEDICARE, SELFPAY ==
[2022-08-21] VITALS (26 sets, daily range): BP systolic 82–134; BP diastolic 52–95; PULSE 76–145; RESP 11–28; TEMP 36.3–36.4; O2SAT 77–95; BMI 22.1
--- NOTE | 2022-08-21 15:24 | CTR_ITS ---
PROCEDURE INFORMATION: Exam: CT Abdomen And Pelvis With Contrast Exam date and time: 08/21/2022 4:28 PM Age: 87 years old Clinical indication: Abdominal pain; Localized; Lower; Additional info: Abd pain TECHNIQUE: Imaging protocol: Computed tomography of the abdomen and pelvis with contrast. Radiation optimization: All CT scans at this facility use at least one of these dose optimization techniques: automated exposure control; mA and/or kV adjustment per patient size (includes targeted exams where dose is matched to clinical indication); or iterative reconstruction. Contrast material: OMNI 350; Contrast volume: 80 ml; Contrast route: INTRAVENOUS (IV); REPORTING DATA: Count of CT and Cardiac NM exams in prior 12 months: This patient has received 4 known CTs and 0 known cardiac nuclear medicine studies in the 12 months prior to the current study. COMPARISON: 1. CT abdomen pelvis w con* [id number] 05/16/2022 8:[address] abdomen pelvis w con* [id number] 10/28/2021 1:54 PM RADIATION DOSE METRICS: Total DLP (mGy-cm): 381.83 FINDINGS: Pleural spaces: New bilateral small to moderate pleural effusions. Pulmonary consolidative changes are noted adjacent to the pleural effusion(s) which may be related to compressive atelectasis versus superimposed pneumonia. Clinical correlation and follow-up should be obtained. Heart: Slightly distended IVC and central hepatic veins suggesting right cardiac/tricuspid dysfunction. [id number] cardiomegaly. Coronary calcification. Liver: Liver normal in size without cirrhosis. There is a hypodense lesions slightly inferior to the IVC/right hepatic vein confluence measuring 11 by 6 mm with thin rim of increased enhancement, nonspecific. However there is no significant growth versus October 2021 and therefore malignancy is highly unlikely. This may represent a slow flow hemangioma. Gallbladder and bile ducts: Gallbladder is somewhat distended which may be related to prolonged fasting versus cholestasis. No obvious imaging signs of acute cholecystitis or bile duct dilatation. Clinical correlation should be obtained. Sonographic follow-up may also be considered if clinically indicated. Pancreas: Normal. No ductal dilation. Spleen: Normal spleen size with calcified granulomas. Adrenal glands: Normal. No mass. Kidneys and ureters: No obstructing calculus. No hydronephrosis. Stomach and bowel: Moderate stool burden with colonic diverticulosis. No acute bowel findings otherwise. Appendix: No evidence of appendicitis. Intraperitoneal space: Unremarkable. No free air. No significant fluid collection. Vasculature: Stable mild fusiform infrarenal aortic aneurysm measuring about 2.7 cm transverse using similar measuring methods. Lymph nodes: No enlarged lymph nodes. Urinary bladder: Unremarkable as visualized. Reproductive: Unremarkable as visualized. Bones/joints: Metallic surgical hardware in right hip resulting in streak artifacts partially obscuring adjacent anatomy. Osteopenia. Multilevel vertebral disc degeneration and endplate osteophytes. No acute osseous findings otherwise. Stable chronic mild L2 superior endplate compression deformity. Soft tissues: [id number] diffuse subcutaneous body wall soft tissue edema probably related to anasarca/third-spacing, worsened since most recent exam. CT/CT abdomen pelvis w con* [id number] IMPRESSION: 1. Comparison CT 06/11/2022. 2. Moderate stool burden and colonic diverticulosis. No acute bowel findings otherwise. 3. Coronary calcification with cardiomegaly. Interval worsening of diffuse generalized subcutaneous soft tissue edema with enlargement of IVC/central hepatic veins, suggesting 3rd spacing/anasarca which may be on the basis of CHF. 4. New bilateral pleural effusions and adjacent consolidation suggesting compressive atelectasis/dependent edema or pneumonia. Follow-up should be obtained. 5. Stable hypodense hepatic lesions. No cirrhosis. See discussion above. 6. Gallbladder findings as above. 7. Stable infrarenal abdominal aortic aneurysm and other nonacute findings as described.
--- NOTE | 2022-08-21 15:24 | XRR_ITS ---
PROCEDURE INFORMATION: Exam: XR Chest Exam date and time: 08/21/2022 4:12 PM Age: 87 years old Clinical indication: Shortness of breath; Additional info: SOB TECHNIQUE: Imaging protocol: Radiologic exam of the chest. Views: 1 view. COMPARISON: CR XR chest 1V portable [id number] 06/11/2022 1:38 PM FINDINGS: Lungs: Cardiac silhouette size, and vascularity are somewhat accentuated and worsened since prior exam, likely related to poor inspiration/expansion however clinical correlation for mild CHF should be obtained. Upper lungs are clear. Lung bases are suboptimally assessed however there are increasing bilateral basilar opacities suggesting worsening of atelectasis versus pneumonia and increasing pleural effusions. Pleural spaces: No pneumothorax. Heart/Mediastinum: As above. Bones/joints: No acute osseous findings. Osteopenia. Other findings: Single view was submitted. XR/XR chest 1V portable [id number] IMPRESSION: 1. Accentuated cardiac silhouette size and vascularity. See discussion above. 2. Increasing bibasilar opacities and pleural effusions. See discussion above.
--- NOTE | 2022-08-21 15:34 | ECG_ITS ---
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 Measurements Intervals [place] Rate: 142 P: 0 OH: 0 QRS: 59 QRSD: 84 T: 238 QT: 300 QTc: 462 Interpretive Statements ATRIAL FIBRILLATION WITH RAPID VENTRICULAR RESPONSE ST DEVIATION AND MODERATE T-WAVE ABNORMALITY, CONSIDER LATERAL ISCHEMIA [-0.1+ mV T-WAVE IN I/aVL/V5/V6] Compared to ECG 06/11/2022 19:48:58 Possible ischemia now present T-wave abnormality still present Electronically Signed On 08-23-2022 8:01:07 CDT by Tony Nur M.D. [email or web address].[id number]
--- NOTE | 2022-08-21 15:35 | W.ED.SOB ---
HPI - SOB/Dyspnea General: Chief Complaint: Arrhythmia/Palpitations Stated Complaint: SOB Time Seen by Provider: 08/21/22 15:24 History of Present Illness: HPI Narrative: 87-year-old female brought to emergency room by daughter due to multiple complaints including abdominal pain for about a week, palpitation and shortness of breath that started today. She describes the abdominal pain as sharp sensation mostly lower abdomen with severity of 7 out of 10. Denies any nausea, vomiting, diarrhea, constipation, bloody stool or dark stool. Patient was seen by a local urgent care and ultrasound was ordered which is still pending. Today patient was having difficulty breathing and the daughter noticed that her heart rate was fast. With history of atrial fibrillation. Patient has any cough, coughing up blood or vomiting blood. No known sick contacts or foreign travel. Associated symptoms: Reports abdominal pain (abd pain x 1 week ) and palpitations; Deny diaphoresis, fever(s), lightheadedness, nausea, syncope or vomiting Review of Systems General: Reports: 10 or more systems reviewed and unremarkable except in HPI and below Const: Denies: fever(s), chills, change in weight, fatigue, malaise, night sweats or diaphoresis Card: Reports: palpitations; Denies: irregular heart rhythm, swelling of feet/ankles, lightheadedness or syncope GI: Reports: abdominal pain (abd pain x 1 week ); Denies: nausea, vomiting or hematemesis : Denies: flank pain, difficulty voiding, dysuria, urinary frequency, urinary urgency, urinary hesitancy, dribbling, nocturia or oliguria Neuro: Denies: headache(s), numbness in extremities or sensory changes Psych: Reports: anxiety; Denies: depression or mood swings [facility] PFSH: Medical History (Updated 08/21/22 @ 21:06 by Lulu Abad MD) Advanced age Anxiety Arthritis Atrial fibrillation in sinus rhythm on amiodarone, not on anticoagulation beyond daily 325mg aspirin due to risk of bleeding with recurrent falls 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, 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 CAD (coronary artery disease) Carotid stenosis Closed sacral fracture (~06/30/21) COPD (chronic obstructive pulmonary disease) Degenerative disc disease, lumbar Depression Dizziness Falls frequently Former smoker Fracture of ramus of left pubis (05/26/21) GERD (gastroesophageal reflux disease) Hard of hearing History of fracture multiple related to falls Hyperlipidemia Hypertension Hypotension Hypothyroidism Ischemic cardiomyopathy Echo 03/2021 normal EF, systolic and diastolic function MRSA (methicillin resistant Staphylococcus aureus) Osteoporosis Peripheral vascular disease Pneumonia Proximal humerus fracture (04/08/21) Sleep apnea Small bowel obstruction, partial Vitamin D deficiency Surgical History History of angioplasty of peripheral vessel (~2018) for in stent restenosis History of ankle surgery left History of section x4 History of open reduction and internal fixation (ORIF) procedure (~09/2018) right hip S/P peripheral artery angioplasty with stent placement right common iliac artery Status post total hip replacement, right (~03/2019) Family History Son Psychiatric illness Bipolar Social History Smoking and tobacco status: former smoker Quit status (tobacco): has quit using tobacco Year quit tobacco: 2018 Alcohol intake: former Substance/Drug Use: never Caregiver/support person: Yes Lives independently: Yes Household members: significant other Number of children: 4 Current occupational status: retired Previous occupational history: Previously worked at [employer] Current gender identity: Female Special noris needs: No Agree to transfusion: Yes Financial difficulty paying for basics: Not Applicable Physical Exam Const: COMMON NORMALS: no acute distress, average body habitus, patient oriented x3 and no limitations HENMT: COMMON NORMALS: normocephalic HEAD & SCALP: normocephalic Neck/C-Spine: COMMON NORMALS: full ROM, no lymphadenopathy, supple and no meningeal signs Chest: CHEST: Yes Symmetrical chest wall rise Breast/axilla inspection: Yes no chest deformity, asymmetry, normal contours, no nodules, masses, tenderness Resp: COMMON NORMALS: percussion normal EFFORT & INSPECTION: Yes able to speak in complete sentences, No respiratory distress, No labored, No stridor and No uses accessory muscles AUSCULTATION: diminished lung sounds, no egophony and no tactile fremitus PERCUSSION: percussion normal Cardio: RATE: tachycardic (irrg irreg ) RHYTHM: abnormal rhythm HEART SOUNDS: no murmurs and no rubs GI: COMMON NORMALS: Soft to palpation INSPECTION: No Abdominal wall edema, No Anasarca, No abdominal distension, No Localized GI swelling present and No GI erythema present AUSCULTATION: Yes normoactive bowel sounds PALPATION: Yes Soft to palpation, Yes Tenderness to palpation present (GI) (diffuse lower abd ) and Yes Hernia present PERCUSSION: normal to percussion : EXTERNAL FEMALE EXAM: Yes Hernia present Extremity: COMMON NORMALS: normal to inspection, full ROM, capillary refill normal and no joint enlargement Neuro: COMMON NORMALS: patient oriented x3 MENINGEAL SIGNS: Yes no meningeal signs Skin: COMMON NORMALS: no rashes or lesions noted and turgor normal GENERAL SKIN EXAM: no rashes or lesions noted and turgor normal Course Reevaluation(s): Reevaluation #1: Upper assessment patient feels great abdominal pain patient was more comfortable with oxygen and pain medication. Discussed discussed the CT findings with patient and daughter at bedside. Consultations: Consultation #1: Consult hospitalist for admission. Patient was accepted to ICU admission Vital Signs: Vital signs: Vital Signs Temperature 98.8 F 08/22/22 12:30 Pulse Rate 120 H 08/22/22 19:46 Respiratory Rate 18 08/22/22 17:00 Blood Pressure 89/65 08/22/22 18:00 Pulse Oximetry 92 08/22/22 19:46 Oxygen Delivery Me thod Oxymask 08/22/22 19:46 Oxygen Flow Rate 3 08/22/22 19:46 MDM - SOB/Dyspnea Medical Decision Making Discussed patient with daughter who also provide some of the information. I reviewed the medical records and medication list. Discussed patient with the hospitalist I wrote the orders for admission Differential Diagnosis Likely acute exacerbation of chronic obstructive airways disease, congestive heart failure, community acquired pneumonia and asthma with exacerbation (Electrolyte imbalance, UTI,) Medical Records I reviewed the patient's medical records. Lab Data I reviewed the patient's lab results. 08/22/22 03:24 08/22/22 03:24 Labs/Radiology: Radiology Impressions Abdomen/Pelvis CT 08/21/22 15:24 IMPRESSION: 1. Comparison CT 06/11/2022. 2. Moderate stool burden and colonic diverticulosis. No acute bowel findings otherwise. 3. Coronary calcification with cardiomegaly. Interval worsening of diffuse generalized subcutaneous soft tissue edema with enlargement of IVC/central hepatic veins, suggesting 3rd spacing/anasarca which may be on the basis of CHF. 4. New bilateral pleural effusions and adjacent consolidation suggesting compressive atelectasis/dependent edema or pneumonia. Follow-up should be obtained. 5. Stable hypodense hepatic lesions. No cirrhosis. See discussion above. 6. Gallbladder findings as above. 7. Stable infrarenal abdominal aortic aneurysm and other nonacute findings as described. Chest X-Ray 08/21/22 15:24 IMPRESSION: 1. Accentuated cardiac silhouette size and vascularity. See discussion above. 2. Increasing bibasilar opacities and pleural effusions. See discussion above. Laboratory Results WBC 6.2 10^3/uL (4.0-10.0) 08/21/22 15:35 RBC 5.06 10^6/uL (4.1-5.3) 08/21/22 15:35 Hgb 13.8 g/dL (11.5-15.3) 08/21/22 15:35 Hct 43.4 % (37.0-47.0) 08/21/22 15:35 MCV 85.8 fl (81-99) 08/21/22 15:35 MCH 27.3 pg (28.0-34.0) L 08/21/22 15:35 MCHC 31.8 g/dL (30.0-36.0) 08/21/22 15:35 RDW 15.5 % (12.1-15.1) H 08/21/22 15:35 Plt Count 242 10^3/cmm (130-400) 08/21/22 15:35 MPV 9.5 fL (7.4-10.4) 08/21/22 15:35 Neut % (Auto) 70.1 % 08/21/22 15:35 Lymph % (Auto) 18.8 % 08/21/22 15:35 Webster % (Auto) 8.3 % 08/21/22 15:35 Eos % (Auto) 1.4 % 08/21/22 15:35 Baso % (Auto) 1.1 % 08/21/22 15:35 Neut # (Auto) 4.37 10^3/uL (1.8-7.7) 08/21/22 15:35 Lymph # (Auto) 1.2 10^3/uL (0.8-4.8) 08/21/22 15:35 Webster # (Auto) 0.5 10^3/uL (0.2-0.9) 08/21/22 15:35 Eos # (Auto) 0.1 10^3/uL (0.0-0.8) 08/21/22 15:35 Baso # (Auto) 0.1 10^3/uL (0.0-0.1) 08/21/22 15:35 Nucleated RBC % (auto) 0 % 08/21/22 15:35 Nucleated RBCs # 0.0 /100WBC 08/21/22 15:35 Specimen Type Arterial 08/21/22 16:20 Sample Site Lr 08/21/22 16:20 ABG pH 7.37 (7.35-7.45) 08/21/22 16:20 ABG pCO2 42.7 mmHg (35-45) 08/21/22 16:20 ABG pO2 44.9 mmHg (80.0-100.0) L 08/21/22 16:20 ABG HCO3 25.1 mmol/L (22-26) 08/21/22 16:20 ABG O2 Saturation 78.0 08/21/22 16:20 ABG Base Excess -0.2 mmol/L (-2.0-2.0) 08/21/22 16:20 Perez Test Pos 08/21/22 16:20 A-a O2 Gradient 50.4 mmHg (5-10) H 08/21/22 16:20 Hematocrit 35.9 % (37-47) L 08/21/22 16:20 Hgb O2 Saturation 76.2 % (95-100) L 08/21/22 16:20 Carboxyhemoglobin 1.8 %THgb (0.4-20.1) 08/21/22 16:20 Methemoglobin 0.5 % (0.4-1.5) 08/21/22 16:20 Total Hemoglobin 11.7 g/dL (12-16) L 08/21/22 16:20 Sodium 133.0 mmol/L (131-143) 08/21/22 16:20 Potassium 3.5 mmol/L (3.5-5.0) 08/21/22 16:20 Glucose 88.0 mg/dL (70-115) 08/21/22 16:20 Ionized Calcium 1.2 mmol/L (1.1-1.4) 08/21/22 16:20 O2 Delivery Device Roomair 08/21/22 16:20 Insurance Claims Supervisor ID Cak 08/21/22 16:20 Sodium 129 mmol/L (136-145) L 08/21/22 15:35 Potassium 3.6 mmol/L (3.5-5.1) 08/21/22 15:35 Chloride 94 mmol/L (98-107) L 08/21/22 15:35 Carbon Dioxide 24 mmol/L (22-29) 08/21/22 15:35 Anion Gap 14.6 (5-19) 08/21/22 15:35 BUN 10 mg/dL (8-23) 08/21/22 15:35 Creatinine 0.6 mg/dL (0.5-0.9) 08/21/22 15:35 GFR Calculation Not Reportable 08/21/22 15:35 Glucose 102 mg/dL (65-115) 08/21/22 15:35 Calculated Osmolality 267 mOsm/kg (285-295) L 08/21/22 15:35 Lactic Acid 1.4 mmol/L (0.5-2.2) 08/21/22 15:35 Calcium 8.7 mg/dL (8.5-10.5) 08/21/22 15:35 Magnesium 1.7 mg/dL (1.7-2.3) 08/21/22 15:35 Total Bilirubin 0.5 mg/dL (0.15-1.2) 08/21/22 15:35 AST 13 U/L (0-32) 08/21/22 15:35 ALT 6 U/L (0-33) 08/21/22 15:35 Alkaline Phosphatase 126 U/L (35-105) H 08/21/22 15:35 Troponin T Baseline 19 ng/L (0-10) H 08/21/22 15:35 Troponin T 120 Minute 17.26 ng/L (0-10) H 08/21/22 17:44 Delta Troponin T -1.74 ABS# (0-10) L 08/21/22 17:44 NT-Pro-B Natriuret Pep 3014 pg/mL (0-450) H 08/21/22 15:35 Total Protein 6.2 g/dL (6.6-8.7) L 08/21/22 15:35 Albumin 3.7 g/dL (3.5-5.2) 08/21/22 15:35 Globulin 2.5 g/dL (1.3-4.6) 08/21/22 15:35 Lipase 10 U/L (13-60) L 08/21/22 15:35 TSH 5.49 uIU/mL (0.27-4.20) H 08/21/22 15:35 Urine Color Yellow (Yellow) 08/21/22 18:05 Urine Appearance Clear (CLEAR) 08/21/22 18:05 Urine pH 5 (5-7) 08/21/22 18:05 Ur Specific [place] 1.010 (1.005-1.030) 08/21/22 18:05 Urine Protein Neg (Negative) 08/21/22 18:05 Urine Glucose (UA) Norm (Normal) 08/21/22 18:05 Urine Ketones Negative (Negative) 08/21/22 18:05 Urine Blood Neg (Negative) 08/21/22 18:05 Urine Nitrate Negative (Negative) 08/21/22 18:05 Urine Bilirubin Neg (Negative) 08/21/22 18:05 Urine Urobilinogen Norm mg/dL (Negative) 08/21/22 18:05 Ur Leukocyte Esterase Not Reportable 08/21/22 18:05 Ur Random Sodium 77 mmol/L 08/21/22 18:05 Ur Random Potassium 18 mmol/L 08/21/22 18:05 Ur Random Chloride 84 mmol/L 08/21/22 18:05 EKG Data EKG 1: Interpretation: a-fib wit rate [address] and T wave changes Critical Care Time Critical Care Time: Critical Care Time: Yes Total Critical Care Time: 45 Attestation: Critical time spent was greater than 45 minutes. Time spent to properly manage patient critical condition. Time spent to discuss patient with family, time spent to review labs and x-ray. Discussed the patient with the hospitalist and library consultant. Critical Care Event: The high probability of a clinically significant, sudden or life threatening deterioration of the patient's [x] system(s) required my full and direct attention, intervention and personal management. The critical care time is as shown. This time is in addition to time spent performing any reported procedures but includes the following: [x] Data and vital sign review and interpretation [x] Patient assessment, examination and intervention [x] Documentation [x] Medication orders and management Discharge Plan Discharge Patient Disposition: Admitted As Inpatient Admit Provider: Lulu Abad Clinical Impression: Atrial fibrillation, Atrial fibrillation with RVR, Pleural effusion, CHF (congestive heart failure), Acute hyponatremia, Hypoxia, Acute dyspnea Condition: Stable Coding Level of Care Code ED [employer] Attendant for Flores Saldana
[2022-08-21] MEDS: dilTIAZem 5 mg/mL SDV 5 mL 10 MG IVP (15:39)
[2022-08-21 15:43] LABS: Basophils # 0.1 10^3/uL (0.0-0.1); Basophils % 1.1 %; Eosinophils # 0.1 10^3/uL (0.0-0.8); Eosinophils % 1.4 %; Hematocrit 43.4 % (37.0-47.0); Hemoglobin 13.8 g/dL (11.5-15.3); Lymphocytes # 1.2 10^3/uL (0.8-4.8); Lymphocytes % 18.8 %; Mean Corpuscular HGB Conc 31.8 g/dL (30.0-36.0); Mean Corpuscular Hemoglobin 27.3 pg (28.0-34.0); Mean Corpuscular Volume 85.8 fl (81-99); Mean Platelet Volume 9.5 fL (7.4-10.4); Monocytes # 0.5 10^3/uL (0.2-0.9); Monocytes % 8.3 %; Neutrophils # 4.37 10^3/uL (1.8-7.7); Neutrophils % 70.1 %; Nucleated Red Blood Cells % 0 %; Platelet Count 242 10^3/cmm (130-400); Red Blood Count 5.06 10^6/uL (4.1-5.3); Red Cell Distribution Width 15.5 % (12.1-15.1); White Blood Count 6.2 10^3/uL (4.0-10.0)
[2022-08-21] MEDS: ondansetron 2 mg/ML SDV 2 mL 4 MG IVP (15:45)
[2022-08-21] MEDS: morphine 4 mg/mL SDV 1 mL 2 MG IVP (15:45)
[2022-08-21] MEDS: sodium chloride 0.9% 1,000 ML 999 ML IV (15:46)
--- NOTE | 2022-08-21 15:58 | PC.NURSE ---
PHYSICIAN GAVE VERBAL ORDER TO DC FOR 30MIN THEN OBTAIN ABG
[2022-08-21 16:06] LABS: Lactic Sepsis W/Reflex 1.4 mmol/L (0.5-2.2)
[2022-08-21 16:07] LABS: Troponin(5th) Baseline 19 ng/L (0-10)
[2022-08-21 16:17] LABS: Alanine Aminotransferase 6 U/L (0-33); Albumin Level 3.7 g/dL (3.5-5.2); Alkaline Phosphatase 126 U/L (35-105); Anion Gap 14.6 (5-19); Aspartate Amino Transferase 13 U/L (0-32); Blood Urea Nitrogen 10 mg/dL (8-23); Calcium 8.7 mg/dL (8.5-10.5); Carbon Dioxide 24 mmol/L (22-29); Chloride 94 mmol/L (98-107); Globulin 2.5 g/dL (1.3-4.6); Glucose 102 mg/dL (65-115); Lipase 10 U/L (13-60); Magnesium 1.7 mg/dL (1.7-2.3); Osmolality Calculated 267 mOsm/kg (285-295); Potassium 3.6 mmol/L (3.5-5.1); Sodium 129 mmol/L (136-145); Thyroid Stimulating Hormone 5.49 uIU/mL (0.27-4.20); Total Bilirubin 0.5 mg/dL (0.15-1.2); Total Protein 6.2 g/dL (6.6-8.7)
[2022-08-21] MEDS: iohexol 350 mg/mL 500 mL Btl (per mL) IV (16:32)
[2022-08-21 16:49] LABS: ABG PCO2 42.7 mmHg (35-45); ABG PH Result 7.37 (7.35-7.45); PO2 ABG 44.9 mmHg (80.0-100.0)
[2022-08-21 16:50] LABS: Base Excess ABG -0.2 mmol/L (-2.0-2.0); Blood Gas Allen Test POS; Blood Gas Operator Identificat CAK; HCO3 ABG 25.1 mmol/L (22-26); Oxygen Device ROOMAIR; Potassium Level - ABG 3.5 mmol/L (3.5-5.0)
[2022-08-21 16:51] LABS: Alveolar-Arterial Oxygen Gradi 50.4 mmHg (5-10); Arterial Blood Gas Hematocrit 35.9 % (37-47); Blood Gas Sample Site LR; Blood Gas Sample Type ARTERIAL; Carboxyhemoglobin 1.8 %THgb (0.4-20.1); HGB O2 Sat 76.2 % (95-100); Ionized Calcium Level - ABG 1.2 mmol/L (1.1-1.4); Methemoglobin 0.5 % (0.4-1.5); Total Hemoglobin 11.7 g/dL (12-16)
[2022-08-21] MEDS: FUROsemide 10 mg/mL SDV 4mL 40 MG IVP (17:28)
--- NOTE | 2022-08-21 17:33 | ECG_ITS ---
[facility] Test Date: 2022-08-21 Pat Name: Linsey Reyna Department: Room: Gender: Female Collar Pointer: : [phone] Requested By: Nenita Stallworth Order Number: [id number] Reading MD: Tony Nur M.D. Measurements Intervals [place] Rate: 120 P: 0 [place]: 0 QRS: 81 QRSD: 91 T: 3 QT: 316 QTc: 446 Interpretive Statements ATRIAL FIBRILLATION WITH RAPID VENTRICULAR RESPONSE ST DEVIATION AND MODERATE T-WAVE ABNORMALITY, CONSIDER LATERAL ISCHEMIA [-0.1+ mV T-WAVE IN I/aVL/V5/V6] Compared to ECG 08/21/2022 15:34:28 No significant changes Electronically Signed On 08-23-2022 8:03:47 CDT by Tony Nur M.D. [email or web address]
[2022-08-21 18:03] LABS: NT Pro B Type Natriuretic Pept 3014 pg/mL (0-450)
[2022-08-21 18:11] LABS: Charge for UA Resulting for Rev
[2022-08-21] MEDS: dilTIAZem 100 MG in sodium chloride 0.9% (add-van) 100 ML IV (18:19)
[2022-08-21] MEDS: meropenem 1,000 MG in sodium chloride 0.9% (plus) 50 ML 100 MG IV (18:19)
[2022-08-21 18:28] LABS: Blood Urine Neg (Negative); Glucose Urine UA Norm (Normal); Ketones Urine Negative (Negative); Protein Urine Neg (Negative); Urine Appearance Clear (CLEAR); Urine Color Yellow (Yellow); pH Urine 5 (5-7)
[2022-08-21 18:29] LABS: Bilirubin Urine Neg (Negative); Nitrate Urine Negative (Negative); Urobilinogen Urine Norm (Negative)
[2022-08-21 18:49] LABS: Troponin 5 2HR 17.26 ng/L (0-10)
[2022-08-21 18:57] LABS: Troponin 5 2HR Delta -1.74 ABS# (0-10)
[2022-08-21] MEDS: vancomycin 1,000 MG in sodium chloride 0.9% 250 ML 250 MG IV (19:09)
--- NOTE | 2022-08-21 20:00 | PC.NURSE ---
Admission to ICU: Pt arrived to ICU @[id number]/21/22 via stretcher, from ER. Continuos cardiac monitoring continued. Cardizem drip running, see MAR for titration. Pt reporting 0/10 pain. Bruising noted on bilateral legs, no open wounds noted.
--- NOTE | 2022-08-21 20:50 | PM.HP ---
Providers/Chief Complaint Admitting Physician: Lulu Abad MD Primary Care Provider: Sarah Witt APN Chief Complaint: SOB History of Present Illness Linsey Reyna is a 87 year old female with PMH atrial fibrillation, intolerant of a/c , carotid stenosis,coronary disease, COPD, prior smoker, dyslipidemia, ischemic cardiomyopathy, peripheral arterial disease, sleep apnea, hypertension prsenting to the ER today with c/o abdominal discomfort , nausea, generalized fatigue over the past week. Denies any recent change in BM, denies vomiting. Denies chest pain. ROS+ palpitations and dyspnea. denies any fever. Evaluation in the ER revealed A fib with RVR for which she is currently on cardizem infusion. HR currently 110s. CT abdomen/pelvis without acute events Review of Systems General: Reports: 10 or more systems reviewed and unremarkable except in HPI and below Const: Denies: fever(s), chills or body aches Eyes: Denies: change in vision, blurry vision or photophobia ENMT: Reports: hoarseness; Denies: throat pain, enlarged tonsils, odynophagia or nasal congestion Card: Denies: chest pain, palpitations, irregular heart rhythm, edema, swelling of feet/ankles, lightheadedness, pre-syncope, dyspnea on exertion or orthopnea Resp: Denies: dyspnea, productive cough, non-productive cough, wheezing, stridor, pain on inspiration, change in phlegm color, hemoptysis or chest congestion GI: Denies: abdominal pain, nausea, vomiting, hematemesis, coffee ground emesis, dysphagia, heartburn, diarrhea, constipation, GI cramping, change in stool character, hematochezia or melena : Denies: flank pain, difficulty voiding, dysuria, urinary frequency, urinary urgency, urinary hesitancy or hematuria Musc: Denies: neck pain, back pain, extremity pain, joint swelling, joint warmth or deformity Neuro: Denies: headache(s), numbness in extremities, weakness in extremities, sensory changes, difficulty walking, frequent falls, dizziness, vertigo, behavioral changes, Slurred speech present or seizure-like activity Psych: Denies: anxiety, depression, suicidal ideation or homicidal ideation Endo: Denies: polyuria, polydipsia, tired all the time, cold intolerance or hot flashes Johny/Lymph: Denies: easy bruising or easy bleeding Medications/Allergies Home Medications Medication Instructions Recorded Confirmed Last Taken Type ergocalciferol (vitamin D2) 1,250 1,250 mcg PO Q7D 02/06/20 08/21/22 06/08/22 History mcg (50,000 unit) capsule Wheel Chair #1 ea 05/27/21 08/21/22 Unknown Rx ibuprofen 800 mg tablet 800 mg PO TID PRN pain #90 tabs 06/09/21 08/21/22 06/11/22 Rx L.acidophil,salivari-Bifido 1 cap PO QAM 06/30/21 08/21/22 08/21/22 History bifidum-Strep thermoph 175 mg capsule (Acidophilus Probiotic Blend) albuterol sulfate 90 mcg/actuation 2 puff inhalation QID PRN 06/30/21 08/21/22 08/21/22 History aerosol inhaler Shortness Of Breath aspirin 325 mg tablet 325 mg PO QAM 06/30/21 08/21/22 08/21/22 History cyanocobalamin (vitamin B-12) 1,000 mcg PO QAM 06/30/21 08/21/22 08/21/22 History 1,000 mcg tablet,extended release meclizine 25 mg tablet 25 - 37.5 mg PO TID PRN dizziness 06/30/21 08/21/22 Unknown History nitroglycerin 0.4 mg sublingual 0.4 mg sublingual Q5M PRN Chest 06/30/21 08/21/22 Unknown History tablet (Nitrostat) Pain loratadine 10 mg tablet 10 mg PO QAM 90 days #90 tabs 11/17/21 08/21/22 08/21/22 Rx montelukast 10 mg tablet 10 mg PO QAM 90 days #90 tabs 11/17/21 08/21/22 08/21/22 Rx (Singulair) pantoprazole 40 mg tablet,delayed 40 mg PO QAM 90 days #90 tabs 11/17/21 08/21/22 08/21/22 Rx release docusate sodium 250 mg capsule 500 mg PO BID 90 days #360 caps 02/19/22 08/21/22 08/21/22 Rx (DSS) promethazine-DM 6.25 mg-15 mg/5 mL 5 - 10 ml PO Q6H PRN cough #200 mL 03/05/22 08/21/22 Unknown Rx oral syrup alprazolam 1 mg tablet 1 mg PO BEDTIME 04/26/22 08/21/22 08/20/22 History diclofenac sodium 1 % topical gel 2 g topical QID PRN Pain 04/26/22 08/21/22 Unknown History mirtazapine 15 mg tablet 15 mg PO BEDTIME 04/26/22 08/21/22 08/20/22 History tramadol 50 mg tablet 50 mg PO Q4H PRN Pain 04/26/22 08/21/22 Unknown History venlafaxine 75 mg capsule,extended 75 mg PO QAM 06/11/22 08/21/22 08/21/22 History release 24 hr vitamins A,C,M-ppbo-ppggav 4,296 1 cap PO BID 06/29/22 08/21/22 08/21/22 History mcg-226 mg-90 mg capsule (PreserVision AREDS) amiodarone 100 mg tablet 100 mg PO QAM 08/21/22 08/21/22 08/21/22 History diltiazem HCl 120 mg 120 mg PO QAM 08/21/22 08/21/22 08/21/22 History capsule,extended release 24 hr ferrous gluconate 324 mg (38 mg 324 mg PO BEDTIME 08/21/22 08/21/22 08/20/22 History iron) tablet furosemide 20 mg tablet 20 mg PO DAILY PRN Edema 08/21/22 08/21/22 Unknown History gabapentin 300 mg capsule See Rx Instructions .Route .COMPLEX 08/21/22 08/21/22 08/21/22 History levothyroxine 137 mcg tablet 137 mcg PO QAM 08/21/22 08/21/22 08/21/22 History potassium chloride 10 mEq 10 meq PO BEDTIME 08/21/22 08/21/22 08/20/22 History tablet,extended release simvastatin 20 mg tablet 20 mg PO BEDTIME 08/21/22 08/21/22 08/20/22 History venlafaxine 37.5 mg 37.5 mg PO DAILY@12 08/21/22 08/21/22 08/20/22 History capsule,extended release 24 hr 1st dose 08/20/22 Allergies Allergy/AdvReac Type Severity Reaction Status Date / Time acetaminophen [From [employer]] Allergy Unknown Verified 08/21/22 15:49 amoxicillin Allergy ADR-Halluci Verified 08/21/22 15:49 nating cilostazol Allergy ADR-Halluci Verified 08/21/22 15:49 nating codeine Allergy ADR-Halluci Verified 08/21/22 15:49 nating hydrocodone [From [place]] Allergy Unknown Verified 08/21/22 15:49 influenza virus vaccine qs Allergy Unknown Verified 08/21/22 15:49 [id number] (36 mos, up) [From Fluarix Quad] oxycodone Allergy ADR-Halluci Verified 08/21/22 15:49 nating Penicillins Allergy ADR-Halluci Verified 08/21/22 15:49 nating Sulfa (Sulfonamide Allergy Unknown Verified 08/21/22 15:49 Antibiotics) PFSH Acute PFSH: Medical History (Updated 08/21/22 @ 21:06 by Lulu Abad MD) Advanced age Anxiety Arthritis Atrial fibrillation in sinus rhythm on amiodarone, not on anticoagulation beyond daily 325mg aspirin due to risk of bleeding with recurrent falls 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, 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 CAD (coronary artery disease) Carotid stenosis Closed sacral fracture (~06/30/21) COPD (chronic obstructive pulmonary disease) Degenerative disc disease, lumbar Depression Dizziness Falls frequently Former smoker Fracture of ramus of left pubis (05/26/21) GERD (gastroesophageal reflux disease) Hard of hearing History of fracture multiple related to falls Hyperlipidemia Hypertension Hypotension Hypothyroidism Ischemic cardiomyopathy Echo 03/2021 normal EF, systolic and diastolic function MRSA (methicillin resistant Staphylococcus aureus) Osteoporosis Peripheral vascular disease Pneumonia Proximal humerus fracture (04/08/21) Sleep apnea Small bowel obstruction, partial Vitamin D deficiency Surgical History History of angioplasty of peripheral vessel (~2018) for in stent restenosis History of ankle surgery left History of section x4 History of open reduction and internal fixation (ORIF) procedure (~09/2018) right hip S/P peripheral artery angioplasty with stent placement right common iliac artery Status post total hip replacement, right (~03/2019) Family History Son Psychiatric illness Bipolar Social History Smoking and tobacco status: former smoker Quit status (tobacco): has quit using tobacco Year quit tobacco: 2019 Alcohol intake: former Substance/Drug Use: never Caregiver/support person: Yes Lives independently: Yes Household members: significant other Number of children: 4 Current occupational status: retired Previous occupational history: Previously worked at [employer] Current gender identity: Female Special noris needs: No Agree to transfusion: Yes Financial difficulty paying for basics: Not Applicable Vitals/I&O/Wt Last Vital Signs Temp 97.4 F L 08/21/22 20:15 Pulse 108 H 08/21/22 20:15 Resp 17 08/21/22 20:15 BP 107/75 08/21/22 20:15 Pulse Ox 94 08/21/22 20:15 O2 Del Method Nasal Cannula 08/21/22 20:15 O2 Flow Rate 3 08/21/22 20:15 08/21/22 08/21/22 08/21/22 06:59 14:59 22:59 Intake Total 1311.958 / 1311.958 Balance 1311.958 / 1311.958 Weight last 48 hrs Weight 54.885 kg Physical Exam Narrative: General: No acute distress, AO x3 HEENT: PERRLA, pupils bilaterally equal and reactive, pallors not present Chest: Normal vesicular breath sounds, no added sounds, equal good air entry bilaterally CVS: S1-S2 regular, no murmurs, no tachycardia, no gallops, no rubs Abdomen: Soft, nontender, no organomegaly, bowel sounds present Neuro: No focal deficits, no facial deformity, AO x3, power 5/5 in all limbs Data 08/21/22 15:35 08/21/22 15:35 Other Labs: Radiology Impressions Abdomen/Pelvis CT 08/21/22 15:24 IMPRESSION: 1. Comparison CT 06/11/2022. 2. Moderate stool burden and colonic diverticulosis. No acute bowel findings otherwise. 3. Coronary calcification with cardiomegaly. Interval worsening of diffuse generalized subcutaneous soft tissue edema with enlargement of IVC/central hepatic veins, suggesting 3rd spacing/anasarca which may be on the basis of CHF. 4. New bilateral pleural effusions and adjacent consolidation suggesting compressive atelectasis/dependent edema or pneumonia. Follow-up should be obtained. 5. Stable hypodense hepatic lesions. No cirrhosis. See discussion above. 6. Gallbladder findings as above. 7. Stable infrarenal abdominal aortic aneurysm and other nonacute findings as described. Chest X-Ray 08/21/22 15:24 IMPRESSION: 1. Accentuated cardiac silhouette size and vascularity. See discussion above. 2. Increasing bibasilar opacities and pleural effusions. See discussion above. Laboratory Results WBC 6.2 10^3/uL (4.0-10.0) 08/21/22 15:35 RBC 5.06 10^6/uL (4.1-5.3) 08/21/22 15:35 Hgb 13.8 g/dL (11.5-15.3) 08/21/22 15:35 Hct 43.4 % (37.0-47.0) 08/21/22 15:35 MCV 85.8 fl (81-99) 08/21/22 15:35 MCH 27.3 pg (28.0-34.0) L 08/21/22 15:35 MCHC 31.8 g/dL (30.0-36.0) 08/21/22 15:35 RDW 15.5 % (12.1-15.1) H 08/21/22 15:35 Plt Count 242 10^3/cmm (130-400) 08/21/22 15:35 MPV 9.5 fL (7.4-10.4) 08/21/22 15:35 Neut % (Auto) 70.1 % 08/21/22 15:35 Lymph % (Auto) 18.8 % 08/21/22 15:35 O'Brien % (Auto) 8.3 % 08/21/22 15:35 Eos % (Auto) 1.4 % 08/21/22 15:35 Baso % (Auto) 1.1 % 08/21/22 15:35 Neut # (Auto) 4.37 10^3/uL (1.8-7.7) 08/21/22 15:35 Lymph # (Auto) 1.2 10^3/uL (0.8-4.8) 08/21/22 15:35 O'Brien # (Auto) 0.5 10^3/uL (0.2-0.9) 08/21/22 15:35 Eos # (Auto) 0.1 10^3/uL (0.0-0.8) 08/21/22 15:35 Baso # (Auto) 0.1 10^3/uL (0.0-0.1) 08/21/22 15:35 Nucleated RBC % (auto) 0 % 08/21/22 15:35 Nucleated RBCs # 0.0 /100WBC 08/21/22 15:35 Specimen Type Arterial 08/21/22 16:20 Sample Site Lr 08/21/22 16:20 ABG pH 7.37 (7.35-7.45) 08/21/22 16:20 ABG pCO2 42.7 mmHg (35-45) 08/21/22 16:20 ABG pO2 44.9 mmHg (80.0-100.0) L 08/21/22 16:20 ABG HCO3 25.1 mmol/L (22-26) 08/21/22 16:20 ABG O2 Saturation 78.0 08/21/22 16:20 ABG Base Excess -0.2 mmol/L (-2.0-2.0) 08/21/22 16:20 Perez Test Pos 08/21/22 16:20 A-a O2 Gradient 50.4 mmHg (5-10) H 08/21/22 16:20 Hematocrit 35.9 % (37-47) L 08/21/22 16:20 Hgb O2 Saturation 76.2 % (95-100) L 08/21/22 16:20 Carboxyhemoglobin 1.8 %THgb (0.4-20.1) 08/21/22 16:20 Methemoglobin 0.5 % (0.4-1.5) 08/21/22 16:20 Total Hemoglobin 11.7 g/dL (12-16) L 08/21/22 16:20 Sodium 133.0 mmol/L (131-143) 08/21/22 16:20 Potassium 3.5 mmol/L (3.5-5.0) 08/21/22 16:20 Glucose 88.0 mg/dL (70-115) 08/21/22 16:20 Ionized Calcium 1.2 mmol/L (1.1-1.4) 08/21/22 16:20 O2 Delivery Device Roomair 08/21/22 16:20 Station Mechanic Apprentice ID Cak 08/21/22 16:20 Sodium 129 mmol/L (136-145) L 08/21/22 15:35 Potassium 3.6 mmol/L (3.5-5.1) 08/21/22 15:35 Chloride 94 mmol/L (98-107) L 08/21/22 15:35 Carbon Dioxide 24 mmol/L (22-29) 08/21/22 15:35 Anion Gap 14.6 (5-19) 08/21/22 15:35 BUN 10 mg/dL (8-23) 08/21/22 15:35 Creatinine 0.6 mg/dL (0.5-0.9) 08/21/22 15:35 GFR Calculation Not Reportable 08/21/22 15:35 Glucose 102 mg/dL (65-115) 08/21/22 15:35 Calculated Osmolality 267 mOsm/kg (285-295) L 08/21/22 15:35 Lactic Acid 1.4 mmol/L (0.5-2.2) 08/21/22 15:35 Calcium 8.7 mg/dL (8.5-10.5) 08/21/22 15:35 Magnesium 1.7 mg/dL (1.7-2.3) 08/21/22 15:35 Total Bilirubin 0.5 mg/dL (0.15-1.2) 08/21/22 15:35 AST 13 U/L (0-32) 08/21/22 15:35 ALT 6 U/L (0-33) 08/21/22 15:35 Alkaline Phosphatase 126 U/L (35-105) H 08/21/22 15:35 Troponin T Baseline 19 ng/L (0-10) H 08/21/22 15:35 Troponin T 120 Minute 17.26 ng/L (0-10) H 08/21/22 17:44 Delta Troponin T -1.74 ABS# (0-10) L 08/21/22 17:44 NT-Pro-B Natriuret Pep 3014 pg/mL (0-450) H 08/21/22 15:35 Total Protein 6.2 g/dL (6.6-8.7) L 08/21/22 15:35 Albumin 3.7 g/dL (3.5-5.2) 08/21/22 15:35 Globulin 2.5 g/dL (1.3-4.6) 08/21/22 15:35 Lipase 10 U/L (13-60) L 08/21/22 15:35 TSH 5.49 uIU/mL (0.27-4.20) H 08/21/22 15:35 Urine Color Yellow (Yellow) 08/21/22 18:05 Urine Appearance Clear (CLEAR) 08/21/22 18:05 Urine pH 5 (5-7) 08/21/22 18:05 Ur Specific Hope 1.010 (1.005-1.030) 08/21/22 18:05 Urine Protein Neg (Negative) 08/21/22 18:05 Urine Glucose (UA) Norm (Normal) 08/21/22 18:05 Urine Ketones Negative (Negative) 08/21/22 18:05 Urine Blood Neg (Negative) 08/21/22 18:05 Urine Nitrate Negative (Negative) 08/21/22 18:05 Urine Bilirubin Neg (Negative) 08/21/22 18:05 Urine Urobilinogen Norm mg/dL (Negative) 08/21/22 18:05 Ur Leukocyte Esterase Not Reportable 08/21/22 18:05 Micro: Microbiology 08/21/22 18:20 Blood Culture - Preliminary Blood SPECIMEN COLLECTED 08/21/22 18:15 Blood Culture - Preliminary Blood SPECIMEN COLLECTED A&P Assessment and plan (1) Atrial fibrillation with RVR: A fib with RVR patient has been started on cardizem infusion in the ER which will be continued Overlap with po cardizem 30mg q6h and attempt to titrate off drip Continue amiodarone 100mg po daily at home dosing Intolerant of a/c - has a h/o recurrent falls and bleeding (2) CHF (congestive heart failure): Acute on chronci HF with preserved EF Lats Ef from 06/2022 at 55% Known past h/o ischemic cardiomyopathy Lasix 40 mg iv given continue lasix 40mg iv daily dose to be titrated based on urine output and kidney function monitor I/o (3) Pleural effusion: Likely precipitated by CHF Lasix as above (4) Acute hyponatremia: check urine lytes, TSH (5) Pneumonia: Ceftriaxone 1 g iv q24h + azithromycin 500mg po daily check covid ag, mrsa screen, urine legionella and bacterial Ag (6) Hypoxia: related to CHF, pneumonia and pleural effusion Plan Abdominal pain: Unclear cause: no acute events on CT abdomen. May be related to constipation. Continue docusate, add miralax Attestations Medical Necessity Statement*: > 2 midnight admission anticipated for above care Coding Level of Care Code Acute Code for Chg Fwd High MDM includes number and complexity of problems actively addressed during encounter, amount and/or complexity of data reviewed/ordered and described risk of complication, morbidity or mortality of management as documented Diagnoses Atrial fibrillation with RVR I48.91 CHF (congestive heart failure) I50.9 Pleural effusion J90 Acute hyponatremia E87.1 Pneumonia J18.9 Hypoxia R09.02
[2022-08-21] MEDS: atorvastatin 40 mg Tablet 20 MG PO (21:09)
[2022-08-21] MEDS: mirtazapine 15 mg Tablet PO (21:09)
[2022-08-21] MEDS: ALPRAZolam 0.5 mg Tablet 1 MG PO (21:09)
[2022-08-21] MEDS: dilTIAZem 30 mg Tablet PO (21:09)
[2022-08-21] MEDS: gabapentin 300 mg Capsule 600 MG PO (21:09)
[2022-08-21] MEDS: cefTRIAXone 1,000 MG in sodium chloride 0.9% (plus) 50 ML 100 MG IV (21:13)
[2022-08-21] MEDS: azithromycin 500 MG in sodium chloride 0.9% 250 ML 250 MG PO (21:19)
[2022-08-21] MEDS: enoxaparin 40 mg/0.4 mL Syringe SUBCUT (21:25)
[2022-08-21 21:47] LABS: Potassium, Radom Urine 18 mmol/L; Urine Random Chloride 84 mmol/L; Urine Random Sodium 77 mmol/L
[2022-08-21 22:20] LABS: SARS Covid-2 Antigen negative (Negative)
[2022-08-21 22:21] LABS: Troponin 5 6HR 17.08 ng/L (0-10)
[2022-08-21 22:24] LABS: Troponin 5 6HR Delta -1.92 ng/L (0-12)
[2022-08-21 23:34] LABS: Adenovirus Not Detected (NOT DETECT); Chlamydia Pneumoniae Not Detected (NOT DETECT); Coronavirus 229E,HKU1,NL63,OC4 Not Detected (NOT DETECT); Human Metapneumovirus Not Detected (NOT DETECT); Human Rhinovirus/Enterovirus Not Detected (NOT DETECT); Influenza A Not Detected (NOT DETECT); Influenza A H1 Not Detected (NOT DETECT); Influenza A H1-2009 Not Detected (NOT DETECT); Influenza A H3 Not Detected (NOT DETECT); Influenza B Not Detected (NOT DETECT); Mycoplasma Pneumoniae Not Detected (NOT DETECT); Parainfluenza Virus Type 1 Not Detected (NOT DETECT); Parainfluenza Virus Type 2 Not Detected (NOT DETECT); Parainfluenza Virus Type 3 Not Detected (NOT DETECT); Parainfluenza Virus Type 4 Not Detected (NOT DETECT); Respiratory Syncytial Virus A Not Detected (NOT DETECT); Respiratory Syncytial Virus B Not Detected (NOT DETECT); SARS-COV-2 Not Detected (NOT DETECT)
[2022-08-22] VITALS (57 sets, daily range): BP systolic 81–137; BP diastolic 52–91; PULSE 76–140; RESP 10–29; TEMP 37.1; O2SAT 88–96
[2022-08-22] MEDS: dilTIAZem 30 mg Tablet PO ×3 (03:13→14:01)
[2022-08-22 03:52] LABS: Basophils # 0.1 10^3/uL (0.0-0.1); Basophils % 1.9 %; Eosinophils # 0.2 10^3/uL (0.0-0.8); Eosinophils % 2.6 %; Hematocrit 43.2 % (37.0-47.0); Hemoglobin 13.4 g/dL (11.5-15.3); Lymphocytes # 1.1 10^3/uL (0.8-4.8); Lymphocytes % 19.5 %; Mean Corpuscular Hemoglobin 27.7 pg (28.0-34.0); Mean Corpuscular Volume 89.4 fl (81-99); Mean Platelet Volume 9.8 fL (7.4-10.4); Monocytes # 0.7 10^3/uL (0.2-0.9); Neutrophils # 3.65 10^3/uL (1.8-7.7); Neutrophils % 63.5 %; Nucleated Red Blood Cells % 0 %; Platelet Count 221 10^3/cmm (130-400); Red Blood Count 4.83 10^6/uL (4.1-5.3); Red Cell Distribution Width 15.7 % (12.1-15.1); White Blood Count 5.8 10^3/uL (4.0-10.0)
[2022-08-22 04:22] LABS: Procalcitonin 0.04 ng/mL (0-0.5)
[2022-08-22 04:59] LABS: Alanine Aminotransferase 7 U/L (0-33); Albumin Level 3.5 g/dL (3.5-5.2); Alkaline Phosphatase 116 U/L (35-105); Anion Gap 16.5 (5-19); Aspartate Amino Transferase 11 U/L (0-32); Blood Urea Nitrogen 8 mg/dL (8-23); Calcium 8.7 mg/dL (8.5-10.5); Carbon Dioxide 25 mmol/L (22-29); Chloride 98 mmol/L (98-107); Globulin 2.4 g/dL (1.3-4.6); Glucose 76 mg/dL (65-115); Magnesium 1.7 mg/dL (1.7-2.3); Osmolality Calculated 279 mOsm/kg (285-295); Potassium 3.5 mmol/L (3.5-5.1); Sodium 136 mmol/L (136-145); Thyroid Stimulating Hormone 8.35 uIU/mL (0.27-4.20); Total Bilirubin 0.4 mg/dL (0.15-1.2); Total Protein 5.9 g/dL (6.6-8.7)
[2022-08-22] MEDS: venlafaxine ER (24HR) 75 mg Capsule PO (05:36)
[2022-08-22] MEDS: pantoprazole DR 40 mg Tablet PO (05:37)
[2022-08-22] MEDS: amiodarone 200 mg Tablet 100 MG PO (05:37)
[2022-08-22] MEDS: loratadine 10 mg Tablet PO (05:37)
[2022-08-22] MEDS: aspirin 325 mg Tablet PO (05:37)
[2022-08-22] MEDS: levothyroxine 137 mcg Tablet PO (05:37)
[2022-08-22] MEDS: montelukast sodium 10 mg Tablet PO (05:37)
[2022-08-22] MEDS: gabapentin 300 mg Capsule PO (08:12)
[2022-08-22] MEDS: polyethylene glycol 3350 Pkt 17 gm PO (08:12)
[2022-08-22] MEDS: FUROsemide 10 mg/mL SDV 4mL 40 MG IVP (11:49)
[2022-08-22] MEDS: venlafaxine ER (24HR) 37.5 mg Capsule PO (13:22)
--- NOTE | 2022-08-22 17:45 | PM.PN ---
Subjective Subjective: Patient is awake and alert. Patient denies fevers, chills, nausea or emesis. Medications: Reviewed: Yes Vitals/I&O/Wt Last Vital Signs Temp 98.8 F 08/22/22 12:30 Pulse 116 H 08/22/22 16:00 Resp 28 H 08/22/22 16:00 BP 97/69 08/22/22 16:00 Pulse Ox 91 08/22/22 16:00 O2 Del Method Oxymask 08/22/22 09:27 O2 Flow Rate 3 08/22/22 09:27 08/22/22 08/22/22 08/22/22 06:59 14:59 22:59 Intake Total 8.083 / 1637.416 360 / 360 Output Total 500 / 1100 600 / 600 350 / 950 Balance -491.917 / 537.416 -240 / -240 -350 / -590 Weight last 48 hrs Weight 54.476 kg Weight 54.885 kg Physical Exam Narrative: General: Patient is awake. Pleasant. Head: Normocephalic. Atraumatic. EOM intact. Neck: No JVD. Cardiovascular: No gallops. No murmurs. Tachycardic. Irregular rhythm. Lungs: Breath sounds are diminished in bilateral bases, no use of accessory muscles, no crackles or wheezes. Faint rhonchi. Skin: No jaundice. No rashes. Abdomen: Soft. Not distended. Normal bowel sounds. Extremities: No cyanosis or clubbing. Musculoskeletal: Normal muscular development. Neurological: No myoclonus. Moves all 4 extremities. Data 08/22/22 03:24 08/22/22 03:24 Micro: Microbiology 08/21/22 21:40 MRSA Culture - Final Nose 08/21/22 18:05 Legionella Urinary Antigen - Final Urine,Voided Bacterial Antigens - Final 08/21/22 18:20 Blood Culture - Preliminary Blood SPECIMEN COLLECTED 08/21/22 18:15 Blood Culture - Preliminary Blood SPECIMEN COLLECTED A&P Assessment and plan (1) Atrial fibrillation with RVR: A fib with RVR HR remains uncontrolled Blood pressure soft Dilt drip turned off overnight Increase oral dilt to 45 mg Q6H Increase amiodarone to 200 mg daily Not on AC d/t hx of recurrent falls and bleeds (2) Pneumonia: Continue Rocephin Continue Azithromycin Follow up PNA labs (3) CHF (congestive heart failure): Acute on chronic HF with preserved EF of 55% Hx of ischemic cardiomyopathy Volume status has improved Hold further IV lasix dose and reassess volume status and vitals in AM Strict I&Os Dialy weights (4) Pleural effusion: Secondary to fluid overload As above (5) Acute hyponatremia: Resolved Na 136 (6) Hypoxia: Supplemental oxygen as needed, wean as tolerated (7) Constipation: Continue bowel regimen Plan DVT ppx: SCD Code: Full Attestations Medical Necessity Statement*: Patient remains in a-fib with RVR requiring ongoing hospitalized care. Coding Level of Care Code Acute Code for [facility] Fwd Diagnoses Atrial fibrillation with RVR I48.91 Pneumonia J18.9 CHF (congestive heart failure) I50.9 Pleural effusion J90 Acute hyponatremia E87.1 Hypoxia R09.02 Constipation K59.00
[2022-08-22] MEDS: dilTIAZem 30 mg Tablet 45 MG PO ×2 (18:02→23:20)
[2022-08-22] MEDS: mirtazapine 15 mg Tablet PO (20:12)
[2022-08-22] MEDS: ALPRAZolam 0.5 mg Tablet 1 MG PO (20:12)
[2022-08-22] MEDS: gabapentin 300 mg Capsule 600 MG PO (20:13)
[2022-08-22] MEDS: atorvastatin 40 mg Tablet 20 MG PO (20:13)
[2022-08-22] MEDS: enoxaparin 40 mg/0.4 mL Syringe SUBCUT (20:23)
[2022-08-22] MEDS: azithromycin 500 MG in sodium chloride 0.9% 250 ML 250 MG PO (20:35)
[2022-08-22] MEDS: cefTRIAXone 1,000 MG in sodium chloride 0.9% (plus) 50 ML 100 MG IV (20:36)
--- NOTE | 2022-08-22 21:06 | ECG_ITS ---
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 Measurements Intervals [place] Rate: 122 P: 0 MD: 0 QRS: 47 QRSD: 86 T: 266 QT: 318 QTc: 455 Interpretive Statements ATRIAL FIBRILLATION WITH RAPID VENTRICULAR RESPONSE SEPTAL MYOCARDIAL INFARCTION , PROBABLY OLD [40+ ms Q WAVE IN V1/V2] MODERATE T-WAVE ABNORMALITY, CONSIDER LATERAL ISCHEMIA [-0.1+ mV T-WAVE IN I/aVL/V5/V6] Compared to ECG 08/21/2022 17:33:35 Myocardial infarct finding now present T-wave abnormality still present Possible ischemia still present Electronically Signed On 08-23-2022 8:02:27 CDT by Tony Nur M.D. [id number]
[2022-08-22] MEDS: metoprolol tartrate 50 mg Tablet PO (21:51)
[2022-08-23] VITALS (50 sets, daily range): BP systolic 84–121; BP diastolic 48–77; PULSE 53–103; RESP 12–18; TEMP 36.7–36.9; O2SAT 71–97
[2022-08-23 04:04] LABS: Basophils # 0.1 10^3/uL (0.0-0.1); Basophils % 1.5 %; Eosinophils # 0.2 10^3/uL (0.0-0.8); Eosinophils % 5.1 %; Hematocrit 37.8 % (37.0-47.0); Hemoglobin 11.6 g/dL (11.5-15.3); Lymphocytes % 20.1 %; Mean Corpuscular HGB Conc 30.7 g/dL (30.0-36.0); Mean Corpuscular Volume 88.1 fl (81-99); Mean Platelet Volume 10.2 fL (7.4-10.4); Monocytes # 0.5 10^3/uL (0.2-0.9); Monocytes % 10.2 %; Neutrophils # 2.96 10^3/uL (1.8-7.7); Neutrophils % 62.7 %; Nucleated Red Blood Cells % 0 %; Platelet Count 211 10^3/cmm (130-400); Red Blood Count 4.29 10^6/uL (4.1-5.3); Red Cell Distribution Width 15.4 % (12.1-15.1); White Blood Count 4.7 10^3/uL (4.0-10.0)
[2022-08-23 04:27] LABS: Blood Urea Nitrogen 11 mg/dL (8-23); Calcium 8.6 mg/dL (8.5-10.5); Carbon Dioxide 28 mmol/L (22-29); Chloride 99 mmol/L (98-107); Glucose 108 mg/dL (65-115); Magnesium 1.6 mg/dL (1.7-2.3); Phosphorus 4.6 mg/dL (2.5-4.5); Sodium 136 mmol/L (136-145)
[2022-08-23 04:44] LABS: Anion Gap 12.3 (5-19); Potassium 3.3 mmol/L (3.5-5.1)
[2022-08-23] MEDS: levothyroxine 137 mcg Tablet PO (05:10)
[2022-08-23] MEDS: montelukast sodium 10 mg Tablet PO (05:10)
[2022-08-23] MEDS: aspirin 325 mg Tablet PO (05:10)
[2022-08-23] MEDS: pantoprazole DR 40 mg Tablet PO (05:10)
[2022-08-23] MEDS: venlafaxine ER (24HR) 75 mg Capsule PO (05:11)
[2022-08-23] MEDS: loratadine 10 mg Tablet PO (05:12)
[2022-08-23] MEDS: dilTIAZem 30 mg Tablet 45 MG PO ×3 (05:12→17:24)
[2022-08-23] MEDS: amiodarone 200 mg Tablet PO (05:12)
[2022-08-23] MEDS: gabapentin 300 mg Capsule PO (10:35)
[2022-08-23] MEDS: venlafaxine ER (24HR) 37.5 mg Capsule PO (12:21)
--- NOTE | 2022-08-23 13:29 | PC.NURSE ---
Patient has not urinated since beginning of shift. NUrse bladder scanned patient and it shows 300mL retained. Nurse alerted Dr cr.
[2022-08-23] MEDS: magnesium hydroxide 30 mL UDC PO (13:47)
--- NOTE | 2022-08-23 18:12 | PM.PN ---
Subjective Subjective: Patient was seen and examined this morning, overnight she received one-time dose of metoprolol 50, as the heart rate was uncontrolled, throughout the day she has maintained a decent heart rate though she continued to be in A-fib, her blood pressure has been on softer side, will cut back on the dose of Cardizem to 30 p.o. every 6h. Medications: Reviewed: Yes Medication Review Details: Generic Name Dose Route Start Last Admin Trade Name Freq PRN Reason Stop Dose Admin Alprazolam 1 mg 08/21/22 21:00 08/22/22 20:12 Alprazolam 0.5 M g Tablet PO 1 mg BEDTIME BLAIR Administration Amiodarone HCl 200 mg 08/23/22 06:00 08/23/22 05:12 Amiodarone 200 M g Tablet PO 200 mg QAM BLAIR Administration Aspirin 325 mg 08/22/22 06:00 08/23/22 05:10 Aspirin 325 Mg T ablet PO 325 mg QAM BLAIR Administration Atorvastatin Calci um 20 mg 08/21/22 21:15 08/22/22 20:13 Atorvastatin 40 Mg Tablet PO 20 mg BEDTIME BLAIR Administration Enoxaparin Sodium 40 mg 08/21/22 20:45 08/22/22 20:23 Enoxaparin 40 Mg /0.4 Ml Syringe SUBCUT 40 mg Q24H BLAIR Administration Furosemide 40 mg 08/22/22 10:00 08/22/22 11:49 Furosemide 10 Mg /Ml Sdv 4ml IVP 40 mg Q24H BLAIR Administration Gabapentin 300 mg 08/22/22 09:00 08/23/22 10:35 Gabapentin 300 M g Capsule PO 300 mg DAILY BLAIR Administration Gabapentin 600 mg 08/21/22 21:00 08/22/22 20:13 Gabapentin 300 M g Capsule PO 600 mg BEDTIME BLAIR Administration Diltiazem HCl 100 mg/ Sodium 100 mls @ 0 mls/h r 08/21/22 18:00 08/22/22 19:00 Chloride IV Infused .Q0M BLAIR Titration Protocol Per Protocol Ceftriaxone Sodium 1,000 mg/ 50 mls @ 100 mls/ hr 08/21/22 21:00 08/22/22 21:10 Sodium Chloride IV Infused Q24H BLAIR Infusion Protocol Azithromycin 500 m g/ Sodium 250 mls @ 250 mls /hr 08/21/22 20:45 08/22/22 21:40 Chloride PO 08/24/22 20:44 Infused Q24H BLAIR Infusion Protocol Levothyroxine Sodi um 137 mcg 08/22/22 06:00 08/23/22 05:10 Levothyroxine 13 7 Mcg Tablet PO 137 mcg QAM BLAIR Administration Loratadine 10 mg 08/22/22 06:00 08/23/22 05:12 Loratadine 10 Mg Tablet PO 10 mg QAM BLAIR Administration Magnesium Hydroxid e 30 ml 08/23/22 13:36 08/23/22 13:47 Magnesium Hydrox ximena 30 Ml Udc PO 30 ml DAILY PRN Administration CONSTIPATION Mirtazapine 15 mg 08/21/22 21:00 08/22/22 20:12 Mirtazapine 15 M g Tablet PO 15 mg BEDTIME BLAIR Administration Montelukast Sodium 10 mg 08/22/22 06:00 08/23/22 05:10 Montelukast Sodi um 10 Mg Tablet PO 10 mg QAM BLAIR Administration Pantoprazole Sodiu m 40 mg 08/22/22 06:00 08/23/22 05:[address] 40 Mg Tablet PO 40 mg QAM BLAIR Administration Polyethylene Glyco l 17 gm 08/22/22 09:00 08/23/22 10:34 Polyethylene Gly col 3350 Pkt 17 Gm PO Not Given DAILY BLAIR Venlafaxine HCl 37.5 mg 08/22/22 12:00 08/23/22 12:21 Venlafaxine Er ( 24hr) 37.5 Mg Caps ule PO 37.5 mg DAILY@12 BLAIR Administration Venlafaxine HCl 75 mg 08/22/22 06:00 08/23/22 05:11 Venlafaxine Er ( 24hr) 75 Mg Capsul e PO 75 mg QAM BLAIR Administration Vitals/I&O/Wt Last Vital Signs Temp 98.4 F 08/23/22 01:00 Pulse 99 08/23/22 18:00 Resp 18 08/23/22 16:00 BP 106/68 08/23/22 18:00 Pulse Ox 94 08/23/22 18:00 O2 Del Method Nasal Cannula 08/23/22 16:00 O2 Flow Rate 5 08/23/22 16:00 08/23/22 08/23/22 08/23/22 06:59 14:59 22:59 Intake Total 250 / 250 240 / 490 Output Total 300 / 1250 Balance -300 / -100 250 / 250 240 / 490 Weight last 48 hrs Weight 54.476 kg Physical Exam HENMT: COMMON NORMALS: normocephalic and atraumatic HEAD & SCALP: normocephalic and atraumatic Resp: COMMON NORMALS: clear to auscultation bilaterally AUSCULTATION: clear to auscultation bilaterally OTHER: Diminished air entry bilaterally Cardio: COMMON NORMALS: No gallops present (Cardio), No murmurs present (Cardio), No rub (Cardio) and Peripheral pulses 2+ throughout PERIPHERAL PULSES: Peripheral pulses 2+ throughout OTHER: Irregularly irregular rhythm S1-S2 variable intensity GI: COMMON NORMALS: Normal to inspection, nondistended, normoactive bowel sounds present, Soft to palpation, non-tender, No hepatosplenomegaly present and no masses AUSCULTATION: Yes normoactive bowel sounds PALPATION: Yes Soft to palpation and Yes No hepatosplenomegaly present RECTAL EXAM: deferred Extremity: COMMON NORMALS: no clubbing, cyanosis or edema and no pedal edema Urinary Catheter Management: Perry: Cath Placed During This Visit: yes Reason for Continuing Indwelling Catheter: Acute Urinary Retention or Obstruction Urinary Catheter Date of Insertion: 08/23/22 Urinary Catheter Time of Insertion: 15:19 Data 08/23/22 03:22 08/23/22 03:22 Micro: Microbiology 08/21/22 18:20 Blood Culture - Preliminary Blood NEGATIVE TO DATE 08/21/22 18:15 Blood Culture - Preliminary Blood NEGATIVE TO DATE 08/21/22 21:40 MRSA Culture - Final Nose A&P Assessment and plan (1) Atrial fibrillation with RVR: A fib with RVR patient has been started on cardizem infusion in the ER which will be continued Overlap with po cardizem 30mg q6h and attempt to titrate off drip Continue amiodarone 100mg po daily at home dosing Intolerant of a/c - has a h/o recurrent falls and bleeding (2) CHF (congestive heart failure): Acute on chronci HF with preserved EF Lats Ef from 06/2022 at 55% Known past h/o ischemic cardiomyopathy Lasix 40 mg iv given continue lasix 40mg iv daily dose to be titrated based on urine output and kidney function monitor I/o (3) Pleural effusion: Likely precipitated by CHF Lasix as above (4) Acute hyponatremia: Resolved. (5) Pneumonia: Ceftriaxone 1 g iv q24h + azithromycin 500mg po daily check covid ag, mrsa screen, urine legionella and bacterial Ag (6) Hypoxia: related to CHF, pneumonia and pleural effusion Home oxygen evaluation prior to discharge. Plan Abdominal pain: Unclear cause: no acute events on CT abdomen. May be related to constipation. Continue docusate, add miralax Attestations Medical Necessity Statement*: Is to be in hospital for management of A-fib with RVR of pneumonia IV antibiotics. Coding Level of Care Code Acute Code for [facility] Fwd Diagnoses Atrial fibrillation with RVR I48.91 CHF (congestive heart failure) I50.9 Pleural effusion J90 Acute hyponatremia E87.1 Pneumonia J18.9 Hypoxia R09.02
--- NOTE | 2022-08-23 18:20 | PC.NURSE ---
Shift SUmmary: Uneventful shift. Patient rested in before for about half the day. Up to a chaif for the other half. 2 person assisst. BLadder scanned showed urinary retention, indwelling catheter started. Patient's heart rhythm has been controlled Afib all day.
[2022-08-23] MEDS: potassium chloride ER 20 mEq Tablet 40 MEQ PO (19:13)
[2022-08-23] MEDS: azithromycin 500 MG in sodium chloride 0.9% 250 ML 250 MG PO (20:33)
[2022-08-23] MEDS: cefTRIAXone 1,000 MG in sodium chloride 0.9% (plus) 50 ML 100 MG IV (20:37)
[2022-08-23] MEDS: enoxaparin 40 mg/0.4 mL Syringe SUBCUT (20:41)
[2022-08-23] MEDS: ALPRAZolam 0.5 mg Tablet 1 MG PO (20:43)
[2022-08-23] MEDS: mirtazapine 15 mg Tablet PO (20:44)
[2022-08-23] MEDS: atorvastatin 40 mg Tablet 20 MG PO (20:44)
[2022-08-23] MEDS: gabapentin 300 mg Capsule 600 MG PO (20:44)
[2022-08-23] MEDS: dilTIAZem 30 mg Tablet PO (21:12)
[2022-08-24] VITALS (30 sets, daily range): BP systolic 81–111; BP diastolic 53–88; PULSE 76–114; RESP 12–24; TEMP 36.2–36.9; O2SAT 83–97
[2022-08-24 03:08] LABS: Basophils # 0.1 10^3/uL (0.0-0.1); Basophils % 1.4 %; Eosinophils # 0.2 10^3/uL (0.0-0.8); Eosinophils % 3.5 %; Hematocrit 38.9 % (37.0-47.0); Hemoglobin 11.9 g/dL (11.5-15.3); Lymphocytes # 1.2 10^3/uL (0.8-4.8); Lymphocytes % 22.6 %; Mean Corpuscular HGB Conc 30.6 g/dL (30.0-36.0); Mean Corpuscular Hemoglobin 26.8 pg (28.0-34.0); Mean Corpuscular Volume 87.6 fl (81-99); Mean Platelet Volume 9.8 fL (7.4-10.4); Monocytes # 0.6 10^3/uL (0.2-0.9); Monocytes % 10.9 %; Neutrophils # 3.15 10^3/uL (1.8-7.7); Neutrophils % 61.2 %; Nucleated Red Blood Cells % 0 %; Platelet Count 212 10^3/cmm (130-400); Red Blood Count 4.44 10^6/uL (4.1-5.3); Red Cell Distribution Width 15.3 % (12.1-15.1); White Blood Count 5.1 10^3/uL (4.0-10.0)
[2022-08-24 03:23] LABS: Anion Gap 13.2 (5-19); Blood Urea Nitrogen 14 mg/dL (8-23); Calcium 8.5 mg/dL (8.5-10.5); Carbon Dioxide 29 mmol/L (22-29); Chloride 100 mmol/L (98-107); Glucose 87 mg/dL (65-115); Osmolality Calculated 286 mOsm/kg (285-295); Potassium 4.2 mmol/L (3.5-5.1); Sodium 138 mmol/L (136-145)
[2022-08-24] MEDS: dilTIAZem 30 mg Tablet PO ×2 (04:20→09:08)
[2022-08-24] MEDS: montelukast sodium 10 mg Tablet PO (05:45)
[2022-08-24] MEDS: loratadine 10 mg Tablet PO (05:45)
[2022-08-24] MEDS: aspirin 325 mg Tablet PO (05:45)
[2022-08-24] MEDS: levothyroxine 137 mcg Tablet PO (05:45)
[2022-08-24] MEDS: venlafaxine ER (24HR) 75 mg Capsule PO (05:46)
[2022-08-24] MEDS: pantoprazole DR 40 mg Tablet PO (05:46)
[2022-08-24] MEDS: amiodarone 200 mg Tablet PO (05:46)
[2022-08-24] MEDS: gabapentin 300 mg Capsule PO (08:39)
[2022-08-24] MEDS: magnesium hydroxide 30 mL UDC PO (08:39)
--- NOTE | 2022-08-24 11:34 | PC.SOCIAL ---
IMM Update IMM updated with patient. Verbalized an understanding. Copy Pg 2 provided. Initialled, dated, timed, and placed in chart.
[2022-08-24] MEDS: venlafaxine ER (24HR) 37.5 mg Capsule PO (12:44)
--- NOTE | 2022-08-24 14:09 | PM.DCS ---
Discharge Providers Date of Admission: 08/21/22 18:28 Date of Discharge: August 24, 2022 Attending Provider at Admission: Lulu Abad MD Attending Provider at Discharge: Osbaldo Cha MD Primary Care Provider: Sarah Witt APN Diagnoses at Discharge Discharge Diagnosis (1) Atrial fibrillation with RVR: Status: Acute (2) CHF (congestive heart failure): Status: Acute (3) Pleural effusion: Status: Acute (4) Acute hyponatremia: Status: Acute (5) Pneumonia: Status: Acute (6) Hypoxia: Status: Acute Reason for Visit Reason for Visit: SOB Hospital Course Hospital Course ?87 year old female with PMH atrial fibrillation, intolerant of a/c , carotid stenosis,coronary disease, COPD, prior smoker, dyslipidemia, ischemic cardiomyopathy, peripheral arterial disease, sleep apnea, hypertension prsenting to the ER today with c/o abdominal discomfort , nausea, generalized fatigue over the past week. She was found to be in A-fib with RVR and was started on Cardizem drip, later she was transitioned to p.o. Cardizem, amiodarone was continued, though the dose of amiodarone has to be increased, at home she is on 100 mg p.o. daily amiodarone, upon discharge the dose was increased to 200 mg p.o. daily, she was also discharged on Cardizem 120 p.o. daily, during the hospital stay she was also managed for, possible pneumonia, she was on antibiotic, blood culture was negative, urine Legionella antigen and bacterial antigen panel was negative, MRSA PCR was negative, she was discharged on p.o. levofloxacin for additional 5 days She was also managed for decompensated heart failure with preserved ejection fraction, she was on IV diuresis, to which she responded well, at the time of discharge she was euvolemic. She did qualified for 4 L home oxygen on ambulation and 2 L on rest, during the hospital stay she also developed acute urinary retention, Perry catheter was placed, she is being discharged with Perry catheter, she will follow urology as outpatient. Overall patient responded well to medical management and was discharged stable condition to home.She will continue to follow PCP as well as cardiology as outpatient. Physical Exam HENMT: COMMON NORMALS: normocephalic and atraumatic HEAD & SCALP: normocephalic and atraumatic Resp: COMMON NORMALS: clear to auscultation bilaterally AUSCULTATION: clear to auscultation bilaterally OTHER: Diminished air entry bilaterally Cardio: COMMON NORMALS: No gallops present (Cardio), No murmurs present (Cardio), No rub (Cardio) and Peripheral pulses 2+ throughout PERIPHERAL PULSES: Peripheral pulses 2+ throughout OTHER: Irregularly irregular rhythm S1-S2 variable intensity GI: COMMON NORMALS: Normal to inspection, nondistended, normoactive bowel sounds present, Soft to palpation, non-tender, No hepatosplenomegaly present and no masses AUSCULTATION: Yes normoactive bowel sounds PALPATION: Yes Soft to palpation and Yes No hepatosplenomegaly present RECTAL EXAM: deferred Extremity: COMMON NORMALS: no clubbing, cyanosis or edema and no pedal edema Urinary Catheter Management: Perry: Cath Placed During This Visit: yes Reason for Continuing Indwelling Catheter: Accurate Measurement of Urinary Output in Critically Ill Patients Urinary Catheter Date of Insertion: 08/23/22 Urinary Catheter Time of Insertion: 15:19 Discharge Data Studies Completed and Pending Completed Studies During Hospitalization Category Date Time Status CT abdomen pelvis w con* [id number] Stat Cat Scan 08/21/22 15:24 Completed XR chest 1V portable [id number] Stat Exams 08/21/22 15:24 Completed Pending at discharge Category Date Time Status BMP [Basic Metabolic Panel] AM LABS Lab 08/25/22 04:00 Ordered BMP [Basic Metabolic Panel] AM LABS Lab 08/26/22 04:00 Ordered Blood Culture Stat Lab 08/21/22 18:20 Results CBC Auto Diff [Complete Blood Count w/Auto] AM LABS Lab 08/25/22 04:00 Ordered CBC Auto Diff [Complete Blood Count w/Auto] AM LABS Lab 08/26/22 04:00 Ordered Radiology Impressions Abdomen/Pelvis CT 08/21/22 15:24 IMPRESSION: 1. Comparison CT 06/11/2022. 2. Moderate stool burden and colonic diverticulosis. No acute bowel findings otherwise. 3. Coronary calcification with cardiomegaly. Interval worsening of diffuse generalized subcutaneous soft tissue edema with enlargement of IVC/central hepatic veins, suggesting 3rd spacing/anasarca which may be on the basis of CHF. 4. New bilateral pleural effusions and adjacent consolidation suggesting compressive atelectasis/dependent edema or pneumonia. Follow-up should be obtained. 5. Stable hypodense hepatic lesions. No cirrhosis. See discussion above. 6. Gallbladder findings as above. 7. Stable infrarenal abdominal aortic aneurysm and other nonacute findings as described. Chest X-Ray 08/21/22 15:24 IMPRESSION: 1. Accentuated cardiac silhouette size and vascularity. See discussion above. 2. Increasing bibasilar opacities and pleural effusions. See discussion above. Laboratory Results WBC 5.1 10^3/uL (4.0-10.0) 08/24/22 02:35 RBC 4.44 10^6/uL (4.1-5.3) 08/24/22 02:35 Hgb 11.9 g/dL (11.5-15.3) 08/24/22 02:35 Hct 38.9 % (37.0-47.0) 08/24/22 02:35 MCV 87.6 fl (81-99) 08/24/22 02:35 MCH 26.8 pg (28.0-34.0) L 08/24/22 02:35 MCHC 30.6 g/dL (30.0-36.0) 08/24/22 02:35 RDW 15.3 % (12.1-15.1) H 08/24/22 02:35 Plt Count 212 10^3/cmm (130-400) 08/24/22 02:35 MPV 9.8 fL (7.4-10.4) 08/24/22 02:35 Neut % (Auto) 61.2 % 08/24/22 02:35 Lymph % (Auto) 22.6 % 08/24/22 02:35 [place] % (Auto) 10.9 % 08/24/22 02:35 Eos % (Auto) 3.5 % 08/24/22 02:35 Baso % (Auto) 1.4 % 08/24/22 02:35 Neut # (Auto) 3.15 10^3/uL (1.8-7.7) 08/24/22 02:35 Lymph # (Auto) 1.2 10^3/uL (0.8-4.8) 08/24/22 02:35 [place] # (Auto) 0.6 10^3/uL (0.2-0.9) 08/24/22 02:35 Eos # (Auto) 0.2 10^3/uL (0.0-0.8) 08/24/22 02:35 Baso # (Auto) 0.1 10^3/uL (0.0-0.1) 08/24/22 02:35 Nucleated RBC % (auto) 0 % 08/24/22 02:35 Nucleated RBCs # 0.0 /100WBC 08/24/22 02:35 Specimen Type Arterial 08/21/22 16:20 Sample Site Lr 08/21/22 16:20 ABG pH 7.37 (7.35-7.45) 08/21/22 16:20 ABG pCO2 42.7 mmHg (35-45) 08/21/22 16:20 ABG pO2 44.9 mmHg (80.0-100.0) L 08/21/22 16:20 ABG HCO3 25.1 mmol/L (22-26) 08/21/22 16:20 ABG O2 Saturation 78.0 08/21/22 16:20 ABG Base Excess -0.2 mmol/L (-2.0-2.0) 08/21/22 16:20 Perez Test Pos 08/21/22 16:20 A-a O2 Gradient 50.4 mmHg (5-10) H 08/21/22 16:20 Hematocrit 35.9 % (37-47) L 08/21/22 16:20 Hgb O2 Saturation 76.2 % (95-100) L 08/21/22 16:20 Carboxyhemoglobin 1.8 %THgb (0.4-20.1) 08/21/22 16:20 Methemoglobin 0.5 % (0.4-1.5) 08/21/22 16:20 Total Hemoglobin 11.7 g/dL (12-16) L 08/21/22 16:20 Sodium 133.0 mmol/L (131-143) 08/21/22 16:20 Potassium 3.5 mmol/L (3.5-5.0) 08/21/22 16:20 Glucose 88.0 mg/dL (70-115) 08/21/22 16:20 Ionized Calcium 1.2 mmol/L (1.1-1.4) 08/21/22 16:20 O2 Delivery Device Roomair 08/21/22 16:20 Oil Winterizer ID Cak 08/21/22 16:20 Sodium 138 mmol/L (136-145) 08/24/22 02:35 Potassium 4.2 mmol/L (3.5-5.1) 08/24/22 02:35 Chloride 100 mmol/L (98-107) 08/24/22 02:35 Carbon Dioxide 29 mmol/L (22-29) 08/24/22 02:35 Anion Gap 13.2 (5-19) 08/24/22 02:35 BUN 14 mg/dL (8-23) 08/24/22 02:35 Creatinine 0.6 mg/dL (0.5-0.9) 08/24/22 02:35 GFR Calculation Not Reportable 08/24/22 02:35 Glucose 87 mg/dL (65-115) 08/24/22 02:35 Calculated Osmolality 286 mOsm/kg (285-295) 08/24/22 02:35 Lactic Acid 1.4 mmol/L (0.5-2.2) 08/21/22 15:35 Calcium 8.5 mg/dL (8.5-10.5) 08/24/22 02:35 Phosphorus 4.6 mg/dL (2.5-4.5) H 08/23/22 03:22 Magnesium 1.6 mg/dL (1.7-2.3) L 08/23/22 03:22 Total Bilirubin 0.4 mg/dL (0.15-1.2) 08/22/22 03:24 AST 11 U/L (0-32) 08/22/22 03:24 ALT 7 U/L (0-33) 08/22/22 03:24 Alkaline Phosphatase 116 U/L (35-105) H 08/22/22 03:24 Troponin T Baseline 19 ng/L (0-10) H 08/21/22 15:35 Troponin T 120 Minute 17.26 ng/L (0-10) H 08/21/22 17:44 Delta Troponin T -1.74 ABS# (0-10) L 08/21/22 17:44 Troponin T Hi Sens 6Hr 17.08 ng/L (0-10) H 08/21/22 21:37 Troponin T Hi Sens 6Hr Delta -1.92 ng/L (0-12) L 08/21/22 21:37 NT-Pro-B Natriuret Pep 3014 pg/mL (0-450) H 08/21/22 15:35 Total Protein 5.9 g/dL (6.6-8.7) L 08/22/22 03:24 Albumin 3.0 g/dL (3.5-5.2) L 08/23/22 03:22 Globulin 2.4 g/dL (1.3-4.6) 08/22/22 03:24 Lipase 10 U/L (13-60) L 08/21/22 15:35 Procalcitonin 0.04 ng/mL (0-0.5) 08/22/22 03:24 TSH 8.35 uIU/mL (0.27-4.20) H 08/22/22 03:24 Urine Color Yellow (Yellow) 08/21/22 18:05 Urine Appearance Clear (CLEAR) 08/21/22 18:05 Urine pH 5 (5-7) 08/21/22 18:05 Ur Specific Hiram 1.010 (1.005-1.030) 08/21/22 18:05 Urine Protein Neg (Negative) 08/21/22 18:05 Urine Glucose (UA) Norm (Normal) 08/21/22 18:05 Urine Ketones Negative (Negative) 08/21/22 18:05 Urine Blood Neg (Negative) 08/21/22 18:05 Urine Nitrate Negative (Negative) 08/21/22 18:05 Urine Bilirubin Neg (Negative) 08/21/22 18:05 Urine Urobilinogen Norm mg/dL (Negative) 08/21/22 18:05 Ur Leukocyte Esterase Not Reportable 08/21/22 18:05 Ur Random Sodium 77 mmol/L 08/21/22 18:05 Ur Random Potassium 18 mmol/L 08/21/22 18:05 Ur Random Chloride 84 mmol/L 08/21/22 18:05 Nasal Influ A H1 2009 PCR Not detected (NOT DETECT) 08/21/22 21:40 Adenovirus (PCR) Not detected (NOT DETECT) 08/21/22 21:40 C. pneumoniae DNA (PCR) Not detected (NOT DETECT) 08/21/22 21:40 Coronavirus 229E (PCR) Not detected (NOT DETECT) 08/21/22 21:40 Human Metapneumovir PCR Not detected (NOT DETECT) 08/21/22 21:40 Influenza A (H1) PCR Not detected (NOT DETECT) 08/21/22 21:40 Influenza A (H3) PCR Not detected (NOT DETECT) 08/21/22 21:40 Influenza Type A (PCR) Not detected (NOT DETECT) 08/21/22 21:40 Influenza Type B (PCR) Not detected (NOT DETECT) 08/21/22 21:40 M. pneumoniae (PCR) Not detected (NOT DETECT) 08/21/22 21:40 Parainfluenza 1 (PCR) Not detected (NOT DETECT) 08/21/22 21:40 Parainfluenza 2 (PCR) Not detected (NOT DETECT) 08/21/22 21:40 Parainfluenza 3 (PCR) Not detected (NOT DETECT) 08/21/22 21:40 Parainfluenza 4 (PCR) Not detected (NOT DETECT) 08/21/22 21:40 RSV Type A (PCR) Not detected (NOT DETECT) 08/21/22 21:40 RSV Type B (PCR) Not detected (NOT DETECT) 08/21/22 21:40 Entero/Rhino (PCR) Not detected (NOT DETECT) 08/21/22 21:40 SARS-CoV-2 (PCR) Not detected (NOT DETECT) 08/21/22 21:40 SARS-CoV-2 Ag (Rapid) negative (Negative) 08/21/22 22:00 Vitals Last Vital Signs Temp 98.4 F 08/24/22 13:12 Pulse 110 H 08/24/22 13:12 Resp 18 08/24/22 13:12 BP 104/74 08/24/22 13:12 Pulse Ox 95 08/24/22 13:12 O2 Del Method Nasal Cannula 08/24/22 11:49 O2 Flow Rate 4 08/24/22 11:49 Discharge Plan Discharge Patient Disposition: Home Condition: Stable Prescriptions: New amiodarone 200 mg tablet 200 mg PO DAILY Qty: 30 3RF levofloxacin 750 mg tablet 750 mg PO DAILY 5 Days Qty: 5 0RF Continued ergocalciferol (vitamin D2) 1,250 mcg (50,000 unit) capsule 1,250 mcg PO Q7D (DME) Wheel Chair See Rx Instructions .Route .MEDSUPPLY Qty: 1 0RF Rx Instructions: As directed ibuprofen 800 mg tablet 800 mg PO TID PRN (Reason: pain) Qty: 90 0RF pantoprazole 40 mg tablet,delayed release (DR/EC) 40 mg PO QAM 90 Days Qty: 90 1RF loratadine 10 mg tablet 10 mg PO QAM 90 Days Qty: 90 1RF montelukast [Singulair] 10 mg tablet 10 mg PO QAM 90 Days Qty: 90 1RF PreserVision AREDS 4,296 mcg-226 mg-90 mg capsule 1 cap PO BID docusate sodium [DSS] 250 mg capsule 500 mg PO BID 90 Days Qty: 360 0RF promethazine-DM 6.25-15 mg/5 mL syrup 5 - 10 ml PO Q6H PRN (Reason: cough) Qty: 200 0RF venlafaxine 37.5 mg capsule,extended release 24hr 37.5 mg PO DAILY@12 simvastatin 20 mg tablet 20 mg PO BEDTIME gabapentin 300 mg capsule See Rx Instructions .ROUTE .COMPLEX Rx Instructions: TAKE ONE CAPSULE (300mg) BY MOUTH EVERY MORNING AND 2 CAPSULES (600mg) EVERY EVENING diltiazem HCl 120 mg capsule,extended release 24hr 120 mg PO QAM furosemide 20 mg tablet 20 mg PO DAILY PRN (Reason: Edema) ferrous gluconate 324 mg (38 mg iron) tablet 324 mg PO BEDTIME levothyroxine 137 mcg tablet 137 mcg PO QAM potassium chloride 10 mEq tablet extended release 10 meq PO BEDTIME cyanocobalamin (vitamin B-12) 1,000 mcg tablet extended release 1,000 mcg PO QAM nitroglycerin [Nitrostat] 0.4 mg Tablet, Sublingual 0.4 mg SUBLINGUAL Q5M PRN (Reason: Chest Pain) Rx Instructions: do not exceed 3 doses per episode albuterol sulfate 90 mcg/actuation HFA aerosol inhaler 2 puff INHALATION QID PRN (Reason: Shortness Of Breath) L.acidoph,saliva-B.bif-S.therm [Acidophilus Probiotic Blend] 175 mg Capsule 1 cap PO QAM aspirin 325 mg tablet 325 mg PO QAM meclizine 25 mg tablet 25 - 37.5 mg PO TID PRN (Reason: dizziness) alprazolam 1 mg tablet 1 mg PO BEDTIME mirtazapine 15 mg tablet 15 mg PO BEDTIME diclofenac sodium 1 % gel 2 g topical QID PRN (Reason: Pain) Rx Instructions: apply to back and gluteal region 4 times a day tramadol 50 mg Tablet 50 mg PO Q4H PRN (Reason: Pain) venlafaxine 75 mg capsule,extended release 24hr 75 mg PO QAM Discontinued amiodarone 100 mg tablet 100 mg PO QAM Discharge Orders: Discharge Order (Routine); Ordered 08/24/22 Ordered By: Osbaldo Cha Other Ambulatory Orders: DME: Oxygen (Order) Location: None Selected Ordered By: Osbaldo Cha Referrals: Balbir Bryant MD [Physician] - 1 week Witt,SYLVIA Smith [Primary Care Provider] - Patient Instructions: Amiodarone (By mouth), Levofloxacin (By mouth), Perry Catheter Care, Heart Failure (DC), Viral Pneumonia (DC), Opioid Safety Discharge Attestations Time Spent in Discharge Care*: less than 30 min Quality Metrics Clinical Quality Measures [ No reported AMI, CVA or VTE this stay] Coding Level of Care Code Acute Code for [facility] Fwd Diagnoses Atrial fibrillation with RVR I48.91 CHF (congestive heart failure) I50.9 Pleural effusion J90 Acute hyponatremia E87.1 Pneumonia J18.9 Hypoxia R09.02
--- NOTE | 2022-08-24 14:43 | PC.NURSE ---
Patient discharged. Followupappointment and new medication education provided. Bilateral IVs discontinued. Perry left in place and a followup with urology. Perry leg bag provided to patient and instructed on how to empty catheter bag. Medications sent to [facility]. HOME oxygen has already met with patient and provided portable tank. Portable tank check for function and HOME was called so they can meet patient at home. Patient taken out to vehicle via wheelchair to be taken home by friend. Patient signature form signed.
== END 2022-08-24 14:35 | disposition home or self-care (01) | DRG 291 ==
LOC: ER 18:41 → ICU 18:49
PROVIDERS: Internal Medicine; Admitting Provider Student in an Organized Health Care Education/Training Program; Emergency Provider Family Medicine; PCP Nurse Practitioner Family; Visit Provider Internal Medicine
DX: I11.0 Hypertensive heart disease with heart failure (principal); I50.33 Acute on chronic diastolic (congestive) heart failure; J18.9 Pneumonia, unspecified organism; J44.0 Chronic obstructive pulmonary disease with (acute) lower respiratory infection; E87.1 Hypo-osmolality and hyponatremia; I48.91 Unspecified atrial fibrillation; I25.10 Atherosclerotic heart disease of native coronary artery without angina pectoris; Z95.5 Presence of coronary angioplasty implant and graft; Z87.891 Personal history of nicotine dependence; E78.5 Hyperlipidemia, unspecified; I25.5 Ischemic cardiomyopathy; I73.9 Peripheral vascular disease, unspecified; G47.30 Sleep apnea, unspecified; R33.9 Retention of urine, unspecified; Z79.51 Long term (current) use of inhaled steroids; Z79.891 Long term (current) use of opiate analgesic; F41.9 Anxiety disorder, unspecified; K55.20 Angiodysplasia of colon without hemorrhage; M51.36 Other intervertebral disc degeneration, lumbar region; F32.A Depression, unspecified; R09.02 Hypoxemia; K59.00 Constipation, unspecified; Z96.641 Presence of right artificial hip joint; M81.0 Age-related osteoporosis without current pathological fracture; Z86.14 Personal history of Methicillin resistant Staphylococcus aureus infection; E03.9 Hypothyroidism, unspecified; K21.9 Gastro-esophageal reflux disease without esophagitis
CPT/HCPCS: 36415; 36600; 51702; 71045; 74177; 80048; 80051; 80053; 80069; 81003; 82330; 82436; 82805; 83605; 83690; 83735; 83880; 84133; 84145; 84300; 84443; 84484; 85025; 86403; 87040; 87426; 87449; 87486; 87581; 87633; 87641; 93005; 94760; 96365; 96367; 96372; 96375; 96376; 97161; 97530; 99291; J0456; J0696; J1650; J1940; J2185; J2270; J2405; J3370; J3490; J7030; J7050; Q9967

== ENCOUNTER 2022-09-04 06:00 | Outpatient (RCR) | payer MEDICARE, SELFPAY | END 2022-10-04 23:59 | disposition home or self-care (01) | LOC: TPT 06:00 | PROVIDERS: PCP Nurse Practitioner Family; Visit Provider Nurse Practitioner Family | DX: R26.89 Other abnormalities of gait and mobility (principal) | CPT/HCPCS: 97110; 97164 ==

== ENCOUNTER → 2022-09-08 13:10 | Outpatient (BNVA) | payer MEDICARE, SELFPAY | PROVIDERS: PCP Nurse Practitioner Family; Visit Provider Internal Medicine Cardiovascular Disease | DX: I65.29 Occlusion and stenosis of unspecified carotid artery (principal); I73.9 Peripheral vascular disease, unspecified; I25.5 Ischemic cardiomyopathy; E78.5 Hyperlipidemia, unspecified; R42 Dizziness and giddiness; I25.10 Atherosclerotic heart disease of native coronary artery without angina pectoris; Z87.891 Personal history of nicotine dependence; J44.9 Chronic obstructive pulmonary disease, unspecified; R26.81 Unsteadiness on feet; R29.6 Repeated falls; R54 Age-related physical debility; I48.91 Unspecified atrial fibrillation; I11.0 Hypertensive heart disease with heart failure; I50.9 Heart failure, unspecified | CPT/HCPCS: 99215 ==

== ENCOUNTER 2022-10-05 06:00 | Outpatient (RCR) | payer MEDICARE, SELFPAY | END 2022-10-28 23:59 | disposition home or self-care (01) | LOC: TPT 06:00 | PROVIDERS: PCP Nurse Practitioner Family; Visit Provider Nurse Practitioner Family | DX: R26.89 Other abnormalities of gait and mobility (principal) | CPT/HCPCS: 97110; 97116 ==